=== PATIENT | female | born 1985 | race Caucasian/White ===

== ENCOUNTER → 2019-12-23 13:01 | Outpatient (BNVA) | payer OTHER, MEDICAID, SELFPAY | PROVIDERS: Family Provider Family Medicine; PCP Family Medicine; Visit Provider Nurse Practitioner Psychiatric/Mental Health | DX: F41.0 Panic disorder [episodic paroxysmal anxiety] (principal); F25.0 Schizoaffective disorder, bipolar type; F17.210 Nicotine dependence, cigarettes, uncomplicated; F43.12 Post-traumatic stress disorder, chronic | CPT/HCPCS: 99213 ==

== ENCOUNTER → 2020-03-16 08:00 | Outpatient (BNVA) | payer OTHER, MEDICAID, SELFPAY | PROVIDERS: Family Provider Family Medicine; PCP Family Medicine; Visit Provider Nurse Practitioner Psychiatric/Mental Health | DX: F41.0 Panic disorder [episodic paroxysmal anxiety] (principal); F25.0 Schizoaffective disorder, bipolar type; F17.210 Nicotine dependence, cigarettes, uncomplicated | CPT/HCPCS: 99213 ==

== ENCOUNTER → 2020-05-13 11:35 | Outpatient (BNVA) | payer OTHER, MEDICAID, SELFPAY | PROVIDERS: Family Provider Family Medicine; PCP Family Medicine; Visit Provider Nurse Practitioner Psychiatric/Mental Health | DX: F41.0 Panic disorder [episodic paroxysmal anxiety] (principal); F25.0 Schizoaffective disorder, bipolar type; F17.210 Nicotine dependence, cigarettes, uncomplicated | CPT/HCPCS: 99214 ==

== ENCOUNTER 2020-05-26 08:58 | Outpatient (CLI) | payer MEDICARE, MEDICAID, SELFPAY ==
--- NOTE | 2020-05-26 09:15 | MM_ITS ---
WS: [id number] BILATERAL DIGITAL SCREENING MAMMOGRAPHY WITH CAD CLINICAL INFORMATION: SCREENING HISTORY: Screening mammogram. No current complaints. COMPARISON: TECHNIQUE: Bilateral CC and MLO views. FINDINGS: The breasts are composed of heterogeneous fibroglandular density tissue, which can limit the detectio n of small underlying mass lesions. Stable intramammary lymph node left axillary tail. 6 mm asymmetry mid depth right breast along the posterior nipple line best seen on the MLO imaging. R ECOMMEND FURTHER EVALUATION WITH RIGHT DIAGNOSTIC MAMMOGRAPHY SPOT COMPRESSION VIEWS AND ULTRASOUND. Left breast is unremarkable and unchanged. MM/[id number] IMPRESSION: BI-RADS: 0-Incomplete: Need additional imaging evaluation FOLLOW UP: Need Additional Imaging
== END 2020-05-26 08:59 | disposition home or self-care (01) ==
LOC: RADSHAW 09:11
PROVIDERS: PCP Family Medicine; Visit Provider Family Medicine
DX: Z12.31 Encounter for screening mammogram for malignant neoplasm of breast (principal); N64.89 Other specified disorders of breast
CPT/HCPCS: 77067

== ENCOUNTER → 2020-06-17 08:18 | Outpatient (BNVA) | payer MEDICARE, MEDICAID, SELFPAY | PROVIDERS: PCP Family Medicine; Visit Provider Nurse Practitioner Psychiatric/Mental Health | DX: F41.0 Panic disorder [episodic paroxysmal anxiety] (principal); F25.0 Schizoaffective disorder, bipolar type; F17.210 Nicotine dependence, cigarettes, uncomplicated | CPT/HCPCS: 99214 ==

== ENCOUNTER → 2020-07-22 08:38 | Outpatient (BNVA) | payer MEDICARE, MEDICAID, SELFPAY | PROVIDERS: PCP Family Medicine; Visit Provider Nurse Practitioner Psychiatric/Mental Health | DX: F41.0 Panic disorder [episodic paroxysmal anxiety] (principal); F25.0 Schizoaffective disorder, bipolar type; F17.210 Nicotine dependence, cigarettes, uncomplicated | CPT/HCPCS: 99214 ==

== ENCOUNTER 2020-10-11 10:47 | Inpatient (IN) | payer MEDICARE, MEDICAID, SELFPAY ==
[2020-10-11 10:56] VITALS: BP 118/81; PULSE 93; RESP 18; TEMP 36.6; O2SAT 94; BMI 32.5
--- NOTE | 2020-10-11 11:29 | ED_ITS ---
HPI - Psych General: Chief Complaint: Psychiatric Symptoms Stated Complaint: psych eval/ 96 Time Seen by Provider: 10/11/20 11:18 Source: patient Mode of arrival: ambulatory Limitations: no limitations History of Present Illness: HPI Narrative: Patient is a 35-year-old female who presents to ED today at the request of her psychiatric provider at [facility] for complaints of worsening auditory hallucinations. They have tried treating patient with Seroquel without success. Patient tells me the auditory hallucinations have her very afraid as the voices are familiar voices of people she knows. The voices are not telling her to harm herself. She tells me she is not suicidal or homicidal. She is not experiencing visual hallucinations. She denies drug or alcohol use. MD complaint: other (auditory hallucinations ) Onset (ago): week(s) Duration: constant History of same: Yes Associated symptoms: Reports auditory hallucinations and depression; Deny visual hallucinations, homicidal ideation or suicidal ideation Review of Systems Const: Denies: fever(s) or chills Card: Denies: chest pain, palpitations, lightheadedness or syncope Resp: Denies: dyspnea GI: Denies: abdominal pain, nausea, vomiting or diarrhea Skin/Breast: Denies: rash Neuro: Denies: headache(s) Psych: Reports: anxiety, depression and auditory hallucinations; Denies: visual hallucinations, suicidal ideation or homicidal ideation FOR[facility] ED PFSH: Medical History Anxiety and depression HPV in female Insomnia Nicotine dependence, cigarettes, uncomplicated Panic disorder without agoraphobia Schizoaffective disorder, bipolar type Schizophrenia Tachycardia Family History Family/Other Cancer Diabetes Other Hypertension Denies family history of CAD (coronary artery disease) Clotting disorder Dementia Hyperlipidemia Psychiatric illness Chronic kidney disease (CKD) Suicide Anesthesia complication Bleeding disorder Family history of premature coronary artery disease Lung disease Stroke Social History Smoking and tobacco status: current every day smoker cigarettes Packs smoked per day: 1 Alcohol intake: never Physical Exam Const: COMMON NORMALS: no acute distress, patient oriented x3, alert and well nourished GENERAL APPEARANCE: cooperative and well kempt Resp: COMMON NORMALS: normal respiratory effort and clear to auscultation bilaterally AUSCULTATION: clear to auscultation bilaterally Cardio: COMMON NORMALS: regular rate and regular rhythm RATE: regular rate RHYTHM: regular rhythm Neuro: COMMON NORMALS: patient oriented x3 SENSORIUM/ORIENTATION: Yes alert Psych: COMMON NORMALS: mental status grossly normal, Normal thought process present, cooperative, activity/motor behavior normal, denies homicidal ideation and denies suicidal ideation APPEARANCE: Yes grossly normal and Yes well kempt ATTITUDE: Yes calm ACTIVITY/MOTOR BEHAVIOR: Yes appropriate eye contact and No psychomotor agitation SPEECH: Yes slow MOOD & AFFECT: Yes Flat affect present THOUGHT PROCESS: Normal thought process present THOUGHT CONTENT: Yes Normal thought content present ATTENTION/CONCENTRATION: Yes attention grossly intact and Yes concentration grossly intact MEMORY/COGNITION: Yes memory grossly intact and Yes cognition grossly intact INSIGHT: Good insight present (Psych) JUDGEMENT: Good judgement present (Psych) MDM - Psych Lab Data: Labs: Lab Results 10/11/20 10/11/20 10/11/20 Range/Units 12:00 12:00 12:00 WBC 11.2 H (4.0-10.0) 10^3/ uL RBC 3.92 L (4.1-5.3) 10^6/u L Hgb 13.1 (11.5-15.3) g/dL Hct 37.9 (37.0-47.0) % MCV 96.7 (81-99) fL MCH 33.4 (28.0-34.0) pg MCHC 34.6 (30.0-36.0) g/dL RDW 11.8 L (12.1-15.1) % Plt Count 290 (130-400) 10^3/c mm MPV 9.5 (7.4-10.4) fL Neut % (Auto) 67.4 % Lymph % (Auto) 24.0 % Sioux % (Auto) 6.3 % Eos % (Auto) 1.6 % Baso % (Auto) 0.4 % Neut # (Auto) 7.56 (1.8-7.7) 10^3/u L Lymph # (Auto) 2.7 (0.8-4.8) 10^3/u L Sioux # (Auto) 0.7 (0.2-0.9) 10^3/u L Eos # (Auto) 0.2 (0.0-0.8) 10^3/u L Baso # (Auto) 0.1 (0.0-0.1) 10^3/u L Nucleated RBC % (a uto) 0 % Nucleated RBCs # 0.0 /100WBC Sodium 132 L (136-145) mmol/L Potassium 3.9 (3.5-5.1) mmol/L Chloride 96 L (98-107) mmol/L Carbon Dioxide 25 (22-29) mmol/L Anion Gap 14.9 (5-19) BUN 4 L (6-20) mg/dL Creatinine 0.6 (0.5-0.9) mg/dL GFR Calculation 113.8 (90-130) mL/min Glucose 99 (65-115) mg/dL Calculated Osmolal ity 271 L (285-295) mOsm/k g Calcium 9.0 (8.5-10.5) mg/dL Total Bilirubin 0.2 (0.15-1.2) mg/dL AST 13 (0-32) U/L ALT 12 (0-33) U/L Alkaline Phosphata se 115 H (35-105) IU/L Total Protein 6.7 (6.6-8.7) g/dL Albumin 3.9 (3.5-5.2) g/dL Globulin 2.8 (1.3-4.6) g/dL HCG, Qual Negative (Negative) Salicylates < 0.3 L (3-10) mg/dL Urine Opiates Scre en (Negative) ng/mL Acetaminophen < 5.0 L (10-30) ug/mL Ur Barbiturates Sc reen (Negative) ng/mL Carbamazepine (4.0-12.0) ug/mL Ur Phencyclidine S crn (Negative) ng/mL Ur Amphetamines Sc reen (Negative) ng/mL U Benzodiazepines Scrn (Negative) ng/mL Urine Cocaine Scre en (Negative) ng/mL U Marijuana (THC) Screen (Negative) ng/mL Ethyl Alcohol < 10 (0-10) mg/dL 10/11/20 10/11/20 Range/Units 12:00 12:00 WBC (4.0-10.0) 10^3/ uL RBC (4.1-5.3) 10^6/u L Hgb (11.5-15.3) g/dL Hct (37.0-47.0) % MCV (81-99) fL MCH (28.0-34.0) pg MCHC (30.0-36.0) g/dL RDW (12.1-15.1) % Plt Count (130-400) 10^3/c mm MPV (7.4-10.4) fL Neut % (Auto) % Lymph % (Auto) % Sioux % (Auto) % Eos % (Auto) % Baso % (Auto) % Neut # (Auto) (1.8-7.7) 10^3/u L Lymph # (Auto) (0.8-4.8) 10^3/u L Sioux # (Auto) (0.2-0.9) 10^3/u L Eos # (Auto) (0.0-0.8) 10^3/u L Baso # (Auto) (0.0-0.1) 10^3/u L Nucleated RBC % (a uto) % Nucleated RBCs # /100WBC Sodium (136-145) mmol/L Potassium (3.5-5.1) mmol/L Chloride (98-107) mmol/L Carbon Dioxide (22-29) mmol/L Anion Gap (5-19) BUN (6-20) mg/dL Creatinine (0.5-0.9) mg/dL GFR Calculation (90-130) mL/min Glucose (65-115) mg/dL Calculated Osmolal ity (285-295) mOsm/k g Calcium (8.5-10.5) mg/dL Total Bilirubin (0.15-1.2) mg/dL AST (0-32) U/L ALT (0-33) U/L Alkaline Phosphata se (35-105) IU/L Total Protein (6.6-8.7) g/dL Albumin (3.5-5.2) g/dL Globulin (1.3-4.6) g/dL HCG, Qual (Negative) Salicylates (3-10) mg/dL Urine Opiates Scre en Negative (Negative) ng/mL Acetaminophen (10-30) ug/mL Ur Barbiturates Sc reen Negative (Negative) ng/mL Carbamazepine 9.1 (4.0-12.0) ug/mL Ur Phencyclidine S crn Negative (Negative) ng/mL Ur Amphetamines Sc reen Negative (Negative) ng/mL U Benzodiazepines Scrn Negative (Negative) ng/mL Urine Cocaine Scre en Negative (Negative) ng/mL U Marijuana (THC) Screen Negative (Negative) ng/mL Ethyl Alcohol (0-10) mg/dL Discharge Plan Discharge Patient Disposition: Admitted As Inpatient Clinical Impression: Auditory hallucinations Condition: Stable Coding Level of Care Code ED [employer] for Randi Fwd Exam Expanded Problem Focused
[2020-10-11 12:10] VITALS: BP 104/72; PULSE 81; RESP 16; O2SAT 96
[2020-10-11 12:18] LABS: Basophils # 0.1 10^3/uL (0.0-0.1); Basophils % 0.4 %; Eosinophils # 0.2 10^3/uL (0.0-0.8); Eosinophils % 1.6 %; Hematocrit 37.9 % (37.0-47.0); Hemoglobin 13.1 g/dL (11.5-15.3); Lymphocytes # 2.7 10^3/uL (0.8-4.8); Mean Corpuscular HGB Conc 34.6 g/dL (30.0-36.0); Mean Corpuscular Hemoglobin 33.4 pg (28.0-34.0); Mean Corpuscular Volume 96.7 fL (81-99); Mean Platelet Volume 9.5 fL (7.4-10.4); Monocytes # 0.7 10^3/uL (0.2-0.9); Monocytes % 6.3 %; Neutrophils # 7.56 10^3/uL (1.8-7.7); Neutrophils % 67.4 %; Nucleated Red Blood Cells % 0 %; Platelet Count 290 10^3/cmm (130-400); Red Blood Count 3.92 10^6/uL (4.1-5.3); Red Cell Distribution Width 11.8 % (12.1-15.1); White Blood Count 11.2 10^3/uL (4.0-10.0)
[2020-10-11 12:41] LABS: Amphetamines Screen Urine Negative (Negative); Barbiturates Screen Urine Negative (Negative); Benzodiazepines Screen Urine Negative (Negative); Cocaine Screen Urine Negative (Negative); Opiate Screen Urine Negative (Negative); PCP Screen Urine Negative (Negative); THC Screen Urine Negative (Negative)
[2020-10-11 12:51] LABS: Alanine Aminotransferase 12 U/L (0-33); Albumin Level 3.9 g/dL (3.5-5.2); Alkaline Phosphatase 115 IU/L (35-105); Anion Gap 14.9 (5-19); Aspartate Amino Transferase 13 U/L (0-32); Blood Urea Nitrogen 4 mg/dL (6-20); Carbon Dioxide 25 mmol/L (22-29); Chloride 96 mmol/L (98-107); Globulin 2.8 g/dL (1.3-4.6); Glomerular Filtration Rate 113.8 mL/min (90-130); Glucose 99 mg/dL (65-115); Osmolality Calculated 271 mOsm/kg (285-295); Potassium 3.9 mmol/L (3.5-5.1); Sodium 132 mmol/L (136-145); Total Bilirubin 0.2 mg/dL (0.15-1.2); Total Protein 6.7 g/dL (6.6-8.7)
[2020-10-11 12:52] LABS: HCG, Serum Qual Negative (Negative)
[2020-10-11 12:53] LABS: Acetaminophen < 5.0 ug/mL (10-30); Alcohol Level < 10 mg/dL (0-10); Salicylate < 0.3 mg/dL (3-10)
[2020-10-11 12:54] LABS: Carbamazepine Tegretol 9.1 ug/mL (4.0-12.0)
[2020-10-11 14:00] VITALS: BP 116/78; PULSE 87; RESP 16; TEMP 36.9; O2SAT 94
[2020-10-11] MEDS: carBAMazepine 200 mg Tablet 300 MG PO (17:59)
[2020-10-11] MEDS: quetiapine XR (24HR) 300 mg Tablet 600 MG PO (18:00)
[2020-10-11 19:32] VITALS: BP 109/76; PULSE 82; TEMP 36.7; O2SAT 96
[2020-10-11] MEDS: CLONazepam 1 mg Tablet PO (19:38)
[2020-10-11] MEDS: trazodone 50 mg Tablet PO (19:38)
[2020-10-11] MEDS: hyDROXYzine 25 mg Capsule 50 MG PO (19:38)
[2020-10-12] MEDS: duloxetine 30 mg Capsule PO (05:42)
[2020-10-12] MEDS: duloxetine 60 mg Capsule PO (05:42)
[2020-10-12 05:46] VITALS: BP 96/61; PULSE 69; RESP 18; TEMP 36.9; O2SAT 92
[2020-10-12] MEDS: bisacodyl 5 mg Tablet PO (08:32)
[2020-10-12] MEDS: CLONazepam 1 mg Tablet PO ×3 (08:32→21:19)
[2020-10-12] MEDS: carBAMazepine 200 mg Tablet 300 MG PO ×2 (08:32→18:08)
[2020-10-12] MEDS: multivitamin therapeutic Tablet 1 TAB PO (08:32)
[2020-10-12] MEDS: baclofen 10 mg Tablet PO (08:32)
[2020-10-12] MEDS: pantoprazole DR 40 mg Tablet PO (08:32)
[2020-10-12] MEDS: docusate sodium 100 mg Capsule PO (08:32)
--- NOTE | 2020-10-12 10:21 | P.HP_ITS ---
Providers/Chief Complaint Admitting Physician: Rojelio Copeland MD Primary Care Provider: Meseret Tejeda DO Chief Complaint: psych eval HPI NPU History of Present Illness Kathrin Patricio is a 35 year old female who presented to the emergency department with the following report: Chief Complaint: Psychiatric Symptoms Stated Complaint: psych eval/ 96 Time Seen by Provider: 10/11/20 11:18 Source: patient Mode of arrival: ambulatory Limitations: no limitations History of Present Illness: HPI Narrative: Patient is a 35-year-old female who presents to ED today at the request of her psychiatric provider at [facility] [place] for complaints of worsening auditory hallucinations. They have tried treating patient with Seroquel without success. Patient tells me the auditory hallucinations have her very afraid as the voices are familiar voices of people she knows. The voices are not telling her to harm herself. She tells me she is not suicidal or homicidal. She is not experiencing visual hallucinations. She denies drug or alcohol use. complaint: other (auditory hallucinations ) Onset (ago): week(s) Duration: constant History of same: Yes Associated symptoms: Reports auditory hallucinations and depression; Deny visual hallucinations, homicidal ideation or suicidal ideation. So she is admitted to the neuropsychiatric unit for definitive treatment of those issues. Kathrin presents today reporting that she is not sure exactly why they thought she needed to be here. But then in the conversation after multiple questions little frustration she revealed that she is having significant voices that she is hearing but the voices are real and that they knew she was coming up here and once he got here they got quiet to throw her off. We reviewed her me dication including Zyprexa, Clozaril, Seroquel, Abilify and others including Depakote and lithium and she was resistant to the thought that they were helpful. She reported that there've been a discussion about initiating Thorazine and Invega in injectable form and suggested that it's possible that the Invega did help and it may be she just needed a higher dose. We discussed the risks benefits and alternatives of initiating Invega and she understood and agreed receive as is documented in this note. We agreed that we would wait to get a response from her outpatient providers given her extensive medication history before embarking on this plan. She endorses that she had been admitted here multiple times the last time was in March 2019. Due to her challenges as a historian we reviewed that note and he agreed that it was an accurate historical data point and an excerpt is included below. Per her last [facility] inpatient eval: Date of Service: Apr 04, 2019 Chief Complaint: I just get harassed by these voices now. HPI: Ms. Patricio is a 34-year-old female with a history of schizoaffective disorder bipolar type who is known to our [facility] who came to [facility] ED with a complaint of worsening auditory hallucinations, delusions, and suicidal/homicidal ideation. The patient reports that recently one of the voices has been threatening her to be with him or he'll kill her. She reports that it is someone who is It's somebody that I'm planning to meet. He's semi-famous, but i don't wanna say his name. She reports that she is planning to contact him and put her or Facebook and should not have even told this provider because she fears I'll get in trouble. She is tearful throughout the interview and knows that she cannot have a marriage relationship or children with her chronic mental illness. She reports that she feels that she has to go off of her medications due to , her mental illness will only get worse. She reports that the voices are intermittent but seem to have been getting worse over the past several months. As result of this experience, the patient reports sometimes when I think of this man, I get so mad. I have thoughts of hurting my mother but not him. I've had thoughts of giving up on myself. Patient denies any plans to harm herself or her mother reports that her mother also has some sort of role in these hallucinations which are difficult to understand. Psychiatric review systems: The patient reports frequent depression, anxiety, and irritability due to these intrusive command/threatening auditory h allucinations. She denies any visual hallucinations. Does endorse paranoia that her life may be an danger and apparent erotomanic delusions that someone famous is in love with her. She reports that she has been sleeping and eating okay. She often feels fatigued or socially withdrawn due to these hallucinations. Past Medical History Past Medical History: PAST PSYCHIATRIC HISTORY: -Patient has had greater than 10 hospitalizations on the NPU for acute exacerbation of schizoaffective disorder and anxiety. Last admission in October 2018. Patient currently goes to [facility] [place] and sees Luisa VARGAS prescribes non-klonopin meds. Denies hx SA/ violence. -Previous medication trials include clonazepam, Invega, Abilify including long- acting injectable (reports feeling better since off the medication), Geodon, Celexa/Lexapro not helpful, Prozac increased head pressure. She has recently been taking Abilify 30 mg daily in addition to receiving the Abilify Maintena injection 400 mg monthly. Other past medications Seroquel XR 800 mg every 7 PM with Klonopin 0.5 mg 3 times a day when necessary. Patient reports Haldol was helpful and has had dose increased to 5 mg twice a day approximately one month ago with additional when necessary available. PAST FAMILY PSYCHIATRIC HISTORY: -reports extensive mood/ psychotic do SOCIAL HISTORY: -Currently lives at [facility], she does have family/mother in the area, Amilcar Calabrese is her guardian. on disability, unemployed. Denies alcohol/ illicit drugs. Tobacco- 1.5PPD. Denies legal problems. PAST MEDICAL HISTORY: -onychomycosis, Plantar fasciitis. Denies hx seizures/ surgeries. Meds NPU Home Medications Medication Instructions Recorded Confirmed Last Taken Type baclofen 10 mg tablet 10 mg PO TID PRN 11/12/19 10/11/20 Unknown History nigkyyp-mppxxwqno-hgps 1 tab PO DAILY 11/12/19 10/11/20 Unknown History diphenhydramine HCl 25 mg tablet 25 mg PO TID PRN 11/12/19 10/11/20 Unknown History hydrocortisone 1 % topical cream 1 applic TOPICAL TID PRN 11/12/19 10/11/20 Unknown History multivitamin with iron-mineral 1 tab PO DAILY 11/12/19 10/11/20 Unknown History norgestimate-ethinyl estradiol 1 tab PO DAILY 11/12/19 10/11/20 Unknown History 0.18 mg/0.215mg/0.25mg-35 mcg(28)tablet omeprazole 40 mg capsule,delayed 40 mg PO DAILY 11/12/19 10/11/20 Unknown History release tramadol 50 mg tablet 50 mg PO Q6H PRN 11/12/19 10/11/20 Unknown History carbamazepine 200 mg tablet 300 mg PO BID 30 Days #90 tab 06/17/20 10/11/20 Unknown Rx duloxetine 30 mg capsule,delayed 30 mg PO QAM #30 cap 06/17/20 10/11/20 Unknown Rx release duloxetine 60 mg capsule,delayed 60 mg PO QAM #30 cap 06/17/20 10/11/20 Unknown Rx release clonazepam 1 mg tablet 1 mg PO TID #90 tab 07/26/20 10/11/20 Unknown Rx haloperidol 10 mg tablet 10 mg PO BID PRN #60 tab 07/26/20 10/11/20 Unknown Rx quetiapine 300 mg tablet,extended 600 mg PO .7 pm #60 tab 10/06/20 10/11/20 Unknown Rx release 24 hr Colace 100 mg PO DAILY 10/11/20 10/11/20 Unknown History Miralax 1 packet PO DAILY 10/11/20 10/11/20 Unknown History Mazeppa 3 1,000 mg PO DAILY 10/11/20 10/11/20 Unknown History Tri-Linyah 1 tab PO DAILY 10/11/20 10/11/20 Unknown History Tylenol Extra Strength 1 - 2 tab PO Q4-5H PRN 10/11/20 10/11/20 Unknown History albuterol 2 puff INHALATION QID PRN 10/11/20 10/11/20 Unknown History benztropine [Cogentin] 1 mg PO BEDTIME 10/11/20 10/11/20 Unknown History folic acid 800 mg PO DAILY 10/11/20 10/11/20 Unknown History ibuprofen [Motrin] 200 mg PO Q6H PRN 10/11/20 10/11/20 Unknown History mag citrate-potassium citrate 1 % PO PER PKG DIR PRN 10/11/20 10/11/20 Unknown History pilocarpine HCl 5 mg PO TID 10/11/20 10/11/20 Unknown History senna 17 mg PO DAILY PRN 10/11/20 10/11/20 Unknown History Allergies Allergy/AdvReac Type Severity Reaction Status Date / Time Sulfa (Sulfonamide Allergy algy-rash Verified 10/11/20 10:59 Antibiotics) PFSH NPU PFSH: Medical History Anxiety and depression HPV in female Insomnia Nicotine dependence, cigarettes, uncomplicated Panic disorder without agoraphobia Schizoaffective disorder, bipolar type Schizophrenia Tachycardia Family History Family/Other Cancer Diabetes Other Hypertension Denies family history of CAD (coronary artery disease) Clotting disorder Dementia Hyperlipidemia Psychiatric illness Chronic kidney disease (CKD) Suicide Anesthesia complication Bleeding disorder Family history of premature coronary artery disease Lung disease Stroke Social History Smoking and tobacco status: current every day smoker cigarettes Packs smoked per day: 1 Alcohol intake: never Mental Status Exam MSE Comments: This is an obese white female with hospital scrubs on with appropriate grooming and eye contact. No abnormal movements except for mild psychomotor retardation. Cooperative with exam in mild distress. Speech was normal rate and volume. Mood described as don't know, affect slightly subdued. Thought process organized. Thought content: Patient denied suicidal or homicidal ideation, there were no delusions reported but paranoid ideation was present, she endorsed auditory hallucinations but believes him to be real and denies visual hallucinations. Attention and concentration appeared intact and memory somewhat reliable but none more formally tested. She is alert and oriented ?3. Insight and judgment are impaired. Vitals/I&O/Wt Last Vital Signs Temp 98.4 F 10/12/20 05:46 Pulse 69 10/12/20 05:46 Resp 18 10/12/20 05:46 BP 96/61 10/12/20 05:46 Pulse Ox 92 10/12/20 05:46 Weight last 48 hrs Weight 86.183 kg Data NPU : 10/11/20 12:00 10/11/20 12:00 A&P Assessment and plan (1) Auditory hallucinations: Status: Acute (2) Nicotine dependence, cigarettes, uncomplicated: Status: Chronic (3) Schizoaffective disorder, bipolar type: Status: Chronic (4) Panic disorder without agoraphobia: Status: Chronic (5) Onychomycosis: Status: Acute Additional A&P Information This is a 35-year-old white female with a long history of thought disorder and schizoaffective disorder who presents with breakthrough symptoms and an openness to adjusting medications. 1. Continue current medication. We will consider initiating Invega 6 mg by mouth every morning after discussing situation with outpatient providers. 2. Continue every 15 minute checks for safety. 3. Encourage individual, group and milieu therapy. Involuntary Hold Information 96 Hour Hold: 96 Hour Involuntary Admission: No Attestations NPU Medical Necessity Statement*: Inpatient hospitalization is medically necessary and the clinically appropriate intervention at this time. We will monitor medications and make changes as indicated. She will be in the hospital over two midnights. Likely length of stay 4-6 days. Coding Level of Care Code Acute Photo Lab Technician for Randi Fwd Diagnoses Auditory hallucinations R44.0 Nicotine dependence, cigarettes, uncomplicated F17.210 Schizoaffective disorder, bipolar type F25.0 Panic disorder without agoraphobia F41.0 Onychomycosis B35.1
[2020-10-12 14:00] VITALS: BP 113/75; PULSE 93; RESP 20; TEMP 36.6; O2SAT 94
[2020-10-12 17:17] VITALS: PULSE 95; RESP 15; O2SAT 97
[2020-10-12] MEDS: quetiapine XR (24HR) 300 mg Tablet 600 MG PO (18:08)
[2020-10-12] MEDS: hyDROXYzine 25 mg Capsule 50 MG PO (21:19)
[2020-10-12] MEDS: benztropine 1 mg Tablet PO (21:19)
[2020-10-12] MEDS: trazodone 50 mg Tablet PO (21:20)
[2020-10-12 22:00] VITALS: BP 119/79; PULSE 86; RESP 17; TEMP 36.8; O2SAT 94
[2020-10-13 06:00] VITALS: BP 101/67; PULSE 70; RESP 15; TEMP 36.7; O2SAT 95
[2020-10-13] MEDS: duloxetine 30 mg Capsule PO (06:35)
[2020-10-13] MEDS: duloxetine 60 mg Capsule PO (06:35)
[2020-10-13] MEDS: docusate sodium 100 mg Capsule PO (08:07)
[2020-10-13] MEDS: pantoprazole DR 40 mg Tablet PO (08:07)
[2020-10-13] MEDS: baclofen 10 mg Tablet PO (08:07)
[2020-10-13] MEDS: bisacodyl 5 mg Tablet PO (08:07)
[2020-10-13] MEDS: carBAMazepine 200 mg Tablet 300 MG PO ×2 (08:07→18:25)
[2020-10-13] MEDS: CLONazepam 1 mg Tablet PO ×3 (08:07→22:03)
[2020-10-13] MEDS: multivitamin therapeutic Tablet 1 TAB PO (08:08)
--- NOTE | 2020-10-13 10:06 | PC.RESP ---
Smoking Cessation information sent to patient.
--- NOTE | 2020-10-13 12:52 | PM.NPN ---
Subjective NPU Subjective: Interval history: Kathrin presents today reporting that things are going okay. We discussed our conversation with [facility] and the recommendation to initiate Invega followed by getting her on the Invega injection and she understood and agreed to proceed as is documented in this note. She reports that things are unchanged from yesterday. Endorsing some perceptual disturbances but reporting that she is optimistic and agreeable to making these medication changes. Mental Status Exam MSE Comments: This is an obese white female with hospital scrubs on with appropriate grooming and eye contact. No abnormal movements except for mild psychomotor retardation. Cooperative with exam in no acute distress. Speech was normal rate and volume. Mood described as okay, affect slightly subdued. Thought process organized. Thought content: Patient denied suicidal or homicidal ideation, there were no delusions reported but paranoid ideation was present, she endorsed auditory hallucinations but believes him to be real and denies visual hallucinations. Attention and concentration appeared intact and memory somewhat reliable but none more formally tested. She is alert and oriented ?3. Insight and judgment are impaired, but improving. Vitals/I&O/Wt Last Vital Signs Temp 98.0 F 10/13/20 06:00 Pulse 70 10/13/20 06:00 Resp 15 10/13/20 06:00 BP 101/67 10/13/20 06:00 Pulse Ox 95 10/13/20 06:00 Data NPU : 10/11/20 12:00 10/11/20 12:00 A&P Additional A&P Information (1) Auditory hallucinations: (2) Nicotine dependence, cigarettes, uncomplicated: (3) Schizoaffective disorder, bipolar type: (4) Panic disorder without agoraphobia: (5) Onychomycosis: Additional A&P Information This is a 35-year-old white female with a long history of thought disorder and schizoaffective disorder who presents with breakthrough symptoms and an openness to adjusting medications. 1. Continue current medication. Invega 6 mg p.o. every morning. We will look to start the injection on Sunday if she tolerates the oral dosing. 2. Continue every 15 minute checks for safety. 3. Encourage individual, group and milieu therapy. Involuntary Hold Information 96 Hour Hold: 96 Hour Involuntary Admission: No Attestations NPU Medical Necessity Statement*: Inpatient hospitalization is medically necessary and the clinically appropriate intervention at this time. We will monitor medications and make changes as indicated. Likely length of stay 3-5 days. Coding Level of Care Code Acute Regional Director Of Admissions for Randi Sethi
[2020-10-13] MEDS: paliperidone ER 6 mg Tablet PO (13:27)
[2020-10-13] MEDS: TRAMadol 50 mg Tablet PO (13:42)
[2020-10-13 13:59] VITALS: PULSE 89; RESP 16
[2020-10-13 14:00] VITALS: BP 105/76; PULSE 92; RESP 20; TEMP 36.6; O2SAT 96
[2020-10-13] MEDS: quetiapine XR (24HR) 300 mg Tablet PO (18:26)
[2020-10-13 20:10] VITALS: BP 124/85; PULSE 95; RESP 16; TEMP 36.3; O2SAT 93
[2020-10-13] MEDS: benztropine 1 mg Tablet PO (22:03)
[2020-10-13] MEDS: OLANZapine 5 mg ODT PO (22:03)
[2020-10-14 06:00] VITALS: BP 133/91; PULSE 82; RESP 18; TEMP 36.6; O2SAT 98
[2020-10-14] MEDS: duloxetine 60 mg Capsule PO (06:06)
[2020-10-14] MEDS: duloxetine 30 mg Capsule PO (06:06)
[2020-10-14] MEDS: TRAMadol 50 mg Tablet PO ×3 (06:37→21:25)
[2020-10-14] MEDS: carBAMazepine 200 mg Tablet 300 MG PO ×2 (08:37→16:52)
[2020-10-14] MEDS: baclofen 10 mg Tablet PO (08:37)
[2020-10-14] MEDS: bisacodyl 5 mg Tablet PO (08:37)
[2020-10-14] MEDS: paliperidone ER 6 mg Tablet PO (08:38)
[2020-10-14] MEDS: CLONazepam 1 mg Tablet PO ×3 (08:38→21:25)
[2020-10-14] MEDS: multivitamin therapeutic Tablet 1 TAB PO (08:39)
[2020-10-14] MEDS: pantoprazole DR 40 mg Tablet PO (08:39)
[2020-10-14] MEDS: docusate sodium 100 mg Capsule PO (08:39)
--- NOTE | 2020-10-14 12:42 | PC.NURSE ---
PRN Med - Patient requested pain med for leg pain. rates pain at an 8/10. Encouraged patient to ambulate or elevate for pain relief if pain continues. Patient voiced understanding and Tramadol given PO. MALIW, COMMUTATOR REPAIRER
[2020-10-14 14:00] VITALS: BP 106/74; PULSE 83; RESP 18; TEMP 36.8; O2SAT 97
--- NOTE | 2020-10-14 15:02 | PM.NPN ---
Subjective NPU Subjective: Interval history: Monitor presented today reporting that she is doing a little better today. She does report at this point that she feels she can go forward with the Invega today. Patient came in was not helpful but later said it cured her voices. Unfortunately the likely reality is that she is focused on discharge and would likely say what ever she thinks will accomplish that. We discussed the possibility of injection in the morning then begin discussing discharge planning. She reports she is eating okay and sleeping fine. Mental Status Exam MSE Comments: This is an obese white female with hospital scrubs on with appropriate grooming and eye contact. No abnormal movements. Cooperative with exam in no acute distress. Speech was normal rate and volume. Mood described as better, affect congruent. Thought process organized. Thought content: Patient denied suicidal or homicidal ideation, there were no delusions reported but paranoid ideation was present, she denied auditory hallucinations. Attention and concentration appeared intact and memory somewhat reliable but none more formally tested. She is alert and oriented ?3. Insight and judgment are impaired, but improving. Vitals/I&O/Wt Last Vital Signs Temp 98.2 F 10/14/20 14:00 Pulse 83 10/14/20 14:00 Resp 18 10/14/20 14:00 BP 106/74 10/14/20 14:00 Pulse Ox 97 10/14/20 14:00 Data NPU : 10/11/20 12:00 10/11/20 12:00 A&P Additional A&P Information (1) Auditory hallucinations: (2) Nicotine dependence, cigarettes, uncomplicated: (3) Schizoaffective disorder, bipolar type: (4) Panic disorder without agoraphobia: (5) Onychomycosis: Additional A&P Information This is a 35-year-old white female with a long history of thought disorder and schizoaffective disorder who presents with breakthrough symptoms and an openness to adjusting medications. 1. Continue current medication. We will look to start the injection on Sunday. 2. Continue every 15 minute checks for safety. 3. Encourage individual, group and milieu therapy. Involuntary Hold Information 96 Hour Hold: 96 Hour Involuntary Admission: No Attestations NPU Medical Necessity Statement*: Inpatient hospitalization is medically necessary and the clinically appropriate intervention at this time. We will monitor medications and make changes as indicated. Likely length of stay 2-4 days. Coding Level of Care Code Acute Rd Mechanical Engineer for Randi Sethi
[2020-10-14] MEDS: quetiapine XR (24HR) 300 mg Tablet PO (17:59)
[2020-10-14 19:31] VITALS: PULSE 77; RESP 17; O2SAT 98
[2020-10-14 20:01] VITALS: BP 111/79; PULSE 64; RESP 19; TEMP 36.6; O2SAT 96
[2020-10-14] MEDS: benztropine 1 mg Tablet PO (21:25)
[2020-10-15 06:00] VITALS: BP 115/78; PULSE 80; RESP 17; TEMP 36.9; O2SAT 92
[2020-10-15] MEDS: duloxetine 30 mg Capsule PO (06:26)
[2020-10-15] MEDS: duloxetine 60 mg Capsule PO (06:26)
[2020-10-15] MEDS: pantoprazole DR 40 mg Tablet PO (08:05)
[2020-10-15] MEDS: multivitamin therapeutic Tablet 1 TAB PO (08:05)
[2020-10-15] MEDS: carBAMazepine 200 mg Tablet 300 MG PO (08:05)
[2020-10-15] MEDS: bisacodyl 5 mg Tablet PO (08:05)
[2020-10-15] MEDS: CLONazepam 1 mg Tablet PO (08:07)
[2020-10-15] MEDS: docusate sodium 100 mg Capsule PO (08:07)
[2020-10-15] MEDS: paliperidone ER 6 mg Tablet PO (08:07)
[2020-10-15] MEDS: baclofen 10 mg Tablet PO (08:07)
[2020-10-15] MEDS: paliperidone palmitate 234 mg Syringe IM (09:03)
--- NOTE | 2020-10-15 09:06 | PC.NURSE ---
INVLATOYA SUSTENNA 234 MG GIVEN IM RIGHT DELTOID PER PHYSICIAN ORDER. PT EDUCATED ON MED GIVEN & VERBALIZED UNDERSTANDING. WILL CONT TO MONITOR INJECTION SITE FOR ANY REDNESS, SWELLING, OR IRRITATION. LOT [id number] EXP 01/2022
--- NOTE | 2020-10-15 13:22 | PC.SOCIAL ---
Important Medicare Message Reviewed Important Medicare Message with patient's guardian Amilcar Lizarraga. No questions at this time.
--- NOTE | 2020-10-15 14:49 | PM.NDC ---
Diagnoses at Discharge Discharge Diagnosis (1) Auditory hallucinations: Status: Acute (2) Nicotine dependence, cigarettes, uncomplicated: Status: Chronic (3) Schizoaffective disorder, bipolar type: Status: Chronic (4) Panic disorder without agoraphobia: Status: Chronic (5) Onychomycosis: Status: Acute Reason for Visit Reason for Visit: psych eval Brief History: History of Present Illness Kathrin Patricio is a 35 year old female who presented to the emergency department with the following report: Chief Complaint: Psychiatric Symptoms Stated Complaint: psych eval/ 96 Time Seen by Provider: 10/11/20 11:18 Source: patient Mode of arrival: ambulatory Limitations: no limitations History of Present Illness: HPI Narrative: Patient is a 35-year-old female who presents to ED today at the request of her psychiatric provider at [facility] for complaints of worsening auditory hallucinations. They have tried treating patient with Seroquel without success. Patient tells me the auditory hallucinations have her very afraid as the voices are familiar voices of people she knows. The voices are not telling her to harm herself. She tells me she is not suicidal or homicidal. She is not experiencing visual hallucinations. She denies drug or alcohol use. MD complaint: other (auditory hallucinations ) Onset (ago): week(s) Duration: constant History of same: Yes Associated symptoms: Reports auditory hallucinations and depression; Deny visual hallucinations, homicidal ideation or suicidal ideation. So she is admitted to the neuropsychiatric unit for definitive treatment of those issues. Kathrin presents today reporting that she is not sure exactly why they thought she needed to be here. But then in the conversation after multiple questions little frustration she revealed that she is having significant voices that she is hearing but the voices are real and that they knew she was coming up here and once he got here they got quiet to throw her off. We reviewed her medication including Zyprexa, Clozaril, Seroquel, Abilify and others including Depakote and lithium and she was resistant to the thought that they were helpful. She reported that there've been a discussion about initiating Thorazine and Invega in injectable form and suggested that it's possible that the Invega did help and it may be she just needed a higher dose. We discussed the risks benefits and alternatives of initiating Invega and she understood and agreed receive as is documented in this note. We agreed that we would wait to get a response from her outpatient providers given her extensive medication history before embarking on this plan. She endorses that she had been admitted here multiple times the last time was in March 2019. Due to her challenges as a historian we reviewed that note and he agreed that it was an accurate historical data point and an excerpt is included below. Per her last [facility] [place] eval: Date of Service: Apr 04, 2019 Chief Complaint: I just get harassed by these voices now. HPI: Ms. Patricio is a 34-year-old female with a history of schizoaffective disorder bipolar type who is known to our behavior health services who came to [facility] ED with a complaint of worsening auditory hallucinations, delusions, and suicidal/homicidal ideation. The patient reports that recently one of the voices has been threatening her to be with him or he'll kill her. She reports that it is someone who is It's somebody that I'm planning to meet. He's semi-famous, but i don't wanna say his name. She reports that she is planning to contact him and put her or Facebook and should not have even told this provider because she fears I'll get in trouble. She is tearful throughout the interview and knows that she cannot have a marriage relationship or children with her chronic mental illness. She reports that she feels that she has to go off of her medications due to , her mental illness will only get worse. She reports that the voices are intermittent but seem to have been getting worse over the past several months. As result of this experience, the patient reports sometimes when I think of this man, I get so mad. I have thoughts of hurting my mother but not him. I've had thoughts of giving up on myself. Patient denies any plans to harm herself or her mother reports that her mother also has some sort of role in these hallucinations which are difficult to understand. Psychiatric review systems: The patient reports frequent depression, anxiety, and irritability due to these intrusive command/threatening auditory hallucinations. She denies any visual hallucinations. Does endorse paranoia that her life may be an danger and apparent erotomanic delusions that someone famous is in love with her. She reports that she has been sleeping and eating okay. She often feels fatigued or socially withdrawn due to these hallucinations. Past Medical History Past Medical History: PAST PSYCHIATRIC HISTORY: -Patient has had greater than 10 hospitalizations on the NPU for acute exacerbation of schizoaffective disorder and anxiety. Last admission in October 2018. Patient currently goes to [facility] and sees Luisa VARGAS prescribes non-klonopin meds. Denies hx SA/ violence. -Previous medication trials include clonazepam, Invega, Abilify including long-acting injectable (reports feeling better since off the medication), Geodon, Celexa/Lexapro not helpful, Prozac increased head pressure. She has recently been taking Abilify 30 mg daily in addition to receiving the Abilify Maintena injection 400 mg monthly. Other past medications Seroquel XR 800 mg every 7 PM with Klonopin 0.5 mg 3 times a day when necessary. Patient reports Haldol was helpful and has had dose increased to 5 mg twice a day approximately one month ago with additional when necessary available. PAST FAMILY PSYCHIATRIC HISTORY: -reports extensive mood/ psychotic do SOCIAL HISTORY: -Currently lives at [facility], she does have family/mother in the area, Amilcar Calabrese is her guardian. on disability, unemployed. Denies alcohol/ illicit drugs. Tobacco- 1.5PPD. Denies legal problems. PAST MEDICAL HISTORY: -onychomycosis, Plantar fasciitis. Denies hx seizures/ surgeries. Hospital Course Hospital Course Kathrin presents to the emergency department at the behest of her outpatient team expressing significant concerns for psychosis and fear for suicidality. She was on a 96-hour hold and was admitted to the neuropsychiatric unit for definitive treatment of those issues. On the unit she very slowly acclimated to the individual, group and milieu therapy and was greatly impacted by her psychosis. She had been on multiple medications and was started on Invega and ultimately give any injection prior to Rx. She showed modest improvement and was able to contract for safety prior to discharge. She has significant outpatient support and she was connected with those resources at discharge. During the hospitalization, patient had routine laboratory studies which were within normal limits except for few outliers. Additionally there was a general medical evaluation which was also within normal limits and revealed no new acute processes. Discharge Summary: At the time of discharge, lethality was denied and psychosis was resolving. Mood and anxiety were well managed. Patient endorsed a plan to avoid all drugs of abuse and follow-up with the aftercare recommendations of the treatment team. Patient was evaluated and deemed to be absent credible lethality, and had achieved the maximum benefit from an inpatient hospitalization, so was discharged. Involuntary Hold Information 96 Hour Hold: 96 Hour Involuntary Admission: No Mental Status Exam MSE Comments: This is an obese white female with hospital scrubs on with appropriate grooming and eye contact. No abnormal movements. Cooperative with exam in no acute distress. Speech was normal rate and volume. Mood described as better, affect congruent. Thought process organized. Thought content: Patient denied suicidal or homicidal ideation, there were no delusions reported but paranoid ideation was present, she denied auditory hallucinations. Attention and concentration appeared intact and memory somewhat reliable but none more formally tested. She is alert and oriented ?3. Insight and judgment are impaired, but improving. Discharge Data Vitals: Last Vital Signs Temp 98.5 F 10/15/20 06:00 Pulse 80 10/15/20 06:00 Resp 17 10/15/20 06:00 BP 115/78 10/15/20 06:00 Pulse Ox 92 10/15/20 06:00 Discharge Plan Discharge Patient Disposition: Home Condition: Stable Prescriptions: New Invega Sustenna 156 mg/mL syringe 156 mg IM Q30D Qty: 1 RF: 1 quetiapine 300 mg Tablet Extended Release 24 Hr 300 mg PO 1900 30 Days Qty: 30 RF: 1 Terbinafine Hcl 250 mg PO DAILY 30 Days Qty: 30 RF: 1 Continued carbamazepine [Tegretol] 200 mg tablet 300 mg PO BID 30 Days Qty: 90 RF: 4 duloxetine [Cymbalta] 60 mg capsule,delayed release(DR/EC) 60 mg PO QAM Qty: 30 RF: 4 duloxetine [Cymbalta] 30 mg capsule,delayed release(DR/EC) 30 mg PO QAM Qty: 30 RF: 4 diphenhydramine HCl [Benadryl Allergy] 25 mg tablet 25 mg PO TID PRN (Reason: Allergy Symptoms) RF: 0 hydrocortisone [Cortisone (hydrocortisone)] 1 % cream 1 applic TOPICAL TID PRN (Reason: Itching) RF: 0 xkbafmm-otooxqbgp-xris 1 tab PO DAILY RF: 0 omeprazole 40 mg capsule,delayed release(DR/EC) 40 mg PO DAILY RF: 0 norgestimate-ethinyl estradiol [Tri-Linyah] 0.18/0.215/0.25 mg-35 mcg (28) tablet 1 tab PO DAILY RF: 0 baclofen 10 mg tablet 10 mg PO TID PRN (Reason: Muscle Spasm) RF: 0 tramadol 50 mg tablet 50 mg PO Q6H PRN (Reason: Pain) RF: 0 multivitamin with iron-mineral 1 tab PO DAILY RF: 0 clonazepam 1 mg tablet 1 mg PO TID Qty: 90 RF: 3 haloperidol 10 mg tablet 10 mg PO BID PRN (Reason: psychosis/agitation) Qty: 60 RF: 2 Egan 3 1,000 mg PO DAILY RF: 0 Colace 100 mg PO DAILY RF: 0 Tri-Linyah 1 tab PO DAILY RF: 0 Miralax 1 packet PO DAILY RF: 0 folic acid 800 mcg Tablet 800 mg PO DAILY RF: 0 benztropine 1 mg Tablet 1 mg PO BEDTIME RF: 0 pilocarpine HCl 5 mg PO TID RF: 0 Tylenol Extra Strength 1 - 2 tab PO Q4-5H PRN (Reason: Fever Or Pain) RF: 0 ibuprofen 100 mg Tablet 200 mg PO Q6H PRN (Reason: Fever Or Pain) RF: 0 senna 8.6 mg Capsule 17 mg PO DAILY PRN (Reason: Constipation) RF: 0 albuterol 2 puff inhalation QID PRN (Reason: Shortness Of Breath Or Wheezing) RF: 0 mag citrate-potassium citrate 1 % PO PER PKG DIR PRN (Reason: Constipation) RF: 0 Discontinued quetiapine [Seroquel XR] 300 mg tablet extended release 24 hr 600 mg PO .7 pm Qty: 60 RF: 1 No Action Invega Sustenna 156 mg/mL syringe 156 mg IM Q30D Qty: 1 RF: 0 Discharge Orders: Discharge Order (Routine); Ordered 10/15/20 Ordered By: Rojelio Copeland Referrals: [facility] [Outside] - 10/22/20 8:30 am (Appointment for booster Invega Sustenna injection (156mg) will need to be picked up at the pharmacy and brought to the appointment with you.) Shanell Hancock, PMHNP [Staff Physician] - 10/28/20 2:30 pm Meseret Tejeda, DO [Primary Care Provider] - Discharge Diet: Regular Discharge Activity: Resume usual activity Patient Instructions: Quetiapine (By mouth), Paliperidone (Injection) Discharge Attestations NPU Time Spent in Discharge Care*: less than 30 min Specific Discharge Activities: Specific discharge activities: educating patient, discussing with caseworker protective services/social workers/dc planners, documenting/other paperwork and evaluating patient/reviewing data Coding Level of Care Code Acute Cage Clerk for [facility] Fwd Diagnoses Auditory hallucinations R44.0 Nicotine dependence, cigarettes, uncomplicated F17.210 Schizoaffective disorder, bipolar type F25.0 Panic disorder without agoraphobia F41.0 Onychomycosis B35.1
[2020-10-15 14:57] VITALS: BP 115/78; PULSE 80; RESP 17; TEMP 36.9; O2SAT 92
== END 2020-10-15 16:22 | disposition home or self-care (01) | DRG 885 ==
LOC: ER 13:00 → NP 13:39
PROVIDERS: Admitting Provider Psychiatry & Neurology Psychiatry; Emergency Provider Physician Assistant; PCP Family Medicine; Visit Provider Psychiatry & Neurology Psychiatry
DX: F25.0 Schizoaffective disorder, bipolar type (principal); R45.851 Suicidal ideations; F41.8 Other specified anxiety disorders; G47.00 Insomnia, unspecified; F17.210 Nicotine dependence, cigarettes, uncomplicated; F41.0 Panic disorder [episodic paroxysmal anxiety]; B35.1 Tinea unguium
CPT/HCPCS: 12345; 80053; 80156; 80306; 80307; 84703; 85025; 96372; 99284

== ENCOUNTER → 2020-11-02 15:18 | Outpatient (BNVA) | payer MEDICARE, MEDICAID, SELFPAY | PROVIDERS: PCP Family Medicine; Visit Provider Nurse Practitioner Psychiatric/Mental Health | DX: F20.0 Paranoid schizophrenia (principal); F41.0 Panic disorder [episodic paroxysmal anxiety]; F17.210 Nicotine dependence, cigarettes, uncomplicated; F32.9 Major depressive disorder, single episode, unspecified | CPT/HCPCS: 99214 ==

== ENCOUNTER → 2020-11-12 07:27 | Outpatient (BNVA) | payer MEDICARE, MEDICAID, SELFPAY | PROVIDERS: PCP Family Medicine; Visit Provider Nurse Practitioner Psychiatric/Mental Health | DX: F20.0 Paranoid schizophrenia (principal); F41.0 Panic disorder [episodic paroxysmal anxiety]; F17.210 Nicotine dependence, cigarettes, uncomplicated | CPT/HCPCS: 99215 ==

== ENCOUNTER → 2020-11-30 07:21 | Outpatient (BNVA) | payer MEDICARE, MEDICAID, SELFPAY | PROVIDERS: PCP Family Medicine; Visit Provider Nurse Practitioner Psychiatric/Mental Health | DX: F20.0 Paranoid schizophrenia (principal); F41.0 Panic disorder [episodic paroxysmal anxiety]; F17.210 Nicotine dependence, cigarettes, uncomplicated | CPT/HCPCS: 99214 ==

== ENCOUNTER → 2020-12-14 07:22 | Outpatient (BNVA) | payer MEDICARE, MEDICAID, SELFPAY | PROVIDERS: PCP Family Medicine; Visit Provider Nurse Practitioner Psychiatric/Mental Health | DX: F20.0 Paranoid schizophrenia (principal); F41.0 Panic disorder [episodic paroxysmal anxiety]; F17.210 Nicotine dependence, cigarettes, uncomplicated | CPT/HCPCS: 99214 ==

== ENCOUNTER → 2020-12-22 13:10 | Outpatient (BNVA) | payer MEDICARE, MEDICAID, SELFPAY | PROVIDERS: PCP Family Medicine; Visit Provider Nurse Practitioner Psychiatric/Mental Health | DX: Z79.899 Other long term (current) drug therapy (principal) | CPT/HCPCS: 80053; 80061; 83036 ==

== ENCOUNTER 2021-05-24 13:12 | Inpatient (IN) | payer MEDICARE, MEDICAID, SELFPAY ==
[2021-05-24 13:30] VITALS: BP 105/70; PULSE 82; RESP 18; TEMP 36.3; O2SAT 95; BMI 30.2
--- NOTE | 2021-05-24 13:48 | W.ED.PSYCH ---
HPI - Psych General: Chief Complaint: Psychiatric Symptoms Stated Complaint: mhe Time Seen by Provider: 05/24/21 13:37 History of Present Illness: HPI Narrative: Ms Patricio is a 36-year-old lady with significant past medical history of paranoid schizophrenia who presents emergency department due to psychiatric concerns. History of present illness is somewhat limited given the patient's underlying psychiatric disorder. She endorses for some time now increased auditory hallucinations including command hallucination to harm herself. Specifically she is being told to stab herself in the chest with a knife. The patient offers poor insight into the degree of decompensation. Per chart review she was previously discharged on Depo Invega which she stopped taking an unclear time ago. The patient otherwise denies medical complaints. The exact course, intensity, provoking, exacerbating, or alleviating factors are unclear. Review of Systems Narrative: Psych: Auditory hallucinations, suicidal ideation, command hallucinations. Patient reports for sleep. Unable to obtain review of systems otherwise given tangential and disorganized mental state [facility] ED PFSH: Medical History (Updated 11/02/20 @ 15:47 by Shanell Hancock, [facility]) Anxiety and depression HPV in female Insomnia Nicotine dependence, cigarettes, uncomplicated Panic disorder without agoraphobia Paranoid schizophrenia Schizophrenia Tachycardia Family History Family/Other Cancer Diabetes Other Hypertension Denies family history of CAD (coronary artery disease) Clotting disorder Dementia Hyperlipidemia Psychiatric illness Chronic kidney disease (CKD) Suicide Anesthesia complication Bleeding disorder Family history of premature coronary artery disease Lung disease Stroke Social History Smoking and tobacco status: current every day smoker cigarettes Packs smoked per day: 1 Alcohol intake: never Physical Exam Narrative: EXAM NARRATIVE: GENERAL/CONSTITUTIONAL -mildly disheveled appearance. No acute distress. Eyes - PERRL, no conjunctival injection ENMT - Atraumatic external nose and ears. Moist mucous membranes NECK - supple. trachea midline CARDIOVASCULAR - regular rate and rhythm. RESPIRATORY -clear to auscultation bilaterally. No retractions or accessory muscle use. ABDOMEN/GI - Nontender/Nondistended. MSK - Extremities without obvious deformity or tenderness to palpation SKIN - Warm, Dry NEURO - alert and appropriately oriented. Moves all extremities equally. PSYCH -disorganized, tangential, occasionally pressured, rare instances of appearing to react to internal stimuli. Course ED course: - Patient was seen and evaluated by me at bedside - Patient placed on cardiac monitors, IV access obtained - Initial evaluation notable for as noted above, patient appears to be suffering from mental health problems - Labs notable for as noted - Based on patient history, evaluation, labs, and imaging as interpreted the most likely cause of the patient's condition is psychiatric in nature - The results of ED evaluation were discussed with the patient including plan for admission due to requirement for level of care not available if discharged to prevent significant worsening/deterioration. -Dr. Copeland with the psychiatry service was contacted and agreed to admit the patient. -Based on ED evaluation at this point there is no obvious condition that would preclude the patient from inpatient management of her psychiatric concerns. - Patient was admitted without further deterioration or significant events. Vital Signs: Vital signs: Vital Signs Temperature 97.9 F 05/25/21 20:17 Pulse Rate 58 L 05/25/21 20:17 Respiratory Rate 18 05/25/21 20:17 Blood Pressure 104/70 05/25/21 20:17 Pulse Oximetry 95 05/25/21 20:17 MDM - Psych Medical Records: Attestation: I reviewed the patient's medical records. Lab Data: Attestation: I reviewed the patient's lab results. Labs: Lab Results 05/24/21 05/24/21 05/24/21 Range/Units 13:44 13:44 13:44 WBC (4.0-10.0) 10^3/ uL RBC (4.1-5.3) 10^6/u L Hgb (11.5-15.3) g/dL Hct (37.0-47.0) % MCV (81-99) fl MCH (28.0-34.0) pg MCHC (30.0-36.0) g/dL RDW (12.1-15.1) % Plt Count (130-400) 10^3/c mm MPV (7.4-10.4) fL Neut % (Auto) % Lymph % (Auto) % Blackford % (Auto) % Eos % (Auto) % Baso % (Auto) % Neut # (Auto) (1.8-7.7) 10^3/u L Lymph # (Auto) (0.8-4.8) 10^3/u L Blackford # (Auto) (0.2-0.9) 10^3/u L Eos # (Auto) (0.0-0.8) 10^3/u L Baso # (Auto) (0.0-0.1) 10^3/u L Nucleated RBC % (a uto) % Nucleated RBCs # /100WBC Sodium (136-145) mmol/L Potassium (3.5-5.1) mmol/L Chloride (98-107) mmol/L Carbon Dioxide (22-29) mmol/L Anion Gap (5-19) BUN (6-20) mg/dL Creatinine (0.5-0.9) mg/dL GFR Calculation (90-130) mL/min Glucose (65-115) mg/dL Calculated Osmolal ity (285-295) mOsm/k g Calcium (8.5-10.5) mg/dL Total Bilirubin (0.15-1.2) mg/dL AST (0-32) U/L ALT (0-33) U/L Alkaline Phosphata se (35-105) IU/L Total Protein (6.6-8.7) g/dL Albumin (3.5-5.2) g/dL Globulin (1.3-4.6) g/dL HCG, Qual Negative (Negative) Urine Color Yellow (Yellow) Urine Appearance Clear (CLEAR) Urine pH 7 (5-7) Ur Specific Gravit y 1.005 (1.005-1.030) Urine Protein Neg (Negative) Urine Glucose (UA) Norm (Normal) Urine Ketones Negative (Negative) Urine Blood Neg (Negative) Urine Nitrate Negative (Negative) Urine Bilirubin Neg (Negative) Urine Urobilinogen Norm (Negative) mg/dL Ur Leukocyte She ase Negative (Negative) Salicylates (3-10) mg/dL Urine Opiates Scre en Positive H (Negative) ng/mL Acetaminophen (10-30) ug/mL Ur Barbiturates Sc reen Negative (Negative) ng/mL Ur Phencyclidine S crn Negative (Negative) ng/mL Ur Amphetamines Sc reen Negative (Negative) ng/mL U Benzodiazepines Scrn Positive H (Negative) ng/mL Urine Cocaine Scre en Negative (Negative) ng/mL U Marijuana (THC) Screen Negative (Negative) ng/mL SARS-CoV-2 Ag (Rap id) (Negative) 05/24/21 05/24/21 05/24/21 Range/Units 14:28 14:28 16:20 WBC 9.2 (4.0-10.0) 10^3/ uL RBC 3.92 L (4.1-5.3) 10^6/u L Hgb 13.1 (11.5-15.3) g/dL Hct 37.9 (37.0-47.0) % MCV 96.7 (81-99) fl MCH 33.4 (28.0-34.0) pg MCHC 34.6 (30.0-36.0) g/dL RDW 11.8 L (12.1-15.1) % Plt Count 277 (130-400) 10^3/c mm MPV 9.6 (7.4-10.4) fL Neut % (Auto) 59.9 % Lymph % (Auto) 30.3 % Blackford % (Auto) 6.8 % Eos % (Auto) 2.2 % Baso % (Auto) 0.6 % Neut # (Auto) 5.53 (1.8-7.7) 10^3/u L Lymph # (Auto) 2.8 (0.8-4.8) 10^3/u L Blackford # (Auto) 0.6 (0.2-0.9) 10^3/u L Eos # (Auto) 0.2 (0.0-0.8) 10^3/u L Baso # (Auto) 0.1 (0.0-0.1) 10^3/u L Nucleated RBC % (a uto) 0 % Nucleated RBCs # 0.0 /100WBC Sodium 136 (136-145) mmol/L Potassium 3.9 (3.5-5.1) mmol/L Chloride 101 (98-107) mmol/L Carbon Dioxide 23 (22-29) mmol/L Anion Gap 15.9 (5-19) BUN 5 L (6-20) mg/dL Creatinine 0.6 (0.5-0.9) mg/dL GFR Calculation 113.1 (90-130) mL/min Glucose 102 (65-115) mg/dL Calculated Osmolal ity 279 L (285-295) mOsm/k g Calcium 8.6 (8.5-10.5) mg/dL Total Bilirubin 0.2 (0.15-1.2) mg/dL AST 9 (0-32) U/L ALT 6 (0-33) U/L Alkaline Phosphata se 115 H (35-105) IU/L Total Protein 6.7 (6.6-8.7) g/dL Albumin 3.9 (3.5-5.2) g/dL Globulin 2.8 (1.3-4.6) g/dL HCG, Qual (Negative) Urine Color (Yellow) Urine Appearance (CLEAR) Urine pH (5-7) Ur Specific Gravit y (1.005-1.030) Urine Protein (Negative) Urine Glucose (UA) (Normal) Urine Ketones (Negative) Urine Blood (Negative) Urine Nitrate (Negative) Urine Bilirubin (Negative) Urine Urobilinogen (Negative) mg/dL Ur Leukocyte She ase (Negative) Salicylates < 0.3 L (3-10) mg/dL Urine Opiates Scre en (Negative) ng/mL Acetaminophen < 5.0 L (10-30) ug/mL Ur Barbiturates Sc reen (Negative) ng/mL Ur Phencyclidine S crn (Negative) ng/mL Ur Amphetamines Sc reen (Negative) ng/mL U Benzodiazepines Scrn (Negative) ng/mL Urine Cocaine Scre en (Negative) ng/mL U Marijuana (THC) Screen (Negative) ng/mL SARS-CoV-2 Ag (Rap id) Negative (Negative) Discharge Plan Discharge Admit Provider: Rojelio Copeland Condition: Stable Coding Level of Care Code ED Check Totaler for Randi Sethi
--- NOTE | 2021-05-24 14:00 | ECG_ITS ---
[facility] Test Date: 2021-05-24 Pat Name: Kathrin Patricio Department: Room: Gender: Female Supervisor Sandblaster: : 1985 Requested By: Ras Almanza Order Number: [id number] Sara MD: Brianna Sommers M.D. Measurements Intervals [place] Rate: 81 P: 15 AK: 125 QRS: 59 QRSD: 79 T: 44 QT: 359 QTc: 417 Interpretive Statements SINUS RHYTHM Compared to ECG 10/25/2018 13:02:37 T-wave abnormality no longer present Electronically Signed On 05-24-2021 16:10:03 CDT by Brianna Sommers M.D. [email or web address]
[2021-05-24 14:19] LABS: Add Urine Microscopic? NO; Charge for UA Resulting for Rev; HCG Qualitative Urine. Negative (Negative)
[2021-05-24 14:20] VITALS: BP 112/73; PULSE 78; O2SAT 96
[2021-05-24 14:35] VITALS: BP 112/73; PULSE 78; O2SAT 96
[2021-05-24 14:39] LABS: Bilirubin Urine Neg (Negative); Blood Urine Neg (Negative); Glucose Urine UA Norm (Normal); Ketones Urine Negative (Negative); Leukocyte Esterase Urine Negative (Negative); Nitrate Urine Negative (Negative); Protein Urine Neg (Negative); Specific Gravity, Urine 1.005 (1.005-1.030); Urine Appearance Clear (CLEAR); Urine Color Yellow (Yellow); Urobilinogen Urine Norm (Negative); pH Urine 7 (5-7)
--- NOTE | 2021-05-24 14:40 | PC.PHAR ---
PT IS FROM [facility] FROM [facility] STATES THE PT TOOK ALL AM MEDS
[2021-05-24 15:03] LABS: Alanine Aminotransferase 6 U/L (0-33); Albumin Level 3.9 g/dL (3.5-5.2); Alkaline Phosphatase 115 IU/L (35-105); Anion Gap 15.9 (5-19); Aspartate Amino Transferase 9 U/L (0-32); Basophils # 0.1 10^3/uL (0.0-0.1); Basophils % 0.6 %; Blood Urea Nitrogen 5 mg/dL (6-20); Calcium 8.6 mg/dL (8.5-10.5); Carbon Dioxide 23 mmol/L (22-29); Chloride 101 mmol/L (98-107); Eosinophils # 0.2 10^3/uL (0.0-0.8); Eosinophils % 2.2 %; Globulin 2.8 g/dL (1.3-4.6); Glomerular Filtration Rate 113.1 mL/min (90-130); Glucose 102 mg/dL (65-115); Hematocrit 37.9 % (37.0-47.0); Hemoglobin 13.1 g/dL (11.5-15.3); Lymphocytes # 2.8 10^3/uL (0.8-4.8); Lymphocytes % 30.3 %; Mean Corpuscular HGB Conc 34.6 g/dL (30.0-36.0); Mean Corpuscular Hemoglobin 33.4 pg (28.0-34.0); Mean Corpuscular Volume 96.7 fl (81-99); Mean Platelet Volume 9.6 fL (7.4-10.4); Monocytes # 0.6 10^3/uL (0.2-0.9); Monocytes % 6.8 %; Neutrophils # 5.53 10^3/uL (1.8-7.7); Neutrophils % 59.9 %; Nucleated Red Blood Cells % 0 %; Osmolality Calculated 279 mOsm/kg (285-295); Platelet Count 277 10^3/cmm (130-400); Potassium 3.9 mmol/L (3.5-5.1); Red Blood Count 3.92 10^6/uL (4.1-5.3); Red Cell Distribution Width 11.8 % (12.1-15.1); Sodium 136 mmol/L (136-145); Total Bilirubin 0.2 mg/dL (0.15-1.2); Total Protein 6.7 g/dL (6.6-8.7); White Blood Count 9.2 10^3/uL (4.0-10.0)
[2021-05-24 15:04] LABS: Acetaminophen < 5.0 ug/mL (10-30); Salicylate < 0.3 mg/dL (3-10)
[2021-05-24 16:28] VITALS: BP 120/86; PULSE 79; O2SAT 97
[2021-05-24 17:44] VITALS: BP 125/92; PULSE 78; RESP 16; TEMP 36.6; O2SAT 96
[2021-05-24 17:54] LABS: SARS Covid-2 Antigen Negative (Negative)
[2021-05-24 19:52] LABS: Amphetamines Screen Urine Negative (Negative); Barbiturates Screen Urine Negative (Negative); Cocaine Screen Urine Negative (Negative); PCP Screen Urine Negative (Negative); THC Screen Urine Negative (Negative)
[2021-05-24 19:53] LABS: Benzodiazepines Screen Urine Positive (Negative); Opiate Screen Urine Positive (Negative)
[2021-05-24 22:00] VITALS: BP 114/74; PULSE 73; RESP 16; TEMP 37; O2SAT 96
[2021-05-25 06:00] VITALS: BP 107/69; PULSE 68; RESP 18; TEMP 36.7; O2SAT 94
--- NOTE | 2021-05-25 10:00 | PM.NHP ---
Providers/Chief Complaint Admitting Physician: Rojelio Copeland MD Primary Care Provider: Meseret Tejeda DO Chief Complaint: mhe HPI NPU History of Present Illness Kathrin Patricio is a 36 year old female who presented to the emergency department with the following report: Chief Complaint: Psychiatric Symptoms Stated Complaint: mhe Time Seen by Provider: 05/24/21 13:37 History of Present Illness: HPI Narrative: Ms Patricio is a 36-year-old lady with significant past medical history of paranoid schizophrenia who presents emergency department due to psychiatric concerns. History of present illness is somewhat limited given the patient's underlying psychiatric disorder. She endorses for some time now increased auditory hallucinations including command hallucination to harm herself. Specifically she is being told to stab herself in the chest with a knife. The patient offers poor insight into the degree of decompensation. Per chart review she was previously discharged on Depo Invega which she stopped taking an unclear time ago. The patient otherwise denies medical complaints. The exact course, intensity, provoking, exacerbating, or alleviating factors are unclear.. She was admitted to the neuropsychiatric unit for definitive treatment of those issues. Kathrin presents today being fairly limited historian basely answering most questions without no. We discussed her arrangement at [facility]. She was fairly irritable and angry about questions about the medication reporting that she takes everything to give her. However there is some report from her guardian Amilcar Calabrees that the medication changes were driven by Kathrin and they have not been very effective as she presents today reporting that the voices return and they are driving me crazy. She was not happy with this television writer asking her questions saying that I to be talking to the place she lives and that she is stressed and tired. She later process television writer desperately noting that she is in withdrawal from her Ativan and she needs a dose soon so she does not go into withdrawal and seizures. As noted below this is very similar to her last hospitalization when she saw this television writer and was a poor historian and not engaging. Per her 10/12/2020 [facility] inpatient psychiatric evaluation: History of Present Illness Kathrin Patricio is a 35 year old female who presented to the emergency department with the following report: Chief Complaint: Psychiatric Symptoms Stated Complaint: psych eval/ 96 Time Seen by Provider: 01/04/21 11:18 Source: patient Mode of arrival: ambulatory Limitations: no limitations History of Present Illness: HPI Narrative: Patient is a 35-year-old female who presents to ED today at the request of her psychiatric provider at [facility] [place] for complaints of worsening auditory hallucinations. They have tried treating patient with Seroquel without success. Patient tells me the auditory hallucinations have her very afraid as the voices are familiar voices of people she knows. The voices are not telling her to harm herself. She tells me she is not suicidal or homicidal. She is not experiencing visual hallucinations. She denies drug or alcohol use. MD complaint: other (auditory hallucinations ) Onset (ago): week(s) Duration: constant History of same: Yes Associated symptoms: Reports auditory hallucinations and depression; Deny visual hallucinations, homicidal ideation or suicidal ideation. So she is admitted to the neuropsychiatric unit for definitive treatment of those issues. Kathrin presents today reporting that she is not sure exactly why they thought she needed to be here. But then in the conversation after multiple questions little frustration she revealed that she is having significant voices that she is hearing but the voices are real and that they knew she was coming up here and once he got here they got quiet to throw her off. We reviewed her medication including Zyprexa, Clozaril, Seroquel, Abilify and others including Depakote and lithium and she was resistant to the thought that they were helpful. She reported that there've been a discussion about initiating Thorazine and Invega in injectable form and suggested that it's possible that the Invega did help and it may be she just needed a higher dose. We discussed the risks benefits and alternatives of initiating Invega and she understood and agreed receive as is documented in this note. We agreed that we would wait to get a response from her outpatient providers given her extensive medication history before embarking on this plan. She endorses that she had been admitted here multiple times the last time was in March 2019. Due to her challenges as a historian we reviewed that note and he agreed that it was an accurate historical data point and an excerpt is included below. Per her last [facility] inpatient eval: Date of Service: Apr 04, 2019 Chief Complaint: I just get harassed by these voices now. HPI: Ms. Patricio is a 34-year-old female with a history of schizoaffective disorder bipolar type who is known to our behavior health services who came to [facility] ED with a complaint of worsening auditory hallucinations, delusions, and suicidal/homicidal ideation. The patient reports that recently one of the voices has been threatening her to be with him or he'll kill her. She reports that it is someone who is It's somebody that I'm planning to meet. He's semi-famous, but i don't wanna say his name. She reports that she is planning to contact him and put her or Facebook and should not have even told this provider because she fears I'll get in trouble. She is tearful throughout the interview and knows that she cannot have a marriage relationship or children with her chronic mental illness. She reports that she feels that she has to go off of her medications due to , her mental illness will only get worse. She reports that the voices are intermittent but seem to have been getting worse over the past several months. As result of this experience, the patient reports sometimes when I think of this man, I get so mad. I have thoughts of hurting my mother but not him. I've had thoughts of giving up on myself. Patient denies any plans to harm herself or her mother reports that her mother also has some sort of role in these hallucinations which are difficult to understand. Psychiatric review systems: The patient reports frequent depression, anxiety, and irritability due to these intrusive command/threatening auditory hallucinations. She denies any visual hallucinations. Does endorse paranoia that her life may be an danger and apparent erotomanic delusions that someone famous is in love with her. She reports that she has been sleeping and eating okay. She often feels fatigued or socially withdrawn due to these hallucinations. Past Medical History Past Medical History: PAST PSYCHIATRIC HISTORY: -Patient has had greater than 10 hospitalizations on the NPU for acute exacerbation of schizoaffective disorder and anxiety. Last admission in October 2018. Patient currently goes to [facility] [place] and sees Luisa VARGAS prescribes non-klonopin meds. Denies hx SA/ violence. -Previous medication trials include clonazepam, Invega, Abilify including long-acting injectable (reports feeling better since off the medication), Geodon, Celexa/Lexapro not helpful, Prozac increased head pressure. She has recently been taking Abilify 30 mg daily in addition to receiving the Abilify Maintena injection 400 mg monthly. Other past medications Seroquel XR 800 mg every 7 PM with Klonopin 0.5 mg 3 times a day when necessary. Patient reports Haldol was helpful and has had dose increased to 5 mg twice a day approximately one month ago with additional when necessary available. PAST FAMILY PSYCHIATRIC HISTORY: -reports extensive mood/ psychotic do SOCIAL HISTORY: -Currently lives at [facility], she does have family/mother in the area, Amilcar Calabrese is her guardian. on disability, unemployed. Denies alcohol/ illicit drugs. Tobacco- 1.5PPD. Denies legal problems. PAST MEDICAL HISTORY: -onychomycosis, Plantar fasciitis. Denies hx seizures/ surgeries. Meds NPU Home Medications Medication Instructions Recorded Confirmed Last Taken Type baclofen 10 mg tablet 10 mg PO TID PRN 11/12/19 05/24/21 05/24/21 02:20 History folic acid 800 mg PO DAILY@10/11/20 05/24/21 05/24/21 History senna 17.2 mg PO BEDTIME PRN 10/11/20 05/24/21 Unknown History Cooling Salvador Patch See Rx Instructions .ROUTE .COMPLEX 05/24/21 05/24/21 Unknown History Cymbalta 30 mg PO DAILY@05/24/21 05/24/21 05/24/21 History Cymbalta 60 mg PO DAILY@05/24/21 05/24/21 05/24/21 History Seroquel XR 300 mg PO DAILY@05/24/21 05/24/21 05/23/21 History Tegretol 300 mg PO BID@05/24/21 05/24/21 05/24/21 08:00 History acetaminophen [Tylenol Extra 500 - 1,000 mg PO Q4H PRN 05/24/21 05/24/21 Unknown History Strength] albuterol sulfate [ProAir HFA] 2 puff INHALATION Q6H PRN 05/24/21 05/24/21 Unknown History benztropine 1 mg PO DAILY@05/24/21 05/24/21 05/23/21 History biotin 500 mcg PO DAILY@05/24/21 05/24/21 05/24/21 History calcium carb-D3-mag ox-zinc ox 1 tab PO DAILY@05/24/21 05/24/21 Unknown History [Willie Mag Zinc Plus D3] docusate sodium [Colace] 100 mg PO DAILY@05/24/21 05/24/21 05/24/21 History fluoride (sodium) [Denta 5000 Plus] See Rx Instructions .ROUTE .COMPLEX 05/24/21 05/24/21 Unknown History ibuprofen 200 - 400 mg PO Q4H PRN 05/24/21 05/24/21 Unknown History lorazepam 1 mg PO TID PRN 05/24/21 05/24/21 05/24/21 12:09 History magnesium citrate See Rx Instructions .ROUTE .COMPLEX 05/24/21 05/24/21 Unknown History multivitamin 1 tab PO DAILY@05/24/21 05/24/21 05/24/21 History nicotine (polacrilex) See Rx Instructions .ROUTE .COMPLEX 05/24/21 05/24/21 Unknown History norgestimate-ethinyl estradiol 1 tab PO DAILY@05/24/21 05/24/21 05/24/21 History [Tri-Linyah] omega-3 fatty acids [[place] 3 Fish 1,000 mg PO DAILY@05/24/21 05/24/21 05/24/21 History Oil] pantoprazole [Protonix] 40 mg PO DAILY@05/24/21 05/24/21 05/24/21 History polyethylene glycol 3350 [Miralax] 17 g PO DAILY@05/24/21 05/24/21 05/24/21 History saliva stimulant comb. no.3 1 spray MUCOUS MEMBRANE PRN 05/24/21 05/24/21 Unknown History [Biotene Moisturizing Mouth] terbinafine HCl 250 mg PO DAILY@05/24/21 05/24/21 05/24/21 History Allergies Allergy/AdvReac Type Severity Reaction Status Date / Time codeine Allergy Unknown Verified 05/24/21 14:34 Sulfa (Sulfonamide Allergy algy-rash Verified 05/24/21 14:34 Antibiotics) PFSH NPU PFSH: Medical History (Updated 05/26/21 @ 07:57 by Rojelio Copeland MD) Anxiety and depression HPV in female Insomnia Nicotine dependence, cigarettes, uncomplicated Panic disorder without agoraphobia Paranoid schizophrenia Schizophrenia Tachycardia Family History Family/Other Cancer Diabetes Other Hypertension Denies family history of CAD (coronary artery disease) Clotting disorder Dementia Hyperlipidemia Psychiatric illness Chronic kidney disease (CKD) Suicide Anesthesia complication Bleeding disorder Family history of premature coronary artery disease Lung disease Stroke Social History Smoking and tobacco status: current every day smoker cigarettes Packs smoked per day: 1 Alcohol intake: never Mental Status Exam MSE Comments: This is an obese white male in hospital scrubs with limited grooming and eye contact. No abnormal movements except for psychomotor retardation. Mostly uncooperative with exam in mild distress. Speech was decreased rate and volume and limited. Mood described as stressed, affect congruent. Thought process linear. Thought content: Patient denied suicidal or homicidal ideation, there were no delusions reported or noted, she endorsed auditory hallucinations. Attention and concentration were impaired memory loss limited, but none were formally tested. She is limited x3. Insight and judgment are impaired and impulse control is impaired Vitals/I&O/Wt Last Vital Signs Temp 98.1 F 05/25/21 06:00 Pulse 68 05/25/21 06:00 Resp 18 05/25/21 06:00 BP 107/69 05/25/21 06:00 Pulse Ox 94 05/25/21 06:00 Weight last 48 hrs Weight 79.832 kg Data NPU : 05/24/21 14:28 05/24/21 14:28 A&P Assessment and plan (1) Auditory hallucinations: Status: Acute (2) Nicotine dependence, cigarettes, uncomplicated: Status: Chronic (3) Panic disorder without agoraphobia: Status: Chronic (4) Onychomycosis: Status: Acute (5) Schizoaffective disorder: Status: Acute Additional A&P Information This is a 35-year-old white female with a long history of thought disorder and schizoaffective disorder who presents with breakthrough symptoms, but somewhat resistant to medication changes especially long-acting injectable. 1. Continue current medication. We will work to explore whether a long-acting injectable can be reintroduced. 2. Continue every 15 minute checks for safety. 3. Encourage individual, group and milieu therapy. Involuntary Hold Information 96 Hour Hold: 96 Hour Involuntary Admission: No Attestations NPU Medical Necessity Statement*: Inpatient hospitalization is medically necessary and the clinically appropriate intervention at this time. We will monitor medications and make changes as indicated. Patient will be in the hospital for over two midnights. Likely length of stay 3 to 5 days. Coding Level of Care Code Acute Pricing Supervisor for g Fwd Diagnoses Auditory hallucinations R44.0 Nicotine dependence, cigarettes, uncomplicated F17.210 Panic disorder without agoraphobia F41.0 Onychomycosis B35.1 Schizoaffective disorder F25.9
--- NOTE | 2021-05-25 12:22 | NPU.GN ---
[facility] Group Topic: Self Medicating General Mood of Group: No/sleep
[2021-05-25 14:00] VITALS: RESP 18
[2021-05-25] MEDS: LORazepam 1 mg Tablet PO (14:31)
[2021-05-25] MEDS: nicotine 2 mg Gum BUCCAL (14:32)
[2021-05-25 20:17] VITALS: BP 104/70; PULSE 58; RESP 18; TEMP 36.6; O2SAT 95
[2021-05-25] MEDS: trazodone 50 mg Tablet PO (22:54)
[2021-05-26] MEDS: trazodone 50 mg Tablet PO (00:27)
[2021-05-26 06:00] VITALS: BP 107/77; PULSE 64; RESP 18; TEMP 36.8; O2SAT 97
[2021-05-26] MEDS: hyDROXYzine 25 mg Capsule 50 MG PO ×3 (06:07→18:38)
--- NOTE | 2021-05-26 06:07 | PC.NURSE ---
Anxiety/Visteril 50mg PO given at pt request
[2021-05-26] MEDS: OLANZapine 5 mg ODT PO (07:36)
[2021-05-26 14:00] VITALS: PULSE 114; RESP 20; TEMP 36.6; O2SAT 94
[2021-05-26] MEDS: haloperidol 5 mg Tablet PO (14:27)
--- NOTE | 2021-05-26 14:28 | PC.NURSE ---
Patient up at desk and reports AH and VH that are very vivid and real. patient visibly anxious. Refused zyprexa r/t it not working for her. Requesting Ativan. Patient offered haldol 5mg and accepts. Will continue to monitor.
--- NOTE | 2021-05-26 14:50 | PC.NURSE ---
PATIENT REFUSED BLOOD PRESSURE FOR THIS MOLD CARRIER. WILL CONTINUE TO MONITOR.
--- NOTE | 2021-05-26 17:04 | P.PN_ITS ---
Subjective NPU Subjective: Interval history: Patient presents today reporting being scared. She identified reading the Bible recently and feeling like voices were speaking to her from it. She endorsed lacking certainty of what was going on and still is denying Invega effectiveness. Though she did endorse being open to making changes to make the voices go away. We discussed her past regimen of medication is identified that she is likely been on all antipsychotics including Clozaril. Mental Status Exam MSE Comments: This is an obese white female in hospital scrubs with limited grooming and eye contact. No abnormal movements except for psychomotor retardation. Mostly uncooperative with exam in mild distress. Speech was decreased rate and volume and limited. Mood described as scared, affect congruent. Thought process linear. Thought content: Patient denied suicidal or homicidal ideation, there were no delusions reported or noted, she endorsed auditory hallucinations. Attention and concentration were impaired memory loss limited, but none were formally tested. She is limited x3. Insight and judgment are impaired and impulse control is impaired Vitals/I&O/Wt Last Vital Signs Temp 97.8 F 05/26/21 14:00 Pulse 114 H 05/26/21 14:00 Resp 20 H 05/26/21 14:00 BP 107/77 05/26/21 06:00 Pulse Ox 94 05/26/21 14:00 Data NPU : 05/24/21 14:28 05/24/21 14:28 A&P Additional A&P Information (1) Auditory hallucinations: (2) Nicotine dependence, cigarettes, uncomplicated: (3) Panic disorder without agoraphobia: (4) Onychomycosis: (5) Schizoaffective disorder: Additional A&P Information This is a 35-year-old white female with a long history of thought disorder and schizoaffective disorder who presents with breakthrough symptoms, but somewhat resistant to medication changes especially long-acting injectable. 1. Continue current medication. We will work to explore whether a long-acting injectable can be reintroduced. 2. Continue every 15 minute checks for safety. 3. Encourage individual, group and milieu therapy. 4. Cotacting outpatient provider for additional info. Involuntary Hold Information 96 Hour Hold: 96 Hour Involuntary Admission: No Attestations NPU Medical Necessity Statement*: Inpatient hospitalization is medically necessary and the clinically appropriate intervention at this time. We will monitor medications and make changes as indicated. Likely length of stay 3 to 5 days. Coding Level of Care Code Acute Radiology Interventional Physician for Randi Sethi
[2021-05-26] MEDS: quetiapine XR (24HR) 300 mg Tablet PO (19:00)
[2021-05-26 20:29] VITALS: BP 111/66; PULSE 82; RESP 18; TEMP 36.8; O2SAT 96
[2021-05-26] MEDS: benztropine 1 mg Tablet PO (21:30)
[2021-05-26] MEDS: LORazepam 1 mg Tablet PO (22:26)
[2021-05-27 06:00] VITALS: BP 102/66; PULSE 90; RESP 16; TEMP 36.6; O2SAT 97
[2021-05-27] MEDS: duloxetine 30 mg Capsule PO (09:58)
[2021-05-27] MEDS: pantoprazole DR 40 mg Tablet PO (09:58)
[2021-05-27] MEDS: carBAMazepine 200 mg Tablet PO ×2 (09:58→21:48)
[2021-05-27] MEDS: docusate sodium 100 mg Capsule PO (09:59)
[2021-05-27] MEDS: duloxetine 60 mg Capsule PO (09:59)
[2021-05-27] MEDS: LORazepam 1 mg Tablet PO ×2 (10:22→21:48)
[2021-05-27] MEDS: OLANZapine 5 mg ODT PO (11:18)
[2021-05-27 14:00] VITALS: BP 102/66; PULSE 90; RESP 16; TEMP 36.6; O2SAT 97
[2021-05-27] MEDS: ibuprofen 200 mg Tablet PO (14:40)
--- NOTE | 2021-05-27 16:04 | PC.RESP ---
SMOKING CESSATION INFORMATION SENT TO PATIENT.
--- NOTE | 2021-05-27 16:23 | PM.NPN ---
Subjective NPU Subjective: Interval history: Kathrin presents today continuing to report feeling out of sorts and stressed out. He did report resting better last night but reports still feeling tired today. She denies any problems or issues at [place]. She seemed a little less distressed today but continued to report just wanting to feel better. Mental Status Exam MSE Comments: This is an obese white male in hospital scrubs with limited grooming and eye contact. No abnormal movements except for psychomotor retardation. More cooperative with exam in mild distress. Speech was decreased rate and volume and limited. Mood described as tired, affect anxious. Thought process linear. Thought content: Patient denied suicidal or homicidal ideation, there were no delusions reported or noted, she endorsed auditory hallucinations. Attention and concentration were impaired memory loss limited, but none were formally tested. She is limited x3. Insight and judgment are impaired and impulse control is impaired Vitals/I&O/Wt Last Vital Signs Temp 97.9 F 05/27/21 14:00 Pulse 90 05/27/21 14:00 Resp 16 05/27/21 14:00 BP 102/66 05/27/21 14:00 Pulse Ox 97 05/27/21 14:00 Data NPU : 05/24/21 14:28 05/24/21 14:28 A&P Additional A&P Information (1) Auditory hallucinations: (2) Nicotine dependence, cigarettes, uncomplicated: (3) Panic disorder without agoraphobia: (4) Onychomycosis: (5) Schizoaffective disorder: Additional A&P Information This is a 35-year-old white female with a long history of thought disorder and schizoaffective disorder who presents with breakthrough symptoms, but somewhat resistant to medication changes especially long-acting injectable. 1. Continue current medication. We will work to explore whether a long-acting injectable can be reintroduced. 2. Continue every 15 minute checks for safety. 3. Encourage individual, group and milieu therapy. Involuntary Hold Information 96 Hour Hold: 96 Hour Involuntary Admission: No Attestations NPU Medical Necessity Statement*: Inpatient hospitalization is medically necessary and the clinically appropriate intervention at this time. We will monitor medications and make changes as indicated. Likely length of stay 3 to 5 days. Coding Level of Care Code Acute Journeyman Electrician for Randi Sethi
[2021-05-27] MEDS: nicotine 2 mg Gum BUCCAL (19:19)
[2021-05-27] MEDS: quetiapine XR (24HR) 300 mg Tablet PO (21:48)
[2021-05-27] MEDS: benztropine 1 mg Tablet PO (21:48)
[2021-05-27] MEDS: baclofen 10 mg Tablet 20 MG PO (21:48)
[2021-05-27] MEDS: hyDROXYzine 25 mg Capsule 50 MG PO (21:49)
[2021-05-27 21:55] VITALS: BP 103/65; PULSE 91; RESP 18; TEMP 36.7; O2SAT 97
[2021-05-28 06:00] VITALS: BP 123/78; PULSE 102; RESP 18; TEMP 36.3; O2SAT 96
[2021-05-28] MEDS: carBAMazepine 200 mg Tablet PO ×2 (10:11→21:13)
[2021-05-28] MEDS: docusate sodium 100 mg Capsule PO (10:11)
[2021-05-28] MEDS: pantoprazole DR 40 mg Tablet PO (10:12)
[2021-05-28] MEDS: duloxetine 60 mg Capsule PO (10:12)
[2021-05-28] MEDS: duloxetine 30 mg Capsule PO (10:12)
[2021-05-28] MEDS: LORazepam 1 mg Tablet PO ×2 (10:19→17:59)
[2021-05-28] MEDS: nicotine 2 mg Gum BUCCAL ×2 (12:55→18:01)
[2021-05-28 14:00] VITALS: BP 97/63; PULSE 102; RESP 20; TEMP 36.9; O2SAT 96
--- NOTE | 2021-05-28 18:15 | P.PN_ITS ---
Subjective NPU Subjective: Interval history: Kathrin continues to be somewhat ambivalent about the initiation of medication. She was able to agree to starting Invega in the oral form initially to see if there is an improvement and then basing us starting the injection on whether she notes improvement. We discussed the risk- benefit and alternatives of the change and that we had spoken to her guardian and she understood and agreed to proceed as as documented in this note. Mental Status Exam MSE Comments: This is an obese white female in hospital scrubs with limited grooming and eye contact. No abnormal movements except for psychomotor retardation. More cooperative with exam in mild distress. Speech was decreased rate and volume and limited. Mood described as confused, affect congruent. T hought process linear. Thought content: Patient denied suicidal or homicidal ideation, there were no delusions reported or noted, she endorsed auditory hallucinations. Attention and concentration were impaired memory loss limited, but none were formally tested. She is limited x3. Insight and judgment are impaired and impulse control is impaired Vitals/I&O/Wt Last Vital Signs Temp 98.5 F 05/28/21 14:00 Pulse 102 H 05/28/21 14:00 Resp 20 H 05/28/21 14:00 BP 97/63 05/28/21 14:00 Pulse Ox 96 05/28/21 14:00 Weight last 48 hrs Weight 79.832 kg Data NPU : 05/24/21 14:28 05/24/21 14:28 A&P Additional A&P Information (1) Auditory hallucinations: (2) Nicotine dependence, cigarettes, uncomplicated: (3) Panic disorder without agoraphobia: (4) Onychomycosis: (5) Schizoaffective disorder: Additional A&P Information This is a 35-year-old white female with a long history of thought disorder and schizoaffective disorder who presents with breakthrough symptoms, but somewhat resistant to medication changes especially long-acting injectable. 1. Continue current medication. She agreed to restart Invega 6 mg p.o. every morning in the morning and be open to possible injection if improvement occurs. 2. Continue every 15 minute checks for safety. 3. Encourage individual, group and milieu therapy. 4. Cotacting outpatient provider for additional info. Involuntary Hold Information 96 Hour Hold: 96 Hour Involuntary Admission: No Attestations NPU Medical Necessity Statement*: Inpatient hospitalization is medically necessary and the clinically appropriate intervention at this time. We will monitor medications and make changes as indicated. Likely length of stay 3 to 5 days. Coding Level of Care Code Acute Tobacco Sample Puller for Randi Sethi
[2021-05-28] MEDS: TRAMadol 50 mg Tablet 100 MG PO (19:16)
[2021-05-28] MEDS: baclofen 10 mg Tablet 20 MG PO (19:16)
[2021-05-28] MEDS: benztropine 1 mg Tablet PO (21:12)
[2021-05-28] MEDS: quetiapine XR (24HR) 300 mg Tablet PO (21:13)
[2021-05-28 22:00] VITALS: BP 118/80; PULSE 95; RESP 18; TEMP 36.6; O2SAT 97
[2021-05-28] MEDS: hyDROXYzine 25 mg Capsule 50 MG PO (23:44)
[2021-05-28] MEDS: trazodone 50 mg Tablet PO (23:44)
[2021-05-29 05:55] VITALS: BP 104/69; PULSE 93; RESP 17; TEMP 36.6; O2SAT 97
[2021-05-29] MEDS: TRAMadol 50 mg Tablet 100 MG PO ×3 (06:15→22:01)
[2021-05-29] MEDS: nicotine 2 mg Gum BUCCAL ×3 (06:44→15:50)
[2021-05-29] MEDS: carBAMazepine 200 mg Tablet PO ×2 (09:26→22:02)
[2021-05-29] MEDS: pantoprazole DR 40 mg Tablet PO (09:26)
[2021-05-29] MEDS: duloxetine 60 mg Capsule PO (09:26)
[2021-05-29] MEDS: docusate sodium 100 mg Capsule PO (09:26)
[2021-05-29] MEDS: duloxetine 30 mg Capsule PO (09:27)
[2021-05-29] MEDS: LORazepam 1 mg Tablet PO ×2 (09:43→22:00)
--- NOTE | 2021-05-29 09:43 | PC.NURSE ---
Addendum entered by Cassidy Perez RN 05/29/21 12:12: LATE ENTRY FOR 1030 PRN MED EFFECTIVE. PT WALKING IN HALLWAY, CALM, AND HAS NO FURTHER C/O ANXIETY AT THIS TIME. Original Note: PRN ATIVAN PRN ATIVAN 1 MG GIVEN PO FOR PT C/O ANXIETY. PT EDUCATED ON COPING SKILLS AT THIS TIME WELL. WILL CONTINUE TO MONITOR FOR MEDICATION EFFECTIVENESS.
--- NOTE | 2021-05-29 10:15 | PM.NPN ---
Subjective NPU Subjective: Interval history: Kathrin presents today reporting that she had the dose of Invega earlier and is been to soon to know if there is any changes or improvements. She tolerated very convoluted story about how she was feeling in her home. Reporting feeling things were turning and pulling from a somatic since and that started a theme throughout the day where she was pointing out different anomalies on her body and expressing concerns about them including a cyst remnant on the back of her neck that she inquired whether it needed to be drained again. Mental Status Exam MSE Comments: This is an obese white female in hospital scrubs with limited grooming and eye contact. No abnormal movements except for psychomotor retardation. More cooperative with exam in mild distress. Speech was decreased rate and volume and limited. Mood described as worried, affect congruent. Thought process linear. Thought content: Patient denied suicidal or homicidal ideation, there were no delusions reported that she was seeming quite somatically preoccupied raising concerns of whether she is having some somatic delusions causing her significant distress, she endorsed auditory hallucinations. Attention and concentration were impaired memory loss limited, but none were formally tested. She is limited x3. Insight and judgment are impaired and impulse control is impaired Vitals/I&O/Wt Last Vital Signs Temp 97.9 F 05/29/21 05:55 Pulse 93 05/29/21 05:55 Resp 17 05/29/21 05:55 BP 104/69 05/29/21 05:55 Pulse Ox 97 05/29/21 05:55 Weight last 48 hrs Weight 79.832 kg Data NPU : 05/24/21 14:28 05/24/21 14:28 A&P Additional A&P Information (1) Auditory hallucinations: (2) Nicotine dependence, cigarettes, uncomplicated: (3) Panic disorder without agoraphobia: (4) Onychomycosis: (5) Schizoaffective disorder: Additional A&P Information This is a 35-year-old white female with a long history of thought disorder and schizoaffective disorder who presents with breakthrough symptoms, but somewhat resistant to medication changes especially long-acting injectable. 1. Continue current medication. Initiated Invega 6 mg p.o. every morning this morning. 2. Continue every 15 minute checks for safety. 3. Encourage individual, group and milieu therapy. 4. Cotacting outpatient provider for additional info. Involuntary Hold Information 96 Hour Hold: 96 Hour Involuntary Admission: No Attestations NPU Medical Necessity Statement*: Inpatient hospitalization is medically necessary and the clinically appropriate intervention at this time. We will monitor medications and make changes as indicated. Likely length of stay 3 to 5 days. Coding Level of Care Code Acute Pilot Supervisor for Randi Sethi
[2021-05-29] MEDS: paliperidone ER 6 mg Tablet PO (10:36)
[2021-05-29] MEDS: blistex lip oint 7 gm Tube 1 APPLIC TOPICAL (12:02)
[2021-05-29 14:00] VITALS: BP 102/60; PULSE 97; RESP 18; TEMP 36.7; O2SAT 95
[2021-05-29] MEDS: baclofen 10 mg Tablet 20 MG PO ×2 (15:11→22:03)
--- NOTE | 2021-05-29 15:11 | PC.NURSE ---
Addendum entered by Cassidy Perez RN 05/29/21 17:02: LATE ENTRY FOR 1600 PRN MED EFFECTIVE. NO FURTHER C/O MUSCLE SPASMS VOICED BY PT AT THIS TIME. Original Note: PRN BACLOFEN PRN BACLOFEN 20 MG GIVEN PO PER PT C/O MUSCLE SPASMS. WILL CONTINUE TO MONITOR FOR MEDICATION EFFECTIVENESS.
[2021-05-29 21:03] VITALS: BP 114/72; PULSE 95; RESP 17; TEMP 36.5; O2SAT 95
[2021-05-29] MEDS: benztropine 1 mg Tablet PO (22:02)
[2021-05-29] MEDS: quetiapine XR (24HR) 300 mg Tablet PO (22:02)
[2021-05-29] MEDS: hyDROXYzine 25 mg Capsule 50 MG PO (22:03)
[2021-05-30 06:00] VITALS: BP 123/79; PULSE 83; RESP 14; TEMP 36.9; O2SAT 100
[2021-05-30] MEDS: duloxetine 30 mg Capsule PO (10:08)
[2021-05-30] MEDS: pantoprazole DR 40 mg Tablet PO (10:08)
[2021-05-30] MEDS: duloxetine 60 mg Capsule PO (10:08)
[2021-05-30] MEDS: docusate sodium 100 mg Capsule PO (10:09)
[2021-05-30] MEDS: paliperidone ER 6 mg Tablet PO (10:09)
[2021-05-30] MEDS: OLANZapine 5 mg ODT PO (10:12)
[2021-05-30] MEDS: carBAMazepine 200 mg Tablet PO ×2 (10:12→21:10)
--- NOTE | 2021-05-30 12:02 | P.PN_ITS ---
Subjective NPU Subjective: Interval history: Kathrin presents today continuing to be quite somatically preoccupied. She spoke this morning about a how when she got up she rubbed her eyes and felt like her eye moved out in some strange way. She reports however her thought process is improving and feels much more comfortable with the Invega. We discussed the likelihood that once we are certain about that that we would move to the injection again. Otherwise she denied any major issues. Mental Status Exam MSE Comments: This is an obese white female in hospital scrubs with limited grooming and eye contact. No abnormal movements except for psychomotor retardation. More cooperative with exam in no acute distress. Speech was decreased rate and volume and limited. Mood described as a little better, affect congruent. Thought process linear. Thought content: Patient denied suicidal or homicidal ideation, there were no delusions reported that she was seeming quite somatically preoccupied raising concerns of whether she is having some somatic delusions causing her significant distress, she endorsed auditory hallucinations. Attention and concentration were impaired memory loss limited, but none were formally tested. She is limited x3. Insight and judgment are limited and impulse control is impaired Vitals/I&O/Wt Last Vital Signs Temp 98.4 F 05/30/21 06:00 Pulse 83 05/30/21 06:00 Resp 14 05/30/21 06:00 BP 123/79 05/30/21 06:00 Pulse Ox 100 05/30/21 06:00 Weight last 48 hrs Weight 79.832 kg Data NPU : 05/24/21 14:28 05/24/21 14:28 A&P Additional A&P Information (1) Auditory hallucinations: (2) Nicotine dependence, cigarettes, uncomplicated: (3) Panic disorder without agoraphobia: (4) Onychomycosis: (5) Schizoaffective disorder: Additional A&P Information This is a 35-year-old white female with a long history of thought disorder and schizoaffective disorder who presents with breakthrough symptoms, but somewhat resistant to medication changes especially long-acting injectable. 1. Continue current medication. We will consider getting her back on the injection in the next day or so. 2. Continue every 15 minute checks for safety. 3. Encourage individual, group and milieu therapy. 4. Cotacting outpatient provider for additional info. Involuntary Hold Information 96 Hour Hold: 96 Hour Involuntary Admission: No Attestations NPU Medical Necessity Statement*: Inpatient hospitalization is medically necessary and the clinically appropriate intervention at this time. We will monitor medications and make changes as indicated. Likely length of stay 3 to 5 days. Coding Level of Care Code Acute Cafe Site Attendant for Randi Sethi
[2021-05-30 14:00] VITALS: BP 129/80; PULSE 82; RESP 17; TEMP 37.1; O2SAT 98
[2021-05-30] MEDS: acetaminophen 325 mg Tablet 650 MG PO (14:16)
[2021-05-30] MEDS: quetiapine XR (24HR) 300 mg Tablet PO (21:09)
[2021-05-30] MEDS: LORazepam 1 mg Tablet PO (21:09)
[2021-05-30] MEDS: benztropine 1 mg Tablet PO (21:09)
[2021-05-30] MEDS: hyDROXYzine 25 mg Capsule 50 MG PO (21:10)
--- NOTE | 2021-05-30 21:15 | PC.NURSE ---
Vistaril 50mg and [id number] PO given for anxiety,
[2021-05-30 22:00] VITALS: BP 93/54; PULSE 84; RESP 17; TEMP 37; O2SAT 97
--- NOTE | 2021-05-30 22:05 | PC.NURSE ---
Baclofin 20mg PO given for muscle spasms.
[2021-05-31] MEDS: trazodone 50 mg Tablet PO ×2 (00:42→22:03)
[2021-05-31] MEDS: TRAMadol 50 mg Tablet 100 MG PO ×2 (00:42→22:03)
--- NOTE | 2021-05-31 00:45 | PC.NURSE ---
Ultram 100mg given for pain. 50mg trazodone given for insomnia.
[2021-05-31 06:00] VITALS: BP 114/79; PULSE 73; RESP 14; TEMP 36.6; O2SAT 97
[2021-05-31] MEDS: docusate sodium 100 mg Capsule PO (08:17)
[2021-05-31] MEDS: paliperidone ER 6 mg Tablet PO (08:17)
[2021-05-31] MEDS: duloxetine 60 mg Capsule PO (08:17)
[2021-05-31] MEDS: pantoprazole DR 40 mg Tablet PO (08:17)
[2021-05-31] MEDS: duloxetine 30 mg Capsule PO (08:17)
[2021-05-31] MEDS: carBAMazepine 200 mg Tablet PO ×2 (08:19→22:00)
--- NOTE | 2021-05-31 12:27 | NPU.GN ---
[facility] Group Topic: Two True one False General Mood of Group: Patient did attend group, she was properly dressed, on time, and had good hygiene. In group we played a game called 2 true one false. Everyone had to come up with 2 true statements about their self and one false statement about their self, this was a way to get group members to openly talk about themselves. They are able to utilize positive self talk. The group interacted properly and openly. Kathrin interacted more today, had more to speak about, she was still a tad tearry but worked through it. We discussed the purpose of NPU, ways to openly speak with the physician and discussed the purpose of social work program coordinator and safe discharge.
[2021-05-31 14:00] VITALS: BP 108/78; PULSE 88; RESP 17; TEMP 36.7; O2SAT 97
--- NOTE | 2021-05-31 16:08 | PM.NPN ---
Subjective NPU Subjective: Interval history: Kathrin presents today reporting that she is open to taking the injection again. She reports that the Invega has helped and she is feeling better. She is now wanting to go home sooner rather than later because she is more or less reporting cabin fever. We agreed to work with the treatment team in the morning to identify if [facility] is ready to receive her back and consider discharge over the next 48 hours. Mental Status Exam MSE Comments: This is an obese white female in hospital scrubs with limited grooming and eye contact. No abnormal movements except for psychomotor retardation. More cooperative with exam in no acute distress. Speech was decreased rate and volume and limited. Mood described as feeling kind of trapped in the building, affect congruent. Thought process linear. Thought content: Patient denied suicidal or homicidal ideation, there were no delusions reported and she was seeming less somatically preoccupied only reporting muscle cramping from being stuck in the building causing her mild distress, she endorsed resolving auditory hallucinations. Attention and concentration were improving memory was more reliable, but none were formally tested. She is limited x3. Insight and judgment are limited and impulse control is limited Vitals/I&O/Wt Last Vital Signs Temp 98.3 F 05/31/21 21:36 Pulse 73 05/31/21 21:36 Resp 18 05/31/21 21:36 BP 98/69 05/31/21 21:36 Pulse Ox 99 05/31/21 21:36 Data NPU : 05/24/21 14:28 05/24/21 14:28 A&P Additional A&P Information (1) Auditory hallucinations: (2) Nicotine dependence, cigarettes, uncomplicated: (3) Panic disorder without agoraphobia: (4) Onychomycosis: (5) Schizoaffective disorder: Additional A&P Information This is a 35-year-old white female with a long history of thought disorder and schizoaffective disorder who presents with breakthrough symptoms, but somewhat resistant to medication changes especially long-acting injectable. 1. Continue current medication. She took the Invega Sustenna 230 mg IM injection to the deltoid 2. Continue every 15 minute checks for safety. 3. Encourage individual, group and milieu therapy. 4. Consider discharge in the next 48 hours. Involuntary Hold Information 96 Hour Hold: 96 Hour Involuntary Admission: No Attestations NPU Medical Necessity Statement*: Inpatient hospitalization is medically necessary and the clinically appropriate intervention at this time. We will monitor medications and make changes as indicated. Likely length of stay 1-3 days. Coding Level of Care Code Acute Administrative Job Titles for Randi Sethi
[2021-05-31] MEDS: paliperidone palmitate 234 mg Syringe IM (17:09)
[2021-05-31 21:36] VITALS: BP 98/69; PULSE 73; RESP 18; TEMP 36.8; O2SAT 99
[2021-05-31] MEDS: quetiapine XR (24HR) 300 mg Tablet PO (21:59)
[2021-05-31] MEDS: hyDROXYzine 25 mg Capsule 50 MG PO (21:59)
[2021-05-31] MEDS: baclofen 10 mg Tablet 20 MG PO (22:02)
[2021-05-31] MEDS: benztropine 1 mg Tablet PO (22:03)
[2021-06-01 06:00] VITALS: BP 105/70; PULSE 106; RESP 18; TEMP 37; O2SAT 91
[2021-06-01] MEDS: duloxetine 30 mg Capsule PO (09:40)
[2021-06-01] MEDS: paliperidone ER 6 mg Tablet PO (09:40)
[2021-06-01] MEDS: docusate sodium 100 mg Capsule PO (09:41)
[2021-06-01] MEDS: duloxetine 60 mg Capsule PO (09:41)
[2021-06-01] MEDS: carBAMazepine 200 mg Tablet PO (09:41)
[2021-06-01] MEDS: pantoprazole DR 40 mg Tablet PO (09:41)
--- NOTE | 2021-06-01 10:51 | PC.SOCIAL ---
IMM Update Updated patient about their medicare rights. Verbalized understanding. Gave pt a copy and placed initial, timed and date copy in chart.
[2021-06-01] MEDS: LORazepam 1 mg Tablet PO (10:58)
--- NOTE | 2021-06-01 11:00 | PC.NURSE ---
PRN MED PT GIVEN 1MG ATIVAN FOR STATED ANXIETY, O S/S OF ANXIETY, WILL CONTINUE TO MONITOR.
--- NOTE | 2021-06-01 12:55 | P.DS_ITS ---
Diagnoses at Discharge Discharge Diagnosis (1) Auditory hallucinations: Status: Resolved (2) Nicotine dependence, cigarettes, uncomplicated: Status: Chronic (3) Panic disorder without agoraphobia: Status: Chronic (4) Onychomycosis: Status: Acute (5) Schizoaffective disorder: Status: Acute Reason for Visit Reason for Visit: mhe Brief History: History of Present Illness Kathrin Patricio is a 36 year old female who presented to the emergency department with the following report: Chief Complaint: Psychiatric Symptoms Stated Complaint: mhe Time Seen by Provider: 05/24/21 13:37 History of Present Illness: HPI Narrative: Ms Patricio is a 36-year-old lady with significant past medical history of paranoid schizophrenia who presents emergency department due to psychiatric concerns. History of present illness is somewhat limited given the patient's underlying psychiatric disorder. She endorses for some time now increased auditory hallucinations including command hallucination to harm herself. Specifically she is being told to stab herself in the chest with a knife. The patient offers poor insight into the degree of decompensation. Per chart review she was previously discharged on Depo Invega which she stopped taking an unclear time ago. The patient otherwise denies medical complaints. The exact course, intensity, provoking, exacerbating, or alleviating factors are unclear.. She was admitted to the neuropsychiatric unit for definitive treatment of those issues. Kathrin presents today being fairly limited historian basely answering most questions without no. We discussed her arrangement at [facility]. She was fairly irritable and angry about questions about the medication reporting that she takes everything to give her. However there is some report from her guardian Amilcar Calabrese that the medication changes were driven by Kathrin and they have not been very effective as she presents today reporting that the voices return and they are driving me crazy. She was not happy with this financial underwriter asking her questions saying that I to be talking to the place she lives and that she is stressed and tired. She later process financial underwriter desperately noting that she is in withdrawal from her Ativan and she needs a dose soon so she does not go into withdrawal and seizures. As noted below this is very similar to her last hospitalization when she saw this financial underwriter and was a poor historian and not engaging. Per her 10/12/2020 [facility] inpatient psychiatric evaluation: History of Present Illness Kathrin Patricio is a 35 year old female who presented to the emergency department with the following report: Chief Complaint: Psychiatric Symptoms Stated Complaint: psych eval/ 96 Time Seen by Provider: 10/11/20 11:18 Source: patient Mode of arrival: ambulatory Limitations: no limitations History of Present Illness: HPI Narrative: Patient is a 35-year-old female who presents to ED today at the request of her psychiatric provider at [facility] for complaints of worsening auditory hallucinations. They have tried treating patient with Seroquel without success. Patient tells me the auditory hallucinations have her very afraid as the voices are familiar voices of people she knows. The voices are not telling her to harm herself. She tells me she is not suicidal or homicidal. She is not experiencing visual hallucinations. She denies drug or alcohol use. complaint: other (auditory hallucinations ) Onset (ago): week(s) Duration: constant History of same: Yes Associated symptoms: Reports auditory hallucinations and depression; Deny visual hallucinations, homicidal ideation or suicidal ideation. So she is admitted to the neuropsychiatric unit for definitive treatment of those issues. Kathrin presents today reporting that she is not sure exactly why they thought she needed to be here. But then in the conversation after multiple questions little frustration she revealed that she is having significant voices that she is hearing but the voices are real and that they knew she was coming up here and once he got here they got quiet to throw her off. We reviewed her medication including Zyprexa, Clozaril, Seroquel, Abilify and others including Depakote and lithium and she was resistant to the thought that they were helpful. She reported that there've been a discussion about initiating Thorazine and Invega in injectable form and suggested that it's possible that the Invega did help and it may be she just needed a higher dose. We discussed the risks benefits and alternatives of initiating Invega and she understood and agreed receive as is documented in this note. We agreed that we would wait to get a response from her outpatient providers given her extensive medication history before embarking on this plan. She endorses that she had been admitted here multiple times the last time was in March 2019. Due to her challenges as a historian we reviewed that note and he agreed that it was an accurate historical data point and an excerpt is included below. Per her last [facility] inpatient eval: Date of Service: Apr 04, 2019 Chief Complaint: I just get harassed by these voices now. HPI: Ms. Patricio is a 34-year-old female with a history of schizoaffective disorder bipolar type who is known to our behavior health services who came to [facility] ED with a complaint of worsening auditory hallucinations, delusions, and suicidal/homicidal ideation. The patient reports that recently one of the voices has been threatening her to be with him or he'll kill her. She reports that it is someone who is It's somebody that I'm planning to meet. He's semi-famous, but i don't wanna say his name. She reports that she is planning to contact him and put her or Facebook and should not have even told this provider because she fears I'll get in trouble. She is tearful throughout the interview and knows that she cannot have a marriage relationship or children with her chronic mental illness. She reports that she feels that she has to go off of her medications due to , her mental illness will only get worse. She reports that the voices are intermittent but seem to have been getting worse over the past several months. As result of this experience, the patient reports sometimes when I think of this man, I get so mad. I have thoughts of hurting my mother but not him. I've had thoughts of giving up on myself. Patient denies any plans to harm herself or her mother reports that her mother also has some sort of role in these hallucinations which are difficult to understand. Psychiatric review systems: The patient reports frequent depression, anxiety, and irritability due to these intrusive command/threatening auditory hallucinations. She denies any visual hallucinations. Does endorse paranoia that her life may be an danger and apparent erotomanic delusions that someone famous is in love with her. She reports that she has been sleeping and eating okay. She often feels fatigued or socially withdrawn due to these hallucinations. Past Medical History Past Medical History: PAST PSYCHIATRIC HISTORY: -Patient has had greater than 10 hospitalizations on the NPU for acute exacerbation of schizoaffective disorder and anxiety. Last admission in October 2018. Patient currently goes to [facility] and sees Luisa VARGAS prescribes non-klonopin meds. Denies hx SA/ violence. -Previous medication trials include clonazepam, Invega, Abilify including long- acting injectable (reports feeling better since off the medication), Geodon, Celexa/Lexapro not helpful, Prozac increased head pressure. She has recently been taking Abilify 30 mg daily in addition to receiving the Abilify Maintena injection 400 mg monthly. Other past medications Seroquel XR 800 mg every 7 PM with Klonopin 0.5 mg 3 times a day when necessary. Patient reports Haldol was helpful and has had dose increased to 5 mg twice a day approximately one month ago with additional when necessary available. PAST FAMILY PSYCHIATRIC HISTORY: -reports extensive mood/ psychotic do SOCIAL HISTORY: -Currently lives at [facility], she does have family/mother in the area, Amilcar Calabrese is her guardian. on disability, unemployed. Denies alcohol/ illicit drugs. Tobacco- 1.5PPD. Denies legal problems. PAST MEDICAL HISTORY: -onychomycosis, Plantar fasciitis. Denies hx seizures/ surgeries. Hospital Course Hospital Course She slowly acclimated into her milieu therapies provided. In first she was resistant to changes. We were able to identify that she had discontinued Invega which had been in the injection prior. She was finally agreeable to restarting the oral medication and once she saw that she actually was feeling better on the medication she was open to having the injection. She demonstrated significant improvement and was able to contract for safety prior to discharge. During the hospitalization, patient had routine laboratory studies which were within normal limits except for few outliers. Additionally there was a general medical evaluation which was also within normal limits and revealed no new acute processes. Discharge Summary: At the time of discharge, lethality was denied and psychosis was resolving. Mood and anxiety were well managed. Patient endorsed a plan to follow-up with the aftercare recommendations of the treatment team. Patient was evaluated and deemed to be absent credible lethality, and had achieved the maximum benefit from an inpatient hospitalization, so was discharged. Involuntary Hold Information 96 Hour Hold: 96 Hour Involuntary Admission: No Mental Status Exam MSE Comments: This is an obese white female in hospital scrubs with limited grooming and eye contact. No abnormal movements except for psychomotor retardation. More cooperative with exam in no acute distress. Speech was decreased rate and volume and limited. Mood described as better, affect congruent. Thought process linear. Thought content: Patient denied suicidal or homicidal ideation, there were no delusions reported and she was seeming less somatically preoccupied only reporting muscle cramping from being stuck in the building causing her mild distress, she endorsed resolving auditory hallucinations. Attention and concentration were improving memory was more reliable, but none were formally tested. She is limited x3. Insight and judgment are limited and impulse control is limited Discharge Data Vitals: Last Vital Signs Temp 98.6 F 06/01/21 06:00 Pulse 106 H 06/01/21 06:00 Resp 18 06/01/21 06:00 BP 105/70 06/01/21 06:00 Pulse Ox 91 06/01/21 06:00 Discharge Plan Discharge Patient Disposition: Home Condition: Stable Prescriptions: New trazodone 50 mg Tablet 50 mg PO BEDTIME PRN (Reason: Insomnia) 30 Days Qty: 30 RF: 1 Invega Sustenna 156 mg/mL syringe 156 mg IM Q30D 30 Days Qty: 1 RF: 2 Continued baclofen 10 mg tablet 20 mg PO TID PRN (Reason: Muscle Spasm) RF: 0 folic acid 800 mcg Tablet 800 mg PO DAILY@07 RF: 0 senna 8.6 mg Capsule 17.2 mg PO BEDTIME PRN (Reason: Constipation) RF: 0 multivitamin Tablet 1 tab PO DAILY@07 RF: 0 Tylenol Extra Strength 500 mg Tablet 500 - 1,000 mg PO Q4H PRN (Reason: Pain) RF: 0 terbinafine HCl 250 mg Tablet 250 mg PO DAILY@07 RF: 0 Protonix 40 mg Tablet,Delayed Release (Dr/Ec) 40 mg PO DAILY@08 RF: 0 ibuprofen 200 mg Tablet 200 - 400 mg PO Q4H PRN (Reason: Pain) RF: 0 Colace 100 mg Capsule 100 mg PO DAILY@07 RF: 0 magnesium citrate Solution See Rx Instructions .ROUTE .COMPLEX RF: 0 Tri-Linyah 0.18/0.215/0.25 mg-35 mcg (28) Tablet 1 tab PO DAILY@07 RF: 0 lorazepam 1 mg Tablet 1 mg PO TID PRN (Reason: Anxiety) RF: 0 Miralax 17 gram/dose Powder 17 g PO DAILY@07 RF: 0 ProAir HFA 90 mcg/actuation Hfa Aerosol Inhaler 2 puff INHALATION Q6H PRN (Reason: Shortness Of Breath) RF: 0 biotin 500 mcg Capsule 500 mcg PO DAILY@07 RF: 0 omega-3 fatty acids Capsule 1,000 mg PO DAILY@07 RF: 0 Biotene Moisturizing Mouth Timblin,Non-Aerosol 1 spray MUCOUS MEMBRANE PRN RF: 0 Willie Mag Zinc Plus D3 333 mg-133 unit -133 mg-5 mg Tablet 1 tab PO DAILY@07 RF: 0 Cooling Salvador Patch See Rx Instructions .ROUTE .COMPLEX RF: 0 nicotine (polacrilex) See Rx Instructions .ROUTE .COMPLEX RF: 0 carbamazepine [Tegretol] 200 mg tablet 200 mg PO BID RF: 0 benztropine 1 mg tablet 1 mg PO DAILY@19 RF: 0 Cymbalta 30 mg capsule,delayed release(DR/EC) 30 mg PO DAILY@07 RF: 0 Cymbalta 60 mg capsule,delayed release(DR/EC) 60 mg PO DAILY@07 RF: 0 Seroquel XR 300 mg tablet extended release 24 hr 300 mg PO DAILY@19 RF: 0 Denta 5000 Plus 1.1 % Cream See Rx Instructions .ROUTE .COMPLEX RF: 0 Ultram 50 mg Tablet 100 mg PO Q6H PRN (Reason: Moderate Pain (Scale Score 5-6)) RF: 0 Lactobacillus acidophilus 1 cap PO BID RF: 0 Discharge Orders: Discharge Order (Routine); Ordered 06/01/21 Ordered By: Rojelio Copeland Referrals: Meseret Tejeda DO [Primary Care Provider] - 06/02/21 1:00 pm (Follow up appointment with Dr. Tejeda on 06/02/21 @ 1:00pm. ) Discharge Diet: Regular Discharge Activity: Resume usual activity Patient Instructions: Opioid Safety Discharge Attestations NPU Time Spent in Discharge Care*: less than 30 min Specific Discharge Activities: Specific discharge activities: educating patient, discussing with welfare case worker/social workers/dc planners, documenting/other paperwork and evaluating patient/reviewing data Coding Level of Care Code Acute Chg FW DC note Diagnoses Auditory hallucinations R44.0 Nicotine dependence, cigarettes, uncomplicated F17.210 Panic disorder without agoraphobia F41.0 Onychomycosis B35.1 Schizoaffective disorder F25.9
[2021-06-01 13:28] VITALS: BP 105/70; PULSE 106; RESP 18; TEMP 37; O2SAT 91
== END 2021-06-01 14:03 | disposition home or self-care (01) | DRG 885 ==
LOC: ER 13:54 → NP 17:30
PROVIDERS: Admitting Provider Psychiatry & Neurology Psychiatry; Emergency Provider Emergency Medicine; PCP Family Medicine; Visit Provider Psychiatry & Neurology Psychiatry
DX: F25.9 Schizoaffective disorder, unspecified (principal); F32.9 Major depressive disorder, single episode, unspecified; F41.9 Anxiety disorder, unspecified; F40.01 Agoraphobia with panic disorder; G47.00 Insomnia, unspecified; F17.210 Nicotine dependence, cigarettes, uncomplicated
CPT/HCPCS: 80053; 80306; 80307; 81003; 81025; 85025; 87426; 93005; 96372; 99285

== ENCOUNTER 2021-11-26 08:08 | Emergency (ER) | payer OTHER, MEDICAID, SELFPAY ==
[2021-11-26 08:11] VITALS: BP 134/95; PULSE 74; RESP 16; TEMP 36.4; O2SAT 100; BMI 32.1
[2021-11-26 08:25] VITALS: BP 134/95; PULSE 79; RESP 16; O2SAT 98
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
[2021-11-26 09:05] LABS: Basophils % 0.5 %; Eosinophils # 0.1 10^3/uL (0.0-0.8); Eosinophils % 1.7 %; Hematocrit 38.2 % (37.0-47.0); Lymphocytes # 2.8 10^3/uL (0.8-4.8); Lymphocytes % 36.7 %; Mean Corpuscular Hemoglobin 33.2 pg (28.0-34.0); Mean Corpuscular Volume 97.7 fl (81-99); Mean Platelet Volume 9.1 fL (7.4-10.4); Monocytes # 0.5 10^3/uL (0.2-0.9); Neutrophils # 4.04 10^3/uL (1.8-7.7); Neutrophils % 53.8 %; Nucleated Red Blood Cells % 0 %; Platelet Count 298 10^3/cmm (130-400); Red Blood Count 3.91 10^6/uL (4.1-5.3); Red Cell Distribution Width 11.9 % (12.1-15.1); White Blood Count 7.5 10^3/uL (4.0-10.0)
[2021-11-26 09:10] LABS: Amphetamines Screen Urine Negative (Negative); Barbiturates Screen Urine Negative (Negative); Benzodiazepines Screen Urine Positive (Negative); Cocaine Screen Urine Negative (Negative); Opiate Screen Urine Negative (Negative); PCP Screen Urine Negative (Negative); THC Screen Urine Negative (Negative)
[2021-11-26 09:32] LABS: Alanine Aminotransferase 10 U/L (0-33); Albumin Level 4.3 g/dL (3.5-5.2); Alkaline Phosphatase 130 IU/L (35-105); Aspartate Amino Transferase 12 U/L (0-32); Blood Urea Nitrogen 3 mg/dL (6-20); Calcium 8.9 mg/dL (8.5-10.5); Carbon Dioxide 25 mmol/L (22-29); Chloride 89 mmol/L (98-107); Globulin 2.5 g/dL (1.3-4.6); Glomerular Filtration Rate 113.1 mL/min (90-130); Glucose 84 mg/dL (65-115); Osmolality Calculated 256 mOsm/kg (285-295); Sodium 125 mmol/L (136-145); Total Bilirubin 0.2 mg/dL (0.15-1.2); Total Protein 6.8 g/dL (6.6-8.7)
[2021-11-26 09:33] LABS: Acetaminophen < 5.0 ug/mL (10-30); Alcohol Level < 10 mg/dL (0-10); Salicylate < 0.3 mg/dL (3-10)
[2021-11-26] MEDS: sodium chloride 0.9% 1,000 ML 999 ML IV (10:45)
[2021-11-26 13:54] LABS: Anion Gap 14.1 (5-19); Blood Urea Nitrogen 3 mg/dL (6-20); Calcium 8.5 mg/dL (8.5-10.5); Carbon Dioxide 24 mmol/L (22-29); Chloride 96 mmol/L (98-107); Glomerular Filtration Rate 113.1 mL/min (90-130); Glucose 93 mg/dL (65-115); Osmolality Calculated 266 mOsm/kg (285-295); Potassium 4.1 mmol/L (3.5-5.1); Sodium 130 mmol/L (136-145)
== END 2021-11-26 14:27 | disposition home or self-care (01) ==
PROVIDERS: Emergency Provider Emergency Medicine; PCP Family Medicine
DX: E87.1 Hypo-osmolality and hyponatremia (principal); F20.0 Paranoid schizophrenia; F17.210 Nicotine dependence, cigarettes, uncomplicated
CPT/HCPCS: 80048; 80053; 80306; 80307; 85025; 96360; 99284; J7030

== ENCOUNTER 2021-12-24 16:32 | Emergency (ER) | payer OTHER, MEDICAID, SELFPAY ==
[2021-12-24 16:35] VITALS: BP 136/64; PULSE 79; RESP 16; TEMP 36.6; O2SAT 100; BMI 31.5
--- NOTE | 2021-12-24 16:56 | W.ED.GENADLT ---
HPI - General Adult General: Stated complaint: SOB Time Seen by Provider: 12/24/21 16:33 History of Present Illness: Patient comes in after having an episode of shortness of breath. States that she felt like she could not breathe and became a little anxious. States that the episode is gone and that she is asymptomatic at this time. Associated symptoms: Deny chest pain, dyspnea, headache(s), nausea, rash, palpitations or vomiting Review of Systems Const: Denies: fever(s) or body aches Eyes: Denies: change in vision or blurry vision ENMT: Denies: throat pain or odynophagia Card: Denies: chest pain or palpitations Resp: Denies: dyspnea or productive cough GI: Denies: abdominal pain, nausea or vomiting : Denies: flank pain or dysuria Musc: Denies: neck pain or back pain Skin/Breast: Denies: rash or pruritus Neuro: Denies: headache(s) or numbness in extremities Psych: Denies: anxiety or change in appetite Endo: Denies: polyuria or excessive sweating PFSH ED PFSH: Medical History Anxiety and depression HPV in female Insomnia Nicotine dependence, cigarettes, uncomplicated Panic disorder without agoraphobia Paranoid schizophrenia Schizophrenia Tachycardia Family History Family/Other Cancer Diabetes Other Hypertension Denies family history of CAD (coronary artery disease) Clotting disorder Dementia Hyperlipidemia Psychiatric illness Chronic kidney disease (CKD) Suicide Anesthesia complication Bleeding disorder Family history of premature coronary artery disease Lung disease Stroke Social History (Updated 12/22/21 @ 10:31 by Ras Genao LPN) Smoking and tobacco status: current every day smoker cigarettes Packs smoked per day: 1 Years cigarettes smoked: 19 Quit status (tobacco): has tried quititng Number of times tried to quit tobacco: 2 Second hand smoke exposure: Yes Alcohol intake: never Female Reproductive History: Date of last menstrual period: 10/19/21 Physical Exam Const: COMMON NORMALS: no acute distress, patient oriented x3, healthy appearing and alert HENMT: COMMON NORMALS: normocephalic and atraumatic HEAD & SCALP: normocephalic and atraumatic Eye: COMMON NORMALS: Equal, round and reactive pupils present and EOMs intact bilaterally PUPIL: Yes Equal, round and reactive pupils present Neck/C-Spine: COMMON NORMALS: full ROM and supple Resp: COMMON NORMALS: normal respiratory effort, No retractions and No use of accessory muscles Cardio: COMMON NORMALS: regular rate and regular rhythm RATE: regular rate RHYTHM: regular rhythm GI: COMMON NORMALS: Normal to inspection, nondistended, normoactive bowel sounds present, Soft to palpation and non-tender PALPATION: Yes Soft to palpation Back/Pelvis: COMMON NORMALS: thoracic and lumbar spine normal to inspection and no thoracic nor lumbar tenderness Extremity: COMMON NORMALS: normal to inspection and full ROM Neuro: COMMON NORMALS: patient oriented x3 SENSORIUM/ORIENTATION: Yes alert Psych: COMMON NORMALS: mental status grossly normal and cooperative Skin: COMMON NORMALS: no rashes or lesions noted and no wounds GENERAL SKIN EXAM: no rashes or lesions noted [facility] - General Adult Medical Decision Making Patient comes in after having an episode of shortness of breath. States that she felt like she could not breathe and became a little anxious. States that the episode is gone and that she is asymptomatic at this time. Physical exam is unremarkable. I talked her at length about symptoms that should prompt immediate return to the emergency department. Will discharge at this time. Discharge Plan Discharge Patient Disposition: Home Clinical Impression: Shortness of breath Condition: Stable Prescriptions: No Action docusate sodium [Colace] 100 mg capsule 100 mg PO BID PRN0RF haloperidol 5 mg tablet 5 mg PO TID Qty: 90 2RF duloxetine [Cymbalta] 60 mg capsule,delayed release(DR/EC) 60 mg PO DAILY@07 Qty: 30 2RF Rx Instructions: WITH 30MG TO =90MG duloxetine [Cymbalta] 30 mg capsule,delayed release(DR/EC) 30 mg PO DAILY@07 Qty: 30 2RF Rx Instructions: WITH 60MG TO =90MG trazodone 50 mg tablet 50 mg PO BEDTIME PRN (Reason: Insomnia) 30 Days Qty: 30 2RF carbamazepine [Tegretol] 200 mg tablet 300 mg PO BID Qty: 90 2RF benztropine 1 mg tablet 1 mg PO .PM 0RF quetiapine [Seroquel XR] 300 mg tablet extended release 24 hr 300 mg PO .HS 0RF Invega Sustenna 234 mg/1.5 mL syringe 234 mg IM Q30D Qty: 1.5 2RF lorazepam 1 mg tablet 1 mg PO BID PRN (Reason: Anxiety) Qty: 90 1RF baclofen 10 mg tablet 20 mg PO TID PRN (Reason: Muscle Spasm) 0RF clindamycin phosphate 1 % lotion 1 applic topical DAILY Qty: 60 6RF Rx Instructions: Apply thin film to affected area 1-2 times daily divalproex [Depakote] 500 mg tablet,delayed release (DR/EC) 500 mg PO .HS Qty: 30 2RF senna 8.6 mg Capsule 17.2 mg PO BEDTIME PRN (Reason: Constipation) 0RF multivitamin Tablet 1 tab PO DAILY@07 0RF Tylenol Extra Strength 500 mg Tablet 500 - 1,000 mg PO Q4H PRN (Reason: Pain) 0RF Protonix 40 mg Tablet,Delayed Release (Dr/Ec) 40 mg PO DAILY@08 0RF ibuprofen 200 mg Tablet 200 - 400 mg PO Q4H PRN (Reason: Pain) 0RF Rx Instructions: WITH FOOD OR SNACK Colace 100 mg Capsule 100 mg PO DAILY@07 0RF magnesium citrate Solution See Rx Instructions .ROUTE .COMPLEX 0RF Rx Instructions: ONE BOTTLE PO WEEKLY PRN CONSTIPATION Tri-Linyah 0.18/0.215/0.25 mg-35 mcg (28) Tablet 1 tab PO DAILY@07 0RF Miralax 17 gram/dose Powder 17 g PO DAILY@07 0RF ProAir HFA 90 mcg/actuation Hfa Aerosol Inhaler 2 puff INHALATION Q6H PRN (Reason: Shortness Of Breath) 0RF Biotene Moisturizing Mouth [place],Non-Aerosol 1 spray MUCOUS MEMBRANE PRN 0RF Cooling [place] Patch See Rx Instructions .ROUTE .COMPLEX 0RF Rx Instructions: PRN nicotine (polacrilex) See Rx Instructions .ROUTE .COMPLEX 0RF Rx Instructions: MAY KEEP AT BEDSIDE (MAR HAS CURRENTLY NOT USING) Denta 5000 Plus 1.1 % Cream See Rx Instructions .ROUTE .COMPLEX 0RF Rx Instructions: BRUSH TEETH TWICE A DAY (DO NOT EAT OR DRINK 30MINS AFTER USE) Lactobacillus acidophilus 1 cap PO BID 0RF tramadol [Ultram] 50 mg tablet 50 mg PO Q6H PRN (Reason: Moderate Pain (Scale Score 5-6)) 0RF Discharge Orders: Discharge ED (Routine); Ordered 12/24/21 Ordered By: Greg Mcdonald Referrals: Meseret Tejeda DO [Primary Care Provider] - Coding Level of Care Code ED [employer] Maker Hand for Chg Navdeep
== END 2021-12-24 17:05 | disposition home or self-care (01) ==
PROVIDERS: Emergency Provider Emergency Medicine; PCP Family Medicine
DX: R06.02 Shortness of breath (principal); F17.210 Nicotine dependence, cigarettes, uncomplicated
CPT/HCPCS: 99281

== ENCOUNTER 2021-12-29 | Outpatient (CLI) | payer OTHER, MEDICARE, MEDICAID, SELFPAY | END 2021-12-29 00:01 | disposition home or self-care (01) | LOC: RAD 05-09 12:06 | PROVIDERS: PCP Family Medicine; Visit Provider Specialist | DX: Z01.419 Encounter for gynecological examination (general) (routine) without abnormal findings (principal); Z11.3 Encounter for screening for infections with a predominantly sexual mode of transmission | CPT/HCPCS: 87491; 87591; 88175 ==

== ENCOUNTER 2022-05-23 12:02 | Emergency (ER) | payer MEDICARE, MEDICAID, SELFPAY ==
[2022-05-23 12:05] VITALS: BP 106/69; PULSE 78; RESP 16; TEMP 36.8; O2SAT 97; BMI 31.8
--- NOTE | 2022-05-23 12:20 | W.ED.PSYCHS ---
HPI - Psych General: Chief Complaint: Psychiatric Symptoms Stated Complaint: Psych eval Time Seen by Provider: 05/23/22 12:19 [facility] ED PFSH: Medical History Anxiety and depression HPV in female Insomnia Nicotine dependence, cigarettes, uncomplicated No pertinent past medical history neghx: htn, dm, thyroid, dvt/pe PCP: Dr. Meseret Tejeda Panic disorder without agoraphobia managed by Dr. Kee-- [facility] Paranoid schizophrenia managed by Dr. Kee -[facility] Tachycardia Surgical History History of foot operation 1993-- treatment of plantar wart Family History Family/Other Thyroid disease maternal Denies family history of Colon cancer Ovarian cancer Prostate cancer Diabetes Heart disease Hyperlipidemia Breast cancer Bleeding disorder Hypertension Uterine cancer Stroke Female Reproductive History: Date of last menstrual period: 09/07/21 Course Vital Signs: Vital signs: Vital Signs Temperature 98.2 F 05/23/22 12:05 Pulse Rate 78 05/23/22 12:05 Respiratory Rate 16 05/23/22 12:05 Blood Pressure 106/69 05/23/22 12:05 Pulse Oximetry 97 05/23/22 12:05 Discharge Plan Discharge Condition: Stable Prescriptions: No Action docusate sodium [Colace] 100 mg capsule 100 mg PO BID PRN baclofen 10 mg tablet 20 mg PO TID PRN (Reason: Muscle Spasm) clindamycin phosphate 1 % lotion 1 applic topical DAILY Qty: 60 6RF Rx Instructions: Apply thin film to affected area 1-2 times daily tea tree oil 100 % oil topical norethindrone (contraceptive) 0.35 mg tablet 0.35 mg PO DAILY Qty: 84 2RF multivitamin Tablet 1 tab PO QAM Digestive Advantage Prob Gummy 250 million cell tablet,chewable PO DAILY acetaminophen [Tylenol Extra Strength] 500 mg tablet 1,000 mg PO Q4H PRN (Reason: fever or pain) senna 8.6 mg capsule 17.2 mg PO .HS PRN (Reason: constipation) albuterol sulfate [ProAir HFA] 90 mcg/actuation HFA aerosol inhaler 2 puff inhalation Q6H PRN tramadol 50 mg tablet 100 mg PO Q6H PRN duloxetine 60 mg capsule,delayed release(DR/EC) 120 mg PO DAILY Qty: 60 2RF benztropine 1 mg tablet 1 mg PO BID Qty: 60 2RF carbamazepine [Tegretol] 200 mg tablet 300 mg PO BID Qty: 90 2RF hydroxyzine HCl 50 mg tablet 50 mg PO TID PRN (Reason: anxiety) Qty: 90 2RF lorazepam 1 mg tablet 1 mg PO BID PRN (Reason: Anxiety) Qty: 60 0RF Invega Sustenna 234 mg/1.5 mL syringe 234 mg IM Q30D Qty: 1.5 2RF quetiapine [Seroquel XR] 300 mg tablet extended release 24 hr 300 mg PO .HS Qty: 30 2RF trazodone 50 mg tablet 50 mg PO BEDTIME PRN (Reason: Insomnia) 30 Days Qty: 30 2RF haloperidol 5 mg tablet 5 mg PO TID Qty: 90 2RF Protonix 40 mg Tablet,Delayed Release (Dr/Ec) 40 mg PO DAILY@08 ibuprofen 200 mg Tablet 200 - 400 mg PO Q4H PRN (Reason: Pain) Rx Instructions: WITH FOOD OR SNACK magnesium citrate Solution See Rx Instructions .ROUTE .COMPLEX Rx Instructions: ONE BOTTLE PO WEEKLY PRN CONSTIPATION Miralax 17 gram/dose Powder 17 g PO DAILY@07 Referrals: Meseret Tejeda DO [Primary Care Provider] - Coding Level of Care Code ED Legal Recovery Specialist for Randi Sethi
--- NOTE | 2022-05-23 12:57 | ED.C_ITS ---
HPI - Psych General: Chief Complaint: Psychiatric Symptoms Stated Complaint: Psych eval Time Seen by Provider: 05/23/22 12:19 Source: patient Mode of arrival: ambulatory Limitations: no limitations History of Present Illness: Patient is a 37-year-old female here from her home of [facility] for complaints of depression and anxiety. Patient states she has these chronically and sees Dr. Kee at [facility] for treatment of these. Patient states her roommate at [facility] is her legal and they are not getting along. He states he has plans to move out patient states she would like a break and is requesting admission to [facility]. Patient is not suicidal or homicidal. She does report some auditory and visual hallucinations but states she has these chronically. Hallucinations are not mandating her to harm herself or others. She has no previous suicide attempt. She states she has an appointment with Dr. Bentley next week. complaint: feels depressed and other (anxiety) Onset (ago): day(s) Duration: constant History of same: Yes Context: significant life stressor Associated psychiatric symptoms: depression, auditory hallucinations and visual hallucinations Associated symptoms: Reports auditory hallucinations, visual hallucinations and depression; Deny homicidal ideation or suicidal ideation Treatments prior to arrival: none Review of Systems Const: Denies: fever(s) or chills Card: Denies: chest pain, palpitations, lightheadedness or syncope Resp: Denies: dyspnea GI: Denies: abdominal pain, nausea, vomiting or diarrhea Skin/Breast: Denies: rash Neuro: Denies: headache(s) Psych: Reports: anxiety, depression, visual hallucinations and auditory hallucinations; Denies: hopelessness, paranoia, suicidal ideation or homicidal ideation [facility] ED PFSH: Medical History Anxiety and depression HPV in female Insomnia Nicotine dependence, cigarettes, uncomplicated No pertinent past medical history neghx: htn, dm, thyroid, dvt/pe PCP: Dr. Meseret Tejeda Panic disorder without agoraphobia managed by Dr. Kee-- [facility] Paranoid schizophrenia managed by Dr. Kee -- [facility] Tachycardia Surgical History History of foot operation 1993-- treatment of plantar wart Family History Family/Other Thyroid disease maternal Denies family history of Colon cancer Ovarian cancer Prostate cancer Diabetes Heart disease Hyperlipidemia Breast cancer Bleeding disorder Hypertension Uterine cancer Stroke Female Reproductive History: Date of last menstrual period: 09/07/21 Physical Exam Const: COMMON NORMALS: no acute distress, patient oriented x3, no limitations, alert and well nourished GENERAL APPEARANCE: cooperative and well kempt Resp: COMMON NORMALS: normal respiratory effort and clear to auscultation bilaterally AUSCULTATION: clear to auscultation bilaterally Cardio: COMMON NORMALS: regular rate and regular rhythm RATE: regular rate RHYTHM: regular rhythm Neuro: [place] COMA SCALE: document GCS findings [place] coma scale eye opening: Spontaneous [place] coma scale verbal response: Orientated [place] coma scale motor response: Obey commands [place] coma scale total score: 15 COMMON NORMALS: patient oriented x3, moves all extremities, no focal motor deficits, no sensory deficits noted and gait normal SENSORIUM/ORIENTATION: Yes alert SPEECH: speech normal Psych: COMMON NORMALS: mental status grossly normal, Normal thought process present, cooperative, normal affect, speech normal and activity/motor behavior normal APPEARANCE: Yes grossly normal and Yes well kempt ATTITUDE: Yes calm ACTIVITY/MOTOR BEHAVIOR: Yes appropriate eye contact and No psychomotor agitation SPEECH: Yes normal speech MOOD & AFFECT: Yes Flat affect present THOUGHT PROCESS: Normal thought process present THOUGHT CONTENT: Yes Normal thought content present ATTENTION/CONCENTRATION: Yes attention grossly intact and Yes concentration grossly intact MEMORY/COGNITION: Yes memory grossly intact and Yes cognition grossly intact INSIGHT: Good insight present (Psych) JUDGEMENT: Good judgement present (Psych) Skin: COMMON NORMALS: no rashes or lesions noted GENERAL SKIN EXAM: no rashes or lesions noted Course Vital Signs: Vital signs: Vital Signs Temperature 98.2 F 05/23/22 12:05 Pulse Rate 78 05/23/22 12:05 Respiratory Rate 16 05/23/22 12:05 Blood Pressure 106/69 05/23/22 12:05 Pulse Oximetry 97 05/23/22 12:05 MDM - Psych Medical Decision Making Patient is not suicidal or homicidal. She has no previous suicide attempts. No known high risk behaviors. At this time I do not think patient is an eminent danger to herself or others at this time. She has an appointment with her psychiatrist next week for further evaluation. Strict return to ED precautions given which patient verbalizes understanding of and agrees to. Discharge Plan Discharge Patient Disposition: Home Clinical Impression: Chronic anxiety Depression Qualifiers: Depression Type: major depressive disorder Major depression recurrence: recurrent Active/Remission status: currently active Psychotic features: without psychotic features Condition: Stable Prescriptions: No Action docusate sodium [Colace] 100 mg capsule 100 mg PO BID PRN baclofen 10 mg tablet 20 mg PO TID PRN (Reason: Muscle Spasm) clindamycin phosphate 1 % lotion 1 applic topical DAILY Qty: 60 6RF Rx Instructions: Apply thin film to affected area 1-2 times daily tea tree oil 100 % oil topical norethindrone (contraceptive) 0.35 mg tablet 0.35 mg PO DAILY Qty: 84 2RF multivitamin Tablet 1 tab PO QAM Digestive Advantage Prob Gummy 250 million cell tablet,chewable PO DAILY acetaminophen [Tylenol Extra Strength] 500 mg tablet 1,000 mg PO Q4H PRN (Reason: fever or pain) senna 8.6 mg capsule 17.2 mg PO .HS PRN (Reason: constipation) albuterol sulfate [ProAir HFA] 90 mcg/actuation HFA aerosol inhaler 2 puff inhalation Q6H PRN tramadol 50 mg tablet 100 mg PO Q6H PRN duloxetine 60 mg capsule,delayed release(DR/EC) 120 mg PO DAILY Qty: 60 2RF benztropine 1 mg tablet 1 mg PO BID Qty: 60 2RF carbamazepine [Tegretol] 200 mg tablet 300 mg PO BID Qty: 90 2RF hydroxyzine HCl 50 mg tablet 50 mg PO TID PRN (Reason: anxiety) Qty: 90 2RF lorazepam 1 mg tablet 1 mg PO BID PRN (Reason: Anxiety) Qty: 60 0RF Invega Sustenna 234 mg/1.5 mL syringe 234 mg IM Q30D Qty: 1.5 2RF quetiapine [Seroquel XR] 300 mg tablet extended release 24 hr 300 mg PO .HS Qty: 30 2RF trazodone 50 mg tablet 50 mg PO BEDTIME PRN (Reason: Insomnia) 30 Days Qty: 30 2RF haloperidol 5 mg tablet 5 mg PO TID Qty: 90 2RF Protonix 40 mg Tablet,Delayed Release (Dr/Ec) 40 mg PO DAILY@08 ibuprofen 200 mg Tablet 200 - 400 mg PO Q4H PRN (Reason: Pain) Rx Instructions: WITH FOOD OR SNACK magnesium citrate Solution See Rx Instructions .ROUTE .COMPLEX Rx Instructions: ONE BOTTLE PO WEEKLY PRN CONSTIPATION Miralax 17 gram/dose Powder 17 g PO DAILY@07 Discharge Orders: Discharge ED (Routine); Ordered 05/23/22 Ordered By: Kathryn Bailey Referrals: Meseret Tejeda, [Primary Care Provider] - Activity Restrictions/Additional Instructions: As we discussed please follow up with Dr. Kee as scheduled. You need to return to the ED immediately for any thoughts of self harm or harming others. Coding Level of Care Code ED Piercer Operator for Randi Sethi
== END 2022-05-23 13:20 | disposition home or self-care (01) ==
PROVIDERS: Emergency Provider Physician Assistant; PCP Family Medicine
DX: F33.9 Major depressive disorder, recurrent, unspecified (principal)
CPT/HCPCS: 99282

== ENCOUNTER → 2022-08-09 10:24 | Outpatient (BNVA) | payer MEDICARE, MEDICAID, OTHER, SELFPAY | PROVIDERS: PCP Family Medicine; Visit Provider Nurse Practitioner Women's Health | DX: N91.2 Amenorrhea, unspecified (principal) | CPT/HCPCS: 84702 ==

== ENCOUNTER → 2022-12-27 16:00 | Outpatient (BNVA) | payer MEDICARE, MEDICAID, SELFPAY | PROVIDERS: PCP Family Medicine; Visit Provider Nurse Practitioner Women's Health | DX: Z11.3 Encounter for screening for infections with a predominantly sexual mode of transmission (principal); Z01.419 Encounter for gynecological examination (general) (routine) without abnormal findings; Z30.41 Encounter for surveillance of contraceptive pills | CPT/HCPCS: 86592; 86803; 87340; 87491; 87591; 87661; 87806 ==

== ENCOUNTER 2023-01-09 09:20 | Outpatient (CLI) | payer MEDICARE, MEDICAID, OTHER, SELFPAY ==
--- NOTE | 2023-01-09 09:32 | MM_ITS ---
WS: [id number] BILATERAL SCREENING DIGITAL TOMOSYNTHESIS MAMMOGRAM WITH CAD HISTORY: Z12.39 - Encounter for other screening for malignant neop... COMPARISON: 05/26/2020 and 06/06/2018 Bilateral CC and MLO views with tomosynthesis and synthetic mammography submitted. Computer aided det ection analyzed. Breast composition: There are scattered areas of fibroglandular density. No suspicious masses, microc alcifications or architectural distortion. Benign calcification central RIGHT breast. MM/[id number] IMPRESSION: BI-RADS: 2-Benign FOLLOW UP: 1 Year Follow-up
== END 2023-01-09 09:21 | disposition home or self-care (01) ==
LOC: RAD 09:24
PROVIDERS: PCP Family Medicine; Visit Provider Family Medicine
DX: Z12.31 Encounter for screening mammogram for malignant neoplasm of breast (principal)
CPT/HCPCS: 77063; 77067

== ENCOUNTER → 2023-01-23 14:00 | Outpatient (BNVA) | payer MEDICARE, MEDICAID, OTHER, SELFPAY | PROVIDERS: PCP Family Medicine; Visit Provider Nurse Practitioner Women's Health | DX: N90.89 Other specified noninflammatory disorders of vulva and perineum (principal); N89.8 Other specified noninflammatory disorders of vagina; B37.9 Candidiasis, unspecified; L02.32 Furuncle of buttock | CPT/HCPCS: 86695; 86696; 87255; 87529 ==

== ENCOUNTER 2023-02-17 19:21 | Inpatient (IN) | payer MEDICARE, MEDICAID, SELFPAY ==
[2023-02-17 19:49] VITALS: BP 129/86; PULSE 93; RESP 18; TEMP 37.1; O2SAT 96; BMI 31.8
[2023-02-17] MEDS: acetaminophen 500 mg Tablet 1000 MG PO (21:25)
--- NOTE | 2023-02-17 21:25 | W.ED.PSYCHS ---
HPI - Psych General: Chief Complaint: Psychiatric Symptoms Stated Complaint: confused, HI Time Seen by Provider: 02/17/23 19:50 Source: patient History of Present Illness: 37-year-old female with evidently long psychiatric history. She presents to the emergency room with bizarre statements. She states she does not feel like the medication she is getting at the facility, is the correct medication, as it looks different . She states that she feels like she is part of an experiment . She notes I did not consent to that . She feels like the people inside me are trying to tear me apart . She gets agitated due to this feeling. She denies recent illness. She complains of a headache. MD complaint: altered mental status and other Onset (ago): hour(s) Duration: constant and getting worse History of same: Yes Relieving factors: none Exacerbating factors: none Context: not taking psychiatric medications (Possibly) and other Associated psychiatric symptoms: auditory hallucinations, visual hallucinations and delusions Associated symptoms: Reports auditory hallucinations, visual hallucinations, delusions and depression Treatments prior to arrival: none Review of Systems Const: Denies: fever(s), chills or body aches Eyes: Denies: change in vision Card: Denies: chest pain or palpitations Resp: Denies: dyspnea, productive cough, non-productive cough or wheezing GI: Denies: abdominal pain, nausea, vomiting, diarrhea or hematochezia : Denies: difficulty voiding Skin/Breast: Denies: rash Neuro: Reports: headache(s); Denies: weakness in extremities, dizziness or confusion Psych: Reports: depression, visual hallucinations and auditory hallucinations [facility] ED PFSH: Medical History Anxiety and depression HPV in female Insomnia Nicotine dependence, cigarettes, uncomplicated No pertinent past medical history neghx: htn, dm, thyroid, dvt/pe PCP: Dr. Meseret Tejeda Panic disorder without agoraphobia managed by Dr. Kee-- [facility], [place] Paranoid schizophrenia managed by Dr. Kee -- [facility] [place] Tachycardia Surgical History History of foot operation 1993-- treatment of plantar wart Family History Family/Other Thyroid disease maternal Denies family history of Colon cancer Ovarian cancer Prostate cancer Diabetes Heart disease Hyperlipidemia Breast cancer Bleeding disorder Hypertension Uterine cancer Stroke Social History Substance/Drug Use: former Physical Exam Const: COMMON NORMALS: no acute distress GENERAL APPEARANCE: cooperative; not ill appearing and not frail appearing HENMT: COMMON NORMALS: normocephalic, atraumatic and Normal external nose present HEAD & SCALP: normocephalic and atraumatic FACE & SINUS: normal facial exam and face symmetric NOSE: Normal external nose present Eye: COMMON NORMALS: Equal, round and reactive pupils present and EOMs intact bilaterally PUPIL: Yes Equal, round and reactive pupils present Neck/C-Spine: GENERAL: Yes trachea midline Chest: CHEST: Yes Symmetrical chest wall rise Resp: COMMON NORMALS: normal respiratory effort, No retractions, No use of accessory muscles and clear to auscultation bilaterally AUSCULTATION: clear to auscultation bilaterally Cardio: COMMON NORMALS: regular rate and regular rhythm RATE: regular rate RHYTHM: regular rhythm GI: COMMON NORMALS: Normal to inspection, nondistended, normoactive bowel sounds present Extremity: COMMON NORMALS: no pedal edema Neuro: MAIA COMA SCALE: document GCS findings [place] coma scale eye opening: Spontaneous Maia coma scale verbal response: Orientated [place] coma scale motor response: Obey commands [place] coma scale total score: 15 SENSORY EXAM: Yes extremities (intact) Psych: COMMON NORMALS: speech normal SPEECH: Yes normal speech THOUGHT CONTENT: Yes delusions Skin: COMMON NORMALS: no rashes or lesions noted GENERAL SKIN EXAM: no rashes or lesions noted Course Vital Signs: Vital signs: Vital Signs Temperature 98.7 F 02/17/23 19:49 Pulse Rate 93 02/17/23 19:49 Respiratory Rate 18 02/17/23 19:49 Blood Pressure 129/86 02/17/23 19:49 Pulse Oximetry 96 02/17/23 19:49 Oxygen Delivery Me thod Room Air 02/17/23 19:49 MDM - Psych Medical Decision Making Medically the patient is stable. Have spoken with psychiatry. She is obviously acutely psychotic. She will require admission. Sodium is 128. She has had problems with hyponatremia before much more severe than that. CBC is normal. Lab work is otherwise not remarkable. Lab Data 02/17/23 21:14 02/17/23 21:14 Laboratory Results WBC 7.8 10^3/uL (4.0-10.0) 02/17/23 21:14 RBC 3.93 10^6/uL (4.1-5.3) L 02/17/23 21:14 Hgb 13.0 g/dL (11.5-15.3) 02/17/23 21:14 Hct 37.6 % (37.0-47.0) 02/17/23 21:14 MCV 95.7 fl (81-99) 02/17/23 21:14 MCH 33.1 pg (28.0-34.0) 02/17/23 21:14 MCHC 34.6 g/dL (30.0-36.0) 02/17/23 21:14 RDW 12.3 % (12.1-15.1) 02/17/23 21:14 Plt Count 314 10^3/cmm (130-400) 02/17/23 21:14 MPV 8.6 fL (7.4-10.4) 02/17/23 21:14 Neut % (Auto) 47.0 % 02/17/23 21:14 Lymph % (Auto) 42.9 % 02/17/23 21:14 [place] % (Auto) 7.4 % 02/17/23 21:14 Eos % (Auto) 1.9 % 02/17/23 21:14 Baso % (Auto) 0.4 % 02/17/23 21:14 Neut # (Auto) 3.67 10^3/uL (1.8-7.7) 02/17/23 21:14 Lymph # (Auto) 3.4 10^3/uL (0.8-4.8) 02/17/23 21:14 [place] # (Auto) 0.6 10^3/uL (0.2-0.9) 02/17/23 21:14 Eos # (Auto) 0.2 10^3/uL (0.0-0.8) 02/17/23 21:14 Baso # (Auto) 0.0 10^3/uL (0.0-0.1) 02/17/23 21:14 Nucleated RBC % (auto) 0 % 02/17/23 21:14 Nucleated RBCs # 0.0 /100WBC 02/17/23 21:14 Sodium 128 mmol/L (136-145) L 02/17/23 21:14 Potassium 4.1 mmol/L (3.5-5.1) 02/17/23 21:14 Chloride 94 mmol/L (98-107) L 02/17/23 21:14 Carbon Dioxide 22 mmol/L (22-29) 02/17/23 21:14 Anion Gap 16.1 (5-19) 02/17/23 21:14 BUN 4 mg/dL (6-20) L 02/17/23 21:14 Creatinine 0.5 mg/dL (0.5-0.9) 02/17/23 21:14 GFR Calculation 138.8 mL/min (90-130) H 02/17/23 21:14 Glucose 77 mg/dL (65-115) 02/17/23 21:14 Calculated Osmolality 262 mOsm/kg (285-295) L 02/17/23 21:14 Calcium 8.2 mg/dL (8.5-10.5) L 02/17/23 21:14 Total Bilirubin 0.2 mg/dL (0.15-1.2) 02/17/23 21:14 AST 14 U/L (0-32) 02/17/23 21:14 ALT 12 U/L (0-33) 02/17/23 21:14 Alkaline Phosphatase 128 U/L (35-105) H 02/17/23 21:14 Total Protein 6.4 g/dL (6.6-8.7) L 02/17/23 21:14 Albumin 3.9 g/dL (3.5-5.2) 02/17/23 21:14 Globulin 2.5 g/dL (1.3-4.6) 02/17/23 21:14 HCG, Qual Negative (Negative) 02/17/23 21:14 Urine Color Yellow (Yellow) 02/17/23 21:14 Urine Appearance Clear (CLEAR) 02/17/23 21:14 Urine pH 7 (5-7) 02/17/23 21:14 Ur Specific [place] 1.000 (1.005-1.030) L 02/17/23 21:14 Urine Protein Neg (Negative) 02/17/23 21:14 Urine Glucose (UA) Norm (Normal) 02/17/23 21:14 Urine Ketones Negative (Negative) 02/17/23 21:14 Urine Blood Neg (Negative) 02/17/23 21:14 Urine Nitrate Negative (Negative) 02/17/23 21:14 Urine Bilirubin Neg (Negative) 02/17/23 21:14 Urine Urobilinogen Norm mg/dL (Negative) 02/17/23 21:14 Ur Leukocyte Esterase Negative (Negative) 02/17/23 21:14 Salicylates < 0.3 mg/dL (3-10) L 02/17/23 21:14 Urine Opiates Screen Negative ng/mL (Negative) 02/17/23 21:14 Acetaminophen < 5.0 ug/mL (10-30) L 02/17/23 21:14 Ur Barbiturates Screen Negative ng/mL (Negative) 02/17/23 21:14 Ur Phencyclidine Scrn Negative ng/mL (Negative) 02/17/23 21:14 Ur Amphetamines Screen Negative ng/mL (Negative) 02/17/23 21:14 U Benzodiazepines Scrn Positive ng/mL (Negative) H 02/17/23 21:14 Urine Cocaine Screen Negative ng/mL (Negative) 02/17/23 21:14 U Marijuana (THC) Screen Negative ng/mL (Negative) 02/17/23 21:14 Ethyl Alcohol < 10 mg/dL (0-10) 02/17/23 21:14 Discharge Plan Discharge Patient Disposition: Admitted As Inpatient Clinical Impression: Acute psychosis Condition: Stable Coding Level of Care Code ED Multimedia Production Assistant for Randi Sethi
[2023-02-17 21:27] LABS: Basophils % 0.4 %; Eosinophils # 0.2 10^3/uL (0.0-0.8); Eosinophils % 1.9 %; Hematocrit 37.6 % (37.0-47.0); Lymphocytes # 3.4 10^3/uL (0.8-4.8); Lymphocytes % 42.9 %; Mean Corpuscular HGB Conc 34.6 g/dL (30.0-36.0); Mean Corpuscular Hemoglobin 33.1 pg (28.0-34.0); Mean Corpuscular Volume 95.7 fl (81-99); Mean Platelet Volume 8.6 fL (7.4-10.4); Monocytes # 0.6 10^3/uL (0.2-0.9); Monocytes % 7.4 %; Neutrophils # 3.67 10^3/uL (1.8-7.7); Nucleated Red Blood Cells % 0 %; Platelet Count 314 10^3/cmm (130-400); Red Blood Count 3.93 10^6/uL (4.1-5.3); Red Cell Distribution Width 12.3 % (12.1-15.1); White Blood Count 7.8 10^3/uL (4.0-10.0)
[2023-02-17 21:29] LABS: HCG Qualitative Urine. Negative (Negative)
[2023-02-17 21:45] LABS: Alanine Aminotransferase 12 U/L (0-33); Albumin Level 3.9 g/dL (3.5-5.2); Alkaline Phosphatase 128 U/L (35-105); Anion Gap 16.1 (5-19); Aspartate Amino Transferase 14 U/L (0-32); Blood Urea Nitrogen 4 mg/dL (6-20); Calcium 8.2 mg/dL (8.5-10.5); Carbon Dioxide 22 mmol/L (22-29); Chloride 94 mmol/L (98-107); Globulin 2.5 g/dL (1.3-4.6); Glomerular Filtration Rate 138.8 mL/min (90-130); Glucose 77 mg/dL (65-115); Osmolality Calculated 262 mOsm/kg (285-295); Potassium 4.1 mmol/L (3.5-5.1); Sodium 128 mmol/L (136-145); Total Bilirubin 0.2 mg/dL (0.15-1.2); Total Protein 6.4 g/dL (6.6-8.7)
[2023-02-17 21:46] LABS: Acetaminophen < 5.0 ug/mL (10-30); Alcohol Level < 10 mg/dL (0-10); Salicylate < 0.3 mg/dL (3-10)
[2023-02-17 22:01] LABS: Charge for UA Resulting for Rev
[2023-02-17 22:02] LABS: Bilirubin Urine Neg (Negative); Blood Urine Neg (Negative); Glucose Urine UA Norm (Normal); Ketones Urine Negative (Negative); Leukocyte Esterase Urine Negative (Negative); Nitrate Urine Negative (Negative); Protein Urine Neg (Negative); Urine Appearance Clear (CLEAR); Urine Color Yellow (Yellow); Urobilinogen Urine Norm (Negative); pH Urine 7 (5-7)
[2023-02-17 22:11] LABS: Amphetamines Screen Urine Negative (Negative); Barbiturates Screen Urine Negative (Negative); Benzodiazepines Screen Urine Positive (Negative); Cocaine Screen Urine Negative (Negative); Opiate Screen Urine Negative (Negative); PCP Screen Urine Negative (Negative); THC Screen Urine Negative (Negative)
[2023-02-17 23:07] VITALS: PULSE 68; RESP 14; O2SAT 98
[2023-02-17 23:37] VITALS: PULSE 66; RESP 14; O2SAT 98
[2023-02-18 00:08] VITALS: BP 105/68; PULSE 82; RESP 18; TEMP 36.5; O2SAT 98
[2023-02-18 00:15] VITALS: BP 105/68; PULSE 82; RESP 18; TEMP 36.5; O2SAT 98
[2023-02-18 06:00] VITALS: BP 117/86; PULSE 86; RESP 18; TEMP 36.6; O2SAT 93
[2023-02-18] MEDS: hyDROXYzine 25 mg Capsule 50 MG PO (10:32)
--- NOTE | 2023-02-18 10:34 | PC.NURSE ---
PRN VISTARIL 50 MG GIVEN PO PER PT C/O ANXIETY, TEARFUL, SAYING TO STAFF SHE DOESN'T KNOW WHAT IS MAKING HER NERVOUS BUT SHE IS JUST STRESSED OUT AND CONFUSED
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
[2023-02-18] MEDS: nicotine 2 mg Gum BUCCAL ×2 (10:47→16:31)
[2023-02-18 14:00] VITALS: BP 135/91; PULSE 84; RESP 16; TEMP 36.7; O2SAT 99
[2023-02-18] MEDS: haloperidol 5 mg Tablet PO (15:27)
--- NOTE | 2023-02-18 15:27 | PC.NURSE ---
PRN HALDOL 5 MG GIVEN PO PER PT C/O FURTHER ANXIETY, STATED PRN VISTARIL WAS INEFFECTIVE FROM BEFORE.
[2023-02-18] MEDS: LORazepam 0.5 mg Tablet PO (17:01)
--- NOTE | 2023-02-18 17:02 | PC.NURSE ---
PRN ATIVAN 0.5 MG GIVEN PO PER PT C/O STATED ANXIETY. FLAT AFFECT NOTED.
[2023-02-18 18:22] LABS: Anion Gap 14.5 (5-19); Blood Urea Nitrogen 4 mg/dL (6-20); Calcium 8.7 mg/dL (8.5-10.5); Carbon Dioxide 23 mmol/L (22-29); Chloride 101 mmol/L (98-107); Glomerular Filtration Rate 112.5 mL/min (90-130); Glucose 84 mg/dL (65-115); Osmolality Calculated 274 mOsm/kg (285-295); Potassium 4.5 mmol/L (3.5-5.1); Sodium 134 mmol/L (136-145)
[2023-02-18] MEDS: carBAMazepine 200 mg Tablet 300 MG PO (20:25)
[2023-02-18] MEDS: quetiapine XR (24HR) 300 mg Tablet PO (20:25)
[2023-02-18] MEDS: benztropine 1 mg Tablet PO (20:25)
[2023-02-18 20:38] VITALS: BP 107/74; PULSE 58; RESP 16; O2SAT 97
[2023-02-19 06:00] VITALS: RESP 16
[2023-02-19] MEDS: carBAMazepine 200 mg Tablet 300 MG PO ×2 (07:33→21:06)
[2023-02-19] MEDS: duloxetine 60 mg Capsule 120 MG PO (07:33)
[2023-02-19] MEDS: benztropine 1 mg Tablet PO ×2 (07:34→21:07)
[2023-02-19] MEDS: pantoprazole DR 40 mg Tablet PO (07:34)
[2023-02-19] MEDS: hyDROXYzine 25 mg Capsule 50 MG PO ×2 (07:34→14:49)
[2023-02-19] MEDS: acetaminophen 325 mg Tablet 650 MG PO ×2 (07:37→17:46)
--- NOTE | 2023-02-19 07:39 | PC.NURSE ---
pt request administration of medication to be given now instead of 0900 medication pass.
[2023-02-19] MEDS: nicotine 2 mg Gum BUCCAL ×2 (08:15→15:02)
[2023-02-19] MEDS: OLANZapine 5 mg ODT PO ×2 (08:15→17:46)
[2023-02-19] MEDS: LORazepam 0.5 mg Tablet PO (10:37)
[2023-02-19] MEDS: ibuprofen 600 mg Tablet PO (13:24)
[2023-02-19 14:00] VITALS: BP 113/78; PULSE 64; RESP 16; TEMP 36.9; O2SAT 94
--- NOTE | 2023-02-19 15:29 | P.NPUPN_ITS ---
Subjective NPU Subjective: 37-year-old white female with schizoaffective disorder depressed type with borderline personality traits. She had reported that she continued to have dissonance regarding her feelings towards her mother as she stated that she had Deanna for her but at times felt like she needed to kill her. The patient had reported having chronic struggles with her thoughts and stated that she continued to feel that others around her were somehow replacing her pills with no medicine at all. She had reported adequate sleep. She had reported that her voice is remained a distraction to her. Staff notes the patient had required some prompting to complete activities of daily living. She had reported that she continued to feel depressed and reported that she continued to have be focused on how people around her were placing her in a giant experiment. Mental Status Exam MSE Comments: Patient is disheveled and appeared her stated age. There was no clear evidence of any abnormal involuntary motor movements tics or tremors appreciated. Her gait appeared within normal limits. Her speech was normal in regards to volume and rate and rhythm. Her mood was described as depressed. Her affect was odd and subdued today. She minimized any thoughts of hurting herself but in endorsed homicidal ideation towards her mother.. She did at times appear to be responding to internal stimuli and reported auditory hallucinations that she reported for having a conversation in her head. There was continued evidence of paranoia and a complex and intricate delusional system involving the patient being part of grand experiment. Her insight is feeble. Her judgment is poor. Her impulse control appeared limited at this time. She was alert and oriented to person place time and situation. Her recent and remote memory appeared grossly intact. Vitals/I&O/Wt Last Vital Signs Temp 98.4 F 02/19/23 14:00 Pulse 64 02/19/23 14:00 Resp 16 02/19/23 14:00 BP 113/78 02/19/23 14:00 Pulse Ox 94 02/19/23 14:00 O2 Del Method Room Air 02/19/23 14:00 Weight last 48 hrs Weight 82.554 kg Weight 81.647 kg Data NPU 02/17/23 21:14 02/18/23 17:50 A&P Assessment and plan (1) Paranoid schizophrenia: (2) Borderline personality disorder: (3) Schizoaffective disorder, depressive type: Plan This 37-year-old white female with schizoaffective disorder and borderline personality traits admitted with increased volatility in her assisted living facility with worsening paranoia with a history of poor response in the past to antipsychotics despite compliance. She may require a change in medications and will require continued inpatient hospitalization. 1.? ? Engage? patient in individual ,milieu, and group therapy ?2. ? We will attempt to gather collateral information from previous providers ?3. ? TO-15 minute checks on the unit. 4. Decrease Seroquel XR to 150 mg at night with plan for discontinuation and begin Vraylar at 3 mg daily. Continue Invega intramuscular every 28 days. Continue Tegretol 300 mg twice a day. Involuntary Hold Information 96 Hour Hold: 96 Hour Involuntary Admission: No Attestations NPU Medical Necessity Statement*: Inpatient hospitalization is medically necessary and deemed to be the clinically appropriate intervention at this time. We will monitor and initiate medications while making changes as indicated. Her likely length of stay is 7 to 10 days. Coding Level of Care Code Acute Code for [facility] Diagnoses Paranoid schizophrenia F20.0 Borderline personality disorder F60.3 Schizoaffective disorder, depressive type F25.1
--- NOTE | 2023-02-19 15:42 | PC.NURSE ---
called to [facility] outpatient pharmacy 3mg vraylar qday for 5 days to be filled an sent to inpatient as non formulary medication administration per verbal order from Dr. Yonny Coleman.
[2023-02-19 20:12] VITALS: BP 130/87; PULSE 84; RESP 18; TEMP 36.6; O2SAT 95
[2023-02-19] MEDS: quetiapine XR (24HR) 300 mg Tablet PO (21:06)
[2023-02-20] MEDS: hyDROXYzine 25 mg Capsule 50 MG PO ×2 (01:11→10:58)
[2023-02-20] MEDS: nicotine 2 mg Gum BUCCAL ×2 (01:14→09:26)
[2023-02-20] MEDS: ibuprofen 600 mg Tablet PO ×3 (02:14→18:40)
[2023-02-20 06:00] VITALS: RESP 16
--- NOTE | 2023-02-20 06:26 | PC.NURSE ---
resp. pt sleeping
[2023-02-20] MEDS: duloxetine 60 mg Capsule 120 MG PO (09:25)
[2023-02-20] MEDS: pantoprazole DR 40 mg Tablet PO (09:26)
[2023-02-20] MEDS: carBAMazepine 200 mg Tablet 300 MG PO ×2 (09:26→20:34)
[2023-02-20] MEDS: benztropine 1 mg Tablet PO ×2 (09:33→20:34)
[2023-02-20 13:33] VITALS: BP 124/89; PULSE 85; RESP 16; TEMP 36.6; O2SAT 98
[2023-02-20] MEDS: acetaminophen 325 mg Tablet 650 MG PO ×2 (14:17→21:56)
[2023-02-20] MEDS: LORazepam 0.5 mg Tablet PO (14:18)
--- NOTE | 2023-02-20 15:55 | W.PM.NPUPNS ---
Subjective NPU Subjective: 37-year-old white female with schizoaffective disorder depressed type with borderline personality traits. The patient continued to report having thoughts of people somehow not giving her her medications as she continued to report that the pills that she were was consuming were largely empty or replaced by other medications. She had continued to appear suspicious on the unit. She had reported having problems with managing her anxiety and stated that the lorazepam that she took at night were was ineffective at managing her anxiety and helping her sleep. She had reported no side effects from her dose of Vraylar that was added to her Invega intramuscular. She reported no worsening of mood with the reduction in Seroquel to 150 mg last night. Patient had continued to report feelings as if she was in a giant experiment. She had reported having distrust of others and stated that others were frequently plotting against her. Staff notes the patient had attended groups but provided little input and reported the she had walked out of 1 of these meetings and groups today. Mental Status Exam MSE Comments: Patient is disheveled and appeared her stated age. There was no clear evidence of any abnormal involuntary motor movements tics or tremors appreciated. Her gait appeared within normal limits. Her speech was normal in regards to volume and rate and rhythm. Her mood was described as okay.. Her affect was very odd and peculiar. She denied any homicidal or suicidal thoughts today. She did at times appear to be responding to internal stimuli and continued to endorse a complex delusional system with significant ideas of reference. Her insight is poor. Her judgment is poor. Her impulse control appeared limited. Her attention span was variable as she was easily distracted. She was alert and oriented to person place and time at this time. Vitals/I&O/Wt Last Vital Signs Temp 97.9 F 02/20/23 13:33 Pulse 85 02/20/23 13:33 Resp 16 02/20/23 13:33 BP 124/89 02/20/23 13:33 Pulse Ox 98 02/20/23 13:33 O2 Del Method Room Air 02/20/23 13:33 Data NPU 02/17/23 21:14 02/18/23 17:50 A&P Assessment and plan (1) Paranoid schizophrenia: (2) Borderline personality disorder: (3) Schizoaffective disorder, depressive type: Plan This 37-year-old white female with schizoaffective disorder and borderline personality traits admitted with increased volatility in her assisted living facility with worsening paranoia with a history of poor response in the past to antipsychotics despite compliance. She may require a change in medications and will require continued inpatient hospitalization. 1.? ? Engage? patient in individual ,milieu, and group therapy ?2. ? We will attempt to gather collateral information from previous providers ?3. ? TO-15 minute checks on the unit. 4. Discontinue Seroquel XR continue Vraylar at 3 mg daily. Continue Invega intramuscular every 28 days. Continue Tegretol 300 mg twice a day. D/C routine lorazepam and add klonopin .25mg bid to target anxiety. Involuntary Hold Information 96 Hour Hold: 96 Hour Involuntary Admission: No Attestations NPU Medical Necessity Statement*: Inpatient hospitalization is medically necessary and deemed to be the clinically appropriate intervention at this time. We will monitor and initiate medications while making changes as indicated. Her likely length of stay is 5-7 days. Coding Level of Care Code Acute Code for [facility] Diagnoses Paranoid schizophrenia F20.0 Borderline personality disorder F60.3 Schizoaffective disorder, depressive type F25.1
[2023-02-20] MEDS: CLONazepam 0.5 mg Tablet 0.25 MG PO (20:34)
[2023-02-20] MEDS: trazodone 50 mg Tablet PO (21:51)
[2023-02-20 21:58] VITALS: BP 131/81; PULSE 94; RESP 16; TEMP 36.9; O2SAT 97
[2023-02-21] MEDS: trazodone 50 mg Tablet PO (01:02)
[2023-02-21] MEDS: ibuprofen 600 mg Tablet PO ×2 (02:01→16:31)
[2023-02-21 06:00] VITALS: BP 133/90; PULSE 75; RESP 16; TEMP 36.6; O2SAT 98
[2023-02-21] MEDS: benztropine 1 mg Tablet PO ×2 (08:25→20:25)
[2023-02-21] MEDS: pantoprazole DR 40 mg Tablet PO (08:25)
[2023-02-21] MEDS: duloxetine 60 mg Capsule 120 MG PO (08:25)
[2023-02-21] MEDS: CLONazepam 0.5 mg Tablet 0.25 MG PO ×2 (08:25→20:26)
[2023-02-21] MEDS: quetiapine XR (24HR) 50 mg Tablet 150 MG PO (08:26)
[2023-02-21] MEDS: carBAMazepine 200 mg Tablet 300 MG PO ×2 (08:26→20:27)
[2023-02-21] MEDS: OLANZapine 5 mg ODT PO (09:16)
[2023-02-21] MEDS: nicotine 2 mg Gum BUCCAL ×2 (09:42→16:31)
[2023-02-21] MEDS: acetaminophen 325 mg Tablet 650 MG PO ×2 (12:00→22:23)
[2023-02-21 14:00] VITALS: BP 127/86; PULSE 104; RESP 18; TEMP 36.5; O2SAT 98
--- NOTE | 2023-02-21 17:40 | P.NPUPN_ITS ---
Subjective NPU Subjective: 37-year-old white female with schizoaffective disorder depressed type with borderline personality traits. Patient continue to report hallucinations and stated that she continued to feel suspicious about what was being placed inside of her pills. She reports no side effects from her medication. She had reported having difficulties with falling asleep. She reported no suicidal thoughts. She had reported that she was still struggling with managing her thoughts and stated that her thoughts were constantly focused on the grand experiment that was being conducted on her life. Mental Status Exam MSE Comments: Patient is disheveled and appeared her stated age. There was no clear evidence of any abnormal involuntary motor movements tics or tremors appreciated. Her gait appeared within normal limits. Her speech was normal in regards to volume and rate and rhythm. Her mood was described as all right 8. Her affect was subdued. She denied any homicidal or suicidal thoughts today. She did at times appear to be responding to internal stimuli and continued to endorse a complex delusional system with significant ideas of reference. Her insight is poor. Her judgment is poor. Her impulse control appeared limited. Her attention span was variable as she was easily distracted. She was alert and oriented to person place and time at this time. Vitals/I&O/Wt Last Vital Signs Temp 97.7 F 02/21/23 14:00 Pulse 104 H 02/21/23 14:00 Resp 18 02/21/23 14:00 BP 127/86 02/21/23 14:00 Pulse Ox 98 02/21/23 14:00 O2 Del Method Room Air 02/21/23 06:00 Data NPU 02/17/23 21:14 02/18/23 17:50 A&P Assessment and plan (1) Paranoid schizophrenia: (2) Borderline personality disorder: (3) Schizoaffective disorder, depressive type: Plan This 37-year-old white female with schizoaffective disorder and borderline p ersonality traits admitted with increased volatility in her assisted living facility with worsening paranoia with a history of poor response in the past to antipsychotics despite compliance. She may require a change in medications and will require continued inpatient hospitalization. 1.? ? Engage? patient in individual ,milieu, and group therapy ?2. ? We will attempt to gather collateral information from previous providers ?3. ? TO-15 minute checks on the unit. 4. Continue Vraylar at 3 mg daily. Continue Invega 234mg intramuscular every 28 days. Continue Tegretol 300 mg twice a day. increase klonopin .25mg tid to target anxiety. Remeron 15mg at night to target insomnia. Involuntary Hold Information 96 Hour Hold: 96 Hour Involuntary Admission: No Attestations NPU Medical Necessity Statement*: Inpatient hospitalization is medically necessary and deemed to be the clinically appropriate intervention at this time. We will monitor and initiate medications while making changes as indicated. Her likely length of stay is 5-7 days. Coding Level of Care Code Acute Code for g Fwd Diagnoses Paranoid schizophrenia F20.0 Borderline personality disorder F60.3 Schizoaffective disorder, depressive type F25.1
[2023-02-21] MEDS: quetiapine XR (24HR) 50 mg Tablet PO (20:25)
[2023-02-21] MEDS: mirtazapine 15 mg Tablet PO (20:26)
[2023-02-21 22:00] VITALS: BP 131/84; PULSE 88; RESP 17; TEMP 36.6; O2SAT 95
[2023-02-22] MEDS: ibuprofen 600 mg Tablet PO ×2 (01:23→14:38)
[2023-02-22] MEDS: trazodone 50 mg Tablet PO (01:45)
[2023-02-22] MEDS: OLANZapine 5 mg ODT PO (04:32)
[2023-02-22] MEDS: nicotine 2 mg Gum BUCCAL ×3 (04:38→20:31)
[2023-02-22 05:56] VITALS: RESP 15
[2023-02-22] MEDS: carBAMazepine 200 mg Tablet 300 MG PO ×2 (08:02→20:27)
[2023-02-22] MEDS: pantoprazole DR 40 mg Tablet PO (08:03)
[2023-02-22] MEDS: duloxetine 60 mg Capsule 120 MG PO (08:03)
[2023-02-22] MEDS: CLONazepam 0.5 mg Tablet 0.25 MG PO ×3 (08:03→20:28)
[2023-02-22] MEDS: benztropine 1 mg Tablet PO ×2 (08:03→20:29)
[2023-02-22 14:00] VITALS: RESP 16
--- NOTE | 2023-02-22 15:36 | W.PM.NPUPNS ---
Mental Status Exam MSE Comments: This is an obese white female in hospital scrubs with appropriate grooming and limited eye contact. No abnormal movements except for mild psychomotor retardation. Cooperative with exam in mild distress. Speech was normal rate and volume. Mood described as okay, affect congruent but odd. Thought process linear at times but other times disorganized. Thought content: Patient denied suicidal or homicidal ideation, there were no delusions reported but some possible bizarre delusions noted, she endorsed auditory and visual hallucinations. Attention and concentration were intact and memory appeared somewhat reliable but none were formally tested. She is alert and oriented x3. Insight and judgment appear limited and impulse control appears limited. Vitals/I&O/Wt Last Vital Signs Temp 97.9 F 02/21/23 22:00 Pulse 88 02/21/23 22:00 Resp 15 02/22/23 05:56 BP 131/84 02/21/23 22:00 Pulse Ox 95 02/21/23 22:00 O2 Del Method Room Air 02/21/23 22:00 Data NPU 02/17/23 21:14 02/18/23 17:50 A&P Assessment and plan (1) Paranoid schizophrenia: (2) Borderline personality disorder: (3) Schizoaffective disorder, depressive type: Plan This 37-year-old white female with schizoaffective disorder and borderline personality traits admitted with increased volatility in her assisted living facility with worsening paranoia with a history of poor response in the past to antipsychotics despite compliance. She may require a change in medications and will require continued inpatient hospitalization. 1.? ?Engage? patient in individual ,milieu, and group therapy ?2. ? We will attempt to gather collateral information from previous providers ?3. ? TO-15 minute checks on the unit. 4. Continue Vraylar at 3 mg daily. Continue Invega 234mg intramuscular every 28 days. Continue Tegretol 300 mg twice a day. increase klonopin .25mg tid to target anxiety. Remeron 15mg at night to target insomnia. Involuntary Hold Information 96 Hour Hold: 96 Hour Involuntary Admission: No Attestations NPU Medical Necessity Statement*: Inpatient hospitalization is medically necessary and deemed to be the clinically appropriate intervention at this time. We will monitor and initiate medications while making changes as indicated. Her likely length of stay is 5-7 days. Coding Level of Care Code Acute Code for [facility] Diagnoses Paranoid schizophrenia F20.0 Borderline personality disorder F60.3 Schizoaffective disorder, depressive type F25.1
[2023-02-22] MEDS: acetaminophen 325 mg Tablet 650 MG PO ×2 (17:13→20:39)
[2023-02-22] MEDS: mirtazapine 15 mg Tablet PO (20:28)
[2023-02-22 22:00] VITALS: BP 132/82; PULSE 95; RESP 18; TEMP 37; O2SAT 100
[2023-02-23] MEDS: nicotine 2 mg Gum BUCCAL ×3 (01:48→23:45)
[2023-02-23] MEDS: trazodone 50 mg Tablet PO ×2 (02:10→23:46)
[2023-02-23] MEDS: acetaminophen 325 mg Tablet 650 MG PO ×2 (04:03→18:56)
[2023-02-23] MEDS: hyDROXYzine 25 mg Capsule 50 MG PO (04:18)
[2023-02-23 06:00] VITALS: RESP 16
[2023-02-23] MEDS: CLONazepam 0.5 mg Tablet 0.25 MG PO ×3 (08:48→20:12)
[2023-02-23] MEDS: carBAMazepine 200 mg Tablet 300 MG PO ×2 (08:48→20:12)
[2023-02-23] MEDS: pantoprazole DR 40 mg Tablet PO (08:49)
[2023-02-23] MEDS: duloxetine 60 mg Capsule 120 MG PO (08:49)
[2023-02-23] MEDS: benztropine 1 mg Tablet PO ×2 (08:49→20:12)
[2023-02-23 12:12] VITALS: BP 124/85; PULSE 89; RESP 17; TEMP 36.7; O2SAT 99
--- NOTE | 2023-02-23 14:13 | P.NPUPN_ITS ---
Subjective NPU Subjective: Patient presented today reporting that she thinks she is feeling a little better each day. She did clarify that she did not have Vraylar before she came to the hospital. She reports that it was something that was ordered in when she got here and she reports that she feels that has really made a difference. She reports that today is the first day she feels like she is not really having au ditory hallucinations and that she is having real thought clarity. We discussed working with the treatment team and her outpatient supports for discharge towards the beginning of the week. Mental Status Exam MSE Comments: This is an obese white female in hospital scrubs with appropriate grooming and l imited eye contact. No abnormal movements except for mild psychomotor retardation. Cooperative with exam in mild distress. Speech was normal rate and volume. Mood described as okay, affect congruent but odd. Thought process linear at times but other times disorganized. Thought content: Patient denied suicidal or homicidal ideation, there were no delusions reported but some possible bizarre delusions noted, she denied current auditory and visual hallucinations. Attention and concentration were intact and memory appeared somewhat reliable but none were formally tested. She is alert and oriented x3. Insight and judgment appear improving and impulse control appears limited, but improving. Vitals/I&O/Wt Last Vital Signs Temp 98.0 F 02/23/23 12:12 Pulse 89 02/23/23 12:12 Resp 17 02/23/23 12:12 BP 124/85 02/23/23 12:12 Pulse Ox 99 02/23/23 12:12 O2 Del Method Room Air 02/23/23 12:12 Data NPU 02/17/23 21:14 02/18/23 17:50 A&P Assessment and plan (1) Paranoid schizophrenia: (2) Borderline personality disorder: (3) Schizoaffective disorder, depressive type: Plan This 37-year-old white female with schizoaffective disorder and borderline personality traits admitted with increased volatility in her assisted living facility with worsening paranoia with a history of poor response in the past to antipsychotics despite compliance. She may require a change in medications and will require continued inpatient hospitalization. 1.? ?Engage? patient in individual ,milieu, and group therapy ?2. ? We will attempt to gather collateral information from previous providers ?3. ? TO-15 minute checks on the unit. 4. Continue Vraylar at 3 mg daily. Continue Invega 234mg intramuscular every 28 days. Continue Tegretol 300 mg twice a day. increase klonopin .25mg tid to target anxiety. Remeron 15mg at night to target insomnia. Involuntary Hold Information 96 Hour Hold: 96 Hour Involuntary Admission: No Attestations NPU Medical Necessity Statement*: Inpatient hospitalization is medically necessary and deemed to be the clinically appropriate intervention at this time. We will monitor and initiate medications while making changes as indicated. Her likely length of stay is 3-5 days. Coding Level of Care Code Acute Code for [facility] Diagnoses Paranoid schizophrenia F20.0 Borderline personality disorder F60.3 Schizoaffective disorder, depressive type F25.1
[2023-02-23] MEDS: mirtazapine 15 mg Tablet PO (20:12)
[2023-02-23 22:00] VITALS: BP 117/79; PULSE 109; RESP 16; TEMP 36.6; O2SAT 97
--- NOTE | 2023-02-23 23:46 | PC.NURSE ---
PRN Trazodone given for sleep per pt request.
[2023-02-24 06:00] VITALS: BP 120/86; PULSE 95; RESP 16; TEMP 36.4; O2SAT 99
--- NOTE | 2023-02-24 06:04 | PC.NURSE ---
resp. pt. sleeping
[2023-02-24] MEDS: benztropine 1 mg Tablet PO ×2 (08:49→21:34)
[2023-02-24] MEDS: nicotine 2 mg Gum BUCCAL (08:49)
[2023-02-24] MEDS: pantoprazole DR 40 mg Tablet PO (08:50)
[2023-02-24] MEDS: carBAMazepine 200 mg Tablet 300 MG PO ×2 (08:51→21:33)
[2023-02-24] MEDS: CLONazepam 0.5 mg Tablet 0.25 MG PO ×3 (08:51→21:33)
[2023-02-24] MEDS: duloxetine 60 mg Capsule 120 MG PO (08:52)
[2023-02-24] MEDS: fluconazole 100 mg Tablet 150 MG PO (09:34)
--- NOTE | 2023-02-24 09:46 | P.NPUPN_ITS ---
Subjective NPU Subjective: Patient presented today reporting that she is doing a little better. Her concerns about a yeast infection have been calmed by Diflucan. She reports that she is still doing okay with the medication and feeling less worried about being hyper or elevated by the Vraylar. Otherwise she reports that she feels like she is getting better each day. Mental Status Exam MSE Comments: This is an obese white female in hospital scrubs with appropriate grooming and limited eye contact. No abnormal movements except for mild psychomotor retardation. Cooperative with exam in mild distress. Speech was normal rate and volume. Mood described as okay, affect congruent but odd. Thought process linear at times but other times disorganized. Thought content: Patient denied suicidal or homicidal ideation, there were no delusions reported but some possible bizarre delusions noted, she denied current auditory and visual hallucinations. Attention and concentration were intact and memory appeared somewhat reliable but none were formally tested. She is alert and oriented x3. Insight and judgment appear improving and impulse control appears limited, but improving. Vitals/I&O/Wt Last Vital Signs Temp 97.6 F 02/24/23 06:00 Pulse 95 02/24/23 06:00 Resp 16 02/24/23 06:00 BP 120/86 02/24/23 06:00 Pulse Ox 99 02/24/23 06:00 O2 Del Method Room Air 02/23/23 22:00 Data NPU 02/17/23 21:14 02/18/23 17:50 A&P Assessment and plan (1) Paranoid schizophrenia: (2) Borderline personality disorder: (3) Schizoaffective disorder, depressive type: Plan This 37-year-old white female with schizoaffective disorder and borderline p ersonality traits admitted with increased volatility in her assisted living facility with worsening paranoia with a history of poor response in the past to antipsychotics despite compliance. She may require a change in medications and will require continued inpatient hospitalization. 1.? ?Engage? patient in individual ,milieu, and group therapy ?2. ? We will attempt to gather collateral information from previous providers ?3. ? TO-15 minute checks on the unit. 4. Continue Vraylar at 3 mg daily. Continue Invega 234mg intramuscular every 28 days. Continue Tegretol 300 mg twice a day. increase klonopin .25mg tid to target anxiety. Remeron 15mg at night to target insomnia. Diflucan started x1 for yeast infection. Involuntary Hold Information 96 Hour Hold: 96 Hour Involuntary Admission: No Attestations NPU 2 Medical Necessity Statement*: Inpatient hospitalization is medically necessary and deemed to be the clinically appropriate intervention at this time. We will monitor and initiate medications while making changes as indicated. Her likely length of stay is 3-5 days. Coding Level of Care Code Acute Code for [facility] Diagnoses Paranoid schizophrenia F20.0 Borderline personality disorder F60.3 Schizoaffective disorder, depressive type F25.1
[2023-02-24] MEDS: OLANZapine 5 mg ODT PO (11:04)
[2023-02-24 14:00] VITALS: BP 125/86; PULSE 109; RESP 18; TEMP 36.7; O2SAT 98
[2023-02-24 20:45] VITALS: BP 108/75; PULSE 108; RESP 16; TEMP 36.3; O2SAT 100
[2023-02-24] MEDS: mirtazapine 15 mg Tablet PO (21:33)
[2023-02-24] MEDS: trazodone 50 mg Tablet PO (21:33)
[2023-02-25] MEDS: acetaminophen 325 mg Tablet 650 MG PO (00:53)
[2023-02-25] MEDS: nicotine 2 mg Gum BUCCAL ×2 (00:56→09:36)
[2023-02-25 05:52] VITALS: BP 120/76; PULSE 103; RESP 16; TEMP 36.4; O2SAT 100
--- NOTE | 2023-02-25 07:53 | W.PM.NPUPNS ---
Subjective NPU Subjective: Patient presented today reporting that she is doing better. However the conversation surrounded likely delusional thinking. She talked about people at her residential facility not wanting her there and believes that she gets told they want her there directly but that as the director is followed by she got a phone call telling them how she does not want her there. She also talked about likely paranoid thoughts about her guardian that she seemed to be able to identify working accurate. She reported doing better from a standpoint of the yeast situation. Mental Status Exam MSE Comments: This is an obese white female in hospital scrubs with appropriate grooming and limited eye contact. No abnormal movements except for mild psychomotor retardation. Cooperative with exam in mild distress. Speech was normal rate and volume. Mood described as okay, affect congruent but odd. Thought process linear at times but other times disorganized. Thought content: Patient denied suicidal or homicidal ideation, there were no delusions reported but some possible bizarre delusions noted, she denied current auditory and visual hallucinations. Attention and concentration were intact and memory appeared somewhat reliable but none were formally tested. She is alert and oriented x3. Insight and judgment appear improving and impulse control appears limited, but improving. Vitals/I&O/Wt Last Vital Signs Temp 97.6 F 02/25/23 05:52 Pulse 103 H 02/25/23 05:52 Resp 16 02/25/23 05:52 BP 120/76 02/25/23 05:52 Pulse Ox 100 02/25/23 05:52 O2 Del Method Room Air 02/25/23 05:52 Weight last 48 hrs Weight 76.929 kg Data NPU 02/17/23 21:14 02/18/23 17:50 A&P Assessment and plan (1) Paranoid schizophrenia: (2) Borderline personality disorder: (3) Schizoaffective disorder, depressive type: Plan This 37-year-old white female with schizoaffective disorder and borderline personality traits admitted with increased volatility in her assisted living facility with worsening paranoia with a history of poor response in the past to antipsychotics despite compliance. She may require a change in medications and will require continued inpatient hospitalization. 1.? ?Engage? patient in individual ,milieu, and group therapy ?2. ? We will attempt to gather collateral information from previous providers ?3. ? TO-15 minute checks on the unit. 4. Continue Vraylar at 3 mg daily. Continue Invega 234mg intramuscular every 28 days. Continue Tegretol 300 mg twice a day. increase klonopin .25mg tid to target anxiety. Remeron 15mg at night to target insomnia. Diflucan started x1 for yeast infection. Involuntary Hold Information 96 Hour Hold: 96 Hour Involuntary Admission: No Attestations NPU Medical Necessity Statement*: Inpatient hospitalization is medically necessary and deemed to be the clinically appropriate intervention at this time. We will monitor and initiate medications while making changes as indicated. Her likely length of stay is 3-5 days. Coding Level of Care Code Acute Code for [facility] Diagnoses Paranoid schizophrenia F20.0 Borderline personality disorder F60.3 Schizoaffective disorder, depressive type F25.1
[2023-02-25] MEDS: benztropine 1 mg Tablet PO ×2 (09:30→20:56)
[2023-02-25] MEDS: carBAMazepine 200 mg Tablet 300 MG PO ×2 (09:32→20:59)
[2023-02-25] MEDS: duloxetine 60 mg Capsule 120 MG PO (09:33)
[2023-02-25] MEDS: pantoprazole DR 40 mg Tablet PO (09:34)
[2023-02-25] MEDS: CLONazepam 0.5 mg Tablet 0.25 MG PO ×3 (09:34→21:02)
[2023-02-25 14:00] VITALS: BP 131/87; PULSE 96; RESP 18; TEMP 36.7; O2SAT 100
[2023-02-25 20:38] VITALS: BP 110/75; PULSE 96; RESP 18; TEMP 36.3; O2SAT 96
[2023-02-25] MEDS: trazodone 50 mg Tablet PO ×2 (20:55→23:35)
[2023-02-25] MEDS: mirtazapine 15 mg Tablet PO (20:56)
[2023-02-26] MEDS: acetaminophen 325 mg Tablet 650 MG PO ×2 (01:41→15:08)
[2023-02-26 05:26] VITALS: BP 126/88; PULSE 98; RESP 19; TEMP 36.6; O2SAT 97
[2023-02-26 05:27] VITALS: BP 126/88; PULSE 98; RESP 20; TEMP 36.6; O2SAT 97
[2023-02-26] MEDS: carBAMazepine 200 mg Tablet 300 MG PO ×2 (08:05→20:02)
[2023-02-26] MEDS: duloxetine 60 mg Capsule 120 MG PO (08:05)
[2023-02-26] MEDS: pantoprazole DR 40 mg Tablet PO (08:05)
[2023-02-26] MEDS: benztropine 1 mg Tablet PO ×2 (08:05→20:02)
[2023-02-26] MEDS: CLONazepam 0.5 mg Tablet 0.25 MG PO ×3 (08:06→20:02)
[2023-02-26] MEDS: ibuprofen 600 mg Tablet PO (12:20)
[2023-02-26 13:53] VITALS: BP 113/76; PULSE 89; RESP 16; TEMP 36.7; O2SAT 98
--- NOTE | 2023-02-26 14:58 | W.PM.NPUPNS ---
Subjective NPU Subjective: Patient returns today reporting that maybe she should stop taking the Vraylar. We discussed the fact that we need to get the medication time but she continues to be paranoid and her concerns and disorganized in her oral delivery. She agreed at this point to continue taking it but is now wondering if her medications are effective. Mental Status Exam MSE Comments: This is an obese white female in hospital scrubs with appropriate grooming and limited eye contact. No abnormal movements except for mild psychomotor retardation. Cooperative with exam in mild distress. Speech was normal rate and volume. Mood described as I do not know, affect confused and odd. Thought process linear at times but other times disorganized. Thought content: Patient denied suicidal or homicidal ideation, there were no delusions reported but some possible bizarre delusions noted, she denied current auditory and visual hallucinations. Attention and concentration were intact and memory appeared somewhat reliable but none were formally tested. She is alert and oriented x3. Insight and judgment appear improving and impulse control appears limited. Vitals/I&O/Wt Last Vital Signs Temp 98.1 F 02/26/23 13:53 Pulse 89 02/26/23 13:53 Resp 16 02/26/23 13:53 BP 113/76 02/26/23 13:53 Pulse Ox 98 02/26/23 13:53 O2 Del Method Room Air 02/26/23 13:53 Weight last 48 hrs Weight 76.929 kg Data NPU 02/17/23 21:14 02/18/23 17:50 A&P Assessment and plan (1) Paranoid schizophrenia: (2) Borderline personality disorder: (3) Schizoaffective disorder, depressive type: Plan This 37-year-old white female with schizoaffective disorder and borderline personality traits admitted with increased volatility in her assisted living facility with worsening paranoia with a history of poor response in the past to antipsychotics despite compliance. She may require a change in medications and will require continued inpatient hospitalization. 1.? ?Engage? patient in individual ,milieu, and group therapy ?2. ? We will attempt to gather collateral information from previous providers ?3. ? TO-15 minute checks on the unit. 4. Continue Vraylar at 3 mg daily. Continue Invega 234mg intramuscular every 28 days. Continue Tegretol 300 mg twice a day. increase klonopin .25mg tid to target anxiety. Remeron 15mg at night to target insomnia. Diflucan started x1 for yeast infection. May explore whether giving her oral Invega would be better to augment her IM dose. Involuntary Hold Information 96 Hour Hold: 96 Hour Involuntary Admission: No Attestations NPU Medical Necessity Statement*: Inpatient hospitalization is medically necessary and deemed to be the clinically appropriate intervention at this time. We will monitor and initiate medications while making changes as indicated. Her likely length of stay is 5-7 days. Coding Level of Care Code Acute Code for [facility]wd Diagnoses Paranoid schizophrenia F20.0 Borderline personality disorder F60.3 Schizoaffective disorder, depressive type F25.1
[2023-02-26] MEDS: polyethylene glycol 3350 Pkt 17 gm PO (15:02)
[2023-02-26] MEDS: nicotine 2 mg Gum BUCCAL (18:43)
[2023-02-26] MEDS: trazodone 50 mg Tablet PO (20:02)
[2023-02-26] MEDS: mirtazapine 15 mg Tablet PO (20:02)
[2023-02-26 22:00] VITALS: BP 126/89; PULSE 91; RESP 16; TEMP 36.4; O2SAT 100
[2023-02-27] MEDS: ibuprofen 600 mg Tablet PO (04:32)
[2023-02-27 05:45] VITALS: BP 125/93; PULSE 84; RESP 16; TEMP 36.4; O2SAT 100
[2023-02-27] MEDS: polyethylene glycol 3350 Pkt 17 gm PO (08:12)
[2023-02-27] MEDS: CLONazepam 0.5 mg Tablet 0.25 MG PO ×3 (08:13→20:44)
[2023-02-27] MEDS: benztropine 1 mg Tablet PO ×2 (08:13→20:44)
[2023-02-27] MEDS: pantoprazole DR 40 mg Tablet PO (08:13)
[2023-02-27] MEDS: carBAMazepine 200 mg Tablet 300 MG PO ×2 (08:13→20:43)
[2023-02-27] MEDS: duloxetine 60 mg Capsule 120 MG PO (08:13)
--- NOTE | 2023-02-27 08:16 | PC.NURSE ---
shift assessment positive for Auditory hallucinations, patients states they aren't anything new
--- NOTE | 2023-02-27 08:53 | PC.NURSE ---
home med Vraylar not available, patient stated she didn't want to take it anyways, that it was making her feel worse
[2023-02-27] MEDS: nicotine 2 mg Gum BUCCAL (08:55)
[2023-02-27] MEDS: paliperidone ER 6 mg Tablet PO (11:21)
[2023-02-27 14:00] VITALS: BP 110/76; PULSE 87; RESP 17; TEMP 36.4; O2SAT 98
--- NOTE | 2023-02-27 17:26 | W.PM.NPUPNS ---
Subjective NPU Subjective: Patient presented today continuing to report a lack of desire to take the Vraylar anymore. She was agreeable to a trial of an additional dose of Invega oral but continued to seem quite ambivalent. She endorsed a desire to return to her residence. We discussed us working with Dr. Coleman and the treatment team to explore her level of improvement and what baseline looks like. And look at whether discharge soon would be most appropriate. Mental Status Exam MSE Comments: This is an obese white female in hospital scrubs with appropriate grooming and limited eye contact. No abnormal movements except for mild psychomotor retardation. Cooperative with exam in mild distress. Speech was normal rate and volume. Mood described as I am ready to go home, affect confused and odd. Thought process linear at times but other times disorganized. Thought content: Patient denied suicidal or homicidal ideation, there were no delusions reported but some possible bizarre delusions noted, she denied current auditory and visual hallucinations. Attention and concentration were intact and memory appeared somewhat reliable but none were formally tested. She is alert and oriented x3. Insight and judgment appear improving and impulse control appears limited. Vitals/I&O/Wt Last Vital Signs Temp 97.6 F 02/27/23 14:00 Pulse 87 02/27/23 14:00 Resp 17 02/27/23 14:00 BP 110/76 02/27/23 14:00 Pulse Ox 98 02/27/23 14:00 O2 Del Method Room Air 02/27/23 14:00 Data NPU 02/17/23 21:14 02/18/23 17:50 A&P Assessment and plan (1) Paranoid schizophrenia: (2) Borderline personality disorder: (3) Schizoaffective disorder, depressive type: Plan This 37-year-old white female with schizoaffective disorder and borderline personality traits admitted with increased volatility in her assisted living facility with worsening paranoia with a history of poor response in the past to antipsychotics despite compliance. She may require a change in medications and will require continued inpatient hospitalization. 1.? ?Engage? patient in individual ,milieu, and group therapy ?2. ? We will attempt to gather collateral information from previous providers ?3. ? TO-15 minute checks on the unit. 4. Continue Vraylar at 3 mg daily. Continue Invega 234mg intramuscular every 28 days. Continue Tegretol 300 mg twice a day. increase klonopin .25mg tid to target anxiety. Remeron 15mg at night to target insomnia. Diflucan started x1 for yeast infection. Discontinued Vraylar after 2 days of refusal and started Invega 6 mg every morning oral augmentation to IM injection. Involuntary Hold Information 96 Hour Hold: 96 Hour Involuntary Admission: No Attestations NPU Medical Necessity Statement*: Inpatient hospitalization is medically necessary and deemed to be the clinically appropriate intervention at this time. We will monitor and initiate medications while making changes as indicated. Her likely length of stay is 2-4 days. We will explore what baseline looks like and consider whether discharge in the next 48 hours is reasonable. Coding Level of Care Code Acute Code for [facility]wd Diagnoses Paranoid schizophrenia F20.0 Borderline personality disorder F60.3 Schizoaffective disorder, depressive type F25.1
[2023-02-27 19:57] VITALS: BP 121/85; PULSE 79; RESP 18; TEMP 36.4; O2SAT 99
[2023-02-27] MEDS: mirtazapine 15 mg Tablet PO (20:44)
[2023-02-28] MEDS: trazodone 50 mg Tablet PO (01:12)
[2023-02-28] MEDS: nicotine 2 mg Gum BUCCAL ×2 (01:26→13:41)
[2023-02-28 06:00] VITALS: BP 127/88; PULSE 90; RESP 16; TEMP 36.8; O2SAT 99
[2023-02-28] MEDS: carBAMazepine 200 mg Tablet 300 MG PO ×2 (08:32→20:37)
[2023-02-28] MEDS: duloxetine 60 mg Capsule 120 MG PO (08:33)
[2023-02-28] MEDS: haloperidol 5 mg Tablet PO ×2 (08:34→13:19)
[2023-02-28] MEDS: pantoprazole DR 40 mg Tablet PO (08:34)
[2023-02-28] MEDS: polyethylene glycol 3350 Pkt 17 gm PO (08:34)
[2023-02-28] MEDS: CLONazepam 0.5 mg Tablet 0.25 MG PO ×3 (08:34→20:36)
[2023-02-28] MEDS: benztropine 1 mg Tablet PO ×2 (08:34→20:37)
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
[2023-02-28] MEDS: paliperidone ER 3 mg Tablet PO (11:54)
--- NOTE | 2023-02-28 11:55 | PC.NURSE ---
NEW ORDERS RECEIVED FROM DR. SALAZAR TO START INVEGA 3 MG PO NOW AND DAILY. PLACED ORDERS PT TOOK WITHOUT ISSUES.
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
[2023-02-28 14:00] VITALS: BP 102/74; PULSE 88; RESP 17; TEMP 36.6; O2SAT 98
[2023-02-28] MEDS: ibuprofen 600 mg Tablet PO (14:04)
[2023-02-28] MEDS: OLANZapine 5 mg ODT PO (18:32)
--- NOTE | 2023-02-28 18:32 | PC.NURSE ---
PT CONTINUES TO STATE SHE IS HEARING VOICES. REQUEST HALDOL. PT INFORMED SHE HAS HAD 2 DOSES OF HALDOL ALREADY. OFFERED ZYDIS FOR THE VOICES AND ANXIETY. PT WAS GIVEN ZYDIS 5MG ORDERED.
[2023-02-28] MEDS: mirtazapine 15 mg Tablet PO (20:36)
[2023-02-28 21:06] VITALS: BP 110/76; PULSE 101; RESP 18; TEMP 36.9; O2SAT 97
[2023-03-01 06:00] VITALS: BP 126/84; PULSE 103; RESP 18; TEMP 36.7; O2SAT 99
[2023-03-01] MEDS: carBAMazepine 200 mg Tablet 300 MG PO ×2 (08:03→20:24)
[2023-03-01] MEDS: paliperidone ER 3 mg Tablet PO (08:04)
[2023-03-01] MEDS: duloxetine 60 mg Capsule 120 MG PO (08:04)
[2023-03-01] MEDS: CLONazepam 0.5 mg Tablet 0.25 MG PO ×3 (08:04→20:24)
[2023-03-01] MEDS: haloperidol 5 mg Tablet PO ×2 (08:05→18:26)
[2023-03-01] MEDS: pantoprazole DR 40 mg Tablet PO (08:05)
[2023-03-01] MEDS: benztropine 1 mg Tablet PO ×2 (08:05→20:23)
[2023-03-01] MEDS: polyethylene glycol 3350 Pkt 17 gm PO (08:07)
[2023-03-01] MEDS: ibuprofen 600 mg Tablet PO (12:17)
[2023-03-01 14:00] VITALS: BP 114/78; PULSE 106; RESP 20; TEMP 36.4; O2SAT 97
[2023-03-01] MEDS: docusate sodium 100 mg Capsule PO (17:19)
--- NOTE | 2023-03-01 17:20 | W.PM.NPUPNS ---
Subjective NPU Subjective: Patient presented today reporting that the change in medication seem to be helpful this morning. She reported never getting to a point where she was hearing voices or having a difficult time. She reported feeling fairly relaxed and less anxious. She denied having any dark thoughts or negative thoughts about what others might be thinking about her. Mental Status Exam MSE Comments: This is an obese white female in hospital scrubs with appropriate grooming and limited eye contact. No abnormal movements except for mild psychomotor retardation. Cooperative with exam in mild distress. Speech was normal rate and volume. Mood described as a little better today, affect less confused or odd. Thought process linear at times. Thought content: Patient denied suicidal or homicidal ideation, there were no delusions reported but some possible bizarre delusions noted, she denied current auditory and visual hallucinations. Attention and concentration were intact and memory appeared somewhat reliable but none were formally tested. She is alert and oriented x3. Insight and judgment appear improving and impulse control appears limited. Vitals/I&O/Wt Last Vital Signs Temp 97.6 F 03/01/23 20:25 Pulse 101 H 03/01/23 20:25 Resp 18 03/01/23 20:25 BP 116/84 03/01/23 20:25 Pulse Ox 97 03/01/23 20:25 O2 Del Method Room Air 03/01/23 20:25 Data NPU 02/17/23 21:14 02/18/23 17:50 A&P Assessment and plan (1) Paranoid schizophrenia: (2) Borderline personality disorder: (3) Schizoaffective disorder, depressive type: Plan This 37-year-old white female with schizoaffective disorder and borderline personality traits admitted with increased volatility in her assisted living facility with worsening paranoia with a history of poor response in the past to antipsychotics despite compliance. She may require a change in medications and will require continued inpatient hospitalization. 1.? ?Engage? patient in individual ,milieu, and group therapy ?2. ? We will attempt to gather collateral information from previous providers ?3. ? TO-15 minute checks on the unit. 4. Continue Vraylar at 3 mg daily. Continue Invega 234mg intramuscular every 28 days. Continue Tegretol 300 mg twice a day. increase klonopin .25mg tid to target anxiety. Remeron 15mg at night to target insomnia. Diflucan started x1 for yeast infection. Discontinued Vraylar after 2 days of refusal and started Invega 6 mg every morning oral augmentation to IM injection. Started Haldol 5 mg p.o. every morning standing dose and hold the Vraylar and decreased Invega augmentation to 3 mg p.o. every morning. Involuntary Hold Information 96 Hour Hold: 96 Hour Involuntary Admission: No Attestations NPU Medical Necessity Statement*: Inpatient hospitalization is medically necessary and deemed to be the clinically appropriate intervention at this time. We will monitor and initiate medications while making changes as indicated. Her likely length of stay is 3-5 days. Coding Level of Care Code Acute Code for [facility] Fwd Diagnoses Paranoid schizophrenia F20.0 Borderline personality disorder F60.3 Schizoaffective disorder, depressive type F25.1
--- NOTE | 2023-03-01 18:27 | PC.NURSE ---
Patient reporting auditory and visual hallucinations. Patient denies being told to harm self or others. Patient requesting medication. Administered 5mg haloperidol PO to patient. Will continue to monitor patient.
[2023-03-01] MEDS: nicotine 2 mg Gum BUCCAL ×2 (18:38→23:11)
[2023-03-01] MEDS: mirtazapine 15 mg Tablet PO (20:23)
[2023-03-01 20:25] VITALS: BP 116/84; PULSE 101; RESP 18; TEMP 36.4; O2SAT 97
[2023-03-01] MEDS: acetaminophen 325 mg Tablet 650 MG PO (20:27)
[2023-03-01] MEDS: trazodone 50 mg Tablet PO (23:15)
[2023-03-02 06:00] VITALS: BP 111/76; PULSE 104; RESP 17; O2SAT 100
[2023-03-02] MEDS: paliperidone ER 3 mg Tablet PO (08:36)
[2023-03-02] MEDS: carBAMazepine 200 mg Tablet 300 MG PO ×2 (08:37→21:23)
[2023-03-02] MEDS: benztropine 1 mg Tablet PO ×2 (08:38→21:24)
[2023-03-02] MEDS: duloxetine 60 mg Capsule 120 MG PO (08:38)
[2023-03-02] MEDS: pantoprazole DR 40 mg Tablet PO (08:38)
[2023-03-02] MEDS: docusate sodium 100 mg Capsule PO ×2 (08:39→18:20)
[2023-03-02] MEDS: polyethylene glycol 3350 Pkt 17 gm PO (08:39)
[2023-03-02] MEDS: haloperidol 5 mg Tablet PO ×2 (08:39→21:24)
[2023-03-02] MEDS: CLONazepam 0.5 mg Tablet 0.25 MG PO ×3 (08:39→21:24)
[2023-03-02] MEDS: hyDROXYzine 25 mg Capsule 50 MG PO (12:30)
--- NOTE | 2023-03-02 12:31 | PC.NURSE ---
Patient experiencing panic attack. Administered 50mg Hydroxyzine to patient and encouraged patient to return to room. Will continue to monitor.
--- NOTE | 2023-03-02 13:51 | P.NPUPN_ITS ---
Subjective NPU Subjective: Patient presented today reporting that she is tolerating the medication and denying any issues with the changes. She has become more focused on discharge. We discussed talking to her contact at her facility and them reporting that they always do fine with her. We discussed focusing on seeing how she manages over the weekend but identified that they report a fairly mercurial nature to her emotions and actions. Mental Status Exam MSE Comments: This is an obese white female in hospital scrubs with appropriate grooming and limited eye contact. No abnormal movements except for mild psychomotor retardation. Cooperative with exam in mild distress. Speech was normal rate and volume. Mood described as a little better today, affect less confused or odd. Thought process linear at times. Thought content: Patient denied suicidal or homicidal ideation, there were no delusions reported but some possible bizarre delusions noted, she denied current auditory and visual hallucinations. Attention and concentration were intact and memory appeared somewhat reliable but none were formally tested. She is alert and oriented x3. Insight and judgment appear improving and impulse control appears limited. Vitals/I&O/Wt Last Vital Signs Temp 97.6 F 03/01/23 20:25 Pulse 104 H 03/02/23 06:00 Resp 17 03/02/23 06:00 BP 111/76 03/02/23 06:00 Pulse Ox 100 03/02/23 06:00 O2 Del Method Room Air 03/02/23 06:00 Data NPU 02/17/23 21:14 02/18/23 17:50 A&P Assessment and plan (1) Paranoid schizophrenia: (2) Borderline personality disorder: (3) Schizoaffective disorder, depressive type: Plan This 37-year-old white female with schizoaffective disorder and borderline personality traits admitted with increased volatility in her assisted living facility with worsening paranoia with a history of poor response in the past to antipsychotics despite compliance. She may require a change in medications and will require continued inpatient hospitalization. 1.? ?Engage? patient in individual ,milieu, and group therapy ?2. ? We will attempt to gather collateral information from previous providers ?3. ? TO-15 minute checks on the unit. 4. Continue Vraylar at 3 mg daily. Continue Invega 234mg intramuscular every 28 days. Continue Tegretol 300 mg twice a day. increase klonopin .25mg tid to target anxiety. Remeron 15mg at night to target insomnia. Diflucan started x1 for yeast infection. Discontinued Vraylar after 2 days of refusal and started Invega 6 mg every morning oral augmentation to IM injection. Started Haldol 5 mg p.o. every morning standing dose and hold the Vraylar and decreased Invega augmentation to 3 mg p.o. every morning. Involuntary Hold Information 96 Hour Hold: 96 Hour Involuntary Admission: No Attestations NPU Medical Necessity Statement*: Inpatient hospitalization is medically necessary and deemed to be the clinically appropriate intervention at this time. We will monitor and initiate medications while making changes as indicated. Her likely length of stay is 3-5 days. Coding Level of Care Code Acute Code for [facility] Fwd Diagnoses Paranoid schizophrenia F20.0 Borderline personality disorder F60.3 Schizoaffective disorder, depressive type F25.1
[2023-03-02 14:00] VITALS: BP 101/61; PULSE 75; RESP 16; TEMP 36.8; O2SAT 95
[2023-03-02] MEDS: acetaminophen 325 mg Tablet 650 MG PO (14:59)
[2023-03-02] MEDS: OLANZapine 5 mg ODT PO (16:08)
--- NOTE | 2023-03-02 16:09 | PC.NURSE ---
Patient experiencing anxiety, chest palpitations, etc. Administered 5m Zyprexa to patient. Will continue to monitor
[2023-03-02] MEDS: mirtazapine 15 mg Tablet PO (21:24)
[2023-03-02 22:00] VITALS: BP 117/80; PULSE 71; RESP 18; TEMP 36.6; O2SAT 96
[2023-03-03] MEDS: OLANZapine 5 mg ODT PO (02:48)
[2023-03-03 06:00] VITALS: BP 135/77; PULSE 106; RESP 18; TEMP 37; O2SAT 99
[2023-03-03] MEDS: duloxetine 60 mg Capsule 120 MG PO (08:30)
[2023-03-03] MEDS: docusate sodium 100 mg Capsule PO ×2 (08:30→18:41)
[2023-03-03] MEDS: haloperidol 5 mg Tablet PO (08:30)
[2023-03-03] MEDS: carBAMazepine 200 mg Tablet 300 MG PO ×2 (08:31→21:28)
[2023-03-03] MEDS: pantoprazole DR 40 mg Tablet PO (08:31)
[2023-03-03] MEDS: paliperidone ER 3 mg Tablet PO (08:31)
[2023-03-03] MEDS: CLONazepam 0.5 mg Tablet 0.25 MG PO ×3 (08:31→21:28)
[2023-03-03] MEDS: polyethylene glycol 3350 Pkt 17 gm PO (08:31)
[2023-03-03] MEDS: benztropine 1 mg Tablet PO ×2 (08:31→21:28)
--- NOTE | 2023-03-03 08:48 | W.PM.NPUPNS ---
Subjective NPU Subjective: Patient presented today reporting that she is doing better with the standing medication the morning. She denies any side effects and reports that it is better overall. We discussed monitoring over this weekend and looking at the possibility of returning to her facility Sunday or Sunday depending on the facility over the holiday weekend. Mental Status Exam MSE Comments: This is an obese white female in hospital scrubs with appropriate grooming and limited eye contact. No abnormal movements except for mild psychomotor retardation. Cooperative with exam in mild distress. Speech was normal rate and volume. Mood described as a little better today, affect less confused or odd. Thought process linear at times. Thought content: Patient denied suicidal or homicidal ideation, there were no delusions reported but some possible bizarre delusions noted, she denied current auditory and visual hallucinations. Attention and concentration were intact and memory appeared somewhat reliable but none were formally tested. She is alert and oriented x3. Insight and judgment appear improving and impulse control appears limited. Vitals/I&O/Wt Last Vital Signs Temp 98.6 F 03/03/23 06:00 Pulse 106 H 03/03/23 06:00 Resp 18 03/03/23 06:00 BP 135/77 03/03/23 06:00 Pulse Ox 99 03/03/23 06:00 O2 Del Method Room Air 03/03/23 06:00 Data NPU 02/17/23 21:14 02/18/23 17:50 A&P Assessment and plan (1) Paranoid schizophrenia: (2) Borderline personality disorder: (3) Schizoaffective disorder, depressive type: Plan This 37-year-old white female with schizoaffective disorder and borderline personality traits admitted with increased volatility in her assisted living facility with worsening paranoia with a history of poor response in the past to antipsychotics despite compliance. She may require a change in medications and will require continued inpatient hospitalization. 1.? ?Engage? patient in individual ,milieu, and group therapy ?2. ? We will attempt to gather collateral information from previous providers ?3. ? TO-15 minute checks on the unit. 4. Continue Vraylar at 3 mg daily. Continue Invega 234mg intramuscular every 28 days. Continue Tegretol 300 mg twice a day. increase klonopin .25mg tid to target anxiety. Remeron 15mg at night to target insomnia. Diflucan started x1 for yeast infection. Discontinued Vraylar after 2 days of refusal and started Invega 6 mg every morning oral augmentation to IM injection. Started Haldol 5 mg p.o. every morning standing dose and hold the Vraylar and decreased Invega augmentation to 3 mg p.o. every morning. Involuntary Hold Information 96 Hour Hold: 96 Hour Involuntary Admission: No Attestations NPU Medical Necessity Statement*: Inpatient hospitalization is medically necessary and deemed to be the clinically appropriate intervention at this time. We will monitor and initiate medications while making changes as indicated. Her likely length of stay is 2-3 days. Coding Level of Care Code Acute Code for [facility] Fwd Diagnoses Paranoid schizophrenia F20.0 Borderline personality disorder F60.3 Schizoaffective disorder, depressive type F25.1
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
[2023-03-03] MEDS: ibuprofen 600 mg Tablet PO (11:24)
[2023-03-03 14:00] VITALS: BP 122/84; PULSE 94; RESP 20; TEMP 36.3; O2SAT 100
[2023-03-03] MEDS: lactulose oral liq 20 gm/30 mL UDC 10 GM PO (21:27)
[2023-03-03] MEDS: mirtazapine 15 mg Tablet PO (21:28)
[2023-03-03] MEDS: trazodone 50 mg Tablet PO (21:29)
[2023-03-03] MEDS: acetaminophen 325 mg Tablet 650 MG PO (21:55)
[2023-03-03 21:59] VITALS: BP 119/81; PULSE 96; RESP 17; TEMP 36.5; O2SAT 100
[2023-03-04 05:55] VITALS: RESP 14
--- NOTE | 2023-03-04 07:47 | P.NPUPN_ITS ---
Subjective NPU Subjective: Patient presented today reporting that she is slowly stabilized. She reported that she is having less negative thoughts about what people at her facility might be thinking. She denied any psychotic symptoms. We discussed that the social work team will return tomorrow and we will have him talk to her facility about ability to receive her. We discussed likely discharge in the next 48 hour s. Mental Status Exam MSE Comments: This is an obese white female in hospital scrubs with appropriate grooming and limited eye contact. No abnormal movements except for mild psychomotor retardation. Cooperative with exam in mild distress. Speech was normal rate and volume. Mood described as a little better today, affect less confused or odd. Thought process linear at times. Thought content: Patient denied suicidal or homicidal ideation, there were no delusions reported but some possible bizar re delusions noted, she denied current auditory and visual hallucinations. Attention and concentration were intact and memory appeared somewhat reliable but none were formally tested. She is alert and oriented x3. Insight and judgment appear improving and impulse control appears limited. Vitals/I&O/Wt Last Vital Signs Temp 97.7 F 03/03/23 21:59 Pulse 96 03/03/23 21:59 Resp 14 03/04/23 05:55 BP 119/81 03/03/23 21:59 Pulse Ox 100 03/03/23 21:59 O2 Del Method Room Air 03/03/23 21:59 Data NPU 02/17/23 21:14 02/18/23 17:50 A&P Assessment and plan (1) Paranoid schizophrenia: (2) Borderline personality disorder: (3) Schizoaffective disorder, depressive type: Plan This 37-year-old white female with schizoaffective disorder and borderline personality traits admitted with increased volatility in her assisted living facility with worsening paranoia with a history of poor response in the past to antipsychotics despite compliance. She may require a change in medications and will require continued inpatient hospitalization. 1.? ?Engage? patient in individual ,milieu, and group therapy ?2. ? We will attempt to gather collateral information from previous providers ?3. ? TO-15 minute checks on the unit. 4. Continue Vraylar at 3 mg daily. Continue Invega 234mg intramuscular e very 28 days. Continue Tegretol 300 mg twice a day. increase klonopin .25mg tid to target anxiety. Remeron 15mg at night to target insomnia. Diflucan started x1 for yeast infection. Discontinued Vraylar after 2 days of refusal and started Invega 6 mg every morning oral augmentation to IM injection. Started Haldol 5 mg p.o. every morning standing dose and hold the Vraylar and decreased Invega augmentation to 3 mg p.o. every morning. Involuntary Hold Information 96 Hour Hold: 96 Hour Involuntary Admission: No Attestations NPU Medical Necessity Statement*: Inpatient hospitalization is medically necessary and deemed to be the clinically appropriate intervention at this time. We will monitor and initiate medications while making changes as indicated. Her likely length of stay is 1-2 days. Coding Level of Care Code Acute Code for [facility] Fwd Diagnoses Paranoid schizophrenia F20.0 Borderline personality disorder F60.3 Schizoaffective disorder, depressive type F25.1
[2023-03-04] MEDS: CLONazepam 0.5 mg Tablet 0.25 MG PO ×3 (08:06→21:18)
[2023-03-04] MEDS: benztropine 1 mg Tablet PO ×2 (08:07→23:31)
[2023-03-04] MEDS: carBAMazepine 200 mg Tablet 300 MG PO ×2 (08:07→23:31)
[2023-03-04] MEDS: paliperidone ER 3 mg Tablet PO (08:07)
[2023-03-04] MEDS: duloxetine 60 mg Capsule 120 MG PO (08:07)
[2023-03-04] MEDS: pantoprazole DR 40 mg Tablet PO (08:07)
[2023-03-04] MEDS: docusate sodium 100 mg Capsule PO ×2 (08:07→17:54)
[2023-03-04] MEDS: haloperidol 5 mg Tablet PO ×2 (08:08→13:40)
[2023-03-04] MEDS: polyethylene glycol 3350 Pkt 17 gm PO (08:08)
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
[2023-03-04] MEDS: nicotine 2 mg Gum BUCCAL ×3 (12:04→21:19)
--- NOTE | 2023-03-04 13:41 | PC.NURSE ---
Administered Haldol PO 5mg to patient. Patient stated that she felt like she was tripping .
[2023-03-04 14:00] VITALS: BP 128/85; PULSE 95; RESP 16; TEMP 36.8; O2SAT 100
[2023-03-04] MEDS: ibuprofen 600 mg Tablet PO (18:45)
[2023-03-04 20:15] VITALS: BP 114/81; PULSE 79; RESP 16; TEMP 36.6; O2SAT 100
[2023-03-04] MEDS: trazodone 50 mg Tablet PO (21:18)
[2023-03-04] MEDS: hyDROXYzine 25 mg Capsule 50 MG PO (21:18)
[2023-03-04] MEDS: mirtazapine 15 mg Tablet PO (21:18)
[2023-03-05] MEDS: polyethylene glycol 3350 Pkt 17 gm PO (08:49)
[2023-03-05] MEDS: duloxetine 60 mg Capsule 120 MG PO (08:51)
[2023-03-05] MEDS: docusate sodium 100 mg Capsule PO ×2 (08:51→21:20)
[2023-03-05] MEDS: benztropine 1 mg Tablet PO ×2 (08:51→21:20)
[2023-03-05] MEDS: paliperidone ER 3 mg Tablet PO (08:51)
[2023-03-05] MEDS: haloperidol 5 mg Tablet PO (08:52)
[2023-03-05] MEDS: CLONazepam 0.5 mg Tablet 0.25 MG PO ×2 (08:52→14:09)
[2023-03-05] MEDS: pantoprazole DR 40 mg Tablet PO (08:52)
[2023-03-05] MEDS: carBAMazepine 200 mg Tablet 300 MG PO ×2 (08:52→21:20)
[2023-03-05] MEDS: nicotine 2 mg Gum BUCCAL ×2 (10:41→18:53)
[2023-03-05] MEDS: OLANZapine 5 mg ODT PO (13:06)
[2023-03-05 13:59] VITALS: BP 108/75; PULSE 75; RESP 18; TEMP 36.6; O2SAT 96
--- NOTE | 2023-03-05 14:16 | W.PM.NPUPNS ---
Subjective NPU Subjective: Patient presents today reporting that she is feeling better. She denies any side effects of medications and denied any psychotic symptoms. We discussed the fact that her facility could not receive her today but we would plan for discharge in the morning. She is comfortable with that. She reports he is sleeping better and eating fine which is supported by staff reporting. Mental Status Exam MSE Comments: This is an obese white female in hospital scrubs with appropriate grooming and limited eye contact. No abnormal movements except for mild psychomotor retardation. Cooperative with exam in mild distress. Speech was normal rate and volume. Mood described as a little better today, affect less confused or odd. Thought process linear at times. Thought content: Patient denied suicidal or homicidal ideation, there were no delusions reported but some possible bizarre delusions noted, she denied current auditory and visual hallucinations. Attention and concentration were intact and memory appeared somewhat reliable but none were formally tested. She is alert and oriented x3. Insight and judgment appear improving and impulse control appears limited. Vitals/I&O/Wt Last Vital Signs Temp 97.8 F 03/05/23 13:59 Pulse 75 03/05/23 13:59 Resp 18 03/05/23 13:59 BP 108/75 03/05/23 13:59 Pulse Ox 96 03/05/23 13:59 O2 Del Method Room Air 03/03/23 21:59 Data NPU 02/17/23 21:14 02/18/23 17:50 A&P Assessment and plan (1) Paranoid schizophrenia: (2) Borderline personality disorder: (3) Schizoaffective disorder, depressive type: Plan This 37-year-old white female with schizoaffective disorder and borderline personality traits admitted with increased volatility in her assisted living facility with worsening paranoia with a history of poor response in the past to antipsychotics despite compliance. She may require a change in medications and will require continued inpatient hospitalization. 1.? ?Engage? patient in individual ,milieu, and group therapy ?2. ? We will attempt to gather collateral information from previous providers ?3. ? TO-15 minute checks on the unit. 4. Continue Vraylar at 3 mg daily. Continue Invega 234mg intramuscular every 28 days. Continue Tegretol 300 mg twice a day. increase klonopin .25mg tid to target anxiety. Remeron 15mg at night to target insomnia. Diflucan started x1 for yeast infection. Discontinued Vraylar after 2 days of refusal and started Invega 6 mg every morning oral augmentation to IM injection. Started Haldol 5 mg p.o. every morning standing dose and hold the Vraylar and decreased Invega augmentation to 3 mg p.o. every morning. Involuntary Hold Information 96 Hour Hold: 96 Hour Involuntary Admission: No Attestations NPU Medical Necessity Statement*: Inpatient hospitalization is medically necessary and deemed to be the clinically appropriate intervention at this time. We will monitor and initiate medications while making changes as indicated. Coding Level of Care Code Acute Code for [facility] Fwd Diagnoses Paranoid schizophrenia F20.0 Borderline personality disorder F60.3 Schizoaffective disorder, depressive type F25.1
[2023-03-05 20:43] VITALS: BP 108/73; PULSE 78; RESP 16; TEMP 36.6; O2SAT 97
[2023-03-05] MEDS: mirtazapine 15 mg Tablet PO (21:20)
[2023-03-05] MEDS: trazodone 50 mg Tablet PO (23:17)
[2023-03-06 06:00] VITALS: BP 125/88; PULSE 76; RESP 18; TEMP 36.7; O2SAT 100
[2023-03-06] MEDS: nicotine 2 mg Gum BUCCAL (06:23)
[2023-03-06] MEDS: carBAMazepine 200 mg Tablet 300 MG PO (09:03)
[2023-03-06] MEDS: benztropine 1 mg Tablet PO (09:03)
[2023-03-06] MEDS: duloxetine 60 mg Capsule 120 MG PO (09:05)
[2023-03-06] MEDS: haloperidol 5 mg Tablet PO (09:05)
[2023-03-06] MEDS: docusate sodium 100 mg Capsule PO (09:05)
[2023-03-06] MEDS: paliperidone ER 3 mg Tablet PO (09:05)
[2023-03-06] MEDS: pantoprazole DR 40 mg Tablet PO (09:05)
--- NOTE | 2023-03-06 10:31 | DCPLANNER ---
IMM was printed and explained and give to [facility] staff and copy put in file.
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
[2023-03-06 10:57] VITALS: BP 125/88; PULSE 76; RESP 18; TEMP 36.7; O2SAT 100
== END 2023-03-06 12:46 | disposition home or self-care (01) | DRG 885 ==
LOC: ER 22:15 → NP 23:36
PROVIDERS: Admitting Provider Psychiatry & Neurology Psychiatry; Emergency Provider Emergency Medicine; PCP Family Medicine; Visit Provider Psychiatry & Neurology Psychiatry
DX: F20.0 Paranoid schizophrenia (principal); F41.0 Panic disorder [episodic paroxysmal anxiety]; G47.00 Insomnia, unspecified; F60.3 Borderline personality disorder; Z87.891 Personal history of nicotine dependence; Z81.8 Family history of other mental and behavioral disorders; B37.9 Candidiasis, unspecified
CPT/HCPCS: 36415; 80048; 80053; 80306; 80307; 81003; 81025; 85025; 97150; 97165; 99238; 99285

== ENCOUNTER 2023-08-20 00:55 | Emergency (ER) | payer MEDICARE, MEDICAID, SELFPAY ==
[2023-08-20 00:57] VITALS: BP 129/98; PULSE 79; RESP 16; TEMP 36.7; O2SAT 93; BMI 29.2
--- NOTE | 2023-08-20 01:21 | ECG_ITS ---
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 Measurements Intervals [place] Rate: 77 P: 54 NH: 154 QRS: 57 QRSD: 85 T: 61 QT: 352 QTc: 400 Interpretive Statements SINUS RHYTHM POSSIBLE LEFT ATRIAL ENLARGEMENT [-0.1mV P-WAVE IN V1/V2] LOW QRS VOLTAGE IN PRECORDIAL LEADS [QRS DEFLECTION < 1.0 mV IN CHEST LEADS] POSSIBLE ANTERIOR MYOCARDIAL INFARCTION , OF INDETERMINATE AGE [30 ms Q WAVE IN V3/V4, OR R < 0.2 mV IN V4] Compared to ECG 05/24/2021 14:18:43 Low QRS voltage now present Myocardial infarct finding now present Electronically Signed On 08-20-2023 8:09:10 TAKER AWAY by Brianna Sommers M.D. [id number]
[2023-08-20 01:37] LABS: Basophils # 0.1 10^3/uL (0.0-0.1); Basophils % 0.6 %; Eosinophils # 0.2 10^3/uL (0.0-0.8); Eosinophils % 2.1 %; Hematocrit 35.8 % (36-47); Lymphocytes # 3.3 10^3/uL (0.8-4.8); Lymphocytes % 42.9 %; Mean Corpuscular HGB Conc 35.8 g/dL (30-55); Mean Corpuscular Hemoglobin 33.5 pg (27-33); Mean Corpuscular Volume 93.7 fl (85-98); Mean Platelet Volume 8.4 fL (7.4-10.4); Monocytes # 0.5 10^3/uL (0.2-0.9); Monocytes % 6.7 %; Neutrophils # 3.66 10^3/uL (1.8-7.7); Neutrophils % 47.3 %; Nucleated Red Blood Cells % 0 %; Platelet Count 306 10^3/cmm (157-399); Red Blood Count 3.82 10^6/uL (3.85-5.65); Red Cell Distribution Width 11.9 % (12.1-15.1); White Blood Count 7.74 10^3/uL (3.29-11.43)
[2023-08-20 01:46] LABS: SARS Covid-2 Antigen negative (Negative)
[2023-08-20 02:09] LABS: Acetaminophen < 5.0 ug/mL (10-30); Alanine Aminotransferase 13 U/L (0-33); Alcohol Level < 10 mg/dL (0-10); Alkaline Phosphatase 110 U/L (35-105); Anion Gap 14.2 (5-19); Aspartate Amino Transferase 14 U/L (0-32); Blood Urea Nitrogen 4 mg/dL (6-20); Calcium 8.7 mg/dL (8.5-10.5); Carbon Dioxide 24 mmol/L (22-29); Chloride 91 mmol/L (98-107); Creatinine Clr Calc Pharmacy 127.7709; Globulin 2.4 g/dL (1.3-4.6); Glomerular Filtration Rate 111.9 mL/min (90-130); Glucose 85 mg/dL (65-115); Osmolality Calculated 256 mOsm/kg (285-295); Potassium 4.2 mmol/L (3.5-5.1); Salicylate < 0.3 mg/dL (3-10); Sodium 125 mmol/L (136-145); Thyroid Stimulating Hormone 1.68 uIU/mL (0.27-4.20); Total Bilirubin 0.2 mg/dL (0.15-1.2); Total Protein 6.4 g/dL (6.6-8.7)
--- NOTE | 2023-08-20 02:22 | ED.C_ITS ---
HPI - Psych General: Chief Complaint: Psychiatric Symptoms Stated Complaint: MHE Time Seen by Provider: 08/20/23 01:02 History of Present Illness: 38-year-old female with a history of schizoaffective disorder. She is on multiple antipsychotics. She presents with increasing psychosis symptoms. She states that someone is trying to pull my mind out of my eye . She has had the symptoms before requiring psychiatric stabilization. She believes she has been taking her medications faithfully and properly. No recent illnesses. No fever, cough, shortness of breath, vomiting or significant diarrhea. Review of Systems Const: Denies: fever(s), chills or body aches Eyes: Denies: change in vision Card: Denies: chest pain or palpitations Resp: Denies: dyspnea, productive cough, non-productive cough or wheezing GI: Denies: abdominal pain, nausea, vomiting, diarrhea or hematochezia : Denies: difficulty voiding Skin/Breast: Denies: rash Neuro: Denies: headache(s), weakness in extremities, dizziness or confusion PFSH ED PFSH: Medical History Anxiety and depression HPV in female Insomnia Nicotine dependence, cigarettes, uncomplicated No pertinent past medical history neghx: htn, dm, thyroid, dvt/pe PCP: Dr. Meseret Tejeda Panic disorder without agoraphobia managed by Dr. Kee-- [facility] Paranoid schizophrenia managed by Dr. Kee -- [facility] Psychiatric care Schizoaffective disorder, depressive type Tachycardia Surgical History History of foot operation 1993-- treatment of plantar wart Family History Family/Other Thyroid disease maternal Denies family history of Colon cancer Ovarian cancer Prostate cancer Diabetes Heart disease Hyperlipidemia Breast cancer Bleeding disorder Hypertension Uterine cancer Stroke Social History Substance/Drug Use: former Physical Exam Const: COMMON NORMALS: no acute distress GENERAL APPEARANCE: cooperative; not ill appearing and not frail appearing HENMT: COMMON NORMALS: normocephalic, atraumatic and Normal external nose present HEAD & SCALP: normocephalic and atraumatic FACE & SINUS: normal facial exam and face symmetric NOSE: Normal external nose present Eye: COMMON NORMALS: Equal, round and reactive pupils present and EOMs intact bilaterally PUPIL: Yes Equal, round and reactive pupils present Neck/C-Spine: GENERAL: Yes trachea midline Chest: CHEST: Yes Symmetrical chest wall rise Resp: COMMON NORMALS: normal respiratory effort, No retractions, No use of accessory muscles and clear to auscultation bilaterally AUSCULTATION: clear to auscultation bilaterally Cardio: COMMON NORMALS: regular rate and regular rhythm RATE: regular rate RHYTHM: regular rhythm GI: COMMON NORMALS: Normal to inspection, nondistended, normoactive bowel sounds present Extremity: COMMON NORMALS: no pedal edema Neuro: MAIA COMA SCALE: document GCS findings Maia coma scale eye opening: Spontaneous Maia coma scale verbal response: Orientated [place] coma scale motor response: Obey commands Maia coma scale total score: 15 SENSORY EXAM: Yes extremities (intact) Psych: COMMON NORMALS: speech normal SPEECH: Yes normal speech Skin: COMMON NORMALS: no rashes or lesions noted GENERAL SKIN EXAM: no rashes or lesions noted Course Vital Signs: Vital signs: Vital Signs Temperature 98.0 F 08/20/23 00:57 Pulse Rate 79 08/20/23 00:57 Respiratory Rate 16 08/20/23 00:57 Blood Pressure 129/98 08/20/23 00:57 Pulse Oximetry 93 08/20/23 00:57 Oxygen Delivery Me thod Room Air 08/20/23 00:57 MDM - Psych Medical Decision Making Laboratory exhibits mild hyponatremia, which is a chronic problem for her. CBC is normal. BMP is otherwise normal. Urine drug screen is negative. Alcohol is negative. COVID test negative. Urinalysis is normal. This patient requests admission for psychiatric stabilization. We do not have beds available at our facility. We will attempt to find her a bed elsewhere. If there are no beds available elsewhere, perhaps we will have discharges later today. Medically, she is stable. Lab Data 08/20/23 01:30 08/20/23 01:30 Laboratory Results WBC 7.74 10^3/uL (3.29-11.43) 08/20/23 01:30 RBC 3.82 10^6/uL (3.85-5.65) L 08/20/23 01:30 Hgb 12.80 g/dL (11.27-16.99) 08/20/23 01:30 Hct 35.8 % (36-47) L 08/20/23 01:30 MCV 93.7 fl (85-98) 08/20/23 01:30 MCH 33.5 pg (27-33) H 08/20/23 01:30 MCHC 35.8 g/dL (30-55) 08/20/23 01:30 RDW 11.9 % (12.1-15.1) L 08/20/23 01:30 Plt Count 306 10^3/cmm (157-399) 08/20/23 01:30 MPV 8.4 fL (7.4-10.4) 08/20/23 01:30 Neut % (Auto) 47.3 % 08/20/23 01:30 Lymph % (Auto) 42.9 % 08/20/23 01:30 [place] % (Auto) 6.7 % 08/20/23 01:30 Eos % (Auto) 2.1 % 08/20/23 01:30 Baso % (Auto) 0.6 % 08/20/23 01:30 Neut # (Auto) 3.66 10^3/uL (1.8-7.7) 08/20/23 01:30 Lymph # (Auto) 3.3 10^3/uL (0.8-4.8) 08/20/23 01:30 [place] # (Auto) 0.5 10^3/uL (0.2-0.9) 08/20/23 01:30 Eos # (Auto) 0.2 10^3/uL (0.0-0.8) 08/20/23 01:30 Baso # (Auto) 0.1 10^3/uL (0.0-0.1) 08/20/23 01:30 Nucleated RBC % (auto) 0 % 08/20/23 01:30 Nucleated RBCs # 0.0 /100WBC 08/20/23 01:30 Sodium 125 mmol/L (136-145) L 08/20/23 01:30 Potassium 4.2 mmol/L (3.5-5.1) 08/20/23 01:30 Chloride 91 mmol/L (98-107) L 08/20/23 01:30 Carbon Dioxide 24 mmol/L (22-29) 08/20/23 01:30 Anion Gap 14.2 (5-19) 08/20/23 01:30 BUN 4 mg/dL (6-20) L 08/20/23 01:30 Creatinine 0.6 mg/dL (0.5-0.9) 08/20/23 01:30 GFR Calculation 111.9 mL/min (90-130) 08/20/23 01:30 Glucose 85 mg/dL (65-115) 08/20/23 01:30 Calculated Osmolality 256 mOsm/kg (285-295) L 08/20/23 01:30 Calcium 8.7 mg/dL (8.5-10.5) 08/20/23 01:30 Total Bilirubin 0.2 mg/dL (0.15-1.2) 08/20/23 01:30 AST 14 U/L (0-32) 08/20/23 01:30 ALT 13 U/L (0-33) 08/20/23 01:30 Alkaline Phosphatase 110 U/L (35-105) H 08/20/23 01:30 Total Protein 6.4 g/dL (6.6-8.7) L 08/20/23 01:30 Albumin 4.0 g/dL (3.5-5.2) 08/20/23 01:30 Globulin 2.4 g/dL (1.3-4.6) 08/20/23 01:30 TSH 1.68 uIU/mL (0.27-4.20) 08/20/23 01:30 HCG, Qual Negative (Negative) 08/20/23 03:04 Urine Color Light yellow (Yellow) 08/20/23 03:04 Urine Appearance Hazy (CLEAR) A 08/20/23 03:04 Urine pH 8 (5-7) H 08/20/23 03:04 Ur Specific [place] 1.010 (1.005-1.030) 08/20/23 03:04 Urine Protein Neg (Negative) 08/20/23 03:04 Urine Glucose (UA) Norm (Normal) 08/20/23 03:04 Urine Ketones Negative (Negative) 08/20/23 03:04 Urine Blood Neg (Negative) 08/20/23 03:04 Urine Nitrate Negative (Negative) 08/20/23 03:04 Urine Bilirubin Neg (Negative) 08/20/23 03:04 Prot Sulfosalicylic Acd Negative (Negative) 08/20/23 03:04 Urine Urobilinogen Neg mg/dL (Negative) 08/20/23 03:04 Ur Leukocyte Esterase Negative (Negative) 08/20/23 03:04 Urine RBC 0-4 /hpf (0-2) H 08/20/23 03:04 Urine WBC 5-10 /hpf (0-5) H 08/20/23 03:04 Ur Squamous Epith Cells 10-15 /hpf (0-5) H 08/20/23 03:04 Amorphous Sediment 1+ /hpf 08/20/23 03:04 Urine Bacteria 2+ /hpf (NONE) H 08/20/23 03:04 Urine Mucus 1+ /hpf 08/20/23 03:04 Salicylates < 0.3 mg/dL (3-10) L 08/20/23 01:30 Urine Opiates Screen Negative ng/mL (Negative) 08/20/23 03:04 Acetaminophen < 5.0 ug/mL (10-30) L 08/20/23 01:30 Ur Barbiturates Screen Negative ng/mL (Negative) 08/20/23 03:04 Ur Phencyclidine Scrn Negative ng/mL (Negative) 08/20/23 03:04 Ur Amphetamines Screen Negative ng/mL (Negative) 08/20/23 03:04 U Benzodiazepines Scrn Negative ng/mL (Negative) 08/20/23 03:04 Urine Cocaine Screen Negative ng/mL (Negative) 08/20/23 03:04 U Marijuana (THC) Screen Negative ng/mL (Negative) 08/20/23 03:04 Ethyl Alcohol < 10 mg/dL (0-10) 08/20/23 01:30 SARS-CoV-2 Ag (Rapid) negative (Negative) 08/20/23 01:19 XR interpretation done by ED provider, pending radiology final review Discharge Plan Discharge Patient Disposition: Xfer Psychiatric Hosp Clinical Impression: Acute psychosis Condition: Stable Referrals: Meseret Tejeda DO [Primary Care Provider] - Coding Level of Care Code ED Cutch Cleaner for Randi Sethi
[2023-08-20 03:10] LABS: HCG Qualitative Urine. Negative (Negative)
[2023-08-20 03:23] LABS: Amphetamines Screen Urine Negative (Negative); Barbiturates Screen Urine Negative (Negative); Benzodiazepines Screen Urine Negative (Negative); Cocaine Screen Urine Negative (Negative); Opiate Screen Urine Negative (Negative); PCP Screen Urine Negative (Negative); THC Screen Urine Negative (Negative)
[2023-08-20 03:26] LABS: Add Urine Culture? No; Add Urine Microscopic? YES; Amorphous Sediment Urine 1+ /hpf; Bacteria Urine 2+ /hpf; Bilirubin Urine Neg (Negative); Blood Urine Neg (Negative); Glucose Urine UA Norm (Normal); Ketones Urine Negative (Negative); Leukocyte Esterase Urine Negative (Negative); Mucus Urine 1+ /hpf; Nitrate Urine Negative (Negative); Protein Urine Neg (Negative); RBC Urine 0-4 /hpf (0-2); Sulfosalicylic Acid Urine Negative (Negative); Urine Appearance Hazy (CLEAR); Urine Color Light yellow (Yellow); Urobilinogen Urine Neg (Negative); pH Urine 8 (5-7)
--- NOTE | 2023-08-20 06:03 | PC.NURSE ---
Spoke with patient's guardian , Amilcar Calabrese, He has given permission to transfer patient to [facility] for psychological evaluation
[2023-08-20 07:54] VITALS: BP 107/65; PULSE 64; O2SAT 96
--- NOTE | 2023-08-20 08:13 | PC.PHAR ---
PT IS FROM [facility] [phone]. NURSE STATES SHE LAST TOOK REGULAR MEDS YESTERDAY AND NO PRN MEDS WERE GIVEN.
== END 2023-08-20 09:10 ==
PROVIDERS: Emergency Provider Emergency Medicine; PCP Family Medicine
DX: F23 Brief psychotic disorder (principal); Z11.52 Encounter for screening for COVID-19; Z87.891 Personal history of nicotine dependence
CPT/HCPCS: 36415; 80053; 80306; 80307; 81001; 81025; 84443; 85025; 87426; 93005; 99284

== ENCOUNTER → 2023-12-27 14:34 | Outpatient (BNVA) | payer MEDICARE, SELFPAY | PROVIDERS: PCP Family Medicine; Visit Provider Nurse Practitioner Family | DX: L57.8 Other skin changes due to chronic exposure to nonionizing radiation (principal); L82.1 Other seborrheic keratosis; D22.39 Melanocytic nevi of other parts of face; L81.4 Other melanin hyperpigmentation; Z71.89 Other specified counseling | CPT/HCPCS: 99203 ==

== ENCOUNTER 2024-01-27 05:49 | Observation (INO) | payer MEDICARE, MEDICAID, SELFPAY ==
[2024-01-27] VITALS (23 sets, daily range): BP systolic 117–146; BP diastolic 70–94; PULSE 73–99; RESP 16–31; TEMP 36.4; O2SAT 94–97; BMI 28.3
--- NOTE | 2024-01-27 05:58 | ECG_ITS ---
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 Measurements Intervals [place] Rate: 72 P: 61 LA: 155 QRS: 64 QRSD: 79 T: 65 QT: 353 QTc: 388 Interpretive Statements SINUS RHYTHM POSSIBLE LEFT ATRIAL ENLARGEMENT [-0.1mV P-WAVE IN V1/V2] Compared to ECG 08/20/2023 01:21:20 Myocardial infarct finding no longer present Electronically Signed On 01-27-2024 8:19:33 CDT by Teddy Daly M.D. [id number]
--- NOTE | 2024-01-27 06:04 | ECG_ITS ---
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 Measurements Intervals [place] Rate: 73 P: 55 [place]: 152 QRS: 55 QRSD: 77 T: 45 QT: 372 QTc: 411 Interpretive Statements SINUS RHYTHM POSSIBLE LEFT ATRIAL ENLARGEMENT [-0.1mV P-WAVE IN V1/V2] Compared to ECG 01/27/2024 09:43:02 No significant changes Electronically Signed On 01-28-2024 14:59:09 CDT by Teddy Daly M.D. [id number]
--- NOTE | 2024-01-27 06:04 | ED_ITS ---
HPI - Chest Pain 2 General: Chief Complaint: Chest Pain Stated Complaint: cp Time Seen by Provider: 01/27/24 05:54 Source: patient Mode of arrival: ambulatory History of Present Illness: 30-year-old female presents emergency ro om complaining of chest pain. She has a psychiatric history she states she is having hallucinations with regular reaching to her back into her chest and squeezing her heart. She has had hallucinations for some time she recently had a new blood pressure medicine started otherwise no other changes in her medications she states she did not run out or change any other medications or doses. Does not notice anything that exacerbates or relieves her chest discomfort other than the hallucinations were not reported. Awake it where she is not having any symptoms right now no associated shortness of breath or diaphoresis. MD complaint: chest pain Timing of current episode: episodic Onset: during rest Associated symptoms: Deny abdominal pain, diaphoresis, dyspnea, fever(s), leg edema, nausea, palpitations, sense of impending doom, syncope or vomiting Treatment prior to arrival: none Review of Systems 2 Const: Denies: fever(s), chills or diaphoresis Card: Reports: chest pain; Denies: palpitations or syncope Resp: Denies: dyspnea GI: Denies: abdominal pain, nausea or vomiting : Denies: dysuria, urinary frequency or urinary urgency Musc: Denies: neck pain or back pain Skin/Breast: Denies: rash Psych: Reports: auditory hallucinations and tactile hallucinations PFSH ED 2 PFSH: Medical History Psychiatric care Schizoaffective disorder, depressive type No pertinent past medical history neghx: htn, dm, thyroid, dvt/pe PCP: Dr. Meseret Tejeda Paranoid schizophrenia managed by Dr. Kee -- [facility] Nicotine dependence, cigarettes, uncomplicated Panic disorder without agoraphobia managed by Dr. Kee-- [facility] HPV in female Insomnia Tachycardia Anxiety and depression Surgical History History of foot operation 1993-- treatment of plantar wart Family History Family/Other Thyroid disease maternal Denies family history of Colon cancer Ovarian cancer Prostate cancer Diabetes Heart disease Hyperlipidemia Breast cancer Bleeding disorder Hypertension Uterine cancer Stroke Physical Exam 2 Const: COMMON NORMALS: no acute distress GENERAL APPEARANCE: cooperative and comfortable ORIENTATION/CONSCIOUSNESS: Yes awake, Yes oriented to person, Yes oriented to place and Yes oriented to time HENMT: COMMON NORMALS: normocephalic, atraumatic and hearing grossly normal bilaterally HEAD & SCALP: normocephalic and atraumatic Resp: COMMON NORMALS: normal respiratory effort, No retractions, No use of accessory muscles and clear to auscultation bilaterally AUSCULTATION: clear to auscultation bilaterally Cardio: COMMON NORMALS: regular rate, regular rhythm and No murmurs present (Cardio) RATE: regular rate RHYTHM: regular rhythm GI: COMMON NORMALS: Soft to palpation and No hepatosplenomegaly present A USCULTATION: Yes normoactive bowel sounds PALPATION: Yes Soft to palpation, No Tenderness to palpation present (GI), No Guarding due to palpation present (GI) and Yes No hepatosplenomegaly present Extremity: COMMON NORMALS: normal to inspection, capillary refill normal, no clubbing, cyanosis or edema, no calf tenderness and no pedal edema Neuro: SENSORIUM/ORIENTATION: Yes oriented to person, Yes oriented to place and Yes oriented to time Skin: COMMON NORMALS: no rashes or lesions noted GENERAL SKIN EXAM: no rashes or lesions noted Course 2 Vital Signs: Vital signs: Vital Signs Temperature 97.6 F 01/27/24 05:52 Pulse Rate 74 01/27/24 06:03 Respiratory Rate 18 01/27/24 06:03 Blood Pressure 131/89 01/27/24 06:03 Pulse Oximetry 94 01/27/24 06:03 Oxygen Delivery Me thod Room Air 01/27/24 06:03 MDM - Chest Pain Medical Decision Making Psychosis which seems to be escalating. She states she chronically has hallucinations she has not changed any of her medications. Additionally she is significantly hyponatremic which will require correction. I suspect it is secondary to some of her psychiatric medications possibly Invega or one of her other antipsychotics. Will admit to the hospitalist ICU with a hyponatremia and consultation to psychiatry for her worsening hallucinations. I discussed both with Dr. Valencia and with Dr. Copeland they are agreeable. Orders written. Medical Records I reviewed the patient's medical records. Lab Data I reviewed the patient's lab results. 01/27/24 05:57 01/27/24 05:57 Radiology Impressions Chest X-Ray 01/27/24 06:04 IMPRESSION: No acute intrathoracic findings. Laboratory Results WBC 9.08 10^3/uL (3.29-11.43) 01/27/24 05:57 RBC 3.94 10^6/uL (3.85-5.65) 01/27/24 05:57 Hgb 13.20 g/dL (11.27-16.99) 01/27/24 05:57 Hct 36.7 % (36-47) 01/27/24 05:57 MCV 93.1 fl (85-98) 01/27/24 05:57 MCH 33.5 pg (27-33) H 01/27/24 05:57 MCHC 36.0 g/dL (30-55) 01/27/24 05:57 RDW 12.1 % (12.1-15.1) 01/27/24 05:57 Plt Count 374 10^3/cmm (157-399) 01/27/24 05:57 MPV 8.4 fL (7.4-10.4) 01/27/24 05:57 Neut % (Auto) 68.3 % 01/27/24 05:57 Lymph % (Auto) 22.1 % 01/27/24 05:57 Gates % (Auto) 6.8 % 01/27/24 05:57 Eos % (Auto) 1.9 % 01/27/24 05:57 Baso % (Auto) 0.3 % 01/27/24 05:57 Neut # (Auto) 6.20 10^3/uL (1.8-7.7) 01/27/24 05:57 Lymph # (Auto) 2.0 10^3/uL (0.8-4.8) 01/27/24 05:57 Gates # (Auto) 0.6 10^3/uL (0.2-0.9) 01/27/24 05:57 Eos # (Auto) 0.2 10^3/uL (0.0-0.8) 01/27/24 05:57 Baso # (Auto) 0.0 10^3/uL (0.0-0.1) 01/27/24 05:57 Nucleated RBC % (auto) 0 % 01/27/24 05:57 Nucleated RBCs # 0.0 /100WBC 01/27/24 05:57 D-Dimer 0.28 ug/mLFEU (0-0.59) 01/27/24 05:57 Sodium 119 mmol/L (136-145) L* 01/27/24 05:57 Potassium 4.2 mmol/L (3.5-5.1) 01/27/24 05:57 Chloride 86 mmol/L (98-107) L 01/27/24 05:57 Carbon Dioxide 24 mmol/L (22-29) 01/27/24 05:57 Anion Gap 13.2 (5-19) 01/27/24 05:57 BUN 2 mg/dL (6-20) L 01/27/24 05:57 Creatinine 0.5 mg/dL (0.5-0.9) 01/27/24 05:57 GFR Calculation 138.1 mL/min (90-130) H 01/27/24 05:57 Glucose 92 mg/dL (65-115) 01/27/24 05:57 Calculated Osmolality 244 mOsm/kg (285-295) L 01/27/24 05:57 Calcium 8.8 mg/dL (8.5-10.5) 01/27/24 05:57 Total Bilirubin 0.2 mg/dL (0.15-1.2) 01/27/24 05:57 AST 15 U/L (0-32) 01/27/24 05:57 ALT 12 U/L (0-33) 01/27/24 05:57 Alkaline Phosphatase 157 U/L (35-105) H 01/27/24 05:57 Troponin T Baseline < 6 ng/L (0-10) 01/27/24 05:57 Total Protein 6.7 g/dL (6.6-8.7) 01/27/24 05:57 Albumin 4.2 g/dL (3.5-5.2) 01/27/24 05:57 Globulin 2.5 g/dL (1.3-4.6) 01/27/24 05:57 Salicylates < 0.3 mg/dL (3-10) L 01/27/24 05:57 Acetaminophen 8.4 ug/mL (10-30) L 01/27/24 05:57 Ethyl Alcohol < 10 mg/dL (0-10) 01/27/24 05:57 All radiology interpretation(s) finalized by discharge Discharge Plan Discharge Patient Disposition: Admitted As Inpatient Clinical Impression: Hyponatremia, Acute psychosis, Atypical chest pain Condition: Stable Prescriptions: No Action multivitamin Tablet 1 tab PO QAM acetaminophen [Tylenol Extra Strength] 500 mg tablet 1,000 mg PO Q4H PRN (Reason: fever or pain) tramadol 50 mg tablet 100 mg PO BID PRN (Reason: Pain) baclofen 20 mg tablet 20 mg PO TID PRN (Reason: Pain) fluoride (sodium) [SF 5000 Plus] 1.1 % cream 1 applic dental DAILY tea tree oil 100 % oil 1 ea topical DAILY PRN (Reason: unknown) Digestive Advantag Kid Pro-Pre 400 million cell tablet,chewable 1 cell PO BID trazodone 50 mg tablet 50 mg PO BEDTIME diclofenac sodium 75 mg tablet,delayed release (DR/EC) 75 mg PO BID Cough Drops 2.7 mg lozenge 5.4 mg mucous membrane Q4H PRN benztropine 1 mg tablet 1 mg PO BID Qty: 60 4RF carbamazepine [Tegretol] 200 mg tablet 300 mg PO BID Qty: 90 4RF duloxetine 60 mg capsule,delayed release(DR/EC) 120 mg PO DAILY Qty: 60 4RF haloperidol 5 mg tablet 5 mg PO DAILY 30 Days Qty: 30 4RF hydroxyzine HCl 50 mg tablet 50 mg PO TID PRN (Reason: anxiety) Qty: 90 4RF mirtazapine 15 mg tablet 15 mg PO BEDTIME 30 Days Qty: 30 4RF paliperidone 6 mg tablet extended release 24hr 6 mg PO QAM Qty: 30 4RF Invega Sustenna 234 mg/1.5 mL syringe 234 mg IM Q30D Qty: 1.5 4RF Rx Instructions: Patient to receive the 156 mg injection 10/19/23 and receive the first 234 mg approx. 11/16/23 norethindrone (contraceptive) 0.35 mg tablet See Rx Instructions .ROUTE .COMPLEX Qty: 84 0RF Dose Instruction: TAKE ONE TABLET BY MOUTH EVERY DAY Rx Instructions: TAKE ONE TABLET BY MOUTH EVERY DAY risperidone 2 mg tablet 2 mg PO BID Qty: 60 2RF ibuprofen 200 mg Tablet 200 - 400 mg PO Q4H PRN (Reason: Pain) Rx Instructions: WITH FOOD OR SNACK polyethylene glycol 3350 [Miralax] 17 gram/dose Powder 17 g PO DAILY@07 pantoprazole [Protonix] 40 mg Tablet,Delayed Release (Dr/Ec) 40 mg PO DAILY 30 Days Qty: 30 1RF Referrals: Meseret Tejeda DO [Primary Care Provider] - Patient Instructions: Opioid Safety, Pain Management Coding Level of Care Code ED Station Inspector for Randi Sethi
--- NOTE | 2024-01-27 06:04 | XRR_ITS ---
PROCEDURE INFORMATION: Exam: XR Chest Exam date and time: 01/27/2024 6:15 AM Age: 38 years old Clinical indication: Chest pressure; Patient HX: C/O chest pain TECHNIQUE: Imaging protocol: Radiologic exam of the chest. Views: 1 view. COMPARISON: CR XR chest 1V [id number] 10/25/2018 12:47 PM FINDINGS: Lungs: No consolidation. Pleural spaces: No sizable pleural effusion or pneumothorax. Heart/Mediastinum: No cardiomegaly. Bones/joints: Unremarkable. XR/XR chest 1V portable [id number] IMPRESSION: No acute intrathoracic findings.
[2024-01-27 06:15] LABS: Basophils % 0.3 %; Eosinophils # 0.2 10^3/uL (0.0-0.8); Eosinophils % 1.9 %; Hematocrit 36.7 % (36-47); Lymphocytes % 22.1 %; Mean Corpuscular Hemoglobin 33.5 pg (27-33); Mean Corpuscular Volume 93.1 fl (85-98); Mean Platelet Volume 8.4 fL (7.4-10.4); Monocytes # 0.6 10^3/uL (0.2-0.9); Monocytes % 6.8 %; Neutrophils % 68.3 %; Nucleated Red Blood Cells % 0 %; Platelet Count 374 10^3/cmm (157-399); Red Blood Count 3.94 10^6/uL (3.85-5.65); Red Cell Distribution Width 12.1 % (12.1-15.1); White Blood Count 9.08 10^3/uL (3.29-11.43)
[2024-01-27 06:23] LABS: D Dimer 0.28 ug/mLFEU (0-0.59)
[2024-01-27 06:30] LABS: Alanine Aminotransferase 12 U/L (0-33); Albumin Level 4.2 g/dL (3.5-5.2); Alkaline Phosphatase 157 U/L (35-105); Anion Gap 13.2 (5-19); Aspartate Amino Transferase 15 U/L (0-32); Blood Urea Nitrogen 2 mg/dL (6-20); Calcium 8.8 mg/dL (8.5-10.5); Carbon Dioxide 24 mmol/L (22-29); Chloride 86 mmol/L (98-107); Creatinine Clr Calc Pharmacy 151.1403; Globulin 2.5 g/dL (1.3-4.6); Glomerular Filtration Rate 138.1 mL/min (90-130); Glucose 92 mg/dL (65-115); Osmolality Calculated 244 mOsm/kg (285-295); Potassium 4.2 mmol/L (3.5-5.1); Total Bilirubin 0.2 mg/dL (0.15-1.2); Total Protein 6.7 g/dL (6.6-8.7)
[2024-01-27 06:31] LABS: Troponin(5th) Baseline < 6 ng/L (0-10)
[2024-01-27 06:41] LABS: Acetaminophen 8.4 ug/mL (10-30)
[2024-01-27 06:43] LABS: Alcohol Level < 10 mg/dL (0-10); Salicylate < 0.3 mg/dL (3-10); Sodium 119 mmol/L (136-145)
[2024-01-27] MEDS: sodium chloride 0.9% 1,000 ML 999 ML IV (07:22)
[2024-01-27 07:26] LABS: Carbamazepine Tegretol 8.8 ug/mL (4.0-12.0)
--- NOTE | 2024-01-27 07:41 | XRR_ITS ---
PROCEDURE INFORMATION: Exam: XR Cervical Spine Exam date and time: 01/27/2024 7:44 AM Age: 38 years old Clinical indication: Neck pain; Patient HX: Neck hurting x1 month, patient states neck feels out of align TECHNIQUE: Imaging protocol: Radiologic exam of the cervical spine. Views: 2 or 3 views. COMPARISON: CR (CHEST, ) 01/27/2024 6:15 AM FINDINGS: Bones/joints: The atlantoaxial interval and craniocervical junction are unremarkable. There is straightening of the normal cervical lordosis which may relate to patient positioning or muscle spasm. Grade 1 retrolisthesis of C5. Mild degenerative disc disease at C5-C6. No acute fracture is identified. Soft tissues: No prevertebral soft tissue swelling is seen. XR/XR cervical spine 3V* [id number] IMPRESSION: 1. No acute fracture is identified. 2. There is straightening of the normal cervical lordosis which may relate to patient positioning or muscle spasm. Grade 1 retrolisthesis of C5. 3. Mild degenerative disc disease at C5-C6.
[2024-01-27 08:00] LABS: Amphetamines Screen Urine Negative (Negative); Barbiturates Screen Urine Negative (Negative); Benzodiazepines Screen Urine Negative (Negative); Cocaine Screen Urine Negative (Negative); Opiate Screen Urine Negative (Negative); PCP Screen Urine Negative (Negative); THC Screen Urine Negative (Negative)
--- NOTE | 2024-01-27 08:04 | ECG_ITS ---
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 Measurements Intervals [place] Rate: 68 P: 67 [place]: 146 QRS: 73 QRSD: 83 T: 65 QT: 388 QTc: 415 Interpretive Statements SINUS RHYTHM Compared to ECG 01/27/2024 05:58:09 No significant changes Electronically Signed On 01-28-2024 15:05:22 CDT by Teddy Daly M.D. [id number]
[2024-01-27 08:06] LABS: Troponin 5 2HR Delta 0.00001 ABS# (0-10)
[2024-01-27 08:20] LABS: HCG Qualitative Urine. Negative (Negative)
[2024-01-27 08:31] LABS: Potassium, Radom Urine 11 mmol/L
[2024-01-27 08:37] LABS: Procalcitonin 0.02 ng/mL (0-0.5)
[2024-01-27 08:44] LABS: Add Urine Microscopic? NO; Charge for UA Resulting for Rev
[2024-01-27 08:48] LABS: Bilirubin Urine Neg (Negative); Blood Urine Neg (Negative); Glucose Urine UA Norm (Normal); Ketones Urine Negative (Negative); Leukocyte Esterase Urine Negative (Negative); Nitrate Urine Negative (Negative); Protein Urine Neg (Negative); Sulfosalicylic Acid Urine Negative (Negative); Urine Appearance Clear (CLEAR); Urine Color Yellow (Yellow); Urine Random Chloride 14 mmol/L; Urine Random Sodium 15 mmol/L; Urobilinogen Urine Norm (Negative); pH Urine 8 (5-7)
[2024-01-27 09:01] LABS: Thyroid Stimulating Hormone 1.57 uIU/mL (0.27-4.20)
[2024-01-27] MEDS: benztropine 1 mg Tablet PO ×2 (09:29→17:25)
[2024-01-27] MEDS: duloxetine 60 mg Capsule 120 MG PO (09:30)
[2024-01-27] MEDS: risperiDONE 1 mg Tablet 2 MG PO (09:30)
[2024-01-27] MEDS: carBAMazepine 200 mg Tablet 300 MG PO ×2 (09:31→17:25)
[2024-01-27] MEDS: pantoprazole 40 mg SDV IVP (09:32)
[2024-01-27] MEDS: enoxaparin 40 mg/0.4 mL Syringe SUBCUT (09:32)
[2024-01-27] MEDS: sodium chloride 0.9% 1,000 ML 100 ML IV (09:35)
--- OUTSIDE RECORDS SUMMARY | 2024-01-27 10:16 | XMS_ITS | Continuity of Care Document ---
Author Name Unknown Organization [facility] Address [id number] [address] Phone Care Team Providers Care Car Repairer Pullman Name Role Phone Momo Darby DDS Unavailable Unavailable Allergies, Adverse Reactions, Alerts Substance Reaction Status Criticality No Known allergies Procedures Procedure Date Resin-Based Composite ??? One Surface, P osterior Resin-Based Composite ??? One Surface, P osterior Resin-Based Composite ??? One Surface, P osterior Resin-Based Composite ??? One Surface, P osterior Resin-Based Composite ??? One Surface, P osterior Resin-Based Composite ??? One Surface, P osterior Resin-Based Composite ??? One Surface, P osterior Resin-Based Composite ??? One Surface, P osterior EDR Approval Note EDR Approval Note Prophylaxis ??? Adult EDR Approval Note Resin-Based Composite ??? Three Surfaces , Posterior EDR Approval Note Bitewings ??? Four Films Panoramic Film Intraoral ??? Periapical First Film Intraoral ??? Periapical Each Additional Film Intraoral ??? Periapical Each Additional Film Intraoral ??? Periapical Each Additional Film Comprehensive Oral Evaluation ??? New Or Established EDR Approval Note Advance Directives Directive Yes / No Effective Date File Name No Information Encounters Encounter Description Practice Location Reason(s) For Visit Diagnoses Date Provider Providers Copied on Encounter [facility], [id number], [id number], [place] tel:[phone] [facility] Encounter for dental exam and cleaning w/o abnormal findings Wilner Barr. [address] [place], [address], [place]. tel:[phone] Referring Provider: Momo Darby, [address] [place], [address]. tel:[phone] [facility], [id number], [id number], [place] tel:[phone] [facility] Encounter for dental exam and cleaning w/o abnormal findings Wilner Barr. [address] [place], [address], [place]. tel:[phone] Referring Provider: Momo Darby, [address] [place], [address]. tel:[phone] [facility], [id number], [id number], [place] tel:[phone] [facility] Encounter for dental exam and cleaning w/o abnormal findings Wilner Barr. [address] [place], [address], [place]. tel:[phone] Referring Provider: Momo Darby, [address] [place], [address]. tel:[phone] [facility], [id number], [id number], [place] tel:[phone] [facility] Encounter for dental exam and cleaning w/o abnormal findings Wilner Barr. [address] [place], [address], [place]. tel:[phone] Referring Provider: Momo Darby, [place], [address]. tel:[phone] Family History Family Member Type Diagnosis Age At Onset No Information Payers Payer name Insurance type Covered libertarian ID Authoriza tion(s) No Information Social History Type Description Quantity [...]
--- OUTSIDE RECORDS SUMMARY | 2024-01-27 10:42 | XMS_ITS | Continuity of Care Document ---
Author Name Unknown Organization [facility] Address [id number] [address] Phone Care Team Providers Care Lining Stitcher Name Role Phone Momo Darby DDS Unavailable [...] Diagnoses Date Provider Providers Copied on Encounter [facility], [id number], [id number], [place] tel:[phone] [facility] Encounter for dental exam and cleaning w/o abnormal findings Wilner Barr. [address] [place], [address], [place]. tel:[phone] Referring Provider: Momo Darby, [address] [place], [address]. tel:[phone] [facility], [id number], [id number], [place] tel:[phone] [facility] Encounter for dental exam and cleaning w/o abnormal findings Wilner Barr. [address] [place], [address], [place]. tel:[phone] Referring Provider: Momo Darby, [address] [place], [address]. tel:[phone] [facility], [id number], [id number], [place] tel:[phone] [facility] Encounter for dental exam and cleaning w/o abnormal findings Wilner Barr. [address] [place], [address], [place]. tel:[phone] Referring Provider: Momo Darby, [address] [place], [address]. tel:[phone] [facility], [id number], [id number], [place] tel:[phone] [facility] Encounter for dental exam and cleaning w/o abnormal findings Wilner Barr. [address] [place], [address], [place]. tel:[phone] Referring Provider: Momo Darby, [address] [place], [address]. tel:[phone] Family History Family Member Type Diagnosis Age At Onset No Information Payers Payer name Insurance type Covered democrat ID Authoriza tion(s) No Information Social History [...]
[2024-01-27 12:28] LABS: Troponin 5 6HR Delta 0.00001 ng/L (0-12)
[2024-01-27 12:31] LABS: Blood Urea Nitrogen 2 mg/dL (6-20); Calcium 8.5 mg/dL (8.5-10.5); Carbon Dioxide 23 mmol/L (22-29); Chloride 96 mmol/L (98-107); Creatinine Clr Calc Pharmacy 151.1403; Glomerular Filtration Rate 138.1 mL/min (90-130); Glucose 136 mg/dL (65-115); Osmolality Calculated 262 mOsm/kg (285-295); Sodium 127 mmol/L (136-145)
--- NOTE | 2024-01-27 13:14 | P.HP_ITS ---
Providers/Chief Complaint 2 Admitting Physician: Luis Angel Valencia MD Primary Care Provider: Meseret Tejeda DO Chief Complaint: cp History of Present Illness Kathrin Patricio is a 38 year old female who lives in a long-term with past medical history of paranoid schizophrenia, borderline personality disorder presented to the ER today because of chest pain. As per the patient she feels somebody is squeezing her heart from back and making her uncomfortable. She denies any nausea vomiting, headache, dizziness, diarrhea, changes in her appetite. Patient denies any changes in her medications recently. In the ER she was found to have a sodium level of 119 so hospital service was consulted. Review of Systems 2 General: Reports: 10 or more systems reviewed and unremarkable except in HPI and below Const: Denies: fever(s), chills, body aches, change in appetite, change in weight, malaise, night sweats, diaphoresis, change in sleep pattern, daytime sleepiness or snoring Eyes: Denies: change in vision, blurry vision, photophobia, eye discomfort or eye discharge ENMT: Denies: throat pain, enlarged tonsils, hoarseness, mouth pain, oral sores, dry mouth, tinnitus, nasal congestion or post nasal drip Card: Denies: chest pain, palpitations, irregular heart rhythm, edema, swelling of feet/ankles, lightheadedness, syncope, pre-syncope, dyspnea on exertion, orthopnea, leg pain with exertion or acrocyanosis Resp: Denies: dyspnea, productive cough, non-productive cough, wheezing, stridor, pain on inspiration, change in phlegm color, hemoptysis or chest congestion GI: Denies: abdominal pain, nausea, vomiting, hematemesis, coffee ground emesis, dysphagia, heartburn, diarrhea, constipation, bloating, GI cramping, change in bowel habits, pain on defecation, hematochezia or melena : Denies: flank pain, dysuria, urinary frequency, urinary urgency, urinary hesitancy, nocturia or hematuria Musc: Denies: neck pain, back pain, extremity pain, joint pain, joint swelling, joint redness, joint stiffness or limited range of motion Neuro: Denies: headache(s), numbness in extremities, weakness in extremities, sensory changes, lack of coordination, difficulty walking, frequent falls, dizziness, vertigo, confusion, Slurred speech present, difficulty communicating thoughts or seizure-like activity Psych: Denies: anxiety, depression, mood swings, panic attacks, hopelessness or irritability Endo: Denies: polyuria, polydipsia, tired all the time, cold intolerance, excessive sweating, flushing or heat intolerance Nixon/Lymph: Denies: easy bruising or easy bleeding All/Imm: Denies: tongue swelling, facial swelling or acute wheezing Medications/Allergies Home Medications Medication Instructions Recorded Confirmed Last Taken Type ibuprofen 200 mg tablet 200 - 400 mg PO Q4H PRN Pain 05/24/21 01/27/24 Unknown History polyethylene glycol 3350 17 17 g PO DAILY@07 05/24/21 01/27/24 01/26/24 History gram/dose oral powder (Miralax) acetaminophen 500 mg tablet 1,000 mg PO Q4H PRN fever or pain 04/24/22 01/27/24 Unknown History (Tylenol Extra Strength) multivitamin 1 tab PO QAM 04/24/22 01/27/24 01/26/24 History tramadol 50 mg tablet 100 mg PO BID PRN Pain 07/24/22 01/27/24 Unknown History pantoprazole 40 mg tablet,delayed 40 mg PO DAILY 30 days #30 tabs 03/06/23 01/27/24 01/26/24 Rx release (Protonix) Bacillus coagulans 400 million 1 cell PO BID 05/22/23 01/27/24 01/26/24 History cell chewable tablet (Digestive Advantage Kid Probiotic-Prebio) baclofen 20 mg tablet 20 mg PO TID PRN Pain 05/22/23 01/27/24 08/19/23 History tea tree oil 100 % topical 1 ea topical DAILY PRN unknown 05/22/23 01/27/24 Unknown History benztropine 1 mg tablet 1 mg PO BID #60 tabs 11/21/23 01/27/24 01/26/24 Rx carbamazepine 200 mg tablet 300 mg (1.5 x 200 mg) PO BID #90 11/21/23 01/27/24 01/26/24 Rx (Tegretol) tabs duloxetine 60 mg capsule,delayed 120 mg (2 x 60 mg) PO DAILY #60 11/21/23 01/27/24 01/26/24 Rx release caps haloperidol 5 mg tablet 5 mg PO DAILY 30 days #30 tabs 11/21/23 01/27/24 01/26/24 Rx hydroxyzine HCl 50 mg tablet 50 mg PO TID PRN anxiety #90 tabs 11/21/23 01/27/24 Unknown Rx paliperidone 6 mg tablet,extended 6 mg PO QAM #30 tabs 11/21/23 01/27/24 01/26/24 Rx release 24 hr paliperidone palmitate 234 mg/1.5 234 mg (1.5 mL) IM Q30D #1.5 mL 11/21/23 01/27/24 Unknown Rx mL intramuscular syringe (Invega Sustenna) risperidone 2 mg tablet 2 mg PO BID #60 tabs 12/28/23 01/27/24 01/26/24 Rx diclofenac sodium 75 mg 75 mg PO BID 01/23/24 01/27/24 01/26/24 History tablet,delayed release menthol 2.7 mg lozenges (Cough 5.4 mg mucous membrane Q4H PRN 01/23/24 01/27/24 Unknown History Drops) Cough trazodone 50 mg tablet 50 mg PO BEDTIME Sleep 01/23/24 01/27/24 01/26/24 History mirtazapine 7.5 mg tablet 7.5 mg PO BEDTIME 01/27/24 01/27/24 01/26/24 History norethindrone (contraceptive) 0.35 0.35 mg PO DAILY 01/27/24 01/27/24 01/26/24 History mg tablet Allergies Allergy/AdvReac Type Severity Reaction Status Date / Time codeine Allergy Unknown Verified 01/27/24 06:02 Sulfa (Sulfonamide Allergy algy-rash Verified 01/27/24 06:02 Antibiotics) PFSH Acute 2 PFSH: Medical History Psychiatric care Schizoaffective disorder, depressive type No pertinent past medical history neghx: htn, dm, thyroid, dvt/pe PCP: Dr. Meseret Tejeda Paranoid schizophrenia managed by Dr. Kee -- [facility] Nicotine dependence, cigarettes, uncomplicated Panic disorder without agoraphobia managed by Dr. Kee-- [facility] HPV in female Insomnia Tachycardia Anxiety and depression Surgical History History of foot operation 1993-- treatment of plantar wart Family History Family/Other Thyroid disease maternal Denies family history of Colon cancer Ovarian cancer Prostate cancer Diabetes Heart disease Hyperlipidemia Breast cancer Bleeding disorder Hypertension Uterine cancer Stroke Vitals/I&O/Wt Last Vital Signs Temp 97.6 F 01/27/24 05:52 Pulse 81 01/27/24 09:00 Resp 20 H 01/27/24 09:00 BP 140/85 01/27/24 09:00 Pulse Ox 97 01/27/24 09:00 O2 Del Method Room Air 01/27/24 11:00 01/26/24 01/27/24 01/27/24 22:59 06:59 14:59 Intake Total 1000 / 1000 Output Total 1800 / 1800 Balance -800 / -800 Weight last 48 hrs Weight 74.843 kg Weight 74.843 kg Weight 74.843 kg Physical Exam 2 Narrative: General: No acute distress, AO x3 HEENT: PERRLA, pupils bilaterally equal and reactive Chest: Normal vesicular breath sounds, no added sounds, equal good air entry bilaterally CVS: S1-S2 regular, no murmurs, no tachycardia, no gallops, no rubs Abdomen: Soft, nontender, no organomegaly, bowel sounds present Neuro: No focal deficits, no facial deformity, AO x3, power 5/5 in all limbs Urinary Catheter Management: Pham: Cath Placed During This Visit: yes Urinary Catheter Date of Insertion: 01/27/24 Urinary Catheter Time of Insertion: 09:21 Data 01/27/24 05:57 01/27/24 11:51 A&P Assessment and plan (1) Hyponatremia: Baseline sodium level between 1 25-1 32. Currently 119. Patient denies any symptoms of acute hyponatremia. Most likely in setting of Invega which she gets as an outpatient. Hold off on medication. Continue all other antipsychotics. Check urine lites, urine osmole lites. Start on normal saline at 100 cc/h. Repeat BMP at 12 PM. After that check BMP every 4 hours. Depending on the sodium level will plan for salt tablets versus fluid restriction. Target improvement in sodium level up to 127 in next 24 hours. If sodium level remains stable can be transition over to Neuropsych Unit if agreeable with psych team. (2) Atypical chest pain: Atypical in nature. Cycle troponins. EKG stable. Check A1c, lipid panel. (3) Panic disorder without agoraphobia: Continue other antipsychotics except Invega. Psychiatric team has been consulted. Plan Admit to ICU for close sodium checks. Regular diet Protonix for PUD prophylaxis Lovenox for DVT prophylaxis Attestations 2 Medical Necessity Statement*: Admit for more than 2 midnights for management of acute on chronic hyponatremia, psychosis Diagnoses Hyponatremia E87.1 Atypical chest pain R07.89 Panic disorder without agoraphobia F41.0
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
[2024-01-27] MEDS: risperiDONE 2 mg Tablet PO (17:25)
[2024-01-27 17:28] LABS: Anion Gap 13.5 (5-19); Blood Urea Nitrogen 4 mg/dL (6-20); Calcium 8.7 mg/dL (8.5-10.5); Carbon Dioxide 22 mmol/L (22-29); Chloride 101 mmol/L (98-107); Creatinine Clr Calc Pharmacy 125.9502; Glomerular Filtration Rate 111.9 mL/min (90-130); Glucose 112 mg/dL (65-115); Osmolality Calculated 272 mOsm/kg (285-295); Potassium 4.5 mmol/L (3.5-5.1); Sodium 132 mmol/L (136-145)
--- NOTE | 2024-01-27 17:49 | P.DS_ITS ---
Discharge Providers Date of Admission: 01/27/24 09:00 Date of Discharge: January 27, 2024 Attending Provider at Admission: Luis Angel Valencia MD Attending Provider at Discharge: Luis Angel Valencia MD Consults: Psychiatric: Dr. Copeland Primary Care Provider: Meseret Tejeda DO Diagnoses at Discharge Discharge Diagnosis (1) Paranoid schizophrenia: Status: Chronic Permanent problem details: managed by Dr. Kee [facility] (2) Borderline personality disorder: Status: Acute (3) Schizoaffective disorder, depressive type: Status: Inactive (4) Panic disorder without agoraphobia: Status: Chronic [facility]ermanent problem details[facility] ([facility]) Hyponatremia: Status: Acute (6) Atypical chest pain: Status: Acute Reason for Visit Reason for Visit: cp Hospital Course Hospital Course Kathrin Patricio is a 38 year old female who lives in a nursing home with past medical history of paranoid schizophrenia, borderline personality disorder presented to the ER today because of chest pain. As per the patient she feels somebody is squeezing her heart from back and making her uncomfortable. She denies any nausea vomiting, headache, dizziness, diarrhea, changes in her appetite. Patient denies any changes in her medications recently. In the ER she was found to have a sodium level of 119 so hospital service was consulted. She was admitted to ICU for management of acute on chronic hyponatremia. Her hyponatremia was consistent with either secondary to antipsychotic medication Invega or from poor oral intake. Her urine lites were consistent with low sodium hence she was started on fluid after which her sodium steadily improved to 132. For atypical chest pain troponins were checked which were negative and flat. EKGs were normal. Patient was seen by psychiatry during hospitalization who cleared her for discharge on her current medication without changes. And her sodium level remained stable she has been discharged back to nursing home in stable condition with advised to continue daily regular diet and recheck sodium level in 1 week. She is advised to maintain oral hydration with 1.5 to 2 L of fluid daily. Physical Exam Narrative: General: No acute distress, AO x3 HEENT: PERRLA, pupils bilaterally equal and reactive Chest: Normal vesicular breath sounds, no added sounds, equal good air entry bilaterally CVS: S1-S2 regular, no murmurs, no tachycardia, no gallops, no rubs Abdomen: Soft, nontender, no organomegaly, bowel sounds present Neuro: No focal deficits, no facial deformity, AO x3, power 5/5 in all limbs Urinary Catheter Management: Pham: Cath Placed During This Visit: yes Urinary Catheter Date of Insertion: 01/27/24 Urinary Catheter Time of Insertion: 09:21 Discharge Data Studies Completed and Pending Completed Studies During Hospitalization Category Date Time Status XR cervical spine 3V* [id number] Routine Exams 01/27/24 07:41 Completed XR chest 1V portable [id number] Stat Exams 01/27/24 06:04 Completed Pending at discharge Category Date Time Status BMP [Basic Metabolic Panel] Q6H Lab 01/27/24 21:59 Ordered BMP [Basic Metabolic Panel] Q6H Lab 01/28/24 03:59 Ordered BMP [Basic Metabolic Panel] Q6H Lab 01/28/24 09:59 Ordered Complete Blood Count w/Auto AM LABS Lab 01/28/24 04:00 Ordered Comprehensive Metabolic Panel AM LABS Lab 01/28/24 04:00 Ordered Hemoglobin A1C AM LABS Lab 01/28/24 04:00 Ordered Lipid Panel AM LABS Lab 01/28/24 04:00 Ordered Magnesium AM LABS Lab 01/28/24 04:00 Ordered Osmolality Urine Stat Lab 01/27/24 07:16 Received Phosphorus AM LABS Lab 01/28/24 04:00 Ordered Radiology Impressions Chest X-Ray 01/27/24 06:04 IMPRESSION: No acute intrathoracic findings. Cervical Spine X-Ray 01/27/24 07:41 IMPRESSION: 1. No acute fracture is identified. 2. There is straightening of the normal cervical lordosis which may relate to patient positioning or muscle spasm. Grade 1 retrolisthesis of C5. 3. Mild degenerative disc disease at C5-C6. Laboratory Results WBC 9.08 10^3/uL (3.29-11.43) 01/27/24 05:57 RBC 3.94 10^6/uL (3.85-5.65) 01/27/24 05:57 Hgb 13.20 g/dL (11.27-16.99) 01/27/24 05:57 Hct 36.7 % (36-47) 01/27/24 05:57 MCV 93.1 fl (85-98) 01/27/24 05:57 MCH 33.5 pg (27-33) H 01/27/24 05:57 MCHC 36.0 g/dL (30-55) 01/27/24 05:57 RDW 12.1 % (12.1-15.1) 01/27/24 05:57 Plt Count 374 10^3/cmm (157-399) 01/27/24 05:57 MPV 8.4 fL (7.4-10.4) 01/27/24 05:57 Neut % (Auto) 68.3 % 01/27/24 05:57 Lymph % (Auto) 22.1 % 01/27/24 05:57 [place] % (Auto) 6.8 % 01/27/24 05:57 Eos % (Auto) 1.9 % 01/27/24 05:57 Baso % (Auto) 0.3 % 01/27/24 05:57 Neut # (Auto) 6.20 10^3/uL (1.8-7.7) 01/27/24 05:57 Lymph # (Auto) 2.0 10^3/uL (0.8-4.8) 01/27/24 05:57 [place] # (Auto) 0.6 10^3/uL (0.2-0.9) 01/27/24 05:57 Eos # (Auto) 0.2 10^3/uL (0.0-0.8) 01/27/24 05:57 Baso # (Auto) 0.0 10^3/uL (0.0-0.1) 01/27/24 05:57 Nucleated RBC % (auto) 0 % 01/27/24 05:57 Nucleated RBCs # 0.0 /100WBC 01/27/24 05:57 D-Dimer 0.28 ug/mLFEU (0-0.59) 01/27/24 05:57 Sodium 132 mmol/L (136-145) L 01/27/24 16:49 Potassium 4.5 mmol/L (3.5-5.1) 01/27/24 16:49 Chloride 101 mmol/L (98-107) 01/27/24 16:49 Carbon Dioxide 22 mmol/L (22-29) 01/27/24 16:49 Anion Gap 13.5 (5-19) 01/27/24 16:49 BUN 4 mg/dL (6-20) L 01/27/24 16:49 Creatinine 0.6 mg/dL (0.5-0.9) 01/27/24 16:49 GFR Calculation 111.9 mL/min (90-130) 01/27/24 16:49 Glucose 112 mg/dL (65-115) 01/27/24 16:49 Calculated Osmolality 272 mOsm/kg (285-295) L 01/27/24 16:49 Calcium 8.7 mg/dL (8.5-10.5) 01/27/24 16:49 Total Bilirubin 0.2 mg/dL (0.15-1.2) 01/27/24 05:57 AST 15 U/L (0-32) 01/27/24 05:57 ALT 12 U/L (0-33) 01/27/24 05:57 Alkaline Phosphatase 157 U/L (35-105) H 01/27/24 05:57 Troponin T Baseline < 6 ng/L (0-10) 01/27/24 05:57 Troponin T 120 Minute 6.00 ng/L (0-10) 01/27/24 07:42 Delta Troponin T 0.03804 ABS# (0-10) 01/27/24 07:42 Troponin T Hi Sens 6Hr 6.00 ng/L (0-10) 01/27/24 11:51 Troponin T Hi Sens 6Hr Delta 0.21328 ng/L (0-12) 01/27/24 11:51 Total Protein 6.7 g/dL (6.6-8.7) 01/27/24 05:57 Albumin 4.2 g/dL (3.5-5.2) 01/27/24 05:57 Globulin 2.5 g/dL (1.3-4.6) 01/27/24 05:57 Procalcitonin 0.02 ng/mL (0-0.5) 01/27/24 06:12 TSH 1.57 uIU/mL (0.27-4.20) 01/27/24 06:12 HCG, Qual Negative (Negative) 01/27/24 07:16 Urine Color Yellow (Yellow) 01/27/24 07:16 Urine Appearance Clear (CLEAR) 01/27/24 07:16 Urine pH 8 (5-7) H 01/27/24 07:16 Ur Specific [place] 1.010 (1.005-1.030) 01/27/24 07:16 Urine Protein Neg (Negative) 01/27/24 07:16 Urine Glucose (UA) Norm (Normal) 01/27/24 07:16 Urine Ketones Negative (Negative) 01/27/24 07:16 Urine Blood Neg (Negative) 01/27/24 07:16 Urine Nitrate Negative (Negative) 01/27/24 07:16 Urine Bilirubin Neg (Negative) 01/27/24 07:16 Prot Sulfosalicylic Acd Negative (Negative) 01/27/24 07:16 Urine Urobilinogen Norm mg/dL (Negative) 01/27/24 07:16 Ur Leukocyte Esterase Negative (Negative) 01/27/24 07:16 Ur Random Sodium 15 mmol/L 01/27/24 07:16 Ur Random Potassium 11 mmol/L 01/27/24 07:16 Ur Random Chloride 14 mmol/L 01/27/24 07:16 Salicylates < 0.3 mg/dL (3-10) L 01/27/24 05:57 Urine Opiates Screen Negative ng/mL (Negative) 01/27/24 07:16 Acetaminophen 8.4 ug/mL (10-30) L 01/27/24 05:57 Ur Barbiturates Screen Negative ng/mL (Negative) 01/27/24 07:16 Carbamazepine 8.8 ug/mL (4.0-12.0) 01/27/24 06:25 Ur Phencyclidine Scrn Negative ng/mL (Negative) 01/27/24 07:16 Ur Amphetamines Screen Negative ng/mL (Negative) 01/27/24 07:16 U Benzodiazepines Scrn Negative ng/mL (Negative) 01/27/24 07:16 Urine Cocaine Screen Negative ng/mL (Negative) 01/27/24 07:16 U Marijuana (THC) Screen Negative ng/mL (Negative) 01/27/24 07:16 Ethyl Alcohol < 10 mg/dL (0-10) 01/27/24 05:57 Vitals Last Vital Signs Temp 97.6 F 01/27/24 05:52 Pulse 84 01/27/24 16:30 Resp 21 H 01/27/24 16:30 BP 133/90 01/27/24 16:30 Pulse Ox 97 01/27/24 12:15 O2 Del Method Room Air 01/27/24 11:00 Discharge Plan Discharge Patient Disposition: Home Condition: Stable Prescriptions: Continued multivitamin Tablet 1 tab PO QAM acetaminophen [Tylenol Extra Strength] 500 mg tablet 1,000 mg PO Q4H PRN (Reason: fever or pain) tramadol 50 mg tablet 100 mg PO BID PRN (Reason: Pain) baclofen 20 mg tablet 20 mg PO TID PRN (Reason: Pain) tea tree oil 100 % oil 1 ea topical DAILY PRN (Reason: unknown) Digestive Advantag Kid Pro-Pre 400 million cell tablet,chewable 1 cell PO BID trazodone 50 mg tablet 50 mg PO BEDTIME diclofenac sodium 75 mg tablet,delayed release (DR/EC) 75 mg PO BID Cough Drops 2.7 mg lozenge 5.4 mg mucous membrane Q4H PRN (Reason: Cough) benztropine 1 mg tablet 1 mg PO BID Qty: 60 4RF carbamazepine [Tegretol] 200 mg tablet 300 mg PO BID Qty: 90 4RF duloxetine 60 mg capsule,delayed release(DR/EC) 120 mg PO DAILY Qty: 60 4RF haloperidol 5 mg tablet 5 mg PO DAILY 30 Days Qty: 30 4RF hydroxyzine HCl 50 mg tablet 50 mg PO TID PRN (Reason: anxiety) Qty: 90 4RF paliperidone 6 mg tablet extended release 24hr 6 mg PO QAM Qty: 30 4RF Invega Sustenna 234 mg/1.5 mL syringe 234 mg IM Q30D Qty: 1.5 4RF risperidone 2 mg tablet 2 mg PO BID Qty: 60 2RF ibuprofen 200 mg Tablet 200 - 400 mg PO Q4H PRN (Reason: Pain) Rx Instructions: WITH FOOD OR SNACK polyethylene glycol 3350 [Miralax] 17 gram/dose Powder 17 g PO DAILY@07 pantoprazole [Protonix] 40 mg Tablet,Delayed Release (Dr/Ec) 40 mg PO DAILY 30 Days Qty: 30 1RF mirtazapine 7.5 mg tablet 7.5 mg PO BEDTIME norethindrone (contraceptive) 0.35 mg tablet 0.35 mg PO DAILY Discharge Orders: Discharge Order (Routine); Ordered 01/27/24 Ordered By: Luis Angel Valencia Referrals: Meseret Tejeda DO [Primary Care Provider] - 7-10 days Discharge Diet: Regular Discharge Activity: Resume usual activity and Increase activity as tolerated Patient Instructions: Hyponatremia (DC), Opioid Safety, Pain Management Activity Restrictions/Additional Instructions: Decrease oral fuild intake to around 1.5-2 L Recheck sodium level in 7 days Discharge Attestations Time Spent in Discharge Care*: greater than 30 min Specific Discharge Activities: educating patient, discussing with pcp/other providers, discussing with case fitter/social workers/dc planners, documenting/other paperwork and evaluating patient/reviewing data Status at Discharge: Cognitive status at discharge: mildly impaired cognition , Behavioral status at discharge: cooperative , Functional status at discharge: independent ambulation , Overall status at discharge: patient is back to baseline Quality Metrics Clinical Quality Measures [ No reported AMI, CVA or VTE this stay] Coding Level of Care Code 72466 Total time (in minutes) for Discharge: 60 Diagnoses Paranoid schizophrenia F20.0 Borderline personality disorder F60.3 Schizoaffective disorder, depressive type F25.1 Panic disorder without agoraphobia F41.0 Hyponatremia E87.1 Atypical chest pain R07.89
[2024-01-29 16:05] LABS: Osmolality Urine 83 mOsm/kg (50-1200)
== END 2024-01-27 18:52 | disposition home or self-care (01) ==
LOC: ER 07:13 → ER IP 07:41 → ICU 17:49
PROVIDERS: Admitting Provider Student in an Organized Health Care Education/Training Program; Emergency Provider Family Medicine; PCP Family Medicine; Visit Provider Student in an Organized Health Care Education/Training Program
DX: R07.89 Other chest pain (principal); F20.0 Paranoid schizophrenia; F60.3 Borderline personality disorder; F25.1 Schizoaffective disorder, depressive type; F41.0 Panic disorder [episodic paroxysmal anxiety]; E87.1 Hypo-osmolality and hyponatremia; R44.3 Hallucinations, unspecified
CPT/HCPCS: 36415; 51702; 71045; 72040; 80048; 80053; 80156; 80306; 80307; 81003; 81025; 82436; 83935; 84133; 84145; 84300; 84443; 84484; 85025; 85378; 93005; 94664; 96372; 99285; C9113; G0378; J1650; J7030

== ENCOUNTER 2024-03-21 14:42 | Outpatient (CLI) | payer MEDICARE, MEDICAID, SELFPAY ==
--- NOTE | 2024-03-21 15:00 | MM_ITS ---
WS: [id number] BILATERAL 3D TOMOSYNTHESIS DIGITAL SCREENING MAMMOGRAPHY WITH CAD CLINICAL INFORMATION: Z12.39 - Encounter for other screening for malignant neop... HISTORY: Screening mammogram. No current complaints. COMPARISON: 2022 TECHNIQUE: Bilateral CC and MLO views. FINDINGS: The breasts are composed of heterogeneous fibroglandular density tissue, which can limit the detectio n of small underlying mass lesions. No suspicious mass, asymmetry, calcifications, or architectural d istortion. No evidence of malignancy. Incidental dystrophic and lucent centered calcifications. MM/[place] [id number] IMPRESSION: BI-RADS: 2-Benign FOLLOW UP: 1 Year Follow-up Recommend return to annual screening mammography.
== END 2024-03-21 14:43 | disposition home or self-care (01) ==
PROVIDERS: PCP Family Medicine; Visit Provider Nurse Practitioner Women's Health
DX: Z12.31 Encounter for screening mammogram for malignant neoplasm of breast (principal); R92.323 Mammographic fibroglandular density, bilateral breasts; R92.333 Mammographic heterogeneous density, bilateral breasts; R92.1 Mammographic calcification found on diagnostic imaging of breast
CPT/HCPCS: 77063; 77067

== ENCOUNTER 2024-08-15 11:54 | Outpatient (CLI) | payer MEDICARE, MEDICAID, SELFPAY ==
--- NOTE | 2024-08-15 11:59 | XR_ITS ---
WS: [id number] XR cervical spine 3V* [id number] REASON FOR EXAM: CHRONIC NECK PAIN FINDINGS: Moderate straightening of the normal lordosis of the cervical spine. Mild levoscoliosis. No vertebral body abnormality. Normal odontoid. Mild narrowing of the disc space C5-C6 with minimal anterior and uncinate osteophytosis. No significant listhesis. Normal facet joint alignment. There is a fusion between the posterior eleme nts of C2 and C3. XR/XR cervical spine 3V* [id number] IMPRESSION: Mild degenerative disc changes at C5-C6 as above. 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 Cervical spine appears unchanged compared to 01/27/2024.
--- NOTE | 2024-08-15 11:59 | XR_ITS ---
WS: [id number] XR thoracic spine 2V [id number] REASON FOR EXAM: CHRONIC MIDLINE THORACIC BACK PAIN FINDINGS: Mild scoliosis mild levoscoliosis of the lower thoracic spine. Mild kyphosis. No thoracic vertebral body abnormality. Intervertebral disc spaces are intact and well preserved. XR/XR thoracic spine 2V [id number] IMPRESSION: Mild kyphoscoliosis as above.
== END 2024-08-15 11:55 | disposition home or self-care (01) ==
LOC: RAD 11:56
PROVIDERS: PCP Family Medicine; Visit Provider Family Medicine
DX: Q76.49 Other congenital malformations of spine, not associated with scoliosis (principal); M25.78 Osteophyte, vertebrae
CPT/HCPCS: 72040; 72070

== ENCOUNTER 2024-08-19 10:30 | Outpatient (CLI) | payer MEDICARE, MEDICAID, SELFPAY ==
[2024-08-19 10:54] LABS: Bilirubin Urine Negative (Negative); Blood Urine Negative (Negative); Glucose Urine UA Negative (Normal); Ketones Urine Negative (Negative); Leukocyte Esterase Urine Trace (Negative); Nitrate Urine Negative (Negative); Protein Urine Negative (Negative); Specific Gravity, Urine 1.003 (1.005-1.030); Urine Appearance Clear (CLEAR); Urine Color Yellow (Yellow); Urobilinogen Urine 0.2 mg/dL (Negative); pH Urine 7.5 (5-7)
[2024-08-19 10:56] LABS: Add Urine Microscopic? YES; Bacteria Urine 2+ /hpf; Hyaline Casts Urine 1.21 /lpf; RBC Urine 0-2 /hpf (0-2)
== END 2024-08-19 10:31 | disposition home or self-care (01) ==
LOC: LAB 10:31
PROVIDERS: PCP Family Medicine; Visit Provider Family Medicine
DX: N39.41 Urge incontinence (principal)
CPT/HCPCS: 81001; 87086

== ENCOUNTER 2024-08-20 18:56 | Emergency (ER) | payer MEDICARE, MEDICAID, SELFPAY ==
--- NOTE | 2024-08-20 18:57 | XRR_ITS ---
PROCEDURE INFORMATION: Exam: XR Chest Exam date and time: 08/20/2024 7:28 PM Age: 39 years old Clinical indication: Pain; Chest pressure; Additional info: Cp TECHNIQUE: Imaging protocol: Radiologic exam of the chest. Views: 1 view. COMPARISON: CR (CHEST, ) 01/27/2024 6:15 AM FINDINGS: Lungs: Unremarkable. No consolidation. Pleural spaces: Unremarkable. No pleural effusion. No pneumothorax. Heart/Mediastinum: Unremarkable. No cardiomegaly. Bones/joints: Unremarkable. XR/XR chest 1V portable [id number] IMPRESSION: No acute findings.
--- NOTE | 2024-08-20 18:57 | ECG_ITS ---
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 Measurements Intervals [place] Rate: 109 P: 56 AK: 138 QRS: 43 QRSD: 76 T: 57 QT: 327 QTc: 441 Interpretive Statements SINUS TACHYCARDIA POSSIBLE LEFT ATRIAL ENLARGEMENT [-0.1mV P-WAVE IN V1/V2] ABNORMAL RHYTHM ECG Compared to ECG 01/27/2024 11:14:29 Sinus rhythm no longer present Electronically Signed On 08-21-2024 21:20:42 PAPER COATER by Peng Hemphill M.D. [email or web address]
[2024-08-20 19:07] VITALS: BP 155/58; PULSE 102; RESP 18; TEMP 36.6; O2SAT 95; BMI 29.2
[2024-08-20 19:31] LABS: Basophils % 0.4 %; Eosinophils # 0.1 10^3/uL (0.0-0.8); Eosinophils % 1.9 %; Hematocrit 37.1 % (36-47); Lymphocytes # 2.5 10^3/uL (0.8-4.8); Lymphocytes % 35.7 %; Mean Corpuscular HGB Conc 35.8 g/dL (30-55); Mean Corpuscular Hemoglobin 33.6 pg (27-33); Mean Corpuscular Volume 93.7 fl (85-98); Mean Platelet Volume 8.1 fL (7.4-10.4); Monocytes # 0.4 10^3/uL (0.2-0.9); Monocytes % 6.2 %; Neutrophils # 3.86 10^3/uL (1.8-7.7); Neutrophils % 55.5 %; Nucleated Red Blood Cells % 0 %; Platelet Count 354 10^3/cmm (157-399); Red Blood Count 3.96 10^6/uL (3.85-5.65); Red Cell Distribution Width 11.9 % (12.1-15.1); White Blood Count 6.95 10^3/uL (3.29-11.43)
[2024-08-20 19:41] LABS: HCG, Serum Qual Negative (Negative)
[2024-08-20 19:47] LABS: Alanine Aminotransferase 14 U/L (0-33); Alkaline Phosphatase 153 U/L (35-105); Anion Gap 13.8 (5-19); Aspartate Amino Transferase 16 U/L (0-32); Blood Urea Nitrogen 4 mg/dL (6-20); Calcium 7.9 mg/dL (8.5-10.5); Carbon Dioxide 25 mmol/L (22-29); Chloride 94 mmol/L (98-107); Creatinine Clr Calc Pharmacy 126.5183; Globulin 2.2 g/dL (1.3-4.6); Glomerular Filtration Rate 111.3 mL/min (90-130); Glucose 126 mg/dL (65-115); Lipase 35 U/L (13-60); Osmolality Calculated 266 mOsm/kg (285-295); Potassium 3.8 mmol/L (3.5-5.1); Sodium 129 mmol/L (136-145); Total Bilirubin 0.2 mg/dL (0.15-1.2); Total Protein 6.2 g/dL (6.6-8.7)
[2024-08-20 19:48] LABS: Troponin(5th) Baseline < 6 ng/L (0-10)
[2024-08-20 20:00] VITALS: BP 93/65; PULSE 102; O2SAT 94
--- NOTE | 2024-08-20 20:02 | ED_ITS ---
HPI - Chest Pain 2 General: Chief Complaint: Chest Pain Stated Complaint: chest pain Time Seen by Provider: 08/20/24 19:28 Source: patient Mode of arrival: ambulatory Limitations: no limitations History of Present Illness: Patient is a 39-year-old female present to the emergency department complaining of chest pain for the past few days. She has had this chest pain before, it is substernal with no radiation. At time of exam she is noted to have a significant hacking cough, states that she is a smoker and thinks that this is what this is from. She does state that her chest pain seems to be worse in the morning, has been intermittent since onset. No pertinent cardiac history, does state that she has a history of asthma and uses albuterol. States that the albuterol has helped somewhat with her chest pain and coughing, but not as much as it has in the past. Denying any fever, production with her cough, wheezing, or other symptoms at this time. MD complaint: chest pain Pertinent past history: asthma Onset (ago): day(s) Timing of current episode: episodic Prior episodes: Yes Onset: awoke with symptoms Pain location: substernal Pain radiation: none Severity: moderate Associated symptoms: Deny abdominal pain, dyspnea, fever(s), nausea, palpitations or vomiting Related Data Home Medications Medication Instructions Recorded Confirmed ibuprofen 200 mg tablet 200 - 400 mg PO Q4H PRN Pain 05/24/21 06/18/24 polyethylene glycol 3350 17 17 g PO DAILY@07 05/24/21 06/18/24 gram/dose oral powder (Miralax) acetaminophen 500 mg tablet 1,000 mg PO Q4H PRN fever or pain 04/24/22 06/18/24 (Tylenol Extra Strength) multivitamin 1 tab PO QAM 04/24/22 06/18/24 tramadol 50 mg tablet 100 mg PO BID PRN Pain 07/24/22 06/18/24 Bacillus coagulans 400 million 1 cell PO BID 05/22/23 06/18/24 cell chewable tablet (Digestive Advantage Kid Probiotic-Prebio) baclofen 20 mg tablet 20 mg PO TID PRN Pain 05/22/23 06/18/24 tea tree oil 100 % topical 1 ea topical DAILY PRN unknown 05/22/23 06/18/24 diclofenac sodium 75 mg 75 mg PO BID 01/23/24 06/18/24 tablet,delayed release menthol 2.7 mg lozenges (Cough 5.4 mg mucous membrane Q4H PRN 01/23/24 06/18/24 Drops) Cough Previous Rx's Medication Instructions Recorded pantoprazole 40 mg tablet,delayed 40 mg PO DAILY 30 days #30 tabs 03/06/23 release (Protonix) benztropine 1 mg tablet 1 mg PO BID #60 tabs 02/27/24 carbamazepine 200 mg tablet 300 mg (1.5 x 200 mg) PO BID #90 02/27/24 (Tegretol) tabs duloxetine 60 mg capsule,delayed 120 mg (2 x 60 mg) PO DAILY #60 02/27/24 release caps hydroxyzine HCl 50 mg tablet 50 mg PO TID PRN anxiety #90 tabs 02/27/24 mirtazapine 7.5 mg tablet 7.5 mg PO BEDTIME #30 tabs 02/27/24 paliperidone 6 mg tablet,extended 6 mg PO QAM #30 tabs 02/27/24 release 24 hr paliperidone palmitate 234 mg/1.5 234 mg (1.5 mL) IM Q30D #1.5 mL 02/27/24 mL intramuscular syringe (Invega Sustenna) risperidone 2 mg tablet 2 mg PO BID #60 tabs 02/27/24 norethindrone (contraceptive) 0.35 See Rx Instructions .Route 03/06/24 mg tablet .COMPLEX #84 tabs trazodone 50 mg tablet 50 mg PO BEDTIME Sleep #30 tabs 03/25/24 fluconazole 150 mg tablet 150 mg PO ONCE #2 tabs 04/22/24 haloperidol 5 mg tablet 5 mg PO BID 30 days #60 tabs 05/23/24 azithromycin 500 mg tablet 500 mg PO DAILY 5 days #5 tabs 08/20/24 prednisone 20 mg tablet 60 mg (3 x 20 mg) PO ONCE 5 days 08/20/24 #15 tabs Allergies Allergy/AdvReac Type Severity Reaction Status Date / Time codeine Allergy Unknown Verified 06/18/24 15:00 Sulfa (Sulfonamide Allergy algy-rash Verified 06/18/24 15:00 Antibiotics) Review of Systems 2 General: Reports: 10 or more systems reviewed and unremarkable except in HPI and below Const: Denies: fever(s), chills or fatigue Eyes: Denies: change in vision ENMT: Denies: throat pain, ear or mastoid pain or nasal discharge Card: Reports: chest pain; Denies: palpitations, swelling of feet/ankles or lightheadedness Resp: Reports: non-productive cough; Denies: dyspnea or wheezing GI: Denies: abdominal pain, nausea, vomiting, diarrhea or constipation : Denies: flank pain, difficulty voiding, dysuria or urinary frequency Musc: Denies: neck pain, back pain or joint pain Skin/Breast: Denies: rash Neuro: Denies: headache(s), numbness in extremities or weakness in extremities PFSH ED 2 PFSH: Medical History Psychiatric care Schizoaffective disorder, depressive type No pertinent past medical history neghx: htn, dm, thyroid, dvt/pe PCP: Dr. Meseret Tejeda Paranoid schizophrenia managed by Dr. Kee -- [facility] Nicotine dependence, cigarettes, uncomplicated Panic disorder without agoraphobia managed by Dr. Kee-- [facility] HPV in female Insomnia Tachycardia Anxiety and depression Surgical History History of foot operation 1993-- treatment of plantar wart Family History Family/Other Thyroid disease maternal Denies family history of Colon cancer Ovarian cancer Prostate cancer Diabetes Heart disease Hyperlipidemia Breast cancer Bleeding disorder Hypertension Uterine cancer Stroke Physical Exam 2 Const: COMMON NORMALS: no acute distress and no limitations GENERAL APPEARANCE: cooperative, comfortable and well developed O RIENTATION/CONSCIOUSNESS: Yes awake HENMT: COMMON NORMALS: normocephalic, atraumatic and hearing grossly normal bilaterally HEAD & SCALP: normocephalic and atraumatic Eye: COMMON NORMALS: Equal, round and reactive pupils present, EOMs intact bilaterally and conjunctivae normal CONJUNCTIVA: Yes conjunctivae normal P UPIL: Yes Equal, round and reactive pupils present Neck/C-Spine: COMMON NORMALS: full ROM, supple and no JVD Resp: COMMON NORMALS: normal respiratory effort, No retractions and No use of accessory muscles EFFORT & INSPECTION: Yes Actively coughing non-productive, dry and hacking AUSCULTATION: wheezes expiratory wheezes and throughout Cardio: COMMON NORMALS: no JVD, regular rate, regular rhythm, No clicks present (Cardio), No murmurs present (Cardio) and No rub (Cardio) RATE: r egular rate RHYTHM: regular rhythm GI: COMMON NORMALS: Normal to inspection, nondistended, normoactive bowel sounds present, Soft to palpation and non-tender AUSCULTATION: Yes normoactive bowel sounds PALPATION: Yes Soft to palpation RECTAL EXAM: d eferred Extremity: COMMON NORMALS: normal to inspection, full ROM and capillary refill normal Psych: COMMON NORMALS: mental status grossly normal and Normal thought process present THOUGHT PROCESS: Normal thought process present Skin: COMMON NORMALS: no rashes or lesions noted GENERAL SKIN EXAM: no rashes or lesions noted Course 2 Vital Signs: Vital signs: Vital Signs Temperature 97.9 F 08/20/24 19:07 Pulse Rate 95 08/20/24 20:12 Respiratory Rate 18 08/20/24 20:12 Blood Pressure 155/58 08/20/24 19:07 Pulse Oximetry 96 08/20/24 20:12 Oxygen Delivery Me thod Room Air 08/20/24 20:12 MDM - Chest Pain Medical Decision Making Patient presented with chest pain over the past couple days, intermittent, she has had this before. History of asthma, at time of examination she was noted to have a hacking nonproductive cough, does note smoking 2 packs of cigarettes a day. Her troponin was negative, EKG normal, chest x-ray nondiagnostic, and rest of her lab work normal. Was given a breathing treatment, notes an improvement in her chest pain as well as her overall cough and breathing upon recheck. Encouraged her to follow-up with primary care for further outpatient workup including further outpatient cardiac workup. Also encouraged her to stop smoking, all of the questions and concerns addressed at this time. We will try to treat with azithromycin for an atypical infection as well as steroid therapy Lab Data 08/20/24 19:20 08/20/24 19:20 Radiology Impressions Chest X-Ray 08/20/24 18:57 IMPRESSION: No acute findings. Laboratory Results WBC 6.95 10^3/uL (3.29-11.43) 08/20/24 19:20 RBC 3.96 10^6/uL (3.85-5.65) 08/20/24 19:20 Hgb 13.30 g/dL (11.27-16.99) 08/20/24 19:20 Hct 37.1 % (36-47) 08/20/24 19:20 MCV 93.7 fl (85-98) 08/20/24 19:20 MCH 33.6 pg (27-33) H 08/20/24 19:20 MCHC 35.8 g/dL (30-55) 08/20/24 19:20 RDW 11.9 % (12.1-15.1) L 08/20/24 19:20 Plt Count 354 10^3/cmm (157-399) 08/20/24 19:20 MPV 8.1 fL (7.4-10.4) 08/20/24 19:20 Neut % (Auto) 55.5 % 08/20/24 19:20 Lymph % (Auto) 35.7 % 08/20/24 19:20 [facility] % (Auto) 6.2 % 08/20/24 19:20 Eos % (Auto) 1.9 % 08/20/24 19:20 Baso % (Auto) 0.4 % 08/20/24 19:20 Neut # (Auto) 3.86 10^3/uL (1.8-7.7) 08/20/24 19:20 Lymph # (Auto) 2.5 10^3/uL (0.8-4.8) 08/20/24 19:20 [facility] [place] [facility] # (Auto) 0.4 10^3/uL (0.2-0.9) 08/20/24 19:20 Eos # (Auto) 0.1 10^3/uL (0.0-0.8) 08/20/24 19:20 Baso # (Auto) 0.0 10^3/uL (0.0-0.1) 08/20/24 19:20 Nucleated RBC % (auto) 0 % 08/20/24 19:20 Nucleated RBCs # 0.0 /100WBC 08/20/24 19:20 Sodium 129 mmol/L (136-145) L 08/20/24 19:20 Potassium 3.8 mmol/L (3.5-5.1) 08/20/24 19:20 Chloride 94 mmol/L (98-107) L 08/20/24 19:20 Carbon Dioxide 25 mmol/L (22-29) 08/20/24 19:20 Anion Gap 13.8 (5-19) 08/20/24 19:20 BUN 4 mg/dL (6-20) L 08/20/24 19:20 Creatinine 0.6 mg/dL (0.5-0.9) 08/20/24 19:20 GFR Calculation 111.3 mL/min (90-130) 08/20/24 19:20 Glucose 126 mg/dL (65-115) H 08/20/24 19:20 Calculated Osmolality 266 mOsm/kg (285-295) L 08/20/24 19:20 Calcium 7.9 mg/dL (8.5-10.5) L 08/20/24 19:20 Total Bilirubin 0.2 mg/dL (0.15-1.2) 08/20/24 19:20 AST 16 U/L (0-32) 08/20/24 19:20 ALT 14 U/L (0-33) 08/20/24 19:20 Alkaline Phosphatase 153 U/L (35-105) H 08/20/24 19:20 Troponin T Baseline < 6 ng/L (0-10) 08/20/24 19:20 Total Protein 6.2 g/dL (6.6-8.7) L 08/20/24 19:20 Albumin 4.0 g/dL (3.5-5.2) 08/20/24 19:20 Globulin 2.2 g/dL (1.3-4.6) 08/20/24 19:20 Lipase 35 U/L (13-60) 08/20/24 19:20 HCG, Qual Negative (Negative) 08/20/24 19:00 All radiology interpretation(s) finalized by discharge Discharge Plan Discharge Patient Disposition: Home Clinical Impression: Bronchitis Condition: Stable Prescriptions: New prednisone 20 mg tablet 60 mg PO ONCE 5 Days Qty: 15 0RF azithromycin 500 mg tablet 500 mg PO DAILY 5 Days Qty: 5 0RF No Action norethindrone (contraceptive) 0.35 mg tablet See Rx Instructions .ROUTE .COMPLEX Qty: 84 3RF Dose Instruction: TAKE ONE TABLET BY MOUTH EVERY DAY FOR CONTROL Rx Instructions: TAKE ONE TABLET BY MOUTH EVERY DAY FOR CONTROL multivitamin Tablet 1 tab PO QAM acetaminophen [Tylenol Extra Strength] 500 mg tablet 1,000 mg PO Q4H PRN (Reason: fever or pain) tramadol 50 mg tablet 100 mg PO BID PRN (Reason: Pain) baclofen 20 mg tablet 20 mg PO TID PRN (Reason: Pain) tea tree oil 100 % oil 1 ea topical DAILY PRN (Reason: unknown) Digestive Advantag Kid Pro-Pre 400 million cell tablet,chewable 1 cell PO BID benztropine 1 mg tablet 1 mg PO BID Qty: 60 11RF carbamazepine [Tegretol] 200 mg tablet 300 mg PO BID Qty: 90 11RF duloxetine 60 mg capsule,delayed release(DR/EC) 120 mg PO DAILY Qty: 60 11RF hydroxyzine HCl 50 mg tablet 50 mg PO TID PRN (Reason: anxiety) Qty: 90 11RF paliperidone 6 mg tablet extended release 24hr 6 mg PO QAM Qty: 30 11RF Invega Sustenna 234 mg/1.5 mL syringe 234 mg IM Q30D Qty: 1.5 11RF risperidone 2 mg tablet 2 mg PO BID Qty: 60 11RF mirtazapine 7.5 mg tablet 7.5 mg PO BEDTIME Qty: 30 11RF diclofenac sodium 75 mg tablet,delayed release (DR/EC) 75 mg PO BID Cough Drops 2.7 mg lozenge 5.4 mg mucous membrane Q4H PRN (Reason: Cough) trazodone 50 mg tablet 50 mg PO BEDTIME Qty: 30 11RF fluconazole 150 mg tablet 150 mg PO ONCE Qty: 2 0RF Rx Instructions: take one today and repeat in 5 days if needed haloperidol 5 mg tablet 5 mg PO BID 30 Days Qty: 60 11RF ibuprofen 200 mg Tablet 200 - 400 mg PO Q4H PRN (Reason: Pain) Rx Instructions: WITH FOOD OR SNACK polyethylene glycol 3350 [Miralax] 17 gram/dose Powder 17 g PO DAILY@07 pantoprazole [Protonix] 40 mg Tablet,Delayed Release (Dr/Ec) 40 mg PO DAILY 30 Days Qty: 30 1RF Discharge Orders: Discharge ED (Routine); Ordered 08/20/24 Ordered By: Boni Box Referrals: Meseret Tejeda DO [Primary Care Provider] - Activity Restrictions/Additional Instructions: Take medications as prescribed. Continue using albuterol inhaler at home. Return with any new or worsening, and follow-up with your primary care provider for further outpatient workup. Coding Level of Care Code ED Building Maintenance Supervisor for Randi Sethi
[2024-08-20 20:12] VITALS: PULSE 95; RESP 18; O2SAT 96
[2024-08-20] MEDS: ipratropium-albuterol 3 mL Neb INHALATION (20:12)
[2024-08-20 21:03] VITALS: BP 111/65; PULSE 102; O2SAT 94
== END 2024-08-20 20:40 | disposition home or self-care (01) ==
PROVIDERS: Emergency Medicine; Emergency Provider Physician Assistant; PCP Family Medicine
DX: J40 Bronchitis, not specified as acute or chronic (principal); F17.210 Nicotine dependence, cigarettes, uncomplicated
CPT/HCPCS: 71045; 80053; 83690; 84484; 84703; 85025; 93005; 94640; 99285

== ENCOUNTER 2024-09-05 22:50 | Emergency (ER) | payer MEDICARE, MEDICAID, SELFPAY ==
[2024-09-05 23:17] VITALS: BP 130/78; PULSE 85; RESP 14; TEMP 36.6; O2SAT 97
--- NOTE | 2024-09-05 23:36 | ED_ITS ---
HPI - Headache General: Chief Complaint: Headache Stated Complaint: Neck\Head Arm\Shoulder Rt Side Time Seen by Provider: 09/05/24 23:03 History of Present Illness: 39-year-old female with multiple complai nts including headache, right shoulder pain, right hip pain. She states that she has this pain daily. She has had the pain for a couple of years. She states now her pain is gone currently. It seemed to improve when she got in the van on the way here. She also reports cough and congestion with sore throat the past few days. She denies fever. She does have a history of wheezing, and uses albuterol in the morning usually. Related Data Home Medications Medication Instructions Recorded Confirmed ibuprofen 200 mg tablet 200 - 400 mg PO Q4H PRN Pain 05/24/21 06/18/24 polyethylene glycol 3350 17 17 g PO DAILY@07 05/24/21 06/18/24 gram/dose oral powder (Miralax) acetaminophen 500 mg tablet 1,000 mg PO Q4H PRN fever or pain 04/24/22 06/18/24 (Tylenol Extra Strength) multivitamin 1 tab PO QAM 04/24/22 06/18/24 tramadol 50 mg tablet 100 mg PO BID PRN Pain 07/24/22 06/18/24 Bacillus coagulans 400 million 1 cell PO BID 05/22/23 06/18/24 cell chewable tablet (Digestive Advantage Kid Probiotic-Prebio) baclofen 20 mg tablet 20 mg PO TID PRN Pain 05/22/23 06/18/24 tea tree oil 100 % topical 1 ea topical DAILY PRN unknown 05/22/23 06/18/24 diclofenac sodium 75 mg 75 mg PO BID 01/23/24 06/18/24 tablet,delayed release menthol 2.7 mg lozenges (Cough 5.4 mg mucous membrane Q4H PRN 01/23/24 06/18/24 Drops) Cough Previous Rx's Medication Instructions Recorded pantoprazole 40 mg tablet,delayed 40 mg PO DAILY 30 days #30 tabs 03/06/23 release (Protonix) benztropine 1 mg tablet 1 mg PO BID #60 tabs 02/27/24 carbamazepine 200 mg tablet 300 mg (1.5 x 200 mg) PO BID #90 02/27/24 (Tegretol) tabs duloxetine 60 mg capsule,delayed 120 mg (2 x 60 mg) PO DAILY #60 02/27/24 release caps hydroxyzine HCl 50 mg tablet 50 mg PO TID PRN anxiety #90 tabs 02/27/24 mirtazapine 7.5 mg tablet 7.5 mg PO BEDTIME #30 tabs 02/27/24 paliperidone 6 mg tablet,extended 6 mg PO QAM #30 tabs 02/27/24 release 24 hr paliperidone palmitate 234 mg/1.5 234 mg (1.5 mL) IM Q30D #1.5 mL 02/27/24 mL intramuscular syringe (Invega Sustenna) risperidone 2 mg tablet 2 mg PO BID #60 tabs 02/27/24 norethindrone (contraceptive) 0.35 See Rx Instructions .Route 03/06/24 mg tablet .COMPLEX #84 tabs trazodone 50 mg tablet 50 mg PO BEDTIME Sleep #30 tabs 03/25/24 fluconazole 150 mg tablet 150 mg PO ONCE #2 tabs 04/22/24 haloperidol 5 mg tablet 5 mg PO BID 30 days #60 tabs 05/23/24 Allergies Allergy/AdvReac Type Severity Reaction Status Date / Time codeine Allergy Unknown Verified 09/05/24 23:21 Sulfa (Sulfonamide Allergy algy-rash Verified 09/05/24 23:21 Antibiotics) PFSH ED PFSH: Medical History Psychiatric care Schizoaffective disorder, depressive type No pertinent past medical history neghx: htn, dm, thyroid, dvt/pe PCP: Dr. Meseret Tejeda Paranoid schizophrenia managed by Dr. Kee -- [facility] Nicotine dependence, cigarettes, uncomplicated Panic disorder without agoraphobia managed by Dr. Kee-- [facility] HPV in female Insomnia Tachycardia Anxiety and depression Surgical History History of foot operation 1993-- treatment of plantar wart Family History Family/Other Thyroid disease maternal Denies family history of Colon cancer Ovarian cancer Prostate cancer Diabetes Heart disease Hyperlipidemia Breast cancer Bleeding disorder Hypertension Uterine cancer Stroke Physical Exam Const: COMMON NORMALS: no acute distress GENERAL APPEARANCE: cooperative; not ill appearing and not frail appearing HENMT: COMMON NORMALS: normocephalic, atraumatic and Normal external nose present HEAD & SCALP: normocephalic and atraumatic FACE & SINUS: normal facial exam and face symmetric NOSE: Normal external nose present Eye: COMMON NORMALS: Equal, round and reactive pupils present and EOMs intact bilaterally PUPIL: Yes Equal, round and reactive pupils present Neck/C-Spine: GENERAL: Yes trachea midline Chest: CHEST: Yes Symmetrical chest wall rise Resp: COMMON NORMALS: normal respiratory effort, No retractions and No use of accessory muscles AUSCULTATION: wheezes Cardio: COMMON NORMALS: regular rate and regular rhythm RATE: regular rate RHYTHM: regular rhythm GI: COMMON NORMALS: Normal to inspection, nondistended, normoactive bowel sounds present Extremity: COMMON NORMALS: no pedal edema Neuro: MAIA COMA SCALE: document GCS findings Maia coma scale eye opening: Spontaneous [place] coma scale verbal response: Orientated Maia coma scale motor response: Obey commands Maia coma scale total score: 15 SENSORY EXAM: Yes extremities (intact) Psych: COMMON NORMALS: speech normal SPEECH: Yes normal speech Skin: COMMON NORMALS: no rashes or lesions noted GENERAL SKIN EXAM: no rashes or lesions noted Course Vital Signs: Vital signs: Vital Signs Temperature 97.8 F 09/05/24 23:17 Pulse Rate 85 09/05/24 23:17 Respiratory Rate 14 09/05/24 23:17 Blood Pressure 130/78 09/05/24 23:17 Pulse Oximetry 97 09/06/24 01:03 MDM - Headache Medical Decision Making Respiratory swabs are negative. Patient is in no pain currently. Unclear as to what made her present tonight as opposed to other times. She does have a his tory of paranoid schizophrenia, which may be contributory. She will follow-up with her PCP. Lab Data Laboratory Results Coronavirus (PCR) Negative (Negative) 09/05/24 23:51 Influenza A (PCR) Negative (Negative) 09/05/24 23:51 Influenza Type B (PCR) Negative (Negative) 09/05/24 23:51 RSV (PCR) Negative (Negative) 09/05/24 23:51 No radiology studies performed this visit Discharge Plan Discharge Patient Disposition: Home Clinical Impression: Headache Condition: Stable Prescriptions: No Action norethindrone (contraceptive) 0.35 mg tablet See Rx Instructions .ROUTE .COMPLEX Qty: 84 3RF Dose Instruction: TAKE ONE TABLET BY MOUTH EVERY DAY FOR CONTROL Rx Instructions: TAKE ONE TABLET BY MOUTH EVERY DAY FOR CONTROL multivitamin Tablet 1 tab PO QAM acetaminophen [Tylenol Extra Strength] 500 mg tablet 1,000 mg PO Q4H PRN (Reason: fever or pain) tramadol 50 mg tablet 100 mg PO BID PRN (Reason: Pain) baclofen 20 mg tablet 20 mg PO TID PRN (Reason: Pain) tea tree oil 100 % oil 1 ea topical DAILY PRN (Reason: unknown) Digestive Advantag Kid Pro-Pre 400 million cell tablet,chewable 1 cell PO BID benztropine 1 mg tablet 1 mg PO BID Qty: 60 11RF carbamazepine [Tegretol] 200 mg tablet 300 mg PO BID Qty: 90 11RF duloxetine 60 mg capsule,delayed release(DR/EC) 120 mg PO DAILY Qty: 60 11RF hydroxyzine HCl 50 mg tablet 50 mg PO TID PRN (Reason: anxiety) Qty: 90 11RF paliperidone 6 mg tablet extended release 24hr 6 mg PO QAM Qty: 30 11RF Invega Sustenna 234 mg/1.5 mL syringe 234 mg IM Q30D Qty: 1.5 11RF risperidone 2 mg tablet 2 mg PO BID Qty: 60 11RF mirtazapine 7.5 mg tablet 7.5 mg PO BEDTIME Qty: 30 11RF diclofenac sodium 75 mg tablet,delayed release (DR/EC) 75 mg PO BID Cough Drops 2.7 mg lozenge 5.4 mg mucous membrane Q4H PRN (Reason: Cough) trazodone 50 mg tablet 50 mg PO BEDTIME Qty: 30 11RF fluconazole 150 mg tablet 150 mg PO ONCE Qty: 2 0RF Rx Instructions: take one today and repeat in 5 days if needed haloperidol 5 mg tablet 5 mg PO BID 30 Days Qty: 60 11RF ibuprofen 200 mg Tablet 200 - 400 mg PO Q4H PRN (Reason: Pain) Rx Instructions: WITH FOOD OR SNACK polyethylene glycol 3350 [Miralax] 17 gram/dose Powder 17 g PO DAILY@07 pantoprazole [Protonix] 40 mg Tablet,Delayed Release (Dr/Ec) 40 mg PO DAILY 30 Days Qty: 30 1RF Discharge Orders: Discharge ED (Routine); Ordered 09/06/24 Ordered By: Irwin Bassett Referrals: Meseret Tejeda DO [Primary Care Provider] - 1-3 days Patient Instructions: Wheezing (ED), Neck Pain (ED), Opioid Safety, Pain Management Activity Restrictions/Additional Instructions: Return for fever greater than 100 ?F, worsening cough or shortness of breath, other concerning symptoms. See your doctor next week. Physical therapy may improve more chronic pain symptoms. Coding Level of Care Code ED Ruby Software Developer for Randi Sethi
[2024-09-05] MEDS: dexamethasone 4 mg Tablet 10 MG PO (23:47)
[2024-09-06 00:40] LABS: Covid PCR NEGATIVE (Negative); Influenza A NEGATIVE (Negative); Influenza B NEGATIVE (Negative); Respiratory Syncytial Virus Ce NEGATIVE (Negative)
[2024-09-06 01:03] VITALS: O2SAT 97
== END 2024-09-06 01:04 | disposition home or self-care (01) ==
PROVIDERS: Emergency Provider Emergency Medicine; PCP Family Medicine
DX: R51.9 Headache, unspecified (principal); Z11.52 Encounter for screening for COVID-19
CPT/HCPCS: 0241U; 99283; J8540

== ENCOUNTER → 2024-09-18 13:23 | Outpatient (BNVA) | payer MEDICARE, SELFPAY | PROVIDERS: PCP Family Medicine; Visit Provider Orthopaedic Surgery | DX: M54.2 Cervicalgia (principal) | CPT/HCPCS: 72050; 99204 ==

== ENCOUNTER 2024-09-25 09:26 | Outpatient (CLI) | payer MEDICARE, MEDICAID, SELFPAY ==
--- NOTE | 2024-09-25 09:30 | MR_ITS ---
WS: [id number] MRI CERVICAL SPINE NONCONTRAST HISTORY: neck pain COMPARISON: None available. Technique: Multiplanar, multisequence noncontrast imaging of the cervical spine. Normal cervical alignment with no compression fracture or significant disc space narrowing. Signal within the cervical cord is normal. Visualized posterior fossa is unremarkable. Craniocervical junction, C1 and C2 relationship, odontoid process and soft tissues are normal. C2-C3: Normal. C3-C4: Mild disc bulging. Mild osteophytic ridging. No stenosis. C4-C5: Mild osteophytic ridging. Slightly greater osteophyte encroachment into the RIGHT foramen. Min imal RIGHT foraminal stenosis. C5-C6: Diffuse annular disc bulging with osteophytic ridging. Mild RIGHT foraminal stenosis. C6-C7: Normal. C7-T1: Normal. Paraspinal soft tissue are normal. MR/MR cervical spin wo con* [id number] IMPRESSION: 1. Mild RIGHT foraminal stenosis at C4-5 and C5-6 due to osteophytic ridging. 2. No high-grade central or foraminal stenosis.
== END 2024-09-25 09:27 | disposition home or self-care (01) ==
LOC: RAD 09:27
PROVIDERS: PCP Family Medicine; Visit Provider Orthopaedic Surgery
DX: M25.78 Osteophyte, vertebrae (principal); M54.2 Cervicalgia
CPT/HCPCS: 72141

== ENCOUNTER 2024-10-30 14:43 | Emergency (ER) | payer MEDICARE, MEDICAID, SELFPAY ==
[2024-10-30 14:49] VITALS: BP 124/84; PULSE 95; RESP 14; TEMP 36.7; O2SAT 95; BMI 29.2
[2024-10-30 15:25] LABS: Bacteria Urine None Seen /hpf; Hyaline Casts Urine 0-4 /lpf; RBC Urine 0-2 /hpf (0-2); Squamous Epithelial Cell Urine 0-5 /hpf (0-5); WBC Urine 0-5 /hpf (0-5)
[2024-10-30 15:34] LABS: Basophils # 0.1 10^3/uL (0.0-0.1); Basophils % 0.6 %; Eosinophils # 0.1 10^3/uL (0.0-0.8); Eosinophils % 1.5 %; Hematocrit 38.3 % (36-47); Lymphocytes # 2.5 10^3/uL (0.8-4.8); Lymphocytes % 27.1 %; Mean Corpuscular HGB Conc 34.5 g/dL (30-55); Mean Corpuscular Hemoglobin 33.3 pg (27-33); Mean Corpuscular Volume 96.7 fl (85-98); Mean Platelet Volume 8.1 fL (7.4-10.4); Monocytes # 0.6 10^3/uL (0.2-0.9); Monocytes % 6.4 %; Neutrophils # 5.93 10^3/uL (1.8-7.7); Neutrophils % 64.1 %; Nucleated Red Blood Cells % 0 %; Platelet Count 324 10^3/cmm (157-399); Red Blood Count 3.96 10^6/uL (3.85-5.65); Red Cell Distribution Width 11.9 % (12.1-15.1); White Blood Count 9.26 10^3/uL (3.29-11.43)
[2024-10-30 15:42] LABS: Add Urine Microscopic? YES; Bilirubin Urine Negative (Negative); Blood Urine Negative (Negative); Glucose Urine UA Negative (Normal); Ketones Urine Negative (Negative); Leukocyte Esterase Urine Negative (Negative); Nitrate Urine Negative (Negative); Protein Urine Negative (Negative); Specific Gravity, Urine 1.005 (1.005-1.030); Urine Appearance Clear (CLEAR); Urine Color Yellow (Yellow); Urobilinogen Urine 0.2 mg/dL (Negative); pH Urine 7.5 (5-7)
[2024-10-30 15:54] LABS: HCG Quantitative < 1.00 mIU/mL
[2024-10-30 16:05] LABS: Alanine Aminotransferase 15 U/L (0-33); Albumin Level 4.2 g/dL (3.5-5.2); Alkaline Phosphatase 157 U/L (35-105); Anion Gap 17.4 (5-19); Aspartate Amino Transferase 15 U/L (0-32); Blood Urea Nitrogen 6 mg/dL (6-20); Calcium 8.6 mg/dL (8.5-10.5); Carbon Dioxide 22 mmol/L (22-29); Chloride 92 mmol/L (98-107); Creatinine Clr Calc Pharmacy 108.4442; Globulin 2.6 g/dL (1.3-4.6); Glomerular Filtration Rate 93.2 mL/min (90-130); Glucose 95 mg/dL (65-115); Lipase 31 U/L (13-60); Osmolality Calculated 261 mOsm/kg (285-295); Potassium 4.4 mmol/L (3.5-5.1); Sodium 127 mmol/L (136-145); Total Bilirubin 0.2 mg/dL (0.15-1.2); Total Protein 6.8 g/dL (6.6-8.7)
--- NOTE | 2024-10-30 16:20 | ED_ITS ---
HPI - Abdominal Pain 2 General: Chief Complaint: Abdominal Pain Stated Complaint: unsure lots of pressure Time Seen by Provider: 10/30/24 16:16 History of Present Illness: 39-year-old female presents with pain in her bilateral hips and felt like she had some pressure in her lower abdomen yesterday. Patient has chronic hip pain but reports that this was different she is not have any pain at this time. She was concerned that she might be . Patient reports that she is on control pill and has not had a menstrual cycle in a couple years. Associated Symptoms: Reports GI cramping (Lower abdomen); Denies chills, diarrhea, dysuria, fever(s), nausea and vomiting Related Data Home Medications Medication Instructions Recorded Confirmed ibuprofen 200 mg tablet 200 - 400 mg PO Q4H PRN Pain 05/24/21 10/28/24 polyethylene glycol 3350 17 17 g PO DAILY@07 05/24/21 10/28/24 gram/dose oral powder (Miralax) acetaminophen 500 mg tablet 1,000 mg PO Q4H PRN fever or pain 04/24/22 10/28/24 (Tylenol Extra Strength) multivitamin 1 tab PO QAM 04/24/22 10/28/24 tramadol 50 mg tablet 100 mg PO BID PRN Pain 07/24/22 10/28/24 Bacillus coagulans 400 million 1 cell PO BID 05/22/23 10/28/24 cell chewable tablet (Digestive Advantage Kid Probiotic-Prebio) baclofen 20 mg tablet 20 mg PO TID PRN Pain 05/22/23 10/28/24 tea tree oil 100 % topical 1 ea topical DAILY PRN unknown 05/22/23 10/28/24 diclofenac sodium 75 mg 75 mg PO BID 01/23/24 10/28/24 tablet,delayed release menthol 2.7 mg lozenges (Cough 5.4 mg mucous membrane Q4H PRN 01/23/24 10/28/24 Drops) Cough Previous Rx's Medication Instructions Recorded pantoprazole 40 mg tablet,delayed 40 mg PO DAILY 30 days #30 tabs 03/06/23 release (Protonix) benztropine 1 mg tablet 1 mg PO BID #60 tabs 02/27/24 carbamazepine 200 mg tablet 300 mg (1.5 x 200 mg) PO BID #90 02/27/24 (Tegretol) tabs duloxetine 60 mg capsule,delayed 120 mg (2 x 60 mg) PO DAILY #60 02/27/24 release caps hydroxyzine HCl 50 mg tablet 50 mg PO TID PRN anxiety #90 tabs 02/27/24 mirtazapine 7.5 mg tablet 7.5 mg PO BEDTIME #30 tabs 02/27/24 paliperidone 6 mg tablet,extended 6 mg PO QAM #30 tabs 02/27/24 release 24 hr paliperidone palmitate 234 mg/1.5 234 mg (1.5 mL) IM Q30D #1.5 mL 02/27/24 mL intramuscular syringe (Invega Sustenna) risperidone 2 mg tablet 2 mg PO BID #60 tabs 02/27/24 norethindrone (contraceptive) 0.35 See Rx Instructions .Route 03/06/24 mg tablet .COMPLEX #84 tabs trazodone 50 mg tablet 50 mg PO BEDTIME Sleep #30 tabs 03/25/24 haloperidol 10 mg tablet 10 mg PO BID #60 tabs 09/10/24 fluconazole 150 mg tablet 150 mg PO ONCE #2 tabs 10/17/24 Allergies Allergy/AdvReac Type Severity Reaction Status Date / Time codeine Allergy Unknown Verified 10/30/24 14:56 Sulfa (Sulfonamide Allergy algy-rash Verified 10/30/24 14:56 Antibiotics) Review of Systems 2 Const: Denies: fever(s) or chills Resp: Denies: dyspnea or productive cough GI: Reports: GI cramping (Lower abdomen); Denies: nausea, vomiting or diarrhea : Denies: flank pain, difficulty voiding or dysuria Musc: Reports: other (Please see HPI) Skin/Breast: Denies: rash Neuro: Denies: headache(s) PFSH ED 2 PFSH: Medical History Psychiatric care Schizoaffective disorder, depressive type No pertinent past medical history neghx: htn, dm, thyroid, dvt/pe PCP: Dr. Meseret Tejeda Paranoid schizophrenia managed by Dr. Kee -- [facility] Nicotine dependence, cigarettes, uncomplicated Panic disorder without agoraphobia managed by Dr. Kee-- [facility] HPV in female Insomnia Tachycardia Anxiety and depression Surgical History History of foot operation 1993-- treatment of plantar wart Family History Family/Other Thyroid disease maternal Denies family history of Colon cancer Ovarian cancer Prostate cancer Diabetes Heart disease Hyperlipidemia Breast cancer Bleeding disorder Hypertension Uterine cancer Stroke Social History Smoking and tobacco/nicotine status: current every day tobacco/nicotine user cigarettes Packs smoked per day: 1 Years cigarettes smoked: 20 Physical Exam 2 Const: COMMON NORMALS: no acute distress, patient oriented x3 and no limitations Resp: COMMON NORMALS: normal respiratory effort, No retractions and No use of accessory muscles Cardio: COMMON NORMALS: regular rate and regular rhythm RATE: regular rate RHYTHM: regular rhythm GI: COMMON NORMALS: Soft to palpation and non-tender PALPATION: Yes Soft to palpation Extremity: COMMON NORMALS: full ROM and capillary refill normal Neuro: COMMON NORMALS: patient oriented x3, moves all extremities and no focal motor deficits Psych: COMMON NORMALS: mental status grossly normal, Normal thought process present and cooperative THOUGHT PROCESS: Normal thought process present Course 2 Vital Signs: Vital signs: Vital Signs Temperature 98.0 F 10/30/24 14:49 Pulse Rate 94 10/30/24 16:37 Respiratory Rate 14 10/30/24 14:49 Blood Pressure 131/86 10/30/24 16:37 Pulse Oximetry 96 10/30/24 16:37 MDM - Abdominal Pain Medical Decision Making Patient's diagnostic studies were ordered reviewed and show mild hyponatremia but normal BUN and creatinine.. Patient is not as she is concerned with. Patient is got a benign physical exam. She reports that she will follow- up with her primary care provider for further evaluation. She is stable and discharged home Lab Data 10/30/24 15:24 10/30/24 15:24 Labs/Radiology: Laboratory Results WBC 9.26 10^3/uL (3.29-11.43) 10/30/24 15:24 RBC 3.96 10^6/uL (3.85-5.65) 10/30/24 15:24 Hgb 13.20 g/dL (11.27-16.99) 10/30/24 15:24 Hct 38.3 % (36-47) 10/30/24 15:24 MCV 96.7 fl (85-98) 10/30/24 15:24 MCH 33.3 pg (27-33) H 10/30/24 15:24 MCHC 34.5 g/dL (30-55) 10/30/24 15:24 RDW 11.9 % (12.1-15.1) L 10/30/24 15:24 Plt Count 324 10^3/cmm (157-399) 10/30/24 15:24 MPV 8.1 fL (7.4-10.4) 10/30/24 15:24 Neut % (Auto) 64.1 % 10/30/24 15:24 Lymph % (Auto) 27.1 % 10/30/24 15:24 [place] % (Auto) 6.4 % 10/30/24 15:24 Eos % (Auto) 1.5 % 10/30/24 15:24 Baso % (Auto) 0.6 % 10/30/24 15:24 Neut # (Auto) 5.93 10^3/uL (1.8-7.7) 10/30/24 15:24 Lymph # (Auto) 2.5 10^3/uL (0.8-4.8) 10/30/24 15:24 [place] # (Auto) 0.6 10^3/uL (0.2-0.9) 10/30/24 15:24 Eos # (Auto) 0.1 10^3/uL (0.0-0.8) 10/30/24 15:24 Baso # (Auto) 0.1 10^3/uL (0.0-0.1) 10/30/24 15:24 Nucleated RBC % (auto) 0 % 10/30/24 15:24 Nucleated RBCs # 0.0 /100WBC 10/30/24 15:24 Sodium 127 mmol/L (136-145) L 10/30/24 15:24 Potassium 4.4 mmol/L (3.5-5.1) 10/30/24 15:24 Chloride 92 mmol/L (98-107) L 10/30/24 15:24 Carbon Dioxide 22 mmol/L (22-29) 10/30/24 15:24 Anion Gap 17.4 (5-19) 10/30/24 15:24 BUN 6 mg/dL (6-20) 10/30/24 15:24 Creatinine 0.7 mg/dL (0.5-0.9) 10/30/24 15:24 GFR Calculation 93.2 mL/min (90-130) 10/30/24 15:24 Glucose 95 mg/dL (65-115) 10/30/24 15:24 Calculated Osmolality 261 mOsm/kg (285-295) L 10/30/24 15:24 Calcium 8.6 mg/dL (8.5-10.5) 10/30/24 15:24 Total Bilirubin 0.2 mg/dL (0.15-1.2) 10/30/24 15:24 AST 15 U/L (0-32) 10/30/24 15:24 ALT 15 U/L (0-33) 10/30/24 15:24 Alkaline Phosphatase 157 U/L (35-105) H 10/30/24 15:24 Total Protein 6.8 g/dL (6.6-8.7) 10/30/24 15:24 Albumin 4.2 g/dL (3.5-5.2) 10/30/24 15:24 Globulin 2.6 g/dL (1.3-4.6) 10/30/24 15:24 Lipase 31 U/L (13-60) 10/30/24 15:24 Ser , Semi-Qnt < 1.00 mIU/mL 10/30/24 15:24 Urine Color Yellow (Yellow) 10/30/24 15:07 Urine Appearance Clear (CLEAR) 10/30/24 15:07 Urine pH 7.5 (5-7) 10/30/24 15:07 Ur Specific [place] 1.005 (1.005-1.030) 10/30/24 15:07 Urine Protein Negative (Negative) 10/30/24 15:07 Urine Glucose (UA) Negative (Normal) 10/30/24 15:07 Urine Ketones Negative (Negative) 10/30/24 15:07 Urine Blood Negative (Negative) 10/30/24 15:07 Urine Nitrate Negative (Negative) 10/30/24 15:07 Urine Bilirubin Negative (Negative) 10/30/24 15:07 Urine Urobilinogen 0.2 mg/dL (Negative) 10/30/24 15:07 Ur Leukocyte Esterase Negative (Negative) 10/30/24 15:07 Urine RBC 0-2 /hpf (0-2) 10/30/24 15:07 Urine WBC 0-5 /hpf (0-5) 10/30/24 15:07 Ur Squamous Epith Cells 0-5 /hpf (0-5) 10/30/24 15:07 Amorphous Sediment Not Reportable 10/30/24 15:07 Urine Bacteria None seen /hpf (NONE) 10/30/24 15:07 Hyaline Casts 0-4 /lpf H 10/30/24 15:07 All radiology interpretation(s) finalized by discharge Discharge Plan Discharge Patient Disposition: Home Clinical Impression: Hyponatremia, Chronic hip pain, bilateral, Abdominal pressure Condition: Stable Prescriptions: No Action norethindrone (contraceptive) 0.35 mg tablet See Rx Instructions .ROUTE .COMPLEX Qty: 84 3RF Dose Instruction: TAKE ONE TABLET BY MOUTH EVERY DAY FOR CONTROL Rx Instructions: TAKE ONE TABLET BY MOUTH EVERY DAY FOR CONTROL haloperidol 10 mg tablet 10 mg PO BID Qty: 60 11RF multivitamin Tablet 1 tab PO QAM acetaminophen [Tylenol Extra Strength] 500 mg tablet 1,000 mg PO Q4H PRN (Reason: fever or pain) tramadol 50 mg tablet 100 mg PO BID PRN (Reason: Pain) baclofen 20 mg tablet 20 mg PO TID PRN (Reason: Pain) tea tree oil 100 % oil 1 ea topical DAILY PRN (Reason: unknown) Digestive Advantag Kid Pro-Pre 400 million cell tablet,chewable 1 cell PO BID benztropine 1 mg tablet 1 mg PO BID Qty: 60 11RF carbamazepine [Tegretol] 200 mg tablet 300 mg PO BID Qty: 90 11RF duloxetine 60 mg capsule,delayed release(DR/EC) 120 mg PO DAILY Qty: 60 11RF hydroxyzine HCl 50 mg tablet 50 mg PO TID PRN (Reason: anxiety) Qty: 90 11RF paliperidone 6 mg tablet extended release 24hr 6 mg PO QAM Qty: 30 11RF Invega Sustenna 234 mg/1.5 mL syringe 234 mg IM Q30D Qty: 1.5 11RF risperidone 2 mg tablet 2 mg PO BID Qty: 60 11RF mirtazapine 7.5 mg tablet 7.5 mg PO BEDTIME Qty: 30 11RF diclofenac sodium 75 mg tablet,delayed release (DR/EC) 75 mg PO BID Cough Drops 2.7 mg lozenge 5.4 mg mucous membrane Q4H PRN (Reason: Cough) trazodone 50 mg tablet 50 mg PO BEDTIME Qty: 30 11RF fluconazole 150 mg tablet 150 mg PO ONCE Qty: 2 0RF Rx Instructions: take one today and repeat in 5 days if needed ibuprofen 200 mg Tablet 200 - 400 mg PO Q4H PRN (Reason: Pain) Rx Instructions: WITH FOOD OR SNACK polyethylene glycol 3350 [Miralax] 17 gram/dose Powder 17 g PO DAILY@07 pantoprazole [Protonix] 40 mg Tablet,Delayed Release (Dr/Ec) 40 mg PO DAILY 30 Days Qty: 30 1RF Discharge Orders: Discharge ED (Routine); Ordered 10/30/24 Ordered By: Brandyn Johnson Referrals: Meseret Tejeda DO [Primary Care Provider] - Discharge Diet: Usual diet Discharge Activity: Resume usual activity Patient Instructions: Hyponatremia (ED), Opioid Safety, Pain Management Activity Restrictions/Additional Instructions: Please follow-up with your primary care provider for further evaluation of your chronic pain in your hips. May also follow-up and have your sodium rechecked is just a little bit low but not concerning at this time. Be sure you are drinking plenty of fluids. Coding Level of Care Code ED Policy Service Coordinator for Randi Sethi
[2024-10-30 16:37] VITALS: BP 131/86; PULSE 94; O2SAT 96
== END 2024-10-30 16:38 | disposition home or self-care (01) ==
PROVIDERS: Emergency Medicine; Emergency Provider Student in an Organized Health Care Education/Training Program; PCP Family Medicine
DX: E87.1 Hypo-osmolality and hyponatremia (principal); R10.9 Unspecified abdominal pain; M25.552 Pain in left hip; M25.551 Pain in right hip; F17.210 Nicotine dependence, cigarettes, uncomplicated
CPT/HCPCS: 36415; 80053; 81001; 83690; 84702; 85025; 99283

== ENCOUNTER 2024-12-10 20:36 | Emergency (ER) | payer MEDICARE, MEDICAID, SELFPAY ==
[2024-12-10 20:37] VITALS: BP 122/85; PULSE 78; RESP 18; TEMP 36.4; O2SAT 98; BMI 28.5
[2024-12-10 21:02] LABS: Add Urine Microscopic? NO
--- NOTE | 2024-12-10 21:02 | W.ED.PSYCHS ---
HPI - Psych General: Chief Complaint: Psychiatric Symptoms Stated Complaint: wants med change Time Seen by Provider: 12/10/24 20:39 History of Present Illness: Patient presents to the ER from [facility] with complaints of just not feeling good all over. Patient says she wakes up in the morning feeling bad and just never changes throughout the day. Patient think she needs her medicine adjusted because she is having anxiety and panic attacks. Patient is also saying that she is hearing voices and seeing people that are not really there. Patient denies any suicidal or homicidal ideation. Related Data Home Medications ?Medication ?Instructions ?Recorded ?Confirmed ibuprofen 200 mg tablet 200 - 400 mg PO Q4H PRN Pain 05/24/21 10/28/24 polyethylene glycol 3350 17 17 g PO DAILY@07 05/24/21 10/28/24 gram/dose oral powder (Miralax) acetaminophen 500 mg tablet 1,000 mg PO Q4H PRN fever or pain 04/24/22 10/28/24 (Tylenol Extra Strength) multivitamin 1 tab PO QAM 04/24/22 10/28/24 tramadol 50 mg tablet 100 mg PO BID PRN Pain 07/24/22 10/28/24 Bacillus coagulans 400 million 1 cell PO BID 05/22/23 10/28/24 cell chewable tablet (Digestive Advantage Kid Probiotic-Prebio) baclofen 20 mg tablet 20 mg PO TID PRN Pain 05/22/23 10/28/24 tea tree oil 100 % topical 1 ea topical DAILY PRN unknown 05/22/23 10/28/24 diclofenac sodium 75 mg 75 mg PO BID 01/23/24 10/28/24 tablet,delayed release menthol 2.7 mg lozenges (Cough 5.4 mg mucous membrane Q4H PRN 01/23/24 10/28/24 Drops) Cough Previous Rx's ?Medication ?Instructions ?Recorded pantoprazole 40 mg tablet,delayed 40 mg PO DAILY 30 days #30 tabs 03/06/23 release (Protonix) benztropine 1 mg tablet 1 mg PO BID #60 tabs 02/27/24 carbamazepine 200 mg tablet 300 mg (1.5 x 200 mg) PO BID #90 02/27/24 (Tegretol) tabs duloxetine 60 mg capsule,delayed 120 mg (2 x 60 mg) PO DAILY #60 02/27/24 release caps hydroxyzine HCl 50 mg tablet 50 mg PO TID PRN anxiety #90 tabs 02/27/24 mirtazapine 7.5 mg tablet 7.5 mg PO BEDTIME #30 tabs 02/27/24 paliperidone 6 mg tablet,extended 6 mg PO QAM #30 tabs 02/27/24 release 24 hr paliperidone palmitate 234 mg/1.5 234 mg (1.5 mL) IM Q30D #1.5 mL 02/27/24 mL intramuscular syringe (Invega Sustenna) risperidone 2 mg tablet 2 mg PO BID #60 tabs 02/27/24 norethindrone (contraceptive) 0.35 See Rx Instructions .Route 03/06/24 mg tablet .COMPLEX #84 tabs trazodone 50 mg tablet 50 mg PO BEDTIME Sleep #30 tabs 03/25/24 haloperidol 10 mg tablet 10 mg PO BID #60 tabs 09/10/24 fluconazole 150 mg tablet 150 mg PO ONCE #2 tabs 10/17/24 Allergies Allergy/AdvReac Type Severity Reaction Status Date / Time codeine Allergy Unknown Verified 10/30/24 14:56 Sulfa (Sulfonamide Allergy algy-rash Verified 10/30/24 14:56 Antibiotics) Review of Systems General: Reports: 10 or more systems reviewed and unremarkable except in HPI and below PFS ED PFSH: Medical History Psychiatric care Schizoaffective disorder, depressive type No pertinent past medical history neghx: htn, dm, thyroid, dvt/pe PCP: Dr. Meseret Tejeda Paranoid schizophrenia managed by Dr. Kee -- [facility] Nicotine dependence, cigarettes, uncomplicated Panic disorder without agoraphobia managed by Dr. Kee-- [facility] HPV in female Insomnia Tachycardia Anxiety and depression Surgical History History of foot operation 1993-- treatment of plantar wart Family History Family/Other Thyroid disease maternal Denies family history of Colon cancer Ovarian cancer Prostate cancer Diabetes Heart disease Hyperlipidemia Breast cancer Bleeding disorder Hypertension Uterine cancer Stroke Social History Smoking and tobacco/nicotine status: current every day tobacco/nicotine user cigarettes Packs smoked per day: 1 Years cigarettes smoked: 20 Physical Exam Const: COMMON NORMALS: no acute distress, average body habitus, patient oriented x3, no limitations, healthy appearing, alert and well nourished HENMT: COMMON NORMALS: normocephalic, atraumatic, hearing grossly normal bilaterally, external ears normal, Normal external nose present, moist oral mucous membranes and oropharynx normal HEAD & SCALP: normocephalic and atraumatic NOSE: Normal external nose present EXTERNAL EAR: Yes external ears normal Neck/C-Spine: COMMON NORMALS: no JVD Chest: COMMONS NORMALS: normal inspection of the chest and normal palpation of entire chest wall Resp: COMMON NORMALS: normal respiratory effort, No retractions, No use of accessory muscles and clear to auscultation bilaterally AUSCULTATION: clear to auscultation bilaterally Cardio: COMMON NORMALS: no JVD, regular rate, regular rhythm, S1 normal heart sound present, S2 normal heart sound present, No gallops present (Cardio), No clicks present (Cardio), No murmurs present (Cardio) and No rub (Cardio) RATE: regular rate RHYTHM: regular rhythm HEART SOUNDS: S1 normal heart sound present and S2 normal heart sound present GI: COMMON NORMALS: Normal to inspection, nondistended, normoactive bowel sounds present, Soft to palpation, non-tender, No hepatosplenomegaly present and no masses PALPATION: Yes Soft to palpation and Yes No hepatosplenomegaly present Neuro: COMMON NORMALS: patient oriented x3 SENSORIUM/ORIENTATION: Yes alert Course Vital Signs: Vital signs: Vital Signs Temperature 97.6 F 12/10/24 20:37 Pulse Rate 78 12/10/24 20:37 Respiratory Rate 18 12/10/24 20:37 Blood Pressure 122/85 12/10/24 20:37 Pulse Oximetry 98 12/10/24 20:37 Oxygen Delivery Me thod Room Air 12/10/24 20:37 MDM - Psych Medical Decision Making Lab work was reviewed, sodium 126, patient is chronically hyponatremic, other lab work unremarkable, patient was given 1 mg Ativan for her anxiety. Patient denies any suicidal homicidal ideation we will refer the patient back to her PCP/psychiatrist for chronic medication changes. Medical Records I reviewed the patient's medical records. Lab Data I reviewed the patient's lab results. 12/10/24 21:30 12/10/24 21:30 Laboratory Results WBC 7.65 10^3/uL (3.29-11.43) 12/10/24 21: RBC 3.95 10^6/uL (3.85-5.65) 12/10/24 21: Hgb 13.30 g/dL (11.27-16.99) 12/10/24: Hct 37.7 % (36-47) 12/10/24 21: MCV 95.4 fl (85-98) 12/10/24 21: MCH 33.7 pg (27-33) H 12/10/24: MCHC 35.3 g/dL (30-55) 12/10/24: RDW 11.9 % (12.1-15.1) L 12/10/24: Plt Count 290 10^3/cmm (157-399) 12/10/24: MPV 8.2 fL (7.4-10.4) 12/10/24: Neut % (Auto) 48.6 % 12/10/24 21: Lymph % (Auto) 40.9 % 12/10/24: [place] % (Auto) 8.1 % 12/10/24: Eos % (Auto) 1.4 % 12/10/24: Baso % (Auto) 0.7 % 12/10/24: Neut # (Auto) 3.72 10^3/uL (1.8-7.7) 12/10/24: Lymph # (Auto) 3.1 10^3/uL (0.8-4.8) 12/10/24: [place] # (Auto) 0.6 10^3/uL (0.2-0.9) 12/10/24: Eos # (Auto) 0.1 10^3/uL (0.0-0.8) 12/10/24 21: Baso # (Auto) 0.1 10^3/uL (0.0-0.1) 12/10/24: Nucleated RBC % (auto) 0 % 12/10/24: Nucleated RBCs # 0.0 /100WBC 12/10/24 21: Sodium 126 mmol/L (136-145) L 12/10/24 21: Potassium 4.4 mmol/L (3.5-5.1) 12/10/24 21: Chloride 92 mmol/L (98-107) L 12/10/24 21: Carbon Dioxide 21 mmol/L (22-29) L 12/10/24: Anion Gap 17.4 (5-19) 12/10/24: BUN 5 mg/dL (6-20) L 12/10/24: Creatinine 0.7 mg/dL (0.5-0.9) 12/10/24: GFR Calculation 93.2 mL/min (90-130) 12/10/24: Glucose 88 mg/dL (65-115) 12/10/24: Calculated Osmolality 259 mOsm/kg (285-295) L 12/10/24: Calcium 9.1 mg/dL (8.5-10.5) 12/10/24: Magnesium 1.8 mg/dL (1.7-2.3) 12/10/24: Total Bilirubin 0.2 mg/dL (0.15-1.2) 12/10/24: AST 14 U/L (0-32) 12/10/24: ALT 15 U/L (0-33) 12/10/24: Alkaline Phosphatase 150 U/L (35-105) H 12/10/24: Total Protein 6.8 g/dL (6.6-8.7) 12/10/24: Albumin 4.1 g/dL (3.5-5.2) 12/10/24: Globulin 2.7 g/dL (1.3-4.6) 12/10/24: HCG, Qual Negative (Negative) 12/10/24 20: Urine Color Yellow (Yellow) 12/10/24 20:46 Urine Appearance Clear (CLEAR) 12/10/24 20: Urine pH 7.5 (5-7) 12/10/24 20: Ur Specific [place] 1.005 (1.005-1.030) 12/10/24 20:46 Urine Protein Negative (Negative) 12/10/24 20:46 Urine Glucose (UA) Negative (Normal) 12/10/24 20:46 Urine Ketones Negative (Negative) 12/10/24 20:46 Urine Blood Negative (Negative) 12/10/24 20:46 Urine Nitrate Negative (Negative) 12/10/24 20:46 Urine Bilirubin Negative (Negative) 12/10/24 20:46 Urine Urobilinogen 0.2 mg/dL (Negative) 12/10/24 20:46 Ur Leukocyte Esterase Negative (Negative) 12/10/24 20:46 Amorphous Sediment Not Reportable 12/10/24 20:46 Salicylates 1.2 mg/dL (3-10) L 12/10/24 21:30 Urine Opiates Screen Negative ng/mL (Negative) 12/10/24 20:46 Acetaminophen < 5.0 ug/mL (10-30) L 12/10/24 21:30 Ur Barbiturates Screen Negative ng/mL (Negative) 12/10/24 20:46 Ur Phencyclidine Scrn Negative ng/mL (Negative) 12/10/24 20:46 Ur Amphetamines Screen Negative ng/mL (Negative) 12/10/24 20:46 U Benzodiazepines Scrn Negative ng/mL (Negative) 12/10/24 20:46 Urine Cocaine Screen Negative ng/mL (Negative) 12/10/24 20:46 U Marijuana (THC) Screen Negative ng/mL (Negative) 12/10/24 20:46 All radiology interpretation(s) finalized by discharge Discharge Plan Discharge Patient Disposition: Home Clinical Impression: Acute anxiety, Paranoid schizophrenia Condition: Stable Prescriptions: No Action norethindrone (contraceptive) 0.35 mg tablet See Rx Instructions .ROUTE .COMPLEX Qty: 84 3RF Dose Instruction: TAKE ONE TABLET BY MOUTH EVERY DAY FOR CONTROL Rx Instructions: TAKE ONE TABLET BY MOUTH EVERY DAY FOR CONTROL haloperidol 10 mg tablet 10 mg PO BID Qty: 60 11RF multivitamin Tablet 1 tab PO QAM acetaminophen [Tylenol Extra Strength] 500 mg tablet 1,000 mg PO Q4H PRN (Reason: fever or pain) tramadol 50 mg tablet 100 mg PO BID PRN (Reason: Pain) baclofen 20 mg tablet 20 mg PO TID PRN (Reason: Pain) tea tree oil 100 % oil 1 ea topical DAILY PRN (Reason: unknown) Digestive Advantag Kid Pro-Pre 400 million cell tablet,chewable 1 cell PO BID benztropine 1 mg tablet 1 mg PO BID Qty: 60 11RF carbamazepine [Tegretol] 200 mg tablet 300 mg PO BID Qty: 90 11RF duloxetine 60 mg capsule,delayed release(DR/EC) 120 mg PO DAILY Qty: 60 11RF hydroxyzine HCl 50 mg tablet 50 mg PO TID PRN (Reason: anxiety) Qty: 90 11RF paliperidone 6 mg tablet extended release 24hr 6 mg PO QAM Qty: 30 11RF Invega Sustenna 234 mg/1.5 mL syringe 234 mg IM Q30D Qty: 1.5 11RF risperidone 2 mg tablet 2 mg PO BID Qty: 60 11RF mirtazapine 7.5 mg tablet 7.5 mg PO BEDTIME Qty: 30 11RF diclofenac sodium 75 mg tablet,delayed release (DR/EC) 75 mg PO BID Cough Drops 2.7 mg lozenge 5.4 mg mucous membrane Q4H PRN (Reason: Cough) trazodone 50 mg tablet 50 mg PO BEDTIME Qty: 30 11RF fluconazole 150 mg tablet 150 mg PO ONCE Qty: 2 0RF Rx Instructions: take one today and repeat in 5 days if needed ibuprofen 200 mg Tablet 200 - 400 mg PO Q4H PRN (Reason: Pain) Rx Instructions: WITH FOOD OR SNACK polyethylene glycol 3350 [Miralax] 17 gram/dose Powder 17 g PO DAILY@07 pantoprazole [Protonix] 40 mg Tablet,Delayed Release (Dr/Ec) 40 mg PO DAILY 30 Days Qty: 30 1RF Discharge Orders: Discharge ED (Routine); Ordered 12/10/24 Ordered By: Alireza Mendenhall Referrals: Meseret Tejeda DO [Primary Care Provider] - 1 week Patient Instructions: Anxiety (ED), Schizophrenia Activity Restrictions/Additional Instructions: Your evaluation in the ER by physical exam and blood draw showed your lab work was unremarkable and unchanged from your chronic normal conditions. You are given 1 mg Ativan to help with your acute anxiety. You will be referred back to your psychiatrist and family practice physician for possible changes of your chronic medications. Thank you for choosing [facility] for your healthcare needs today. Please realize that you were seen in the emergency department and that we are providing you with an emergency medical screening exam and this may not be a complete and all exclusive of all testing and/or medical workup we may need to determine your element or severity of your illness. It is very important that you follow-up as instructed with your primary care provider or specialist for the additional evaluation and to discuss your medical treatment plan. You may return to the emergency department should you have concerns or if your condition changes or worsens in any way. Print Language: Serbian Coding Level of Care Code ED Highway Inspector for Randi Sethi
[2024-12-10 21:04] LABS: Bilirubin Urine Negative (Negative); Blood Urine Negative (Negative); Glucose Urine UA Negative (Normal); Ketones Urine Negative (Negative); Leukocyte Esterase Urine Negative (Negative); Nitrate Urine Negative (Negative); Protein Urine Negative (Negative); Specific Gravity, Urine 1.005 (1.005-1.030); Urine Appearance Clear (CLEAR); Urine Color Yellow (Yellow); Urobilinogen Urine 0.2 mg/dL (Negative); pH Urine 7.5 (5-7)
[2024-12-10 21:07] LABS: HCG Qualitative Urine. Negative (Negative)
[2024-12-10] MEDS: LORazepam 1 mg Tablet PO (21:09)
[2024-12-10 21:13] LABS: Amphetamines Screen Urine Negative (Negative); Barbiturates Screen Urine Negative (Negative); Benzodiazepines Screen Urine Negative (Negative); Cocaine Screen Urine Negative (Negative); Opiate Screen Urine Negative (Negative); PCP Screen Urine Negative (Negative); THC Screen Urine Negative (Negative)
[2024-12-10 21:16] LABS: Charge for UA Resulting for Rev
[2024-12-10 21:36] LABS: Basophils # 0.1 10^3/uL (0.0-0.1); Basophils % 0.7 %; Eosinophils # 0.1 10^3/uL (0.0-0.8); Eosinophils % 1.4 %; Hematocrit 37.7 % (36-47); Lymphocytes # 3.1 10^3/uL (0.8-4.8); Lymphocytes % 40.9 %; Mean Corpuscular HGB Conc 35.3 g/dL (30-55); Mean Corpuscular Hemoglobin 33.7 pg (27-33); Mean Corpuscular Volume 95.4 fl (85-98); Mean Platelet Volume 8.2 fL (7.4-10.4); Monocytes # 0.6 10^3/uL (0.2-0.9); Monocytes % 8.1 %; Neutrophils # 3.72 10^3/uL (1.8-7.7); Neutrophils % 48.6 %; Nucleated Red Blood Cells % 0 %; Platelet Count 290 10^3/cmm (157-399); Red Blood Count 3.95 10^6/uL (3.85-5.65); Red Cell Distribution Width 11.9 % (12.1-15.1); White Blood Count 7.65 10^3/uL (3.29-11.43)
[2024-12-10 22:01] LABS: Alanine Aminotransferase 15 U/L (0-33); Albumin Level 4.1 g/dL (3.5-5.2); Alkaline Phosphatase 150 U/L (35-105); Anion Gap 17.4 (5-19); Aspartate Amino Transferase 14 U/L (0-32); Blood Urea Nitrogen 5 mg/dL (6-20); Calcium 9.1 mg/dL (8.5-10.5); Carbon Dioxide 21 mmol/L (22-29); Chloride 92 mmol/L (98-107); Creatinine Clr Calc Pharmacy 107.2076; Globulin 2.7 g/dL (1.3-4.6); Glomerular Filtration Rate 93.2 mL/min (90-130); Glucose 88 mg/dL (65-115); Magnesium 1.8 mg/dL (1.7-2.3); Osmolality Calculated 259 mOsm/kg (285-295); Potassium 4.4 mmol/L (3.5-5.1); Salicylate 1.2 mg/dL (3-10); Sodium 126 mmol/L (136-145); Total Bilirubin 0.2 mg/dL (0.15-1.2); Total Protein 6.8 g/dL (6.6-8.7)
[2024-12-10 22:02] LABS: Acetaminophen < 5.0 ug/mL (10-30)
[2024-12-11 00:24] VITALS: BP 112/74; PULSE 64; O2SAT 97
== END 2024-12-11 00:25 | disposition home or self-care (01) ==
PROVIDERS: Emergency Provider Emergency Medicine; PCP Family Medicine
DX: F41.8 Other specified anxiety disorders (principal); F20.0 Paranoid schizophrenia; F17.210 Nicotine dependence, cigarettes, uncomplicated
CPT/HCPCS: 36415; 80053; 80306; 80307; 81003; 81025; 83735; 85025; 99283

== ENCOUNTER 2025-01-03 05:45 | Emergency (ER) | payer MEDICARE, MEDICAID, SELFPAY ==
[2025-01-03 05:49] VITALS: BP 111/75; PULSE 82; RESP 18; TEMP 36.6; O2SAT 98; BMI 24.0
--- NOTE | 2025-01-03 05:54 | W.ED.CHESTPA ---
HPI - Chest Pain General: Chief Complaint: Chest Pain Stated Complaint: CHEST PAIN Time Seen by Provider: 01/03/25 05:54 History of Present Illness: 39-year-old female with a history of schizoaffective disorder and anxiety who presents emergency room by ambulance from [facility] with complaints of chest pain. She says this been going on for a long time. Comes and goes. No lower extremity swelling. No shortness of breath. No abdominal pain. No nausea or vomiting. She says that had been getting a little worse lately. She says she woke up this morning and was fine and then it started. Currently chest pain-free. Related Data Home Medications ?Medication ?Instructions ?Recorded ?Confirmed ibuprofen 200 mg tablet 200 - 400 mg PO Q4H PRN Pain 05/24/21 10/28/24 polyethylene glycol 3350 17 17 g PO DAILY@07 05/24/21 10/28/24 gram/dose oral powder (Miralax) acetaminophen 500 mg tablet 1,000 mg PO Q4H PRN fever or pain 04/24/22 10/28/24 (Tylenol Extra Strength) multivitamin 1 tab PO QAM 04/24/22 10/28/24 tramadol 50 mg tablet 100 mg PO BID PRN Pain 07/24/22 10/28/24 Bacillus coagulans 400 million 1 cell PO BID 05/22/23 10/28/24 cell chewable tablet (Digestive Advantage Kid Probiotic-Prebio) baclofen 20 mg tablet 20 mg PO TID PRN Pain 05/22/23 10/28/24 tea tree oil 100 % topical 1 ea topical DAILY PRN unknown 05/22/23 10/28/24 diclofenac sodium 75 mg 75 mg PO BID 01/23/24 10/28/24 tablet,delayed release menthol 2.7 mg lozenges (Cough 5.4 mg mucous membrane Q4H PRN 01/23/24 10/28/24 Drops) Cough Previous Rx's ?Medication ?Instructions ?Recorded pantoprazole 40 mg tablet,delayed 40 mg PO DAILY 30 days #30 tabs 03/06/23 release (Protonix) benztropine 1 mg tablet 1 mg PO BID #60 tabs 02/27/24 carbamazepine 200 mg tablet 300 mg (1.5 x 200 mg) PO BID #90 02/27/24 (Tegretol) tabs duloxetine 60 mg capsule,delayed 120 mg (2 x 60 mg) PO DAILY #60 02/27/24 release caps hydroxyzine HCl 50 mg tablet 50 mg PO TID PRN anxiety #90 tabs 02/27/24 mirtazapine 7.5 mg tablet 7.5 mg PO BEDTIME #30 tabs 02/27/24 paliperidone 6 mg tablet,extended 6 mg PO QAM #30 tabs 02/27/24 release 24 hr paliperidone palmitate 234 mg/1.5 234 mg (1.5 mL) IM Q30D #1.5 mL 02/27/24 mL intramuscular syringe (Invega Sustenna) risperidone 2 mg tablet 2 mg PO BID #60 tabs 02/27/24 norethindrone (contraceptive) 0.35 See Rx Instructions .Route 03/06/24 mg tablet .COMPLEX #84 tabs trazodone 50 mg tablet 50 mg PO BEDTIME Sleep #30 tabs 03/25/24 haloperidol 10 mg tablet 10 mg PO BID #60 tabs 09/10/24 fluconazole 150 mg tablet 150 mg PO ONCE #2 tabs 10/17/24 Allergies Allergy/AdvReac Type Severity Reaction Status Date / Time codeine Allergy Unknown Verified 10/30/24 14:56 Sulfa (Sulfonamide Allergy algy-rash Verified 10/30/24 14:56 Antibiotics) Review of Systems Narrative: Constitutional symptoms: Negative except as documented in HPI. Skin symptoms: Negative except as documented in HPI. Eye symptoms: Negative except as documented in HPI. ENMT symptoms: Negative except as documented in HPI. Respiratory symptoms: Negative except as documented in HPI. Cardiovascular symptoms: Negative except as documented in HPI. Gastrointestinal symptoms: Negative except as documented in HPI. Genitourinary symptoms: Negative except as documented in HPI. Musculoskeletal symptoms: Negative except as documented in HPI. Neurologic symptoms: Negative except as documented in HPI. Psychiatric symptoms: Negative except as documented in HPI. Endocrine symptoms: Negative except as documented in HPI. PFSH ED PFSH: Medical History Psychiatric care Schizoaffective disorder, depressive type No pertinent past medical history neghx: htn, dm, thyroid, dvt/pe PCP: Dr. Meseret Tejeda Paranoid schizophrenia managed by Dr. Kee -- [facility], [place] Nicotine dependence, cigarettes, uncomplicated Panic disorder without agoraphobia managed by Dr. Kee-- [facility], [place] HPV in female Insomnia Tachycardia Anxiety and depression Surgical History History of foot operation 1993-- treatment of plantar wart Family History Family/Other Thyroid disease maternal Denies family history of Colon cancer Ovarian cancer Prostate cancer Diabetes Heart disease Hyperlipidemia Breast cancer Bleeding disorder Hypertension Uterine cancer Stroke Social History Smoking and tobacco/nicotine status: current every day tobacco/nicotine user cigarettes Packs smoked per day: 1 Years cigarettes smoked: 20 Physical Exam Narrative: EXAM NARRATIVE: General: Alert, no acute distress. Skin: Warm, dry. Head: Normocephalic, atraumatic. Neck: Supple, trachea midline. Eye: Extraocular movements are intact. Ears, nose, mouth and throat: mucosa moist. Cardiovascular: Regular, Normal peripheral perfusion. Respiratory: Lungs are clear to auscultation, respirations are non-labored, breath sounds are equal, Symmetrical chest wall expansion. Gastrointestinal: Soft, Nontender, Non distended Musculoskeletal: Normal ROM, no deformity. Neurological: Alert and oriented, No focal neurological deficit observed. Psychiatric: Cooperative, appropriate mood & affect. Course Vital Signs: Vital signs: Vital Signs Temperature 98 F 01/03/25 05:49 Pulse Rate 85 01/03/25 06:45 Respiratory Rate 18 01/03/25 06:45 Blood Pressure 131/84 01/03/25 06:45 Pulse Oximetry 93 01/03/25 06:45 MDM - Chest Pain Medical Decision Making Differential diagnosis for patient with chest pain includes but is not limited to and based on the above HPI, review of systems and physical exam: Pneumonia. unstable angina. angina. Acute coronary syndrome / SC. Pulmonary embolism. Costochondritis / musculoskeletal. Pleurisy. Pericarditis. Esophageal spasm. Pancreatis. Cholecystitis. Orders placed to evaluate differential diagnosis based on the above differential, HPI and physical exam EKG: Time 5:49 AM. Rate 77. Normal sinus rhythm, No ST-T changes, no ectopy, normal KS & QRS intervals, This was reviewed and interpreted by myself the ER physician at 5:55 AM. Chest x-ray: No acute process. No infiltrate. No pneumothorax. Films were interpreted by myself the emergency room provider and pending final radiology review. Lab Review: Laboratory results were reviewed and interpreted by myself the emergency room physician. Lab work is unremarkable. Patient has chronic low sodium likely related to her psychiatric medications. Troponin is negative. Lipase is negative. I reviewed the patient's medical record. Reexamination: Patient remained stable. No increased work of breathing. No altered mental status. No focal motor deficits. Assessment and plan: Noncardiac chest pain - Discharged home - Discussed plan with patient. Answered any questions. - Evaluation and treatment of this problem were appropriate in the emergency setting. Lab Data 01/03/25 05:52 01/03/25 05:52 Laboratory Results WBC 12.87 10^3/uL (3.29-11.43) H 01/03/25 05:52 RBC 3.86 10^6/uL (3.85-5.65) 01/03/25 05:52 Hgb 12.90 g/dL (11.27-16.99) 01/03/25 05:52 Hct 36.2 % (36-47) 01/03/25 05:52 MCV 93.8 fl (85-98) 01/03/25 05:52 MCH 33.4 pg (27-33) H 01/03/25 05:52 MCHC 35.6 g/dL (30-55) 01/03/25 05:52 RDW 12.0 % (12.1-15.1) L 01/03/25 05:52 Plt Count 322 10^3/cmm (157-399) 01/03/25 05:52 MPV 8.6 fL (7.4-10.4) 01/03/25 05:52 Neut % (Auto) 78.2 % 01/03/25 05:52 Lymph % (Auto) 15.4 % 01/03/25 05:52 [place] % (Auto) 5.0 % 01/03/25 05:52 Eos % (Auto) 0.8 % 01/03/25 05:52 Baso % (Auto) 0.3 % 01/03/25 05:52 Neut # (Auto) 10.07 10^3/uL (1.8-7.7) H 01/03/25 05:52 Lymph # (Auto) 2.0 10^3/uL (0.8-4.8) 01/03/25 05:52 [place] # (Auto) 0.6 10^3/uL (0.2-0.9) 01/03/25 05:52 Eos # (Auto) 0.1 10^3/uL (0.0-0.8) 01/03/25 05:52 Baso # (Auto) 0.0 10^3/uL (0.0-0.1) 01/03/25 05:52 Nucleated RBC % (auto) 0 % 01/03/25 05:52 Nucleated RBCs # 0.0 /100WBC 01/03/25 05:52 Sodium 126 mmol/L (136-145) L 01/03/25 05:52 Potassium 4.8 mmol/L (3.5-5.1) 01/03/25 05:52 Chloride 91 mmol/L (98-107) L 01/03/25 05:52 Carbon Dioxide 21 mmol/L (22-29) L 01/03/25 05:52 Anion Gap 18.8 (5-19) 01/03/25 05:52 BUN 4 mg/dL (6-20) L 01/03/25 05:52 Creatinine 0.6 mg/dL (0.5-0.9) 01/03/25 05:52 GFR Calculation 111.3 mL/min (90-130) 01/03/25 05:52 Glucose 91 mg/dL (65-115) 01/03/25 05:52 Calculated Osmolality 258 mOsm/kg (285-295) L 01/03/25 05:52 Calcium 9.0 mg/dL (8.5-10.5) 01/03/25 05:52 Total Bilirubin 0.3 mg/dL (0.15-1.2) 01/03/25 05:52 AST 16 U/L (0-32) 01/03/25 05:52 ALT 13 U/L (0-33) 01/03/25 05:52 Alkaline Phosphatase 167 U/L (35-105) H 01/03/25 05:52 Troponin T Baseline < 6 ng/L (0-10) 01/03/25 05:52 Total Protein 6.7 g/dL (6.6-8.7) 01/03/25 05:52 Albumin 4.4 g/dL (3.5-5.2) 01/03/25 05:52 Globulin 2.3 g/dL (1.3-4.6) 01/03/25 05:52 Lipase 20 U/L (13-60) 01/03/25 05:52 XR interpretation done by ED provider, pending radiology final review Discharge Plan Discharge Patient Disposition: Home Clinical Impression: Non-cardiac chest pain Condition: Stable Prescriptions: No Action norethindrone (contraceptive) 0.35 mg tablet See Rx Instructions .ROUTE .COMPLEX Qty: 84 3RF Dose Instruction: TAKE ONE TABLET BY MOUTH EVERY DAY FOR CONTROL Rx Instructions: TAKE ONE TABLET BY MOUTH EVERY DAY FOR CONTROL haloperidol 10 mg tablet 10 mg PO BID Qty: 60 11RF multivitamin Tablet 1 tab PO QAM acetaminophen [Tylenol Extra Strength] 500 mg tablet 1,000 mg PO Q4H PRN (Reason: fever or pain) tramadol 50 mg tablet 100 mg PO BID PRN (Reason: Pain) baclofen 20 mg tablet 20 mg PO TID PRN (Reason: Pain) tea tree oil 100 % oil 1 ea topical DAILY PRN (Reason: unknown) Digestive Advantag Kid Pro-Pre 400 million cell tablet,chewable 1 cell PO BID benztropine 1 mg tablet 1 mg PO BID Qty: 60 11RF carbamazepine [Tegretol] 200 mg tablet 300 mg PO BID Qty: 90 11RF duloxetine 60 mg capsule,delayed release(DR/EC) 120 mg PO DAILY Qty: 60 11RF hydroxyzine HCl 50 mg tablet 50 mg PO TID PRN (Reason: anxiety) Qty: 90 11RF paliperidone 6 mg tablet extended release 24hr 6 mg PO QAM Qty: 30 11RF Invega Sustenna 234 mg/1.5 mL syringe 234 mg IM Q30D Qty: 1.5 11RF risperidone 2 mg tablet 2 mg PO BID Qty: 60 11RF mirtazapine 7.5 mg tablet 7.5 mg PO BEDTIME Qty: 30 11RF diclofenac sodium 75 mg tablet,delayed release (DR/EC) 75 mg PO BID Cough Drops 2.7 mg lozenge 5.4 mg mucous membrane Q4H PRN (Reason: Cough) trazodone 50 mg tablet 50 mg PO BEDTIME Qty: 30 11RF fluconazole 150 mg tablet 150 mg PO ONCE Qty: 2 0RF Rx Instructions: take one today and repeat in 5 days if needed ibuprofen 200 mg Tablet 200 - 400 mg PO Q4H PRN (Reason: Pain) Rx Instructions: WITH FOOD OR SNACK polyethylene glycol 3350 [Miralax] 17 gram/dose Powder 17 g PO DAILY@07 pantoprazole [Protonix] 40 mg Tablet,Delayed Release (Dr/Ec) 40 mg PO DAILY 30 Days Qty: 30 1RF Discharge Orders: Discharge ED (Routine); Ordered 01/03/25 Ordered By: Marlene Abraham Referrals: Meseret Tejeda DO [Primary Care Provider] - Discharge Diet: Usual diet Discharge Activity: Increase activity as tolerated Patient Instructions: Noncardiac Chest Pain (ED), Opioid Safety, Pain Management Activity Restrictions/Additional Instructions: Thank you for choosing [facility] for your healthcare needs today. Please realize this is an emergency room and that we are providing you with a medical screening exam and this may not be complete and all inclusive of all the testing and or work up that you may need to determine your ailment or severity of your illness. You have been screened and evaluated and felt safe for discharge. Health conditions do change or evolve sometimes and as such it is important that you follow up with your Primary Doctor to be re checked, 3-5 days is a general good time frame for follow up. 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
--- NOTE | 2025-01-03 05:55 | ECG_ITS ---
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
--- NOTE | 2025-01-03 05:58 | XRR_ITS ---
PROCEDURE INFORMATION: Exam: XR Chest Exam date and time: 01/03/2025 6:01 AM Age: 39 years old Clinical indication: Pain; Angina pectoris; Additional info: Chest pain TECHNIQUE: Imaging protocol: Radiologic exam of the chest. Views: 1 view. COMPARISON: CR XR chest 1V portable [id number] 08/20/2024 7:28 PM FINDINGS: Lungs: Unremarkable. No consolidation. Pleural spaces: Unremarkable. No pleural effusion. No pneumothorax. Heart/Mediastinum: Unremarkable. No cardiomegaly. Bones/joints: Unremarkable. XR/XR chest 1V portable [id number] IMPRESSION: No acute findings.
[2025-01-03 06:02] LABS: Basophils % 0.3 %; Eosinophils # 0.1 10^3/uL (0.0-0.8); Eosinophils % 0.8 %; Hematocrit 36.2 % (36-47); Lymphocytes % 15.4 %; Mean Corpuscular HGB Conc 35.6 g/dL (30-55); Mean Corpuscular Hemoglobin 33.4 pg (27-33); Mean Corpuscular Volume 93.8 fl (85-98); Mean Platelet Volume 8.6 fL (7.4-10.4); Monocytes # 0.6 10^3/uL (0.2-0.9); Neutrophils # 10.07 10^3/uL (1.8-7.7); Neutrophils % 78.2 %; Nucleated Red Blood Cells % 0 %; Platelet Count 322 10^3/cmm (157-399); Red Blood Count 3.86 10^6/uL (3.85-5.65); White Blood Count 12.87 10^3/uL (3.29-11.43)
[2025-01-03 06:21] LABS: Troponin(5th) Baseline < 6 ng/L (0-10)
[2025-01-03 06:22] LABS: Alanine Aminotransferase 13 U/L (0-33); Albumin Level 4.4 g/dL (3.5-5.2); Alkaline Phosphatase 167 U/L (35-105); Anion Gap 18.8 (5-19); Aspartate Amino Transferase 16 U/L (0-32); Blood Urea Nitrogen 4 mg/dL (6-20); Carbon Dioxide 21 mmol/L (22-29); Chloride 91 mmol/L (98-107); Globulin 2.3 g/dL (1.3-4.6); Glomerular Filtration Rate 111.3 mL/min (90-130); Glucose 91 mg/dL (65-115); Lipase 20 U/L (13-60); Osmolality Calculated 258 mOsm/kg (285-295); Potassium 4.8 mmol/L (3.5-5.1); Sodium 126 mmol/L (136-145); Total Bilirubin 0.3 mg/dL (0.15-1.2); Total Protein 6.7 g/dL (6.6-8.7)
[2025-01-03 06:45] VITALS: BP 131/84; PULSE 85; RESP 18; O2SAT 93
[2025-01-03 07:17] VITALS: BP 131/84; PULSE 82; O2SAT 95
== END 2025-01-03 07:18 | disposition home or self-care (01) ==
PROVIDERS: Emergency Provider Emergency Medicine; PCP Family Medicine
DX: R07.89 Other chest pain (principal); F17.210 Nicotine dependence, cigarettes, uncomplicated
CPT/HCPCS: 71045; 80053; 83690; 84484; 85025; 93005; 99285

== ENCOUNTER 2025-03-30 14:01 | Outpatient (CLI) | payer OTHER, MEDICAID, SELFPAY ==
--- NOTE | 2025-03-30 14:05 | MM_ITS ---
WS: [id number] BILATERAL 3D TOMOSYNTHESIS DIGITAL SCREENING MAMMOGRAPHY WITH CAD CLINICAL INFORMATION: SCREENING HISTORY: Screening mammogram. No current complaints. COMPARISON: 2023 TECHNIQUE: Bilateral CC and MLO views. FINDINGS: The breasts are composed of heterogeneous fibroglandular density tissue, which can limit the detection of small underlying mass lesions. Lucent centered calcification RIGHT breast. Nodularity subareolar LEFT breast. Recommend LEFT breast diagnostic mammography and ultrasound. MM/MM scr tomosynthesis [id number] IMPRESSION: DENSITY: The breasts are heterogeneously dense, which may obscure small masses. BI-RADS: 0 - Incomplete: Need additional imaging evaluation FOLLOW UP: Need Additional Imaging
== END 2025-03-30 14:02 | disposition home or self-care (01) ==
LOC: RAD 14:02
PROVIDERS: PCP Family Medicine; Visit Provider Family Medicine
DX: Z12.31 Encounter for screening mammogram for malignant neoplasm of breast (principal); R92.333 Mammographic heterogeneous density, bilateral breasts; N63.42 Unspecified lump in left breast, subareolar
CPT/HCPCS: 77063; 77067

== ENCOUNTER 2025-05-07 10:58 | Outpatient (CLI) | payer OTHER, MEDICAID, SELFPAY ==
--- NOTE | 2025-05-07 11:05 | MM_ITS ---
WS: [id number] LEFT 3D TOMOSYNTHESIS DIGITAL MAMMOGRAPHY WITH CAD CLINICAL INFORMATION: ABNORMAL L BREAST MAMMO HISTORY: Additional views COMPARISON: 03/30/2025 TECHNIQUE: 3 views of the left breast were obtained. FINDINGS: Scattered fibroglandular densities of the left breast. Previously described nodularity subareolar LEFT breast compresses out on the spot compression views. No other suspicious abnormalities. Recommend return to annual screening mammography. MM/MM diag LT tomosynthesis [id number] IMPRESSION: DENSITY: There are scattered areas of fibroglandular density. BI-RADS: 2 - Benign. FOLLOW UP: 1 Year Follow-up Recommend return to annual screening mammography.
== END 2025-05-07 10:59 | disposition home or self-care (01) ==
LOC: RAD 10:59
PROVIDERS: PCP Family Medicine; Visit Provider Family Medicine
DX: R92.8 Other abnormal and inconclusive findings on diagnostic imaging of breast (principal); R92.323 Mammographic fibroglandular density, bilateral breasts
CPT/HCPCS: 77061; G0279

== ENCOUNTER 2025-05-08 11:57 | Emergency (ER) | payer OTHER, MEDICAID, SELFPAY ==
--- OUTSIDE RECORDS SUMMARY | 2018-08-06 05:00 | XMS_ITS | Continuity of Care Document ---
Author Organization [facility] Address [address] [id number] [address] Phone Care Team Providers Care Gluing Machine Adjuster Name Role Phone Momo Darby DDS Unavailable Unavailable Allergies, Adverse Reactions, Alerts Substance Reaction Status Criticality No Known allergies Procedures Procedure Date Resin-Based Composite One Surface, Posterior Resin-Based Composite One Surface, Posterior Resin-Based Composite One Surface, Posterior Resin-Based Composite One Surface, Posterior Resin-Based Composite One Surface, Posterior Resin-Based Composite One Surface, Posterior Resin-Based Composite One Surface, Posterior Resin-Based Composite One Surface, Posterior EDR Approval Note EDR Approval Note Prophylaxis Adult EDR Approval Note Resin-Based Composite Three Surfaces, Posterior EDR Approval Note Bitewings Four Films Panoramic Film Intraoral Periapical First Film Intraoral Periapical Each Additional Film Intraoral Periapical Each Additional Film Intraoral Periapical Each Additional Film Comprehensive Oral Evaluatio n New Or Established EDR Approval Note Advance Directives Directive Yes / No Effective Date File Name No Information Encounters Encounter Description Practice Location Reason(s) For Visit Diagnoses Date Provider Providers Copied on Encounter [facility], [id number] [place], [place], [id number], [place] tel:[phone] [facility] Encounter for dental exam and cleaning w/o abnormal findings Wilner Barr. [address] [place], [address], [place]. tel:[phone] Referring Provider: Momo Darby, [address] [place], [address]. tel:[phone] [facility], [id number], [id number], [place] tel:[phone] [facility] Encounter for dental exam and cleaning w/o abnormal findings Wilner Barr. [address] [place], [address], [place]. tel:[phone] Referring Provider: oMmo Darby, [address] [place], [address]. tel:[phone] [facility], [id number], [id number], [place] tel:[phone] [facility] Encounter for dental exam and cleaning w/o abnormal findings Wilner Barr. [address] [place], [address], [place]. tel:[phone] Referring Provider: Momo Darby, [address] [place], [address]. tel:[phone] [facility], [id number], [id number], [place] tel:[phone] [facility] Encounter for dental exam and cleaning w/o abnormal findings Wilner Barr. [address] [place], [address], [place]. tel:[phone] Referring Provider: Momo Darby, [address] [place], [address]. tel:[phone] Family History Family Member Type Diagnosis Age At Onset No Information Payers Payer name Insurance type Covered constitution party ID Authoriza titracy(s) No Information Social History Type Description Quantity Date Captured Comments Alcohol Use Details Unknown Caffeine Use Details Unknown Tobacco Use Status No Information Smoking Status No Information Sex Female Chief Complaint And Reason For Visit No Information Reason For Referral Reason For Referral No Information History Of Present Illness Encounter Date Complaint History Of Prese nt Illness No Information Functional Status Date Functional Assessmen t No Information Instructions Date Instruction Additional Infor mation No Information Assessments Type Assessment Date No Information Patient Care Teams Name Effective Dates (start - stop) Status Members No Information
[2025-05-08 12:02] VITALS: BP 116/77; PULSE 88; RESP 16; TEMP 36.7; O2SAT 94; BMI 29.3
--- OUTSIDE RECORDS SUMMARY | 2025-05-08 12:05 | XMS_ITS | Clinical Summary ---
Author Organization [facility] Address [address] [place] [address] Care Team Providers Care Site Administrator Name Role Phone Ileana, Meseret Reuben CHAVARRIA Primary Care Provider Allergies Active Allergy Reactions Criticality Noted Date Comments Zackary Jimenez (See Comments) 07/31/2019 She felt jittery and side effects Sulfamethoxazole-Trim ethoprim Anaphylaxis High 06/07/2015 Medications pantoprazole (PROTONIX) 20 mg Tablet, Delayed Release (E.C.) Take 20 mg by mouth daily. Active traZODone (DESYREL) 100 mg tablet Take 100 mg by mouth nightly as needed for Insomnia. Active carBAMazepine (TEGretol) 200 mg tablet Take 200 mg by mouth 2 times daily. Active haloperidol (HALDOL) 5 mg tablet Take 7.5 mg by mouth every 6 hours . Active Calcium-Magnesium -Zinc Tablet Take by mouth. Ac tive omega-3 fatty acids-fish oil 300-1,000 mg Capsule Take by mouth daily. Active benztropine (COGENTIN) 1 mg tabletIndications :Paranoid schizophrenia (CMS/HCC) Take 1 mg by mouth 2 times daily. Active magnesium citrate solutionIndicatio ns:Irritable bowel syndrome with constipation Take 296 mL by mouth one time only. Active polyethylene glycol 3350 (MIRALAX) 17 gram/dose PowderIndications :Irritable bowel syndrome with constipation Take 1 SCOOP (17 Grams) by mouth daily. Dissolve in 8 ounces of fluid and drink entire liquid 527 Gram 9 Active senna (EX-LAX) 15 mg TabletIndications :Irritable bowel syndrome with constipation Take 2 Tablets (30 mg) by mouth daily at bedtime. 60 Tablet 6 9 Active albuterol HFA 90 mcg inhalerIndication s:Mild intermittent asthma without complication Take 2 Puffs by inhalation every 6 hours as needed for Shortness of Breath or Wheezing. 8.5 Gram 9 Active Ciclopirox (PENLAC) 8 % Solution Apply to affected area daily. 6.6 mL 3 9 Active DULoxetine (CYMBALTA) 60 mg Capsule, Delayed Release(E.C.)Apryl cations:Moderate episode of recurrent major depressive disorder (CMS/HCC) Take 1 Capsule (60 mg) by mouth daily. Take with 60mg plus 30mg together 90 Capsule 4 9 Active DULoxetine (CYMBALTA) 30 mg Capsule, Delayed Release(E.C.)Apryl cations:Moderate episode of recurrent major depressive disorder (CMS/HCC) Take 1 Capsule (30 mg) by mouth daily. Take with 60mg plus 30mg together 90 Capsule 4 9 Active haloperidoL (HALDOL) 10 mg tabletIndications :Paranoid schizophrenia (CMS/HCC) 0 Active multivitamin (DAILY-ONEL) tablet Take 1 Tablet by mouth daily. Active folic acid (FOLVITE) 0.8 mg Tablet Take 800 mcg by mouth daily. Active norgestimate-ethi nyl estradioL 0.25 mg-35 mcg tablet Take 1 Tablet by mouth daily. 28 Tablet 12 0 Active varenicline (Chantix) 1 mg Tablet Take 1 Tablet (1 mg) by mouth 2 times daily. 60 Tablet 3 0 Active pilocarpine (SALAGEN) 5 mg Tablet Take 5 mg by mouth Continuous as needed. 0 Active QUEtiapine (SEROquel XR) 300 mg Extended Release 24 hour tablet Take 300 mg by mouth daily. 0 Active traMADoL (ULTRAM) 50 mg tabletIndications :Fibromyalgia TAKE TWO TABLETS BY MOUTH EVERY 6 HOURS NEEDED FOR PAIN 60 Tablet 2 1 Active terbinafine HCL (LamISIL) 250 mg tablet TAKE ONE TABLET BY MOUTH EVERY DAY 30 Tablet 1 1 Active lactobacillus acidophilus (Acidophilus) Tablet, Chewable Take 1 Tablet by mouth 2 times daily. 60 Tablet 6 1 Active LORazepam (ATIVAN) 1 mg tabletIndications :Generalized anxiety disorder Take 1 Tablet (1 mg) by mouth 2 times daily as needed for Anxiety. 60 Tablet 2 1 Active baclofen (LIORESAL) 20 mg tabletIndications :Muscle spasm,Chronic neck pain Take 1 Tablet (20 mg) by mouth 3 times daily as needed for Pain. 90 Tablet 6 1 Active Active Problems Problem Noted Date Diagnosed Date Mixed hyperlipidemia 07/23/2018 Gastroesophageal reflux disease without esophagi tis 08/01/2017 Generalized anxiety disorder 08/01/2017 Cigarette dependence 06/24/2015 Paranoid schizophrenia 09/01/2013 Resolved Problems Problem Noted Date Diagnosed Date Resolved Date Fibromyalgia 06/26/2015 05/23/2017 Immunizations Immunization Administration Dates Next Due INFLUENZA VACCINE QUADRIVALENT 6 MOS UP IM 07/31 Family History Medical History Relation Name Comments Heart Disease Father Healthy Mother Breast Cancer Neg Hx Relation Name Status Comments Father Mother Social History Tobacco Use Types Packs/Day Years Used Date Smoking Tobacco: Some Days Cigarettes 1 10 Smokeless Tobacco: Never Tobacco Cessation:Ready to Q uit: No Alcohol Use Standard Drinks/Week Comments Yes 6.7 (1 standard drink = 0.6 oz p ure alcohol) occasional Comments No Sex and Gender Information Value Date Recorded Sex Assigned at Not on file Legal Sex Female 2:58 PM CDT Gender Identity Not on file Sexual Orientation Not on file Occupation Industry Job Start Date Job End Date Not on file Not on file Not on file Not on file Last Filed Vital Signs Vital Sign Reading Time Taken Comments Blood Pressure 120/70 02/17/2021 10:49 AM CDT Pulse 96 02/17/2021 10:49 AM CDT Temperature 36.9 C (98.4 F) 02/17/2021 10:49 AM CDT Respiratory Rate 18 02/17/2021 10:49 AM CDT Oxygen Saturation 96% 02/17/2021 10:49 AM CDT Inhaled Oxygen Concentration - - Weight 84.8 kg (187 lb) 02/17/2021 10:49 AM CDT Height 162.6 cm (5' 4 ) 02/17/2021 10:49 AM CDT Body Mass Index 32.1 02/17/2021 10:49 AM CDT Plan of Treatment Health Maintenance Due Date Last Done Comments HPV VACCINES (1 - 3-dose series) 2000 DTAP/TDAP/TD VACCINES (1 - Tdap) 2004 HEPATITIS B VACCINES (1 of 3 - 19+ 3-dose series) 2004 PAP SMEAR 06/30/2022 06/30/2019 Pre-Diabetes and Diabetes Screening 12/23/2023 12/22/2020, 05/23/2019, 04/22/2019, Additional history exists CERVICAL CANCER SCREENING 06/30/2024 HPV/Cotest (21-29) 06/30/2024 06/30/2019 HPV/Cotest (30-65) 06/30/2024 06/30/2019 Medicare Ad[place]age ([place]) Preventative Visit/Annual Wellness Visit 10/08/2024 02/17/2021, 06/30/2019 INFLUENZA VACCINE (#1) 2025 07/31/2019 BREAST CANCER SCREENING 03/30/2026 03/30/20 25, 07/01/2020, 05/26/2020, Additional history exists Procedures Procedure Name Priority Date/Time Associated Diagnosis Comments HEMOGLOBIN A1C Routine 12/22/2020 MAMMO DIAG UNI RIGHT 3D KIRSTY W OR WO CAD Routine 07/01/2020 2:49 PM CDT Breasts asymmetrical CERV/VAG CYTO SCREEN PAP RLFX HPV Routine 06/30/2019 4:39 PM CDT Well woman exam with routine gynecological exam from Last 3 Months or Most Recently Relevant to Health Maintenance Results * HEMOGLOBIN A1C (12/22/2020) ABSTRACTED HGB A1C 4.6 EXTERNAL LAB HEMOGLOBIN A1C EXTERNAL LAB HEMOGLOBIN A1C EXTERNAL LAB GLUCOSE, MEAN BLOOD EXTERNAL LAB Blood 12/22/2020 us Abstract Spg Provider CHEMISTRY ORDERABLES Final Result EXTERNAL LAB * (ABNORMAL) MAMMO DIAG UNI RIGHT 3D KIRSTY W OR WO CAD (07/01/2020 2:49 PM CDT) Anatomical Region Laterality Modality Breast Right Mammography 07/01/2020 2:49 PM CDT Impressions 07/01/2020 4:48 PM CDT : Right breast asymmetry vaguely persists but is without suspicious mass or sonographic correlate. This likely represents a patch of dense fibroglandular tissue. Recommend right breast mammogram in six months to ensure stability. BI-RADS: 3 Recommendation: Short interval follow-up, six months Recommendation Laterality: Right [id number] Narrative 07/01/2020 4:48 PM CDT EXAM: MAMMO DIAG UNI RIGHT 3D KIRSTY W OR WO CAD, MAMMO BREAST US RIGHT LTD, 07/01/2020 2:49 PM CLINICAL INDICATIONS: Call back from screening at outside institution for right breast asymmetry COMPARISON: Outside studies dated 05/26/2020, 06/06/2018 TECHNIQUE: 3-D lateral, MLO and CC digital tomosynthesis images of the right breast were acquired. Synthesized 2-D images (C-view) were generated. This digital mammogram was also analyzed by the Computer Aided Detection System (CAD). Spot compression 3-D MLO view was also obtained. FINDINGS: There are scattered areas of fibroglandular density. The asymmetry within the posterior nipple line to slightly superior aspect of the right breast at mid depth vaguely persists, though may represent fibroglandular tissue. On the 3-D images, this is projecting within the lateral aspect of the right breast, however, there is no definite correlate on the CC view. Further evaluation with ultrasound to follow. TECHNIQUE: Multiple real-time cordero-scale images of the right breast in the 9-11 o'clock axis are performed. Color Doppler was used to assess vascular flow. FINDINGS: There is no mass lesion, architectural distortion or abnormal vascularity seen. Meseret Tejeda DO MAMMO ORDERABLES Final Resu lt * CERV/VAG CYTO SCREEN PAP RLFX HPV (06/30/2019 4:39 PM CDT) CLINICAL INFORMATION Oral contraceptives Routine exam Other high risk factor, specify 07/06/2019 1:06 PM CDT [facility] LAST MENSTRUAL PERIOD [id number]/06/2019 1:06 PM CDT [facility] PREV PAP: INFORMATION NOT PROVIDED 07/06/2019 1:06 PM CDT [facility] PREV BX: INFORMATION NOT PROVIDED 07/06/2019 1:06 PM CDT [facility] SOURCE Endocervix 07/06/2019 1:06 PM CDT [facility] ADEQUACY: SEE COMMENT 07/06/2019 1:06 PM CDT [facility] Comment: Satisfactory for evaluation. Endocervical/transformation zone component present. PAP INTERP Negative for intraepithelial lesion or malignancy. 07/06/2019 1:06 PM CDT [facility] COMMENT This Pap test has been evaluated with computer assisted technology. 07/06/2019 1:06 PM CDT [facility] DENTAL AMALGAM PROCESSOR: SEE COMMENT 2018 1:06 PM CDT [facility] Comment: ABC, CT(ASCP) CT screening location: [place] [address] Administration CAROLYNN Figueroa REVIEW DENTAL AMALGAM PROCESSOR: SEE COMMENT 07/06/2019 1:06 PM CDT [facility] Comment: MMW, CT(ASCP) CT screening location: [place] [address] Administration CAROLYNN Figueroa146 EXPLANATORY NOTE SEE COMMENT 019 1:06 PM CDT [facility] Comment: EXPLANATORY NOTE: The Pap is a screening test for cervical cancer. It is not a diagnostic test and is subject to false negative and false positive results. It is most reliable when a satisfactory sample, regularly obtained, is submitted with relevant clinical findings and history, and when the Pap result is evaluated along with historic and current clinical information. Genital SWAB OF ENDOCERVIX / Unknown Collection / Unknown 06/30/2019 4:39 PM CDT 07/01/2019 10:30 AM CDT Narrative [facility] - 07/06/2019 1:06 PM CDT Performing Organization Information: Site ID: [facility] Name: [facility] Address: [facility] Administration [place]NN [place] [address] Director: Silvia Stewart Pari Salazar SUPERVISOR PIG MACHINE PATHOLOGY/CYTOLOGY ORDERABLES Final Result [facility] [phone] from Last 3 Months or Most Recently Relevant to Health Maintenance Insurance [place] Member Subscriber Plan / Payer (Ef fective 2012-Present) Name:Kathrin Patricio R Relation to Subscriber:Self Name:Kathrin Patricio Payer ID:[id number] Group ID:Not on file Type:Medicaid Address: [address] DUAL COMPLETE [facility] PPO D-SNP PUBLIC WAGON DRILL OPERATOR FLAVIA BOSWELL C/O [address] DUAL COMPLETE [facility] PPO D-SNP MEDICAID [place] Care Teams Site Administrator Relationship Specialty Start Date End Date Meseret Tejeda DO [address] [place] [address] PCP - General Family Practice 09/01/13
--- OUTSIDE RECORDS SUMMARY | 2025-05-08 12:05 | XMS_ITS | Encounter Summary ---
Author Organization [facility] Address [address] [place] [address] Care Team Providers Care Edge Bander Operator Name Role Phone Meseret Tejeda DO Primary Care Provider Encounter Details Date Type Department Care Team (Late Contact Info) Description 05/07/[address] 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 [address] [place] [address] documented as of this encounter Procedures Procedure Name Priority Date/Time Associated Diagnosis Comments MAMMO DIAGNOSTIC UNI LEFT W OR WO CAD Routine 05/07/2025 Abnormal mammogram of left breast documented in this encounter Results * MAMMO DIAGNOSTIC UNI LEFT W OR WO CAD (05/07/2025) Anatomical Region Laterality Modality Breast Left Mammography us Meseret Tejeda DO MAMMO ORDERABLES Final Resu lt documented in this encounter Visit Diagnoses Diagnosis Abnormal mammogram of left breast documented in this encounter Additional Health Concerns Assessment Noted Time PHQ-9 Depression Total Score: 6 12/26/19 25 10:20 AM CDT documented as of this encounter Care Teams Edge Bander Operator Relationship Specialty Start Date End Date Meseret Tejeda DO [address] [place] [address] PCP - General Family Practice 09/01/13 documented as of this encounter
--- OUTSIDE RECORDS SUMMARY | 2025-05-08 12:05 | XMS_ITS | Encounter Summary ---
Author Organization [facility] Address [address] [place] [address] Care Team Providers Care Tank Wagon Driver Name Role Phone Meseret Tejeda DO Primary Care Provider [phone] Encounter Details Date Type Department Care Team (Latest Contact Info) Description 06/16/2020 Ancillary Orders [facility] [address] [facility] [address] [place] [address] Meseret Tejeda DO [address] [place] [address] Breasts asymmetrical Social History Tobacco Use Types Packs/Day Years Used Date Smoking Tobacco: Some Days Cigarettes 1 10 Smokeless Tobacco: Never Alcohol Use Standard Drinks/Week Comments Yes 6.7 [...] file Not on file Not on file COVID-19 Exposure Response Date Recorded In the last month, have you been in contact with someone who was confirmed or suspected to have Coronavirus / COVID-19? No / Unsure 05/21/2020 1:02 PM CDT documented as of this encounter Plan of Treatment Not on file documented as of this encounter Results * MAMMO PRIOR STUDY (05/26/2020 1:35 PM CDT) Narrative 06/16/2020 1:32 PM CDT This exam was auto finalized to allow images to be scanned to PACS. us Meseret Tejeda DO DIAGNOSTIC IMAGING ORDERABL ES Final Result * MAMMO PRIOR STUDY (06/06/2018 1:35 PM CDT) Narrative 06/16/2020 1:33 PM CDT This exam was auto finalized to allow images to be scanned to PACS. us Meseret Tejeda DO DIAGNOSTIC IMAGING ORDERABL ES Final Result documented in this encounter Visit Diagnoses Diagnosis Breasts asymmetrical Other specified disorders of breast Breasts asymmetrical Other specified disorders of breast Breasts asymmetrical Other specified disorders of breast documented in this encounter Care Teams Tank Wagon Driver Relationship Specialty Start Date End Date Meseret Tejeda DO [address] [place] [address] PCP - General Family Practice 09/01/13 documented as of this encounter
--- OUTSIDE RECORDS SUMMARY | 2025-05-08 12:05 | XMS_ITS | Clinical Summary ---
Author Organization [facility] Address [address] [place] [address] Care Team Providers Care Cutter Down Name Role Phone Meseret Tejeda Primary Care Provider Allergies Active Allergy Reactions Criticality Noted Date Comments Codeine Other (See Comments) Medium 09/20/2023 Medication did not work well for the patient Zackary Barbara (See Comments) 07/31/2019 She felt jittery and side effects Sulfamethoxazole-Trim ethoprim Anaphylaxis High 06/07/2015 Medications benztropine (COGENTIN) 1 mg tabletIndication s:Paranoid schizophrenia (CMS/HCC) Take 1 Tablet (1 mg) by mouth daily. 90 Tablet 4 021 Active carBAMazepine (TEGretol) 200 mg tablet Take 1.5 Tablets (300 mg) by mouth 2 times daily. 90 Tablet 6 021 Active Tea Tree Oil 100 % Oil Apply to affected area daily. Active hydrOXYzine HCL (ATARAX) 50 mg tablet Take 1 Tablet (50 mg) by mouth 3 times daily as needed for Anxiety. 90 Tablet 4 022 Active norethindrone (contraceptive) 0.35 mg tablet Take 0.35 mg by mouth daily. Active traZODone (DESYREL) 50 mg tablet Take 1 Tablet (50 mg) by mouth daily at bedtime. 90 Tablet 4 022 Active DULoxetine (CYMBALTA) 60 mg Capsule, Delayed Release(E.C.) Take 2 Capsules (120 mg) by mouth daily. 180 Capsule 4 10/05/2 022 Active MULTIVITAMIN ORAL Take by mouth. Activ e haloperidoL (HALDOL) 5 mg tablet TAKE ONE TABLET BY MOUTH EVERY DAY 90 Tablet 1 023 Active risperiDONE (RisperDAL) 2 mg tablet Take 2 mg by mouth 2 times daily. Active acetaminophen (Tylenol Extra Strength) 500 mg tablet Take 500 mg by mouth every 4 hours as needed. Active Invega Sustenna 234 mg/1.5 mL Syringe Inject 234 mg by intramuscular injection every 30 days. 024 Active paliperidone (INVEGA) 6 mg Extended Release 24 hour tablet Take 6 mg by mouth daily. 024 Active mirtazapine (REMERON) 7.5 mg tablet Take 1 Tablet (7.5 mg) by mouth daily at bedtime. 90 Tablet 1 024 Active dextromethorphan -guaiFENesin 60-1,200 mg Tablet Sustained Release 12HR Take 1 Tablet by mouth every 12 hours as needed for Other (See Comment) (cough or congestion). 60 Tablet 1 024 Active calcium as carbonate (Tums) 750 mg (300 mg elemental) Tablet, Chewable Take 2.5 Tablets (750 mg) by mouth 3 times daily as needed for Dyspepsia or Indigestion. 90 Tablet 1 024 Active docusate sodium (COLACE) 100 mg capsule TAKE ONE CAPSULE BY MOUTH TWICE DAILY FOR CONSTIPATION 180 Capsule 4 024 Active baclofen (LIORESAL) 20 mg tabletIndication s:Other muscle spasm,Cervicalgi a TAKE ONE TABLET BY MOUTH THREE TIMES DAILY (EVERY 8 HOURS) NEEDED FOR MUSCLE SPASMS 90 Tablet 1 024 Active bismuth subsalicylate (Pepto-BismoL) 262 mg/15 mL suspension Take 30 mL by mouth every 6 hours as needed for Indigestion. 300 mL 1 024 Active pantoprazole (PROTONIX) 40 mg Tablet, Delayed Release (E.C.) TAKE ONE TABLET BY MOUTH EVERY DAY 30 MINUTES BEFORE BREAKFAST FOR GERD 90 Tablet 3 025 Active diclofenac sodium (VOLTAREN) 75 mg Tablet, Delayed Release (E.C.)Indication s:Chronic bilateral low back pain with bilateral sciatica TAKE ONE TABLET BY MOUTH TWICE DAILY 60 Tablet 6 025 Active polyethylene glycol 3350 (MIRALAX) 17 gram/dose Powder dissolve ONE SCOOPFUL (17 grams) in EIGHT ounces of fluid and drink entire liquid EVERY DAY FOR CONSTIPATION 510 Gram 5 025 Active traMADol (ULTRAM) 50 mg tabletIndication s:Cervicalgia take two tablets by MOUTH twice daily NEEDED FOR pain 120 Tablet 1 025 Active albuterol sulfate HFA 90 mcg/actuation aerosol inhaler USE TWO INHALATIONS EVERY 6 HOURS NEEDED FOR SHORTNESS OF BREATH OR wheezing 8.5 Gram 6 025 Active lactobacillus acidophilus (Acidophilus) Tablet, Chewable CHEW ONE TABLET BY MOUTH TWICE DAILY 180 Tablet 3 025 Active albuterol sulfate HFA 90 mcg/actuation aerosol inhaler Take 2 Puffs by inhalation every 6 hours as needed for Shortness of Breath. 8.5 Gram 6 024 2024 Discontinued lactobacillus acidophilus (Acidophilus) Tablet, Chewable CHEW ONE TABLET BY MOUTH TWICE DAILY 90 Tablet 3 025 2024 Discontinued Active Problems Problem Noted Date Diagnosed Date Mixed hyperlipidemia 07/23/2018 Gastroesophageal reflux disease without esophagi tis 08/01/2017 Generalized anxiety disorder 08/01/2017 Cigarette dependence 06/24/2015 Paranoid schizophrenia 09/01/2013 Resolved Problems Problem Noted Date Diagnosed Date Resolved Date Fibromyalgia 06/26/2015 05/23/2017 Encounters Date Type Department Care Team Description 05/07/2025 Orders Only [facility] [address] [place] [id number] Meseret Tejeda, DO Abnormal mammogram of left breast 04/30/2025 Refill [facility] [address] [facility] [place] [phone] Meseret Tejeda, DO Cervicalgia 04/27/2025 Refill [facility] [address] [facility] [place] [phone] Meseret Tejeda, DO 04/22/2025 External Device Data STL ABSTRACTION Provider, Abstract 04/21/2025 External Device Data STL ABSTRACTION Provider, Abstract 04/16/2025 Refill [facility] [address] [place] [address] Meseret Tejeda, 03/31/2025 Results Follow-Up [facility] [address] [place] [address] Meseret Tejeda, MAMMO SCREEN BILAT W OR WO CAD 03/31/2025 Orders Only [facility] [address] [place] [address] Meseret Tejeda, Abnormal mammogram of left breast (Primary Dx) 03/31/2025 Orders Only [facility] Information [facility] [place] [address] [place] [address] Meseret Tejeda, 03/24/2025 External Device Data STL ABSTRACTION Provider, Abstract 03/18/2025 [facility] [address] [place] [address] Meseret Tejeda, DO Cervicalgia 03/11/2025 [facility] [address] [place] [address] Meseret Tejeda, 03/10/2025 External Device Data STL ABSTRACTION Provider, Abstract 03/10/2025 External Device Data STL ABSTRACTION Provider, Abstract 03/10/2025 External Device Data STL ABSTRACTION Provider, Abstract 03/03/2025 External Device Data STL ABSTRACTION Provider, Abstract 02/25/2025 External Device Data STL ABSTRACTION Provider, Abstract 02/24/2025 External Device Data STL ABSTRACTION Provider, Abstract 02/11/2025 [facility] [address] [place] [address] Meseret Tejeda, DO Cervicalgia from Last 3 Months Immunizations Immunization Administration Dates Next Due INFLUENZA VACCINE QUADRIVALENT 6 MOS UP IM 07/23,07/31/2019 INFLUENZA VACCINE QUADRIVALENT 6 MOS UP PF IM Family History Medical History Relation Name Comments Heart Disease Father Healthy Mother Breast Cancer Neg Hx Relation Name Status Comments Father Mother Social History Tobacco Use Types Packs/Day Years Used Date Smoking Tobacco: Every Day Cigarettes Passive Smoke Exposure: Current Smokeless Tobacco: Never Tobacco Cessation:Ready to Q uit: No; Counseling Given: Yes Alcohol Use Standard Drinks/Week Comments Not Currently 6.7 (1 standard drink = 0.6 oz p ure alcohol) Comments No Sex and Gender Information Value Date Recorded Sex Assigned at Not on file 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 Gender Identity Not on file Sexual Orientation Not on file Last Filed Vital Signs Vital Sign Reading Time Taken Comments Blood Pressure 126/82 12/25/2024 10:15 AM CDT Pulse 93 12/25/2024 10:15 AM CDT Temperature 37 C (98.6 F) 12/25/2024 10:15 AM CDT Respiratory Rate 18 03/27/2024 1:18 PM CDT Oxygen Saturation 95% 12/25/2024 10:15 AM CDT Inhaled Oxygen Concentration - - Weight 76.3 kg (168 lb 2 oz) 12/25/2024 10:15 AM CDT Height 160 cm (5' 3 ) 12/25/2024 10:[address] ated Body Mass Index 29.78 12/25/2024 10:15 AM CDT Plan of Treatment Upcoming Encounters Date Type Department Care Team (Late st Contact Info) Description 06/29/2025 9:00 AM CDT Office Visit [facility] [place] [address] [place] [address] [facility] [address] [place] [address] Health Maintenance Due Date Last Done Comments DTAP/TDAP/TD VACCINES (6 - Tdap) 1996 03/15/1990, 05/21/1987, 1985, Additional history exists HPV VACCINES (1 - 3-dose series) 2000 HEPATITIS B VACCINES (1 of 3 - 19+ 3-dose series) 2004 PAP SMEAR 06/30/2022 06/30/2019, 06/30/2019 CERVICAL CANCER SCREENING 06/30/2024 HPV/Cotest (21-29) 06/30/2024 06/30/2019 HPV/Cotest (30-65) 06/30/2024 06/30/2019 [place] Preventative Visit/Annual Wellness Visit 10/08/2024 08/06/2024, 09/20/2023, 11/29/2021, Additional history exists Pre-Diabetes and Diabetes Screening 04/21/2025 04/21/2022, 12/22/2020, 05/23/2019, Additional history exists INFLUENZA VACCINE (#1) 2025 , 08/02/2023, 07/23/2023, Additional history exists BREAST CANCER SCREENING 05/07/2026 05/07/20 25, 03/30/2025, 07/01/2020, Additional history exists COVID-19 Vaccine Completed 07/25/2024, 03/2023, 03/24/2022, Additional history exists Procedures Procedure Name Priority Date/Time Associated Diagnosis Comments MAMMO DIAGNOSTIC UNI LEFT W OR WO CAD Routine 05/07/2025 Abnormal mammogram of left breast MAMMO SCREEN BILAT W OR WO CAD Routine 03/30/2025 12:09 PM CDT HEMOGLOBIN A1C Routine 04/21/2022 CERV/VAG CYTO SCREEN PAP RLFX HPV Routine 06/30/2019 4:39 PM CDT from Last 3 Months or Most Recently Relevant to Health Maintenance Results * MAMMO DIAGNOSTIC UNI LEFT W OR WO CAD (05/07/2025) Anatomical Region Laterality Modality Breast Left Mammography us Meseret Tejeda DO MAMMO ORDERABLES Final Resu lt * MAMMO SCREEN BILAT W OR WO CAD (03/30/2025 12:09 PM CDT) Anatomical Region Laterality Modality Breast Bilateral Mammography Meseret Tejeda DO MAMMO ORDERABLES Final Resu lt * HEMOGLOBIN A1C (04/21/2022) Blood Meseret Tejeda DO CHEMISTRY ORDERABLES Final Result [facility] CLIA# [id number] [address] [place] [address] * CERV/VAG CYTO SCREEN PAP RLFX HPV (06/30/2019 4:39 PM CDT) CLINICAL INFORMATION Oral contraceptives Routine exam Other high risk factor, specify 07/06/2019 1:06 PM CDT [facility] LAST MENSTRUAL PERIOD [id number]/06/2019 1:06 PM CDT [facility] PREV PAP: INFORMATION NOT PROVIDED 07/06/2019 1:06 PM CDT [facility] PREV BX: INFORMATION NOT PROVIDED 07/06/2019 1:06 PM CDT [facility] SOURCE Endocervix 07/06/2019 1:06 PM CDT [facility] ADEQUACY: SEE COMMENT 07/06/2019 1:06 PM CDT [facility] Comment: Satisfactory for evaluation. Endocervical/transformation zone component present. PAP INTERP Negative for intraepithelial lesion or malignancy. 07/06/2019 1:06 PM CDT [facility] COMMENT This Pap test has been evaluated with computer assisted technology. 07/06/2019 1:06 PM CDT [facility] STEEL FIXER: SEE COMMENT 2018 1:06 PM CDT [facility] Comment: ABC, CT(ASCP) CT screening location: [place] [address] [address]NN Figueroa [id number] REVIEW STEEL FIXER: SEE COMMENT 07/06/2019 1:06 PM CDT [facility] Comment: MMW, CT(ASCP) CT screening location: [place] [address] [address] CAROLYNN [id number] EXPLANATORY NOTE SEE COMMENT 019 1:06 PM CDT [facility] Comment: EXPLANATORY NOTE: The Pap is a [...] Collection / Unknown 06/30/2019 4:39 PM CDT 07/02/2019 9:17 AM CDT Narrative [facility] - 07/06/2019 1:06 PM CDT Performing Organization Information: Site ID: Name[facility] Address: [address] [place] [address] Director: Silvia Stewart Pari Salazar LUNCH COUNTER MANAGER PATHOLOGY/CYTOLOGY ORDERABLES Final Result Performing Organization Address City/State/[facility] Co de Phone Number [facility] [phone] [facility] from Last 3 Months or Most Recently Relevant to Health Maintenance Insurance C/O [address] [id number] [place]ID [place] [facility] DUAL COMPLETE [facility] [id number] Care Teams Cutter Down Relationship Specialty Start Date End Date Meseret Tejeda DO [address] [place] [address] PCP - General Family Practice 09/01/13
--- OUTSIDE RECORDS SUMMARY | 2025-05-08 12:05 | XMS_ITS | Encounter Summary ---
Author Organization [facility] Address [address] [place] [address] Care Team Providers Care Fire Hazard Inspector Name Role Phone Meseret Tejeda DO Primary Care Provider [phone] Reason for Referral * Radiology Services (Routine) - Closed Specialty Diagnoses / Procedures Referred By Contac t Referred To Contact Radiology Diagnoses Breasts asymmetrical Procedures MAMMO DIAG UNI RIGHT 3D KIRSTY W OR WO CAD MAMMO DIAGNOSTIC UNI RIGHT W OR WO CAD CHG DIAGNOSTIC MAMMOGRAPHY COMPUTER-AIDED DETCJ UNI CHG DIGITAL BREAST TOMOSYNTHESIS UNILATERAL Meseret Tejeda DO [address] [place] [address] Phone: tel: fax: [facility] [address] [address] Phone: tel: fax: Referral ID Status Reason Start Date Expiration Date Visits Requested Visits Authorized [id number] Closed Performing Department To Schedule (SGF) 05/27/2020 06/27/2021 1 1 Encounter Details Date Type Department Care Team (Latest Contact Info) Description 07/01/2020 Ancillary Orders [facility] [place] [address] [place] [address] Meseret Tejeda DO [address] [place] [address] Breasts asymmetrical Social History Tobacco [...] have Coronavirus / COVID-19? No / Unsure 07/01/2020 1:04 PM CDT documented as of this encounter Plan of Treatment Not on file documented as of this encounter Results * (ABNORMAL) MAMMO DIAG UNI RIGHT 3D [...] interval follow-up, six months Recommendation Laterality: Right [id number] Narrative 07/01/2020 4:48 PM CDT EXAM: MAMMO DIAG UNI RIGHT 3D KIRSTY W OR WO CAD, MAMMO BREAST US RIGHT [facility], 07/01/2020 2:49 PM CLINICAL INDICATIONS: Call back [...] lesion, architectural distortion or abnormal vascularity seen. us Meseret Tejeda DO MAMMO ORDERABLES Final Resu lt documented in this encounter Visit Diagnoses Diagnosis Breasts asymmetrical Other specified disorders of breast Breasts asymmetrical Other specified disorders of breast documented in this encounter Care Teams Fire Hazard Inspector Relationship Specialty Start Date End Date Meseret Tejeda DO [address] [place] [phone] PCP - General Family Practice 09/01/13 documented as of this encounter
--- OUTSIDE RECORDS SUMMARY | 2025-05-08 12:05 | XMS_ITS | Encounter Summary ---
Author Organization [facility] Address [address] [place] [address] Care Team Providers Care High School Coordinator Name Role Phone Meseret Tejeda DO Primary Care Provider Encounter Details Date Type Department Care Team (Late Contact Info) Description 03/31/2025 Results Follow-Up [facility] [address] [place] [address] Meseret Tejeda DO [address] [place] [address] MAMMO SCREEN BILAT W OR WO CAD Social History Tobacco Use Types Packs/Day Years Used Date Smoking Tobacco: Every Day Cigarettes Passive Smoke Exposure: Current Smokeless Tobacco: Never Alcohol Use Standard Drinks/Week Comments Not Currently 6.7 (1 standard drink = 0.6 oz p ure alcohol) Comments No Sex and Gender Information Value Date Recorded Sex Assigned at Not on file 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 Gender Identity Not on file Sexual Orientation Not on file documented as of this encounter Plan of Treatment Upcoming Encounters Date Type Department Care Team (Late Contact Info) Description 06/29/2025 9:00 AM CDT Office Visit [facility] [address] [place] [address] January, 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
--- NOTE | 2025-05-08 12:19 | W.ED.URI ---
HPI - URI/Sore Throat General: Chief Complaint: Upper Respiratory Infection Stated Complaint: stuffed up Time Seen by Provider: 05/08/25 12:00 Source: patient Mode of arrival: ambulatory Limitations: no limitations History of Present Illness: Patient is a 40-year-old female presents to ED today along with care staff from [facility] for concerns of nasal congestion/stuffiness, sore throat, nonproductive cough over the past 2 to 3 days. Care staff states that they have noted wheezing and crackles in her lungs. She is an everyday smoker. She states her significant other was recently sick with similar symptoms. She has not been running fevers. Vital signs are stable upon arrival. MD elicited complaint: cough, nasal congestion and sinus pain Onset (ago): day(s) Consistency: constant Severity: moderate Description of mucous: clear Able to tolerate fluids by mouth: Yes Exacerbating factors: nothing Relieving factors: nothing Context: sick contacts Associated symptoms: Reports nasal congestion and sinus pain; Deny chills, chest pain, diarrhea, ear or mastoid pain, fever(s), headache(s) or vomiting Treatments prior to arrival: none Related Data Home Medications ?Medication ?Instructions ?Recorded ?Confirmed ibuprofen 200 mg tablet 200 - 400 mg PO Q4H PRN Pain 05/24/21 03/30/25 polyethylene glycol 3350 17 17 g PO DAILY@07 05/24/21 03/30/25 gram/dose oral powder (Miralax) acetaminophen 500 mg tablet 1,000 mg PO Q4H PRN fever or pain 04/24/22 03/30/25 (Tylenol Extra Strength) multivitamin 1 tab PO QAM 04/24/22 03/30/25 tramadol 50 mg tablet 100 mg PO BID PRN Pain 07/24/22 03/30/25 Bacillus coagulans 400 million 1 cell PO BID 05/22/23 03/30/25 cell chewable tablet (Digestive Advantage Kid Probiotic-Prebio) baclofen 20 mg tablet 20 mg PO TID PRN Pain 05/22/23 03/30/25 tea tree oil 100 % topical 1 ea topical DAILY PRN unknown 05/22/23 03/30/25 diclofenac sodium 75 mg 75 mg PO BID 01/23/24 03/30/25 tablet,delayed release menthol 2.7 mg lozenges (Cough 5.4 mg mucous membrane Q4H PRN 01/23/24 03/30/25 Drops) Cough Previous Rx's ?Medication ?Instructions ?Recorded pantoprazole 40 mg tablet,delayed 40 mg PO DAILY 30 days #30 tabs 03/06/23 release (Protonix) haloperidol 10 mg tablet 10 mg PO BID #60 tabs 09/10/24 fluconazole 150 mg tablet 150 mg PO ONCE #2 tabs 10/17/24 benztropine 1 mg tablet 1 mg PO BID #60 tabs 03/10/25 carbamazepine 200 mg tablet 300 mg (1.5 x 200 mg) PO BID #90 03/10/25 (Tegretol) tabs mirtazapine 7.5 mg tablet 7.5 mg PO BEDTIME #30 tabs 03/10/25 norethindrone (contraceptive) 0.35 See Rx Instructions .Route 03/10/25 mg tablet .COMPLEX #84 tabs paliperidone 6 mg tablet,extended 6 mg PO QAM #30 tabs 03/10/25 release 24 hr paliperidone palmitate 234 mg/1.5 234 mg (1.5 mL) IM Q30D #1.5 mL 03/10/25 mL intramuscular syringe ([facility] risperidone 2 mg tablet 2 mg PO BID #60 tabs 03/10/25 trazodone 50 mg tablet 50 mg PO BEDTIME Sleep #30 tabs 03/10/25 duloxetine 60 mg capsule,delayed 120 mg (2 x 60 mg) PO DAILY #60 03/26/25 release caps hydroxyzine HCl 50 mg tablet 50 mg PO TID PRN anxiety #90 tabs 04/14/25 prednisone 10 mg tablet 10 mg PO DAILY 6 days #20 tabs 05/08/25 Allergies Allergy/AdvReac Type Severity Reaction Status Date / Time codeine Allergy Unknown Verified 05/08/25 12:04 Sulfa (Sulfonamide Allergy algy-rash Verified 05/08/25 12:04 Antibiotics) Review of Systems Const: Denies: fever(s), chills, body aches or fatigue Eyes: Denies: change in vision, blurry vision, photophobia, eye discomfort or eye discharge ENMT: Reports: throat pain, nasal congestion and sinus pain; Denies: enlarged tonsils, odynophagia, swelling of lips/tongue, oral sores, ear or mastoid pain, ear discharge, nasal discharge or post nasal drip Card: Denies: chest pain Resp: Reports: dyspnea, non-productive cough, wheezing and chest congestion; Denies: productive cough or pain on inspiration GI: Denies: vomiting or diarrhea Musc: Denies: neck pain Neuro: Denies: headache(s) All/Imm: Denies: facial swelling or seasonal rhinorrhea PFSH ED PFSH: Medical History Psychiatric care Schizoaffective disorder, depressive type No pertinent past medical history neghx: htn, dm, thyroid, dvt/pe PCP: Dr. Meseret Tejeda Paranoid schizophrenia managed by Dr. Kee -- [facility] Nicotine dependence, cigarettes, uncomplicated Panic disorder without agoraphobia managed by Dr. Kee-- [facility] HPV in female Insomnia Tachycardia Anxiety and depression Surgical History History of foot operation 1993-- treatment of plantar wart Family History Family/Other Thyroid disease maternal Denies family history of Colon cancer Ovarian cancer Prostate cancer Diabetes Heart disease Hyperlipidemia Breast cancer Bleeding disorder Hypertension Uterine cancer Stroke Social History Smoking and tobacco/nicotine status: current every day tobacco/nicotine user cigarettes Packs smoked per day: 1 Years cigarettes smoked: 20 Physical Exam Const: COMMON NORMALS: no acute distress, average body habitus, patient oriented x3, no limitations, healthy appearing, alert and well nourished GENERAL APPEARANCE: cooperative ORIENTATION/CONSCIOUSNESS: Yes awake, Yes oriented to person, Yes oriented to place and Yes oriented to time HENMT: COMMON NORMALS: normocephalic, atraumatic, hearing grossly normal bilaterally, external ears normal, EAC's normal, TM's normal bilaterally, Normal external nose present, Normal nasal mucous membranes and turbinates present, moist oral mucous membranes and oropharynx normal HEAD & SCALP: normal to inspection, normocephalic and atraumatic FACE & SINUS: normal facial exam and sinus tenderness NOSE: Normal external nose present, Normal nasal mucous membranes and turbinates present and Other nasal findings present (nasal congestion) EXTERNAL EAR: Yes external ears normal EXTERNAL AUDITORY CANAL: EAC's normal TYMPANIC MEMBRANE: TM's normal bilaterally MOUTH: Normal oral and palatal mucosa present, lip normal, tongue normal and Normal salivary glands and ducts present THROAT: posterior oropharynx normal, tonsils normal and uvula midline Eye: COMMON NORMALS: Equal, round and reactive pupils present, EOMs intact bilaterally and conjunctivae normal CONJUNCTIVA: Yes conjunctivae normal PUPIL: Yes Equal, round and reactive pupils present Neck/C-Spine: COMMON NORMALS: no lymphadenopathy Resp: COMMON NORMALS: normal respiratory effort AUSCULTATION: wheezes and other (course lung sounds-somewhat improved by coughing) Cardio: COMMON NORMALS: regular rate and regular rhythm RATE: regular rate RHYTHM: regular rhythm Extremity: COMMON NORMALS: no clubbing, cyanosis or edema, no calf tenderness and no pedal edema GENERAL: Yes normal exam except as noted Neuro: COMMON NORMALS: patient oriented x3 SENSORIUM/ORIENTATION: Yes alert, Yes oriented to person, Yes oriented to place and Yes oriented to time Course Vital Signs: Vital signs: Vital Signs Temperature 98.1 F 05/08/25 12:02 Pulse Rate 81 05/08/25 12:35 Respiratory Rate 16 05/08/25 12:35 Blood Pressure 116/77 05/08/25 12:02 Pulse Oximetry 95 05/08/25 12:35 Oxygen Delivery Me thod Room Air 05/08/25 12:35 MDM - URI/Sore Throat Medical Decision Making Patient appears in no acute distress. Her vital signs are normal. COVID/flu/RSV swab was negative. CXR showing no acute abnormalities. Etiology most likely viral. Will place her on a prednisone taper. Other conservative therapies discussed. Otherwise she can follow-up with PCP next week if symptoms are not improving. Return to ED precautions discussed. Medical Records I reviewed the patient's medical records. Lab Data I reviewed the patient's lab results. Laboratory Results Influenza A (PCR) Negative (Negative) 05/08/25 12:33 Influenza Type B (PCR) Negative (Negative) 05/08/25 12:33 RSV (PCR) Negative (Negative) 05/08/25 12:33 SARS-CoV-2 (PCR) Negative (Negative) 05/08/25 12:33 XR interpretation done by ED provider, pending radiology final review Discharge Plan Discharge Patient Disposition: Home Clinical Impression: Viral upper respiratory tract infection with cough Condition: Stable Prescriptions: New prednisone 10 mg tablet 10 mg PO DAILY 6 Days Qty: 20 0RF Rx Instructions: Take 5 tabs on day 1-2, 4 tabs on day 3, 3 tabs on day 4, 2 tabs on day 5, and 1 tab on day 6 No Action haloperidol 10 mg tablet 10 mg PO BID Qty: 60 11RF multivitamin Tablet 1 tab PO QAM acetaminophen [Tylenol Extra Strength] 500 mg tablet 1,000 mg PO Q4H PRN (Reason: fever or pain) tramadol 50 mg tablet 100 mg PO BID PRN (Reason: Pain) baclofen 20 mg tablet 20 mg PO TID PRN (Reason: Pain) tea tree oil 100 % oil 1 ea topical DAILY PRN (Reason: unknown) Digestive Advantag Kid Pro-Pre 400 million cell tablet,chewable 1 cell PO BID diclofenac sodium 75 mg tablet,delayed release (DR/EC) 75 mg PO BID Cough Drops 2.7 mg lozenge 5.4 mg mucous membrane Q4H PRN (Reason: Cough) fluconazole 150 mg tablet 150 mg PO ONCE Qty: 2 0RF Rx Instructions: take one today and repeat in 5 days if needed benztropine 1 mg tablet 1 mg PO BID Qty: 60 11RF carbamazepine [Tegretol] 200 mg tablet 300 mg PO BID Qty: 90 11RF mirtazapine 7.5 mg tablet 7.5 mg PO BEDTIME Qty: 30 11RF Invega Sustenna 234 mg/1.5 mL syringe 234 mg IM Q30D Qty: 1.5 11RF risperidone 2 mg tablet 2 mg PO BID Qty: 60 11RF trazodone 50 mg tablet 50 mg PO BEDTIME Qty: 30 11RF paliperidone 6 mg tablet extended release 24hr 6 mg PO QAM Qty: 30 11RF norethindrone (contraceptive) 0.35 mg tablet See Rx Instructions .ROUTE .COMPLEX Qty: 84 1RF Dose Instruction: TAKE ONE TABLET BY MOUTH EVERY DAY FOR CONTROL Rx Instructions: TAKE ONE TABLET BY MOUTH EVERY DAY FOR CONTROL duloxetine 60 mg capsule,delayed release(DR/EC) 120 mg PO DAILY Qty: 60 11RF hydroxyzine HCl 50 mg tablet 50 mg PO TID PRN (Reason: anxiety) Qty: 90 11RF ibuprofen 200 mg Tablet 200 - 400 mg PO Q4H PRN (Reason: Pain) Rx Instructions: WITH FOOD OR SNACK polyethylene glycol 3350 [Miralax] 17 gram/dose Powder 17 g PO DAILY@07 pantoprazole [Protonix] 40 mg Tablet,Delayed Release (Dr/Ec) 40 mg PO DAILY 30 Days Qty: 30 1RF Discharge Orders: Discharge ED (Routine); Ordered 05/08/25 Ordered By: Kathryn Bailey Referrals: Meseret Tejeda DO [Primary Care Provider, [facility]] Patient Instructions: Upper Respiratory Infection (DC), Acute Bronchitis (ED), Viral Syndrome (ED), Patient Portal & Levi Instructions Print Language: Yakut Coding Level of Care Code ED Practice Administrator for Randi Sethi
--- NOTE | 2025-05-08 12:23 | XRR_ITS ---
PROCEDURE INFORMATION: Exam: XR Chest Exam date and time: 05/08/2025 1:09 PM Age: 40 years old Clinical indication: Cough and shortness of breath; Additional info: Cough/congestion/sob TECHNIQUE: Imaging protocol: Radiologic exam of the chest. Views: 1 view. COMPARISON: CR XR chest 1V portable [id number] 01/03/2025 6:01 AM FINDINGS: Lungs: Unremarkable. No consolidation or mass. Pleural spaces: Unremarkable. No pleural effusion. No pneumothorax. Heart/Mediastinum: Unremarkable. No cardiomegaly. Bones/joints: Unremarkable. XR/XR chest 1V portable [id number] IMPRESSION: No acute findings.
[2025-05-08 12:35] VITALS: PULSE 81; RESP 16; O2SAT 95
[2025-05-08] MEDS: methylPREDNISolone sod succ 125 mg/2 mL INJ IM (12:35)
[2025-05-08 13:15] LABS: Respiratory Syncytial Virus Ce NEGATIVE (Negative); SARS-CoV-2 PCR NEGATIVE (Negative)
== END 2025-05-08 13:28 | disposition home or self-care (01) ==
PROVIDERS: Emergency Provider Physician Assistant; PCP Family Medicine
DX: J06.9 Acute upper respiratory infection, unspecified (principal); R05.9 Cough, unspecified; Z11.52 Encounter for screening for COVID-19; F17.210 Nicotine dependence, cigarettes, uncomplicated
CPT/HCPCS: 71045; 87637; 94640; 96372; 99284; J2919; J9999

== ENCOUNTER 2025-06-12 23:28 | Inpatient (IN) | payer OTHER, MEDICAID, SELFPAY ==
--- OUTSIDE RECORDS SUMMARY | 2018-08-06 05:00 | XMS_ITS | Continuity of Care Document ---
Author Organization [facility] Address [address] [id number] [address] Phone Care Team Providers Care Correspondence Dictator Name Role Phone Momo Darby DDS Unavailable [...] Diagnoses Date Provider Providers Copied on Encounter [facility], [id number] [place], [place], [id number], [place] tel:[phone] [facility] Encounter for dental exam and cleaning w/o abnormal findings Wilner Barr. [address] [place], [address], [place]. tel:[phone] Referring Provider: Momo Darby, [address] [place], [address]. tel:[phone] [facility], [id number], [id number], [place] tel:[phone] [facility] Encounter for dental exam and cleaning w/o abnormal findings Wilner Barr. [address] [place], [address], [place]. tel:[phone] Referring Provider: Momo Darby, [address] [place], [address]. tel:[phone] [facility], [id number], [id number], [place] tel:[phone] [facility] Encounter for dental exam and cleaning w/o abnormal findings Wilner Barr. [address] [place], [address], [place]. tel:[phone] Referring Provider: Momo Darby, [address] [place], [address]. tel:[phone] [facility], [id number], [id number], [place] tel:[phone] [facility] Encounter for dental exam and cleaning w/o abnormal findings Wilner Barr. [address] [place], [address], [place]. tel:[phone] Referring Provider: Momo Darby, [address] [place], [address]. tel:[phone] Family History Family Member Type Diagnosis Age At Onset No Information Payers Payer name Insurance type Covered libertarian ID Authoriza titracy(s) No Information Social History [...]
--- OUTSIDE RECORDS SUMMARY | 2025-06-12 23:34 | XMS_ITS | Clinical Summary ---
Author Organization [facility] Address [address] [place] [address] Care Team Providers Care Payroll Administrator Name Role Phone Meseret Tejeda Primary Care Provider Allergies Active Allergy Reactions Criticality Noted Date Comments Codeine Other (See Comments) Medium 09/20/2023 Medication did not work well for the patient Zackary Barbara (See Comments) 07/31/2019 She felt jittery and side effects Sulfamethoxazole-Trim ethoprim Anaphylaxis High 06/07/2015 Medications benztropine (COGENTIN) 1 mg tabletIndications :Paranoid schizophrenia (CMS/HCC) Take 1 Tablet (1 mg) by mouth daily. 90 Tablet 4 08/17/20 21 Active carBAMazepine (TEGretol) 200 mg tablet Take 1.5 Tablets (300 mg) by mouth 2 times daily. 90 Tablet 6 09/06/20 21 Active Tea Tree Oil 100 % Oil Apply to affected area daily. Active hydrOXYzine HCL (ATARAX) 50 mg tablet Take 1 Tablet (50 mg) by mouth 3 times daily as needed for Anxiety. 90 Tablet 4 11/29/19 22 Active norethindrone (contraceptive) 0.35 mg tablet Take 0.35 mg by mouth daily. Active traZODone (DESYREL) 50 mg tablet Take 1 Tablet (50 mg) by mouth daily at bedtime. 90 Tablet 4 06/01/20 22 Active DULoxetine (CYMBALTA) 60 mg Capsule, Delayed Release(E.C.) Take 2 Capsules (120 mg) by mouth daily. 180 Capsule 4 07/12/20 22 Active MULTIVITAMIN ORAL Take by mouth. Active haloperidoL (HALDOL) 5 mg tablet TAKE ONE TABLET BY MOUTH EVERY DAY 90 Tablet 1 05/01/20 23 Active risperiDONE (RisperDAL) 2 mg tablet Take 2 mg by mouth 2 times daily. Active acetaminophen (Tylenol Extra Strength) 500 mg tablet Take 500 mg by mouth every 4 hours as needed. Active Invega Sustenna 234 mg/1.5 mL Syringe Inject 234 mg by intramuscular injection every 30 days. 12/11/19 24 Active paliperidone (INVEGA) 6 mg Extended Release 24 hour tablet Take 6 mg by mouth daily. 12/05/19 24 Active mirtazapine (REMERON) 7.5 mg tablet Take 1 Tablet (7.5 mg) by mouth daily at bedtime. 90 Tablet 1 12/21/19 24 Active dextromethorphan- guaiFENesin 60-1,200 mg Tablet Sustained Release 12HR Take 1 Tablet by mouth every 12 hours as needed for Other (See Comment) (cough or congestion). 60 Tablet 1 03/27/20 24 Active calcium as carbonate (Tums) 750 mg (300 mg elemental) Tablet, Chewable Take 2.5 Tablets (750 mg) by mouth 3 times daily as needed for Dyspepsia or Indigestion. 90 Tablet 1 03/27/20 24 Active docusate sodium (COLACE) 100 mg capsule TAKE ONE CAPSULE BY MOUTH TWICE DAILY FOR CONSTIPATION 180 Capsule 4 04/13/20 24 Active baclofen (LIORESAL) 20 mg tabletIndications :Other muscle spasm,Cervicalgia TAKE ONE TABLET BY MOUTH THREE TIMES DAILY (EVERY 8 HOURS) NEEDED FOR MUSCLE SPASMS 90 Tablet 1 06/11/20 24 Active bismuth subsalicylate (Pepto-BismoL) 262 mg/15 mL suspension Take 30 mL by mouth every 6 hours as needed for Indigestion. 300 mL 1 08/06/20 24 Active pantoprazole (PROTONIX) 40 mg Tablet, Delayed Release (E.C.) TAKE ONE TABLET BY MOUTH EVERY DAY 30 MINUTES BEFORE BREAKFAST FOR GERD 90 Tablet 3 12/19/19 25 Active diclofenac sodium (VOLTAREN) 75 mg Tablet, Delayed Release (E.C.)Indications :Chronic bilateral low back pain with bilateral sciatica TAKE ONE TABLET BY MOUTH TWICE DAILY 60 Tablet 6 01/09/20 25 Active polyethylene glycol 3350 (MIRALAX) 17 gram/dose Powder dissolve ONE SCOOPFUL (17 grams) in EIGHT ounces of fluid and drink entire liquid EVERY DAY FOR CONSTIPATION 510 Gram 5 03/11/20 25 Active traMADol (ULTRAM) 50 mg tabletIndications :Cervicalgia take two tablets by MOUTH twice daily NEEDED FOR pain 120 Tablet 1 03/18/20 25 Active albuterol sulfate HFA 90 mcg/actuation aerosol inhaler USE TWO INHALATIONS EVERY 6 HOURS NEEDED FOR SHORTNESS OF BREATH OR wheezing 8.5 Gram 6 04/16/20 25 Active lactobacillus acidophilus (Acidophilus) Tablet, Chewable CHEW ONE TABLET BY MOUTH TWICE DAILY 180 Tablet 3 04/27/20 25 Active Active Problems Problem Noted Date Diagnosed Date Mixed hyperlipidemia 07/23/2018 Gastroesophageal reflux disease without esophagi tis 08/01/2017 Generalized anxiety disorder 08/01/2017 Cigarette dependence 06/24/2015 Paranoid schizophrenia 09/01/2013 Resolved Problems Problem Noted Date Diagnosed Date Resolved Date Fibromyalgia 06/26/2015 05/23/2017 Encounters Date Type Department Care Team Description 05/12/2025 External Device Data STL ABSTRACTION Provider, Abstract 05/07/2025 Orders Only [facility] [address] [place] [address] Meseret Tejeda, DO Abnormal mammogram of left breast 04/30/2025 Refill [facility] [address] [place] [address] Meseret Tejeda, DO Cervicalgia 04/27/2025 Refill [facility] [address] [place] [address] Meseret Tejeda, DO 04/22/2025 External Device Data STL ABSTRACTION Provider, Abstract 04/21/2025 External Device Data STL ABSTRACTION Provider, Abstract 04/16/2025 Refill [facility] [address] [place] [address] Meseret Tejeda, DO 03/31/2025 Results Follow-Up [facility] [address] [place] [address] Meseret Tejeda, DO MAMMO SCREEN BILAT W OR WO CAD 03/31/2025 Orders Only [facility] [address] [place] [address] Meseret Tejeda, DO Abnormal mammogram of left breast (Primary Dx) 03/31/2025 Orders Only [facility] Health Information Management [place] [address] [place] [address] Meseret Tejeda, DO 03/24/2025 External Device Data STL ABSTRACTION Provider, Abstract 03/18/2025 Refill [facility] [address] [place] [address] Meseret Tejeda, DO Cervicalgia from Last 3 [...] drink = 0.6 oz p ure alcohol) Financial Resource Strain Answer Date R ecorded How hard is it for you to pa y for the very basics like food, housing, medical care, and heating? Somewhat hard 11/29/2021 Food Insecurity Answer Date Recorded In the past 12 months, have you worried that your food would run out before you had money to buy more? Never true 11/29/2021 In the past 12 months, did y ou run out of food and didn't have money to buy more? Never true 11/29/2021 Transportation Needs Answer Date Record ed In the past 12 months, has l ack of transportation kept you from medical appointments or from getting medications? 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 Gender Identity Not on file Sexual Orientation [...] Description 06/29/2025 9:00 AM CDT Office Visit [facility] [address] [place] [id number] January, FACULTY SUPPORT COORDINATOR [address] [place] [id number] Health Maintenance Due Date Last Done Comments DTAP/TDAP/TD VACCINES (6 - Tdap) 1996 03/15/1990, 05/21/1987, 1985, Additional history exists HEPATITIS B VACCINES (1 of 3 - 19+ 3-dose series) 2004 HPV VACCINES (1 - 3-dose SCD M series) 2012 PAP SMEAR 06/30/2022 06/30/2019, 06/30/2019 CERVICAL CANCER SCREENING 06/30/2024 HPV/Cotest (21-29) 06/30/2024 06/30/2019 HPV/Cotest (30-65) 06/30/2024 06/30/2019 [place] ([place]) Preventative Visit/Annual Wellness Visit 10/08/2024 08/06/2024, 09/20/2023, [...] Anatomical Region Laterality Modality Breast Left Mammography Meseret L Ileana DO MAMMO ORDERABLES Final Resu lt * MAMMO SCREEN BILAT W OR WO CAD (03/30/2025 12:09 PM CDT) Anatomical Region Laterality Modality Breast Bilateral Mammography us Meseret L Ileana DO MAMMO ORDERABLES Final Resu lt * HEMOGLOBIN A1C (04/21/2022) Blood us Meseret L Ileana DO CHEMISTRY ORDERABLES Final Result [facility] CLIA# [id number] [facility] [place] [address] * CERV/VAG CYTO SCREEN PAP RLFX HPV (06/30/2019 4:39 PM CDT) CLINICAL INFORMATION Oral contraceptives Routine exam Other high risk factor, specify 07/06/2019 1:06 PM CDT [facility] LAST MENSTRUAL PERIOD [id number]/06/2019 1:06 PM CDT [facility] PREV PAP: INFORMATION NOT PROVIDED 07/06/2019 1:06 PM CDT [facility] PREV BX: INFORMATION NOT PROVIDED 07/06/2019 1:06 PM CDT [facility] SOURCE Endocervix 07/06/2019 1:06 PM CDT [facility] ADEQUACY: SEE COMMENT 07/06/2019 1:06 PM CDT [facility] Comment: Satisfactory for evaluation. Endocervical/transformation zone component present. PAP INTERP Negative for intraepithelial lesion or malignancy. 07/06/2019 1:06 PM CDT [facility] COMMENT This Pap test has been evaluated with computer assisted technology. 07/06/2019 1:06 PM CDT [facility] NUCLEAR SCIENTIST: SEE COMMENT 2018 1:06 PM CDT [facility] Comment: ABC, CT(ASCP) CT screening location: [place] [address] Administration CAROLYNN Figueroa [id number] REVIEW NUCLEAR SCIENTIST: SEE COMMENT 07/06/2019 1:06 PM CDT [facility] Comment: MMW, CT(ASCP) CT screening location: [place] [address] Administration CAROLYNN Figueroa EXPLANATORY NOTE SEE COMMENT 019 1:06 PM CDT [facility] Comment: EXPLANATORY NOTE: The Pap is a [...] PM CDT 07/02/2019 9:17 AM CDT Narrative [facility] - 07/06/2019 1:06 PM CDT Performing Organization Information: Site ID: Name: [facility] Address: [address] [place] [address] Director: Silvia Stewart Pari Salazar FACULTY SUPPORT COORDINATOR PATHOLOGY/CYTOLOGY ORDERABLES Final Result [facility] [phone] [facility] [address] from Last 3 Months or Most Recently Relevant to Health Maintenance Insurance C[address]O [address] [address] [place] [address] DUAL COMPLETE PPO DSNP [facility] [id number] Care Teams Payroll Administrator Relationship Specialty Start Date End Date Meseret Tejeda DO [address] [place] [phone] PCP - General Family Practice 09/01/13
--- OUTSIDE RECORDS SUMMARY | 2025-06-12 23:34 | XMS_ITS | Encounter Summary ---
Author Organization [facility] Address [address] [place] [address] Care Team Providers Care Extender Name Role Phone Meseret Tejeda DO Primary Care Provider [phone] Reason for Referral * Radiology Services (Routine) - Closed Specialty Diagnoses / Procedures Referred By Contac t Referred To Contact Radiology Diagnoses Breasts asymmetrical Procedures MAMMO DIAG UNI RIGHT 3D KIRSTY W OR WO CAD MAMMO DIAGNOSTIC UNI RIGHT W OR WO CAD CHG DIAGNOSTIC MAMMOGRAPHY COMPUTER-AIDED DETCJ UNI CHG DIGITAL BREAST TOMOSYNTHESIS UNILATERAL Meseret Tejeda DO [address] [place] [address] Phone: tel: fax: [facility] [address] [address] Phone: tel: fax: Referral ID Status Reason Start Date Expiration Date Visits Requested Visits Authorized [id number] Closed Performing Department To Schedule (SGF) 05/27/2020 06/27/2021 1 1 Encounter Details Date Type Department Care Team (Latest Contact Info) Description 07/01/2020 Ancillary Orders [facility] Family [facility] [place] [address] [place] [address] Meseret Tejeda DO [address] [place] [address] Breasts asymmetrical Social History Tobacco [...] interval follow-up, six months Recommendation Laterality: Right [id number] Narrative 07/01/2020 4:48 PM CDT EXAM: MAMMO DIAG UNI RIGHT 3D KIRSTY W OR WO CAD, MAMMO BREAST US RIGHT [facility], 07/01/2020 2:49 PM CLINICAL INDICATIONS: Call back [...] breast documented in this encounter Care Teams Extender Relationship Specialty Start Date End Date Meseret Tejeda DO [address] [place] [phone] PCP - General Family Practice 09/01/13 documented as of this encounter
--- OUTSIDE RECORDS SUMMARY | 2025-06-12 23:34 | XMS_ITS | Encounter Summary ---
Author Organization [facility] Address [address] [place] [address] Care Team Providers Care Sow Farm Technician Name Role Phone Meseret Tejeda DO Primary Care Provider [phone] Encounter Details Date Type Department Care Team (Latest Contact Info) Description 06/16/[address] [facility] [address] [facility] [address] [place] [address] Meseret Tejeda DO [address] [place] [address] Breasts asymmetrical Social History Tobacco [...] breast documented in this encounter Care Teams Sow Farm Technician Relationship Specialty Start Date End Date Meseret Tejeda DO [address] [place] [address] PCP - General Family Practice 09/01/13 documented as of this encounter
--- OUTSIDE RECORDS SUMMARY | 2025-06-12 23:35 | XMS_ITS | Clinical Summary ---
Author Organization [facility] Address [address] [place] [address] Care Team Providers Care Clothing Supervisor Name Role Phone Ileana, Meseret Reuben CHAVARRIA [...] Due Date Last Done Comments DTAP/TDAP/TD VACCINES (1 - Tdap) 2004 HEPATITIS B VACCINES (1 of 3 - 19+ 3-dose series) 2004 HPV VACCINES (1 - 3-dose SCD M series) 2012 PAP SMEAR 06/30/2022 06/30/2019 Pre-Diabetes and Diabetes Screening 12/23/2023 12/22/2020, 05/23/2019, 04/22/2019, Additional history exists CERVICAL CANCER SCREENING 06/30/2024 HPV/Cotest (21-29) 06/30/2024 06/30/2019 HPV/Cotest (30-65) 06/30/2024 06/30/2019 [place] Preventative Visit/Annual Wellness Visit 10/08/2024 02/17/2021, 06/30/2019 INFLUENZA VACCINE (#1) 2025 07/31/2019 BREAST CANCER SCREENING 05/07/2026 05/07/20 25, 03/30/2025, 07/01/2020, Additional history exists Procedures Procedure Name Priority [...] interval follow-up, six months Recommendation Laterality: Right [id number] Narrative 07/01/2020 4:48 PM CDT EXAM: MAMMO [...] 07/06/2019 1:06 PM CDT [facility] DOUGH PUNCHER: SEE COMMENT 2018 1:06 PM CDT [facility] Comment: ABC, CT(ASCP) CT screening location: [place] [address] Administration CAROLYNN Figueroa REVIEW DOUGH PUNCHER: SEE COMMENT 07/06/2019 1:06 PM CDT [facility] Comment: MMW, CT(ASCP) CT screening location: [place] [address] Administration CAROLYNN [id number] EXPLANATORY NOTE SEE COMMENT [...] PM CDT 07/01/2019 10:30 AM CDT Narrative [facility] - 07/06/2019 1:06 PM CDT Performing Organization Information: Site ID: [facility] Administration [place] [address] Director: Silvia Stewart Pari Salazar CHIEF MINISTER PATHOLOGY/CYTOLOGY ORDERABLES Final Result [facility] [phone] from Last 3 Months or Most Recently Relevant to Health Maintenance Insurance MEDICAID [place] Member Subscriber Plan / Payer (Ef fective 2012-Present) Name:Kathrin Patricio R Relation to Subscriber:Self Name:Kathrin Patricio Payer ID:[id number] Group ID:Not on file Type:Medicaid Address: [address] DUAL COMPLETE [facility] PPO D-SNP PUBLIC MANAGER [place] FLAVIA BOSWELL C/O [address] DUAL COMPLETE [facility] PPO D-SNP MEDICAID [place] Care Teams Clothing Supervisor Relationship Specialty Start Date End Date Meseret Tejeda DO [address] [place] [address] PCP - General Family Practice 09/01/13
[2025-06-12 23:42] VITALS: BP 144/67; PULSE 65; RESP 18; TEMP 36.8; O2SAT 97; BMI 25.7
[2025-06-13] VITALS (7 sets, daily range): BP systolic 108–133; BP diastolic 75–88; PULSE 81–89; RESP 17–18; TEMP 36.3–36.8; O2SAT 92–98
[2025-06-13 00:15] LABS: Hematocrit 35.3 % (36-47); Hemoglobin 12.60 g/dL (11.27-16.99); Mean Corpuscular HGB Conc 35.7 g/dL (30-55); Mean Corpuscular Hemoglobin 35.0 pg (27-33); Mean Corpuscular Volume 98.1 fl (85-98); Nucleated Red Blood Cells % 0 %; Platelet Count 303 10^3/cmm (157-399); Red Blood Count 3.60 10^6/uL (3.85-5.65); White Blood Count 9.15 10^3/uL (3.29-11.43)
[2025-06-13 00:31] LABS: HCG, Serum Qual Negative (Negative)
[2025-06-13 00:35] LABS: Alanine Aminotransferase 15 U/L (0-33); Albumin Level 4.3 g/dL (3.5-5.2); Alkaline Phosphatase 152 U/L (35-105); Anion Gap 16.9 (5-19); Aspartate Amino Transferase 15 U/L (0-32); Blood Urea Nitrogen 4 mg/dL (6-20); Calcium 8.8 mg/dL (8.5-10.5); Carbon Dioxide 23 mmol/L (22-29); Chloride 95 mmol/L (98-107); Creatinine Clr Calc Pharmacy 118.1256; Globulin 2.6 g/dL (1.3-4.6); Glucose 91 mg/dL (65-115); Osmolality Calculated 268 mOsm/kg (285-295); Potassium 3.9 mmol/L (3.5-5.1); Sodium 131 mmol/L (136-145); Total Protein 6.9 g/dL (6.6-8.7)
--- NOTE | 2025-06-13 00:52 | W.ED.PSYCHS ---
Documented by User: SUSAN Traore 06/13/25 01:08 HPI - Psych General: Chief Complaint: Psychiatric Symptoms Stated Complaint: mhc Time Seen by Provider: 06/12/25 23:31 Source: patient Mode of arrival: ambulatory Limitations: no limitations History of Present Illness: Patient is a 40-year-old female with past medical history of schizoaffective disorder who presents the emergency department complaining of hallucinations and overall feeling unwell for weeks now. States that she has been hearing voices, and they have been talking to each other and this has been causing the patient to not concentrate and she essentially states that she has been unable to function. States that she think she needs to be seen by psychiatrist due to history of similar in the past, she is not having any suicidal ideations at this time but is concerned that these voices may progress to this. States that she has not had any changes to medications recently, is not having any homicidal ideations or any visual hallucinations. She lives at [facility], is voluntarily coming into the ED for evaluation. No other symptoms at this time, she is anxious notably and asks for an Ativan. MD complaint: other (Auditory hallucinations, anxiety) Onset (ago): week(s) Duration: getting worse History of same: Yes Associated symptoms: Reports auditory hallucinations; Deny visual hallucinations, homicidal ideation or suicidal ideation Treatments prior to arrival: none Related Data Home Medications ?Medication ?Instructions ?Recorded ?Confirmed ibuprofen 200 mg tablet 200 - 400 mg PO Q4H PRN Pain 05/24/21 03/30/25 polyethylene glycol 3350 17 17 g PO DAILY@07 05/24/21 03/30/25 gram/dose oral powder (Miralax) acetaminophen 500 mg tablet 1,000 mg PO Q4H PRN fever or pain 04/24/22 03/30/25 (Tylenol Extra Strength) multivitamin 1 tab PO QAM 04/24/22 03/30/25 tramadol 50 mg tablet 100 mg PO BID PRN Pain 07/24/22 03/30/25 Bacillus coagulans 400 million 1 cell PO BID 05/22/23 03/30/25 cell chewable tablet (Digestive Advantage Kid Probiotic-Prebio) baclofen 20 mg tablet 20 mg PO TID PRN Pain 05/22/23 03/30/25 tea tree oil 100 % topical 1 ea topical DAILY PRN unknown 05/22/23 03/30/25 diclofenac sodium 75 mg 75 mg PO BID 01/23/24 03/30/25 tablet,delayed release menthol 2.7 mg lozenges (Cough 5.4 mg mucous membrane Q4H PRN 01/23/24 03/30/25 Drops) Cough Previous Rx's ?Medication ?Instructions ?Recorded pantoprazole 40 mg tablet,delayed 40 mg PO DAILY 30 days #30 tabs 03/06/23 release (Protonix) haloperidol 10 mg tablet 10 mg PO BID #60 tabs 09/10/24 fluconazole 150 mg tablet 150 mg PO ONCE #2 tabs 10/17/24 benztropine 1 mg tablet 1 mg PO BID #60 tabs 03/10/25 carbamazepine 200 mg tablet 300 mg (1.5 x 200 mg) PO BID #90 03/10/25 (Tegretol) tabs mirtazapine 7.5 mg tablet 7.5 mg PO BEDTIME #30 tabs 03/10/25 norethindrone (contraceptive) 0.35 See Rx Instructions .Route 03/10/25 mg tablet .COMPLEX #84 tabs paliperidone 6 mg tablet,extended 6 mg PO QAM #30 tabs 03/10/25 release 24 hr paliperidone palmitate 234 mg/1.5 234 mg (1.5 mL) IM Q30D #1.5 mL 03/10/25 mL intramuscular syringe ([facility] risperidone 2 mg tablet 2 mg PO BID #60 tabs 03/10/25 trazodone 50 mg tablet 50 mg PO BEDTIME Sleep #30 tabs 03/10/25 duloxetine 60 mg capsule,delayed 120 mg (2 x 60 mg) PO DAILY #60 03/26/25 release caps hydroxyzine HCl 50 mg tablet 50 mg PO TID PRN anxiety #90 tabs 04/14/25 Allergies Allergy/AdvReac Type Severity Reaction Status Date / Time codeine Allergy Unknown Verified 05/08/25 12:04 Sulfa (Sulfonamide Allergy algy-rash Verified 05/08/25 12:04 Antibiotics) Review of Systems General: Reports: 10 or more systems reviewed and unremarkable except in HPI and below Const: Denies: fever(s), chills or fatigue Eyes: Denies: change in vision ENMT: Denies: throat pain, ear or mastoid pain or nasal discharge Card: Denies: chest pain, palpitations, swelling of feet/ankles or lightheadedness Resp: Denies: dyspnea, productive cough or wheezing GI: Denies: abdominal pain, nausea, vomiting, diarrhea or constipation : Denies: flank pain, difficulty voiding, dysuria or urinary frequency Musc: Denies: neck pain, back pain or joint pain Skin/Breast: Denies: rash Neuro: Denies: headache(s), numbness in extremities or weakness in extremities Psych: Reports: anxiety and auditory hallucinations; Denies: visual hallucinations, tactile hallucinations, suicidal ideation or homicidal ideation PFS ED PFSH: Medical History Psychiatric care Schizoaffective disorder, depressive type No pertinent past medical history neghx: htn, dm, thyroid, dvt/pe PCP: Dr. Meseret Tejeda Paranoid schizophrenia managed by Dr. Kee -- [facility] Nicotine dependence, cigarettes, uncomplicated Panic disorder without agoraphobia managed by Dr[facility] Kee-[facility] HPV in female Insomnia Tachycardia Anxiety and depression Surgical History History of foot operation 1993-- treatment of plantar wart Family History Family/Other Thyroid disease maternal Denies family history of Colon cancer Ovarian cancer Prostate cancer Diabetes Heart disease Hyperlipidemia Breast cancer Bleeding disorder Hypertension Uterine cancer Stroke Social History Smoking and tobacco/nicotine status: current every day tobacco/nicotine user cigarettes Packs smoked per day: 1 Years cigarettes smoked: 20 Physical Exam Const: COMMON NORMALS: patient oriented x3 and no limitations GENERAL APPEARANCE: cooperative and anxious ORIENTATION/CONSCIOUSNESS: Yes awake, Yes oriented to person, Yes oriented to place and Yes oriented to time HENMT: COMMON NORMALS: normocephalic, atraumatic and hearing grossly normal bilaterally HEAD & SCALP: normocephalic and atraumatic Eye: COMMON NORMALS: Equal, round and reactive pupils present, EOMs intact bilaterally and conjunctivae normal CONJUNCTIVA: Yes conjunctivae normal PUPIL: Yes Equal, round and reactive pupils present Neck/C-Spine: COMMON NORMALS: full ROM, supple and no JVD Resp: COMMON NORMALS: normal respiratory effort, No retractions, No use of accessory muscles and clear to auscultation bilaterally AUSCULTATION: clear to auscultation bilaterally Cardio: COMMON NORMALS: no JVD, regular rate, regular rhythm, No clicks present (Cardio), No murmurs present (Cardio) and No rub (Cardio) RATE: regular rate RHYTHM: regular rhythm GI: COMMON NORMALS: Normal to inspection, nondistended, normoactive bowel sounds present, Soft to palpation and non-tender AUSCULTATION: Yes normoactive bowel sounds PALPATION: Yes Soft to palpation RECTAL EXAM: deferred Extremity: COMMON NORMALS: normal to inspection, full ROM and capillary refill normal Neuro: COMMON NORMALS: patient oriented x3, moves all extremities, no focal motor deficits and no sensory deficits noted SENSORIUM/ORIENTATION: Yes oriented to person, Yes oriented to place and Yes oriented to time Psych: COMMON NORMALS: mental status grossly normal, Normal thought process present and speech normal ATTITUDE: Yes paranoid ACTIVITY/MOTOR BEHAVIOR: Yes Avoids eye contact (attititude/behavior) SPEECH: Yes normal speech THOUGHT PROCESS: Normal thought process present THOUGHT CONTENT: No Suicidality present, No Homicidality present and Yes Hallucination(s) present auditory Skin: COMMON NORMALS: no rashes or lesions noted GENERAL SKIN EXAM: no rashes or lesions noted Course Vital Signs: Vital signs: Vital Signs Temperature 98.2 F 06/12/25 23:42 Pulse Rate 65 06/12/25 23:42 Respiratory Rate 18 06/12/25 23:42 Blood Pressure 144/67 06/12/25 23:42 Pulse Oximetry 97 06/12/25 23:42 [facility] - Psych Medical Decision Making Patient presenting for concern for acute psychosis with reports of auditory hallucinations, not suicidal here but she states the voices been getting worse and she is concerned that they will start becoming command hallucinations. Cleared medically and will be transferred to the neuropsychiatric unit, accepted by Dr. Copeland. Lab Data 06/12/25 00:09 06/12/25 00:09 Laboratory Results WBC 9.15 10^3/uL (3.29-11.43) 06/12/25 00:09 RBC 3.60 10^6/uL (3.85-5.65) L 06/12/25 00:09 Hgb 12.60 g/dL (11.27-16.99) 06/12/25 00:09 Hct 35.3 % (36-47) L 06/12/25 00:09 MCV 98.1 fl (85-98) H 06/12/25 00:09 MCH 35.0 pg (27-33) H 06/12/25 00:09 MCHC 35.7 g/dL (30-55) 06/12/25 00:09 RDW 12.0 % (12.1-15.1) L 06/12/25 00:09 Plt Count 303 10^3/cmm (157-399) 06/12/25 00:09 MPV 8.4 fL (7.4-10.4) 06/12/25 00:09 Neut % (Auto) 56.3 % 06/12/25 00:09 Lymph % (Auto) 34.4 % 06/12/25 00:09 Hitchcock % (Auto) 6.4 % 06/12/25 00:09 Eos % (Auto) 1.7 % 06/12/25 00:09 Baso % (Auto) 0.9 % 06/12/25 00:09 Neut # (Auto) 5.14 10^3/uL (1.8-7.7) 06/12/25 00:09 Lymph # (Auto) 3.2 10^3/uL (0.8-4.8) 06/12/25 00:09 Hitchcock # (Auto) 0.6 10^3/uL (0.2-0.9) 06/12/25 00:09 Eos # (Auto) 0.2 10^3/uL (0.0-0.8) 06/12/25 00:09 Baso # (Auto) 0.1 10^3/uL (0.0-0.1) 06/12/25 00:09 Nucleated RBC % (auto) 0 % 06/12/25 00:09 Nucleated RBCs # 0.0 /100WBC 06/12/25 00:09 Sodium 131 mmol/L (136-145) L 06/12/25 00:09 Potassium 3.9 mmol/L (3.5-5.1) 06/12/25 00:09 Chloride 95 mmol/L (98-107) L 06/12/25 00:09 Carbon Dioxide 23 mmol/L (22-29) 06/12/25 00:09 Anion Gap 16.9 (5-19) 06/12/25 00:09 BUN 4 mg/dL (6-20) L 06/12/25 00:09 Creatinine 0.6 mg/dL (0.5-0.9) 06/12/25 00:09 GFR Calculation 110.7 mL/min (90-130) 06/12/25 00:09 Glucose 91 mg/dL (65-115) 06/12/25 00:09 Calculated Osmolality 268 mOsm/kg (285-295) L 06/12/25 00:09 Calcium 8.8 mg/dL (8.5-10.5) 06/12/25 00:09 Total Bilirubin 0.3 mg/dL (0.15-1.2) 06/12/25 00:09 AST 15 U/L (0-32) 06/12/25 00:09 ALT 15 U/L (0-33) 06/12/25 00:09 Alkaline Phosphatase 152 U/L (35-105) H 06/12/25 00:09 Total Protein 6.9 g/dL (6.6-8.7) 06/12/25 00:09 Albumin 4.3 g/dL (3.5-5.2) 06/12/25 00:09 Globulin 2.6 g/dL (1.3-4.6) 06/12/25 00:09 HCG, Qual Negative (Negative) 06/12/25 00:09 Salicylates < 0.3 mg/dL (3-10) L 06/12/25 00:09 Acetaminophen < 5.0 ug/mL (10-30) L 06/12/25 00:09 Ethyl Alcohol < 10 mg/dL (0-10) 06/12/25 00:09 No radiology studies performed this visit Discharge Plan Discharge Patient Disposition: Admitted As Inpatient Clinical Impression: Acute psychosis Condition: Stable Coding Level of Care Code ED Director Supply Chain for Chg Fwd Documented by User: Irwin Bassett, DO 06/13/25 01:16 HPI - Psych General: Chief Complaint: Psychiatric Symptoms Stated Complaint: mhc Time Seen by Provider: 06/12/25 23:31 Related Data Home Medications ?Medication ?Instructions ?Recorded ?Confirmed ibuprofen 200 mg tablet 200 - 400 mg PO Q4H PRN Pain 05/24/21 03/30/25 polyethylene glycol 3350 17 17 g PO DAILY@07 05/24/21 03/30/25 gram/dose oral powder (Miralax) acetaminophen 500 mg tablet 1,000 mg PO Q4H PRN fever or pain 04/24/22 03/30/25 (Tylenol Extra Strength) multivitamin 1 tab PO QAM 04/24/22 03/30/25 tramadol 50 mg tablet 100 mg PO BID PRN Pain 07/24/22 03/30/25 Bacillus coagulans 400 million 1 cell PO BID 05/22/23 03/30/25 cell chewable tablet (Digestive Advantage Kid Probiotic-Prebio) baclofen 20 mg tablet 20 mg PO TID PRN Pain 05/22/23 03/30/25 tea tree oil 100 % topical 1 ea topical DAILY PRN unknown 05/22/23 03/30/25 diclofenac sodium 75 mg 75 mg PO BID 01/23/24 03/30/25 tablet,delayed release menthol 2.7 mg lozenges (Cough 5.4 mg mucous membrane Q4H PRN 01/23/24 03/30/25 Drops) Cough Previous Rx's ?Medication ?Instructions ?Recorded pantoprazole 40 mg tablet,delayed 40 mg PO DAILY 30 days #30 tabs 03/06/23 release (Protonix) haloperidol 10 mg tablet 10 mg PO BID #60 tabs 09/10/24 fluconazole 150 mg tablet 150 mg PO ONCE #2 tabs 10/17/24 benztropine 1 mg tablet 1 mg PO BID #60 tabs 03/10/25 carbamazepine 200 mg tablet 300 mg (1.5 x 200 mg) PO BID #90 03/10/25 (Tegretol) tabs mirtazapine 7.5 mg tablet 7.5 mg PO BEDTIME #30 tabs 03/10/25 norethindrone (contraceptive) 0.35 See Rx Instructions .Route 03/10/25 mg tablet .COMPLEX #84 tabs paliperidone 6 mg tablet,extended 6 mg PO QAM #30 tabs 03/10/25 release 24 hr paliperidone palmitate 234 mg/1.5 234 mg (1.5 mL) IM Q30D #1.5 mL 03/10/25 mL intramuscular syringe (Invega Sustenna) risperidone 2 mg tablet 2 mg PO BID #60 tabs 03/10/25 trazodone 50 mg tablet 50 mg PO BEDTIME Sleep #30 tabs 03/10/25 duloxetine 60 mg capsule,delayed 120 mg (2 x 60 mg) PO DAILY #60 03/26/25 release caps hydroxyzine HCl 50 mg tablet 50 mg PO TID PRN anxiety #90 tabs 04/14/25 Allergies Allergy/AdvReac Type Severity Reaction Status Date / Time codeine Allergy Unknown Verified 05/08/25 12:04 Sulfa (Sulfonamide Allergy algy-rash Verified 05/08/25 12:04 Antibiotics) PFSH ED PFSH: Medical History Psychiatric care Schizoaffective disorder, depressive type No pertinent past medical history neghx: htn, dm, thyroid, dvt/pe PCP: Dr. Meseret Tejeda Paranoid schizophrenia managed by Dr. Kee -- [facility] Nicotine dependence, cigarettes, uncomplicated Panic disorder without agoraphobia managed by Dr. Kee-- [facility] HPV in female Insomnia Tachycardia Anxiety and depression Surgical History History of foot operation 1993-- treatment of plantar wart Family History Family/Other Thyroid disease maternal Denies family history of Colon cancer Ovarian cancer Prostate cancer Diabetes Heart disease Hyperlipidemia Breast cancer Bleeding disorder Hypertension Uterine cancer Stroke Social History Smoking and tobacco/nicotine status: current every day tobacco/nicotine user cigarettes Packs smoked per day: 1 Years cigarettes smoked: 20 Course Vital Signs: Vital signs: Vital Signs Temperature 98.2 F 06/12/25 23:42 Pulse Rate 65 06/12/25 23:42 Respiratory Rate 18 06/12/25 23:42 Blood Pressure 144/67 06/12/25 23:42 Pulse Oximetry 97 06/12/25 23:42 MDM - Psych Medical Decision Making Patient presenting for concern for acute psychosis with reports of auditory hallucinations, not suicidal here but she states the voices been getting worse and she is concerned that they will start becoming command hallucinations. Cleared medically and will be transferred to the neuropsychiatric unit, accepted by Dr. Copeland. Patient was originally seen by Mr. Isauro PA-C. I agree with his history, evaluation, and management. Orders been written. Lab Data 06/12/25 00:09 06/12/25 00:09 Laboratory Results WBC 9.15 10^3/uL (3.29-11.43) 06/12/25 00:09 RBC 3.60 10^6/uL (3.85-5.65) L 06/12/25 00:09 Hgb 12.60 g/dL (11.27-16.99) 06/12/25 00:09 Hct 35.3 % (36-47) L 06/12/25 00:09 MCV 98.1 fl (85-98) H 06/12/25 00:09 MCH 35.0 pg (27-33) H 06/12/25 00:09 MCHC 35.7 g/dL (30-55) 06/12/25 00:09 RDW 12.0 % (12.1-15.1) L 06/12/25 00:09 Plt Count 303 10^3/cmm (157-399) 06/12/25 00:09 MPV 8.4 fL (7.4-10.4) 06/12/25 00:09 Neut % (Auto) 56.3 % 06/12/25 00:09 Lymph % (Auto) 34.4 % 06/12/25 00:09 Hitchcock % (Auto) 6.4 % 06/12/25 00:09 Eos % (Auto) 1.7 % 06/12/25 00:09 Baso % (Auto) 0.9 % 06/12/25 00:09 Neut # (Auto) 5.14 10^3/uL (1.8-7.7) 06/12/25 00:09 Lymph # (Auto) 3.2 10^3/uL (0.8-4.8) 06/12/25 00:09 Hitchcock # (Auto) 0.6 10^3/uL (0.2-0.9) 06/12/25 00:09 Eos # (Auto) 0.2 10^3/uL (0.0-0.8) 06/12/25 00:09 Baso # (Auto) 0.1 10^3/uL (0.0-0.1) 06/12/25 00:09 Nucleated RBC % (auto) 0 % 06/12/25 00:09 Nucleated RBCs # 0.0 /100WBC 06/12/25 00:09 Sodium 131 mmol/L (136-145) L 06/12/25 00:09 Potassium 3.9 mmol/L (3.5-5.1) 06/12/25 00:09 Chloride 95 mmol/L (98-107) L 06/12/25 00:09 Carbon Dioxide 23 mmol/L (22-29) 06/12/25 00:09 Anion Gap 16.9 (5-19) 06/12/25 00:09 BUN 4 mg/dL (6-20) L 06/12/25 00:09 Creatinine 0.6 mg/dL (0.5-0.9) 06/12/25 00:09 GFR Calculation 110.7 mL/min (90-130) 06/12/25 00:09 Glucose 91 mg/dL (65-115) 06/12/25 00:09 Calculated Osmolality 268 mOsm/kg (285-295) L 06/12/25 00:09 Calcium 8.8 mg/dL (8.5-10.5) 06/12/25 00:09 Total Bilirubin 0.3 mg/dL (0.15-1.2) 06/12/25 00:09 AST 15 U/L (0-32) 06/12/25 00:09 ALT 15 U/L (0-33) 06/12/25 00:09 Alkaline Phosphatase 152 U/L (35-105) H 06/12/25 00:09 Total Protein 6.9 g/dL (6.6-8.7) 06/12/25 00:09 Albumin 4.3 g/dL (3.5-5.2) 06/12/25 00:09 Globulin 2.6 g/dL (1.3-4.6) 06/12/25 00:09 HCG, Qual Negative (Negative) 06/12/25 00:09 Salicylates < 0.3 mg/dL (3-10) L 06/12/25 00:09 Acetaminophen < 5.0 ug/mL (10-30) L 06/12/25 00:09 Ethyl Alcohol < 10 mg/dL (0-10) 06/12/25 00:09 Discharge Plan Discharge Patient Disposition: Admitted As Inpatient Clinical Impression: Acute psychosis Condition: Stable Coding Level of Care Code ED Director Supply Chain for Randi Sethi
[2025-06-13 01:06] LABS: Acetaminophen < 5.0 ug/mL (10-30); Alcohol Level < 10 mg/dL (0-10); Salicylate < 0.3 mg/dL (3-10)
--- NOTE | 2025-06-13 02:48 | PC.ADMIT ---
309 [facility] Admission Note: The patient,Kathrin Patricio,40 y/o, was given written information regarding hospital policies, unit procedures and contact persons. Patient's smoking status: current every day smoker. Vital Signs - 8 hr 06/12/25 23:42 Temperature 98.2 F Pulse Rate 65 Respiratory Rate 18 Blood Pressure 144/67 Pulse Oximetry 97 Pt 40 year old female with acute psychosis admitted by her guardian
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
[2025-06-13 16:21] LABS: PCP Screen Urine Negative (Negative)
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
[2025-06-14 06:00] VITALS: BP 139/93; PULSE 81; RESP 18; TEMP 36.8; O2SAT 98
[2025-06-14] MEDS: paliperidone ER 6 mg Tablet PO (07:57)
[2025-06-14 11:39] VITALS: PULSE 75; RESP 16; O2SAT 97
--- NOTE | 2025-06-14 13:13 | P.NPUPN_ITS ---
Subjective NPU 2 Subjective: Patient presented today reporting that things are okay. He was more alert than yesterday and able to have a conversation but continued to be unable to really give rational discourse about what is going on. She would speak normally for a moment and then talk about being in a vehicle and then when asked where is the vehicle she would describe space around her. She was pleasant and cooperative for staff reports and direct observation and we continued to discuss medication changes. She denied any side effects of the medication. Mental Status Exam 2 MSE Comments: This is an overweight versus obese white female in hospital scrubs with limited grooming and limited eye contact. No abnormal movements except for significant psychomotor retardation. More cooperative with exam in mild to moderate distress. Speech was decreased rate and volume. Mood described as I feel a little better, affect still confused than odd. Thought process linear at times other times disorganized. Thought content: Patient denies suicidal or homicidal ideation, there were no delusions reported but odd/bizarre delusions and possible somatic delusions which has been present in the past were noted, she seemed to report some possible hallucinations while she was at her facility. Attention and concentration were improving and memory mostly unreliable but none were formally tested. She is alert and oriented x person and place. Insight, judgment and impulse control are impaired Vitals/I&O/Wt Last Vital Signs Temp 98.5 F 06/14/25 14:00 Pulse 124 H 06/14/25 14:00 Resp 17 06/14/25 14:00 BP 123/80 06/14/25 14:00 Pulse Ox 97 06/14/25 14:00 O2 Del Method Room Air 06/14/25 14:00 Weight last 48 hrs Weight 79.016 kg Data NPU 06/12/25 00:09 06/12/25 00:09 A&P Assessment and plan 1. Paranoid schizophrenia: 2. Borderline personality disorder: 3. Schizoaffective disorder, depressive type: 4. Panic disorder without agoraphobia: Plan: This is a 40-year-old white female with schizoaffective disorder and borderline personality disorder known to the previous hospitalizations who presents coming from [facility] where she lives where she reportedly started having significant psychotic symptoms leading to the hospitalization. She presents appearing to really be struggling and unable to be a great historian. 1. Continue current medications and consider appropriate medication changes. 2. Continue every 15 minute checks for safety. 3. Encourage individual, group and milieu therapies. 4. Obtain collateral information. Including getting information from guardian about recent situation. Reviewed chart given her limited contribution to history. PDMP PDMP Reviewed: Not Reviewed Involuntary Hold Information 2 Hold Status: Legal Status: Active Guardianship 96 Hour Hold: 96 Hour Involuntary Admission: No Attestations NPU 2 Medical Necessity Statement*: Inpatient hospitalization is medically necessary and deemed to be the clinically appropriate intervention at this time. We will monitor and initiate medications while making changes as indicated. Her likely length of stay is 5-7 days. Coding Level of Care Code Acute Code for g Fwd Diagnoses Paranoid schizophrenia F20.0 Borderline personality disorder F60.3 Schizoaffective disorder, depressive type F25.1 Panic disorder without agoraphobia F41.0
[2025-06-14 14:00] VITALS: BP 123/80; PULSE 124; RESP 17; TEMP 36.9; O2SAT 97
--- NOTE | 2025-06-14 17:41 | PC.NURSE ---
[facility] brought in pt Home Meds of control and albuterol inhaler. Dr. Copeland approved these medications and orders were placed in the computer. Meds were taken down to pharmacy for an inpatient label to be placed on them.
[2025-06-14] MEDS: NORETHINDRONE 0.35 MG 0.35 EACH PO (20:47)
[2025-06-14 22:00] VITALS: BP 128/87; PULSE 70; RESP 18; TEMP 36.9; O2SAT 97
[2025-06-15 06:00] VITALS: BP 143/109; PULSE 81; RESP 18; O2SAT 98
[2025-06-15] MEDS: paliperidone ER 6 mg Tablet PO (07:44)
[2025-06-15] MEDS: NORETHINDRONE 0.35 MG 0.35 EACH PO (07:46)
--- NOTE | 2025-06-15 10:42 | PC.NURSE ---
prn Zyprexa zydis 5 mg given po sublingual per pt request. stated shes anxious and having a lot going on in my head requested Zyprexa zyids
--- NOTE | 2025-06-15 13:47 | P.NPUPN_ITS ---
Subjective NPU 2 Subjective: Patient presented today reporting that she is feeling okay and hopeful that they can get better. She gives no explanation as to why things fell apart when they did but then she started speculating that issues surrounding a relationship she is in where they are trying to get money for housing but the goal of her moving out of [facility]. She reports that she feels a little bit better but is unsure why she decompensated. She reports she [facility] and [facility] and has good connections there. We discussed trying to figure out what to do with her medication and increasing her antipsychotic. She denied any side effects to her medication. Mental Status Exam 2 MSE Comments: This is an overweight versus obese white female in hospital scrubs with limited grooming and limited eye contact. No abnormal movements except for significant psychomotor retardation. More cooperative with exam in mild to moderate distress. Speech was decreased rate and volume. Mood described as I feel a little better, affect still confused than odd. Thought process linear at times other times disorganized. Thought content: Patient denies suicidal or homicidal ideation, there were no delusions reported but odd/bizarre delusions and possible somatic delusions which has been present in the past were noted, she seemed to report some possible hallucinations while she was at her facility. Attention and concentration were improving and memory mostly unreliable but none were formally tested. She is alert and oriented x person and place. Insight, judgment and impulse control are impaired Vitals/I&O/Wt Last Vital Signs Temp 98.4 F 06/14/25 22:00 Pulse 81 06/15/25 06:00 Resp 18 06/15/25 06:00 BP 143/109 06/15/25 06:00 Pulse Ox 98 06/15/25 06:00 O2 Del Method Room Air 06/15/25 06:00 06/14/25 06/15/25 06/15/25 22:59 06:59 14:59 Intake Total 0 / 0 Balance 0 / 0 Weight last 48 hrs Weight 79.016 kg Data NPU 06/12/25 00:09 06/12/25 00:09 A&P Assessment and plan 1. Paranoid schizophrenia: 2. Borderline personality disorder: 3. Schizoaffective disorder, depressive type: 4. Panic disorder without agoraphobia: Plan: This is a 40-year-old white female with schizoaffective disorder and borderline personality disorder known to the previous hospitalizations who presents coming from [facility] where she lives where she reportedly started having significant psychotic symptoms leading to the hospitalization. She presents appearing to really be struggling and unable to be a great historian. 1. Continue current medications and consider appropriate medication changes. 2. Continue every 15 minute checks for safety. 3. Encourage individual, group and milieu therapies. 4. Obtain collateral information. Including getting information from guardian about recent situation. Reviewed chart given her limited contribution to history. PDMP PDMP Reviewed: Not Reviewed Involuntary Hold Information 2 Hold Status: Legal Status: Active Guardianship 96 Hour Hold: 96 Hour Involuntary Admission: No Attestations NPU 2 Medical Necessity Statement*: Inpatient hospitalization is medically necessary and deemed to be the clinically appropriate intervention at this time. We will monitor and initiate medications while making changes as indicated. Her likely length of stay is 5-7 days. Coding Level of Care Code Acute Code for [facility] Fwd Diagnoses Paranoid schizophrenia F20.0 Borderline personality disorder F60.3 Schizoaffective disorder, depressive type F25.1 Panic disorder without agoraphobia F41.0
[2025-06-15 14:00] VITALS: BP 129/88; PULSE 109; RESP 16; TEMP 36.6; O2SAT 98
[2025-06-15 19:48] VITALS: BP 135/90; PULSE 82; RESP 18; TEMP 36.6; O2SAT 99
[2025-06-15 20:02] VITALS: BP 135/90; PULSE 82; RESP 18; TEMP 36.6; O2SAT 99
[2025-06-16 06:00] VITALS: BP 146/91; PULSE 80; RESP 16; TEMP 36.4; O2SAT 98
[2025-06-16] MEDS: paliperidone ER 6 mg Tablet PO (08:43)
[2025-06-16] MEDS: NORETHINDRONE 0.35 MG 0.35 EACH PO (08:45)
[2025-06-16 13:03] VITALS: BP 130/93; PULSE 79; RESP 18; TEMP 36.6; O2SAT 99
--- NOTE | 2025-06-16 14:35 | PC.NURSE ---
Signee called [facility] and spoke to a nurse who said pt. last received the Invaga 234mg inj on 05/23/25.
--- NOTE | 2025-06-16 19:41 | P.NPUPN_ITS ---
Subjective NPU 2 Subjective: Patient presented today reporting that things are going okay. We discussed the risks, benefits and alternatives of increasing her Invega injection to every 3 weeks and hopefully being able to discontinue some of the Risperdal. She reports that she is feeling some improvement and how she is thinking and was hopeful that she would not have to be here very much longer. She denied any side effects of medication. Mental Status Exam 2 MSE Comments: This is an overweight versus obese white female in hospital scrubs with limited grooming and limited eye contact. No abnormal movements except for mild psychomotor retardation. More cooperative with exam in mild distress. Speech was decreased rate and volume. Mood described as I feel a little better, affect less confused and odd. Thought process linear and less disorganized. Thought content: Patient denies suicidal or homicidal ideation, there were no delusions reported but odd/bizarre delusions and possible somatic delusions which has been present in the past were noted, she seemed to report some possible hallucinations while she was at her facility. Attention and concentration were improving and memory mostly unreliable but none were formally tested. She is alert and oriented x person and place. Insight, judgment and impulse control are impaired Vitals/I&O/Wt Last Vital Signs Temp 97.7 F 06/16/25 19:47 Pulse 118 H 06/16/25 19:47 Resp 17 06/16/25 19:47 BP 130/93 06/16/25 19:47 Pulse Ox 97 06/16/25 19:47 O2 Del Method Room Air 06/16/25 19:47 Data NPU 06/12/25 00:09 06/12/25 00:09 A&P Assessment and plan 1. Paranoid schizophrenia: 2. Borderline personality disorder: 3. Schizoaffective disorder, depressive type: 4. Panic disorder without agoraphobia: Plan: This is a 40-year-old white female with schizoaffective disorder and borderline personality disorder known to the previous hospitalizations who presents coming [place] [facility] where she lives where she reportedly started having significant psychotic symptoms leading to the hospitalization. She presents appearing to really be struggling and unable to be a great historian. 1. Continue current medications and consider appropriate medication changes. Discussed administering her shot now and changing her to every 3 week injections. 2. Continue every 15 minute checks for safety. 3. Encourage individual, group and milieu therapies. 4. Obtain collateral information. Including getting information from guardian about recent situation. Reviewed chart given her limited contribution to history. PDMP PDMP Reviewed: Not Reviewed Involuntary Hold Information 2 Hold Status: Legal Status: Active Guardianship 96 Hour Hold: 96 Hour Involuntary Admission: No Attestations NPU 2 Medical Necessity Statement*: Inpatient hospitalization is medically necessary and deemed to be the clinically appropriate intervention at this time. We will monitor and initiate medications while making changes as indicated. Her likely length of stay is 4-6 days. Coding Level of Care Code Acute Code for g Fwd Diagnoses Paranoid schizophrenia F20.0 Borderline personality disorder F60.3 Schizoaffective disorder, depressive type F25.1 Panic disorder without agoraphobia F41.0
[2025-06-16 19:47] VITALS: BP 130/93; PULSE 118; RESP 17; TEMP 36.5; O2SAT 97
[2025-06-17 06:00] VITALS: BP 136/93; PULSE 77; RESP 16; TEMP 36.9; O2SAT 100
--- NOTE | 2025-06-17 06:16 | PC.NURSE ---
Pt. was up most of the night either walking or sitting.
[2025-06-17] MEDS: paliperidone ER 6 mg Tablet PO (07:41)
[2025-06-17] MEDS: NORETHINDRONE 0.35 MG 0.35 EACH PO (07:47)
--- NOTE | 2025-06-17 10:59 | PC.NURSE ---
Dr. Copeland gave verbal order to give Invega 234mg IM Q 3 weeks starting today.
[2025-06-17] MEDS: paliperidone palmitate 234 mg Syringe IM (12:38)
[2025-06-17 13:26] VITALS: BP 134/90; PULSE 93; RESP 18; O2SAT 98
[2025-06-17 19:38] VITALS: BP 108/76; PULSE 77; RESP 16; TEMP 36.4; O2SAT 97
--- NOTE | 2025-06-17 20:28 | P.NPUPN_ITS ---
Subjective NPU 2 Subjective: Patient presented today reporting that she is doing all right. She reached out to her facility and they said that she is fine to come back whenever she is deemed to be ready. We discussed the likelihood of that happening last Sunday but we discussed making sure that we gave her the Invega Sustenna injection today. We discussed the risks, benefits and alternatives of increasing it to every 3 weeks and she understood and agreed to proceed as is documented in this note. Mental Status Exam 2 MSE Comments: This is an overweight versus obese white female in hospital scrubs with limited grooming and limited eye contact. No abnormal movements except for mild psychomotor retardation. More cooperative with exam in mild distress. Speech was decreased rate and volume. Mood described as I feel a little better, affect less confused and odd. Thought process linear and less disorganized. Thought content: Patient denies suicidal or homicidal ideation, there were no delusions reported but odd/bizarre delusions and possible somatic delusions which has been present in the past were noted, she seemed to report some possible hallucinations while she was at her facility. Attention and concentration were improving and memory mostly unreliable but none were formally tested. She is alert and oriented x person and place. Insight, judgment and impulse control are impaired Vitals/I&O/Wt Last Vital Signs Temp 97.6 F 06/17/25 19:38 Pulse 77 06/17/25 19:38 Resp 16 06/17/25 19:38 BP 136/93 06/17/25 19:38 Pulse Ox 97 06/17/25 19:38 O2 Del Method Room Air 06/17/25 19:38 Data NPU 06/12/25 00:09 06/12/25 00:09 A&P Assessment and plan 1. Paranoid schizophrenia: 2. Borderline personality disorder: 3. Schizoaffective disorder, depressive type: 4. Panic disorder without agoraphobia: Plan: This is a 40-year-old white female with schizoaffective disorder and borderline personality disorder known to the previous hospitalizations who presents coming [place] [facility] where she lives where she reportedly started having significant psychotic symptoms leading to the hospitalization. She presents appearing to really be struggling and unable to be a great historian. 1. Continue current medications and consider appropriate medication changes. Discussed administering her shot now and changing her to every 3 week injections. Invega Sustenna 234 mg IM to deltoid given as changing her dosing of Invega from every 4 weeks to 1 month to every 3 weeks. 2. Continue every 15 minute checks for safety. 3. Encourage individual, group and milieu therapies. 4. Obtain collateral information. Including getting information from guardian about recent situation. Reviewed chart given her limited contribution to history. PDMP PDMP Reviewed: Not Reviewed Involuntary Hold Information 2 Hold Status: Legal Status: Active Guardianship 96 Hour Hold: 96 Hour Involuntary Admission: No Attestations NPU 2 Medical Necessity Statement*: Inpatient hospitalization is medically necessary and deemed to be the clinically appropriate intervention at this time. We will monitor and initiate medications while making changes as indicated. Her likely length of stay is 2-4 days. Coding Level of Care Code Acute Code for [facility] Fwd Diagnoses Paranoid schizophrenia F20.0 Borderline personality disorder F60.3 Schizoaffective disorder, depressive type F25.1 Panic disorder without agoraphobia F41.0
--- NOTE | 2025-06-18 01:55 | PC.NURSE ---
Pt. excited and unable to sleep, no behavioral issues. She has been given prn meds for sleep but the are ineffective. 100mg trazadone was given. Pt was doing exercises in her room.
[2025-06-18 05:21] VITALS: BP 145/90; PULSE 87; RESP 18; O2SAT 99
[2025-06-18] MEDS: paliperidone ER 6 mg Tablet PO (08:23)
[2025-06-18] MEDS: NORETHINDRONE 0.35 MG 0.35 EACH PO (08:24)
[2025-06-18 12:52] VITALS: BP 122/56; PULSE 97; RESP 16; TEMP 36.6; O2SAT 98
--- NOTE | 2025-06-18 15:38 | P.NPUPN_ITS ---
Subjective NPU 2 Subjective: Patient presented today reporting that she feels like she is doing better. We discussed her people from [facility] coming in given us some sense of where they feel she is in relation to baseline. She denied any side effects to her medication and we discussed the tentative plan for discharge tomorrow. Mental Status Exam 2 MSE Comments: This is an overweight versus obese white female in hospital scrubs with limited grooming and limited eye contact. No abnormal movements except for mild psychomotor retardation. More cooperative with exam in mild distress. Speech was decreased rate and volume. Mood described as I feel a little better, affect less confused and odd. Thought process linear and less disorganized. Thought content: Patient denies suicidal or homicidal ideation, there were no delusions reported but odd/bizarre delusions and possible somatic delusions which has been present in the past were noted, she seemed to report some possible hallucinations while she was at her facility. Attention and concentration were improving and memory mostly unreliable but none were formally tested. She is alert and oriented x person and place. Insight, judgment and impulse control are impaired Vitals/I&O/Wt Last Vital Signs Temp 98 F 06/18/25 12:52 Pulse 97 06/18/25 12:52 Resp 16 06/18/25 12:52 BP 122/56 06/18/25 12:52 Pulse Ox 98 06/18/25 12:52 O2 Del Method Room Air 06/18/25 12:52 Data NPU 06/12/25 00:09 06/12/25 00:09 A&P Assessment and plan 1. Paranoid schizophrenia: 2. Borderline personality disorder: 3. Schizoaffective disorder, depressive type: 4. Panic disorder without agoraphobia: Plan: This is a 40-year-old white female with schizoaffective disorder and borderline personality disorder known to the previous hospitalizations who presents [facility] [place] [facility] where she lives where she reportedly started having significant psychotic symptoms leading to the hospitalization. She presents appearing to really be struggling and unable to be a great historian. 1. Continue current medications and consider appropriate medication changes. Discussed administering her shot now and changing her to every 3 week injections. Invega Sustenna 234 mg IM to deltoid given as changing her dosing of Invega from every 4 weeks to 1 month to every 3 weeks. 2. Continue every 15 minute checks for safety. 3. Encourage individual, group and milieu therapies. 4. Obtain collateral information. Including getting information from guardian about recent situation. Reviewed chart given her limited contribution to history. Staff from her facility came by and identified that she seemed to be closing in on her baseline. Tentative plan for discharge tomorrow. PDMP PDMP Reviewed: Not Reviewed Involuntary Hold Information 2 Hold Status: Legal Status: Active Guardianship 96 Hour Hold: 96 Hour Involuntary Admission: No Attestations NPU 2 Medical Necessity Statement*: Inpatient hospitalization is medically necessary and deemed to be the clinically appropriate intervention at this time. We will monitor and initiate medications while making changes as indicated. Her likely length of stay is 1-3 days. Coding Level of Care Code Acute Code for [facility] Fwd Diagnoses Paranoid schizophrenia F20.0 Borderline personality disorder F60.3 Schizoaffective disorder, depressive type F25.1 Panic disorder without agoraphobia F41.0
[2025-06-18 20:42] VITALS: BP 138/81; PULSE 103; RESP 18; TEMP 36.3; O2SAT 99
[2025-06-18] MEDS: polyethylene glycol 3350 Pkt 17 gm PO (21:51)
[2025-06-19 06:00] VITALS: BP 137/82; PULSE 86; RESP 19; TEMP 37.2; O2SAT 98
[2025-06-19] MEDS: polyethylene glycol 3350 Pkt 17 gm PO (08:11)
[2025-06-19] MEDS: paliperidone ER 6 mg Tablet PO (08:12)
[2025-06-19] MEDS: NORETHINDRONE 0.35 MG 0.35 EACH PO (08:13)
--- NOTE | 2025-06-19 08:26 | NUR.SHIFT ---
Pt states that she slept pretty good last night. She rates her anxiety a 7/10 and depression a d 0/10. No reports of SI/HI. She states that she was having some auditory hallucinations this morning, but she doesn't really remember what they were telling her. She denies pain at this time. She is calm and cooperative on assessment.
[2025-06-19 13:09] VITALS: BP 122/86; PULSE 97; RESP 20; TEMP 36.3; O2SAT 100
[2025-06-19 14:36] VITALS: BP 122/86; PULSE 97; RESP 20; TEMP 36.3; O2SAT 100
== END 2025-06-19 15:38 | disposition home or self-care (01) | DRG 885 ==
LOC: ER 06-13 01:07 → NP 06-13 02:10
PROVIDERS: Admitting Provider Psychiatry & Neurology Psychiatry; Emergency Provider Physician Assistant; PCP Family Medicine; Visit Provider Psychiatry & Neurology Psychiatry
DX: F20.0 Paranoid schizophrenia (principal); F60.3 Borderline personality disorder; E66.9 Obesity, unspecified; Z68.29 Body mass index [BMI] 29.0-29.9, adult; F17.210 Nicotine dependence, cigarettes, uncomplicated
CPT/HCPCS: 36415; 80053; 80306; 80307; 84703; 85025; 90935; 94640; 94664; 96372; 97150; 97165; 99285; J7611; J9999; Q0163

== ENCOUNTER → 2025-07-15 12:02 | Outpatient (BNVA) | payer MEDICARE, MEDICAID, SELFPAY | PROVIDERS: PCP Family Medicine; Visit Provider Nurse Practitioner Women's Health | DX: Z01.419 Encounter for gynecological examination (general) (routine) without abnormal findings (principal); N90.89 Other specified noninflammatory disorders of vulva and perineum | CPT/HCPCS: 86695; 86696; 87624 ==

== ENCOUNTER 2025-09-02 17:38 | Emergency (ER) | payer MEDICARE, MEDICAID, SELFPAY ==
--- OUTSIDE RECORDS SUMMARY | 2025-09-02 17:42 | XMS_ITS | Encounter Summary ---
Author Organization [facility] Address [address] [place] [address] Care Team Providers Care Services Rep Name Role Phone Meseret Tejeda DO Primary Care Provider [phone] Reason for Referral * Radiology Services (Routine) - Closed Specialty Diagnoses / Procedures Referred By Contac t Referred To Contact Radiology Diagnoses Breasts asymmetrical Procedures MAMMO DIAG UNI RIGHT 3D KIRSTY W OR WO CAD MAMMO DIAGNOSTIC UNI RIGHT W OR WO CAD CHG DIAGNOSTIC MAMMOGRAPHY COMPUTER-AIDED DETCJ UNI CHG DIGITAL BREAST TOMOSYNTHESIS UNILATERAL Meseret Tejeda DO [address] [place] [address] Phone: tel: fax: [facility] [address] [address] Phone: tel: fax: Referral ID Status Reason Start Date Expiration Date Visits Requested Visits Authorized [id number] Closed Performing Department To Schedule (SGF) 05/27/2020 06/27/2021 1 1 Encounter Details Date Type Department Care Team (Latest Contact Info) Description 07/01/2020 Ancillary Orders [facility] [place] [address] [place] [address] Meseret Tejeda DO [address] [place] [address] Breasts asymmetrical Social History Tobacco [...] interval follow-up, six months Recommendation Laterality: Right [id number] Narrative 07/01/2020 4:48 PM CDT EXAM: MAMMO DIAG UNI RIGHT 3D KIRSTY W OR WO CAD, MAMMO BREAST US RIGHT [facility], 07/01/2020 2:49 PM CLINICAL INDICATIONS: Call [...] breast documented in this encounter Care Teams Services Rep Relationship Specialty Start Date End Date Meseret Tejeda DO [address] [place] [id number] PCP - General Family Practice 09/01/13 documented as of this encounter
--- OUTSIDE RECORDS SUMMARY | 2025-09-02 17:42 | XMS_ITS | Clinical Summary ---
Author Organization [facility] Address [address] [place] [address] Care Team Providers Care Fisher Trawl Line Name Role Phone Meseret Tejeda Primary Care Provider Allergies Active Allergy Reactions Criticality Noted Date Comments Codeine Other (See Comments) Medium 09/20/2023 Medication did not work well for the patient Zackary Barbara (See Comments) 07/31/2019 She felt jittery and side effects Sulfamethoxazole-Trim ethoprim Anaphylaxis High 06/07/2015 Medications carBAMazepine (TEGretol) 200 mg tablet Take 1.5 [...] Indigestion. 90 Tablet 1 03/27/20 24 Active baclofen (LIORESAL) 20 mg tabletIndications [...] CONSTIPATION 510 Gram 5 03/11/20 25 Active albuterol sulfate HFA 90 mcg/actuation aerosol inhaler USE TWO INHALATIONS EVERY 6 HOURS NEEDED FOR SHORTNESS OF BREATH OR wheezing 8.5 Gram 6 04/16/20 25 Active lactobacillus acidophilus (Acidophilus) Tablet, Chewable CHEW ONE TABLET BY MOUTH TWICE DAILY 180 Tablet 3 04/27/20 25 Active traMADol (ULTRAM) 50 mg tabletIndications :Cervicalgia TAKE 2 TABLETS BY MOUTH TWICE DAILY as needed FOR pain 120 Tablet 1 06/25/20 25 Active paliperidone palmitate (INVEGA SUSTENNA) 234 mg/1.5 mL Syringe Inject 234 mg by intramuscular injection one time only. Active ibuprofen (MOTRIN) 200 mg tablet Take 1-2 Tablets by mouth every 4 hours as needed for Pain, Moderate or Temperature. Active haloperidoL (HALDOL) 10 mg tablet Take 10 mg by mouth 2 times daily. For psychosis/agitati on/voices--given by Dr Kee 06/11/20 Active benztropine (COGENTIN) 1 mg tablet Take 1 mg by mouth 2 times daily. For parkinson like movements--given by Dr Kee Active docusate sodium (COLACE) 100 mg capsule TAKE ONE CAPSULE BY MOUTH TWICE DAILY FOR CONSTIPATION 180 Capsule 4 07/15/20 25 Active Active Problems Problem Noted Date Diagnosed Date Mixed hyperlipidemia 07/23/2018 Gastroesophageal reflux disease without esophagi tis 08/01/2017 Generalized anxiety disorder 08/01/2017 Cigarette dependence 06/24/2015 Paranoid schizophrenia 09/01/2013 Resolved Problems Problem Noted Date Diagnosed Date Resolved Date Fibromyalgia 06/26/2015 05/23/2017 Encounters Date Type Department Care Team Description 08/13/2025 [facility] [address] [place] [address] Meseret Tejeda, Chronic bilateral low back pain with bilateral sciatica 08/11/2025 External Device Data STL ABSTRACTION Provider, Abstract 08/06/2025 [facility] [address] [place] [address] Meseret Tejeda, Cervicalgia 08/05/2025 External Device Data STL ABSTRACTION Provider, Abstract 08/05/2025 External Device Data STL ABSTRACTION Provider, Abstract 07/28/2025 External Device Data STL ABSTRACTION Provider, Abstract 07/15/2025 Refill [facility] [address] [place] [address] Meseret Tejeda DO 07/01/2025 Orders Only [facility] [address] [place] [address] Radha Vergara, COBBLER APPRENTICE Paranoid schizophrenia (CMS/HCC) 06/30/2025 Results Follow-Up [facility] [address] [place] [address] Villatoro, January, EASEMENT MAN LIPID PANEL, COMPREHENSIVE METABOLIC PANEL, CBC WITH DIFFERENTIAL, Additional followed-up results: 2 06/29/2025 9:00 AM CDT Office Visit [facility] [address] [place] [address] Villatoro, January, EASEMENT MAN Paranoid schizophrenia ([facility]) (Primary Dx); Gastroesophageal reflux disease without esophagitis; Chronic bilateral low back pain with bilateral sciatica; Mixed hyperlipidemia; Hyponatremia; Generalized anxiety disorder 06/24/2025 Refill [facility] [address] [place] [address] Meseret Tejeda DO Cervicalgia 06/15/2025 Orders Only [facility] [address] [place] [address] Provider, Abstract from Last 3 Months Immunizations Immunization Administration [...] on file Legal Sex Female 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 Gender Identity Not on file Sexual Orientation Not on file Last Filed Vital Signs Vital Sign Reading Time Taken Comments Blood Pressure 120/72 06/29/2025 9:11 AM CDT Pulse 100 06/29/2025 9:11 AM CDT Temperature 36.2 C (97.1 F) 06/29/2025 9:11 AM CDT Respiratory Rate 18 06/29/2025 9:11 AM CDT Oxygen Saturation 94% 06/29/2025 9:11 AM CDT Inhaled Oxygen Concentration - - Weight 79.8 kg (176 lb) 06/29/2025 9:11 AM CDT Height 160 cm (5' 3 ) 06/29/2025 9:11 AM CDT Body Mass Index 31.18 06/29/2025 9:11 AM CDT Plan of Treatment Upcoming Encounters Date Type Department Care Team (Late st Contact Info) Description 12/28/2025 1:00 PM CDT Office Visit [facility] [place] [address] [place] [phone] Villatorojanuary, EASEMENT MAN [address] [place] [phone] Health Maintenance Due Date Last Done Comments DTAP/TDAP/TD VACCINES (6 - Tdap) 1996 03/15/1990, 05/21/1987, 1985, Additional history exists HEPATITIS B VACCINES (1 of 3 - 19+ 3-dose series) 2004 HPV VACCINES (1 - 3-dose SCD M series) 2012 PAP SMEAR 06/30/2022 06/30/2019, 06/30/2019 CERVICAL CANCER SCREENING 06/30/2024 HPV/Cotest (21-29) 06/30/2024 06/30/2019 HPV/Cotest (30-65) 06/30/2024 06/30/2019 [place] ([place]) Preventative Visit/Annual Wellness Visit 10/08/2024 08/06/2024, 09/20/2023, 11/29/2021, Additional history exists Pre-Diabetes and Diabetes Screening 04/21/2025 04/21/2022, 12/22/2020, 05/23/2019, Additional history exists INFLUENZA VACCINE (#1) 2025 , 08/02/2023, 07/23/2023, Additional history exists COVID-19 Vaccine ( - 2024-2 6 season) 2025 07/25/2024, 10/13/2022, 03/24/2022, Additional history exists BREAST CANCER SCREENING 05/07/2026 05/07/20, 03/30/2025, 07/01/2020, Additional history exists Procedures Procedure Name Priority Date/Time Associated Diagnosis Comments POC URINALYSIS DIPSTICK AUTOMATED Routine 06/29/2025 10:06 AM CDT Paranoid schizophrenia (CMS/HCC) TSH Routine 06/29/2025 10:02 AM CDT CBC WITH DIFFERENTIAL Routine 06/29/2025 10:02 AM CDT COMPREHENSIVE METABOLIC PANEL Routine 06/29/2025 10:02 AM CDT LIPID PANEL Routine 06/29/2025 10:02 AM CDT COMPREHENSIVE METABOLIC PANEL Routine 06/12/2025 12:47 PM CDT MAMMO DIAGNOSTIC UNI LEFT W OR WO CAD Routine 05/07/2025 Abnormal mammogram of left breast HEMOGLOBIN A1C Routine 04/21/2022 CERV/VAG CYTO SCREEN PAP RLFX HPV Routine 06/30/2019 4:39 PM CDT from Last 3 Months or Most Recently Relevant to Health Maintenance Results * POC URINALYSIS DIPSTICK AUTOMATED (06/29/2025 10:06 AM CDT) COLOR UA POC Yellow Pale to Dark Yellow [facility] CLARITY UA POC Clear Clear, Other [facility] GLUCOSE UA POC Negative Negative, Normal [facility] BILIRUBIN UA POC Negative Negative [facility] KETONES UA POC Negative Negative [facility] SPECIFIC GRAVITY UA POC 1.015 1.000 - 1.[address] [facility] BLOOD UA POC Negative Negative [facility] C LINIC [facility] PH UA POC 7.5 5.0 - 8.0 [facility] CLIN IC [facility] PROTEIN UA POC Negative Negative [facility] UROBILINOGEN UA POC 0.2 <2.0 mg/dL [facility] NITRITE UA POC Negative Negative [facility] LEUKOCYTE ESTERASE UA POC Negative Negative [facility] KIT LOT NUMBER POC [phone] [facility] KIT EXP DATE POC [id number] [facility] Urine 06/29/2025 10:0 6 AM CDT January EASEMENT MAN POINT OF CARE TESTING Final Resu lt [facility] CLIA# [id number] [address] [place] [address] * (ABNORMAL) CBC WITH DIFFERENTIAL (06/29/2025 10:02 AM CDT) WBC 7.9 3.8 - 10.8 Thousand/u L [facility] RBC 3.62(L) 3.80 - 5.10 Million/uL [facility] HEMOGLOBIN 12.5 11.7 - 15.5 g/dL [facility] HEMATOCRIT 36.8 35.0 - 45.0 % [facility] MCV 101.7(H) 80.0 - 100.0 fL [facility] MCH 34.5(H) 27.0 - 33.0 pg [facility] MCHC 34.0 32.0 - 36.0 g/dL [facility] Comment: For adults, a slight decrease in the calculated MCHC value (in the range of 30 to 32 g/dL) is most likely not clinically significant; however, it should be interpreted with caution in correlation with other red cell parameters and the patient's clinical condition. RDW 11.6 11.0 - 15.0 % [facility] PLATELETS 333 140 - 400 Thousand/u L [facility] MPV 8.8 7.5 - 12.5 fL [facility] NEUTROPHIL ABSOLUTE 5,032 1,500 - 7,800 cells/uL [facility] LYMPHOCYTE ABSOLUTE 2,141 850 - 3,900 cells/uL [facility] MONOCYTE ABSOLUTE 569 200 - 950 cells/uL [facility] EOSINOPHIL ABSOLUTE 119 15 - 500 cells/uL [facility] BASOPHILS ABSOLUTE 40 0 - 200 cells/uL [facility] NEUTROPHIL 63.7 % [facility] LYMPHOCYTES 27.1 % [facility] MONOCYTE 7.2 % [facility] EOSINOPHILS 1.5 % [facility] BASOPHILS 0.5 % [facility] Comment: Test Performed at: [email or web address] [address] [address] Silvia Stewart MD Blood 06/29/2025 10:0 2 AM CDT 06/30/2025 3:42 AM CDT January [facility] HEMATOLOGY ORDERABLES Final Resu lt Performing Organization Address [facility] de Phone Number [facility] [phone] [facility] [address] [place] [address] * TSH (06/29/2025 10:02 AM CDT) TSH 1.29 mIU/L [facility] Comment: Reference Range > or = 20 Years 0.40-4.50 Ranges First trimester 0.26-2.66 Second trimester 0.55-2.73 Third trimester 0.43-2.91 Test Performed at: [email or web address] [address] [place] [address] Silvia Stewart MD Blood 06/29/2025 10:0 2 AM CDT 06/30/2025 3:42 AM CDT January [facility] CHEMISTRY ORDERABLES Final Resul t Performing Organization Address [facility] Co de Phone Number [facility] [phone] [facility] [address] [place] [address] * (ABNORMAL) LIPID PANEL (06/29/2025 10:02 AM CDT) CHOLESTEROL 218(H) <200 mg/dL [facility] HDL 80 > OR = 50 mg/dL [facility] TRIGLYCERIDE 64 <150 mg/dL [facility] LDL CALCULATED 122(H) mg/dL (calc) [facility] Comment: Reference range: <100 Desirable range <100 mg/dL for primary prevention; <70 mg/dL for patients with CHD or diabetic patients with > or = 2 CHD risk factors. LDL-C is now calculated using the Diana calculation, which is a validated novel method providing better accuracy than the Friedewald equation in the estimation of LDL-C. Bill FRANCOIS et al. GREGORIA. 2013;310(19): 7343-5668 (http://education.Colabo/faq/SSE383) CHOL/HDL RATIO 2.7 <5.0 (calc) [facility] NON-HDL CHOLESTEROL 138(H) <130 mg/dL (calc) [facility] Comment: For patients with diabetes plus 1 major ASCVD risk factor, treating to a non-HDL-C goal of <100 mg/dL (LDL-C of <70 mg/dL) is considered a therapeutic option. Test Performed at: [facility] [address] [place] [address] Silvia Stewart MD Blood 06/29/2025 10:0 2 AM CDT 06/30/2025 3:42 AM CDT January EASEMENT MAN CHEMISTRY ORDERABLES Final Resul t [facility] [phone] [email or web address] [address] [place] [address] * (ABNORMAL) COMPREHENSIVE METABOLIC PANEL (06/29/2025 10:02 AM CDT) Only the most recent of2 resultswithin the time period is included. GLUCOSE 68 65 - 99 mg/dL [email or web address] Comment: Fasting reference interval BUN 8 7 - 25 mg/dL [facility] CREATININE 0.73 0.50 - 0.99 mg/dL [facility] GFR 107 > OR = 60 mL/min/1. 73m2 [email or web address] BUN/CREAT RATIO SEE NOTE: (calc) [facility] Comment: Not Reported: BUN and Creatinine are within reference range. SODIUM 129(L) 135 - 146 mmol/L [facility] POTASSIUM 4.5 3.5 - 5.3 mmol/L [facility] CHLORIDE 94(L) 98 - 110 mmol/L [facility] CO2 27 20 - 32 mmol/L [facility] CALCIUM 9.1 8.6 - 10.2 mg/dL [facility] TOTAL PROTEIN 6.7 6.1 - 8.1 g/dL [facility] ALBUMIN 4.4 3.6 - 5.1 g/dL [facility] GLOBULIN 2.3 1.9 - 3.7 g/dL (calc) [facility] ALBUMIN/GLOBULIN RATIO 1.9 1.0 - 2.5 (calc) [facility] BILIRUBIN TOTAL 0.3 0.2 - 1.2 mg/dL [facility] ALKALINE PHOSPHATASE 136(H) 31 - 125 U/L [facility] AST 18 10 - 30 U/L [facility] ALT 23 6 - 29 U/L [facility] Comment: Test Performed at: [facility] [address] [facility] [place] [address] Silvia Stewart MD Blood 06/29/2025 10:0 2 AM CDT 06/30/2025 3:42 AM CDT January EASEMENT MAN CHEMISTRY ORDERABLES Final Resul t [facility] [phone] [email or web address] [address] [place] [address] * MAMMO DIAGNOSTIC UNI LEFT W OR WO CAD (05/07/2025) Anatomical Region Laterality Modality Breast Left Mammography Meseret Reuben CostaIleana DO MAMMO ORDERABLES Final Resu lt * HEMOGLOBIN A1C (04/21/2022) Blood Meseret Reuben Ileana DO CHEMISTRY ORDERABLES Final Result [facility] CLIA# [id number] [address] [place] [address] * CERV/VAG CYTO SCREEN PAP RLFX HPV (06/30/2019 4:39 PM CDT) CLINICAL INFORMATION Oral contraceptives Routine exam Other high risk factor, specify 07/06/2019 1:06 PM CDT [facility] LAST MENSTRUAL PERIOD [id number]/06/2019 1:06 PM CDT [facility] STLO PREV PAP: INFORMATION NOT PROVIDED 07/06/2019 1:06 PM CDT [facility] PREV BX: INFORMATION NOT PROVIDED 07/06/2019 1:06 PM CDT [facility] SOURCE Endocervix 07/06/2019 1:06 PM CDT [facility] ST ADEQUACY: SEE COMMENT 07/06/2019 1:06 PM CDT [facility] Comment: Satisfactory for evaluation. Endocervical/transformation zone component present. PAP INTERP Negative for intraepithelial lesion or malignancy. 07/06/2019 1:06 PM CDT [facility] ST COMMENT This Pap test has been evaluated with computer assisted technology. 07/06/2019 1:06 PM CDT [facility] AUTOMATIC STACKER: SEE COMMENT 2018 1:06 PM CDT [facility] Comment: ABC, CT(ASCP) CT screening location: [place] [address] [address] [place] [address] REVIEW AUTOMATIC STACKER: SEE COMMENT 07/06/2019 1:06 PM CDT [facility] Comment: MMW, CT(ASCP) CT screening location: [place] [address] Administration [address] EXPLANATORY NOTE SEE COMMENT 019 1:06 PM CDT [facility] Comment: EXPLANATORY NOTE: The Pap is a [...] PM CDT 07/02/2019 9:17 AM CDT Narrative [facility] - 07/06/2019 1:06 PM CDT Performing Organization Information: Site ID: [email or web address] Name: [email or web address] Address: [facility] [address] [place] [address] Director: Silvia Stewart Pari J Salazar EASEMENT MAN PATHOLOGY/CYTOLOGY ORDERABLES Final Result [facility] [phone] [facility] from Last 3 Months or Most Recently Relevant to Health Maintenance Insurance MEDICAID [place] DUAL COMPLETE PPO [facility] [id number] Care Teams Fisher Trawl Line Relationship Specialty Start Date End Date Meseret Tejeda DO [address] [place] [phone] PCP - General Family Practice 09/01/13
--- OUTSIDE RECORDS SUMMARY | 2025-09-02 17:42 | XMS_ITS | Clinical Summary ---
Author Organization [facility] Address [address] [place] [address] Care Team Providers Care Hospice Spiritual Care Coordinator Name Role Phone Ileana, Meseret Reuben CHAVARRIA [...] 06/30/2019 HPV/Cotest (30-65) 06/30/2024 06/30/2019 [place] ([place]) Preventative Visit/Annual Wellness Visit 10/08/2024 02/17/2021, 06/30/2019 [...] interval follow-up, six months Recommendation Laterality: Right [id number] Narrative 07/01/2020 4:48 PM CDT EXAM: MAMMO [...] architectural distortion or abnormal vascularity seen. us Meserte Tejeda DO MAMMO ORDERABLES Final Resu lt [...] 07/06/2019 1:06 PM CDT [facility] BELLOWS FILLER: SEE COMMENT 2018 1:06 PM CDT [facility] Comment: ABC, CT(ASCP) CT screening location: [place] [address] [address] REVIEW BELLOWS FILLER: SEE COMMENT 07/06/2019 1:06 PM CDT [facility] Comment: MMW, CT(ASCP) CT screening location: [place] [address] [address] EXPLANATORY NOTE SEE COMMENT [...] PM CDT 07/01/2019 10:30 AM CDT Narrative [facility] - 07/06/2019 1:06 PM CDT Performing Organization Information: Site ID: Name: [facility] Address: [facility] [address] [place] [address] Director: Silvia Stewart Pari Salazra ROVING TECHNICIAN PATHOLOGY/CYTOLOGY ORDERABLES Final Result [facility] [phone] from Last 3 Months or Most Recently Relevant to Health Maintenance Insurance [place]ICAID [place] Member Subscriber Plan / Payer (Ef fective 2012-Present) Name:Kathrin Patricio R Relation to Subscriber:Self Name:Kathrin Patricio Payer ID:[id number] Group ID:Not on file Type:Medicaid Address: [address] DUAL COMPLETE [facility] PPO D-SNP PUBLIC TWIST PACKER FLAVIA BOSWELL C/O [address] DUAL COMPLETE [facility] PPO D-SNP [place] Care Teams Hospice Spiritual Care Coordinator Relationship Specialty Start Date End Date Meseret Tejead DO [address] [place] [address] PCP - General Family Practice 09/01/13
--- OUTSIDE RECORDS SUMMARY | 2025-09-02 17:42 | XMS_ITS | Encounter Summary ---
Author Organization [facility] Address [address] [place] [address] Care Team Providers Care Dial Equipment Engineer Name Role Phone Meseret Tejeda DO Primary Care Provider [phone] Encounter Details Date Type Department Care Team (Latest Contact Info) Description 06/16/2020 Ancillary Orders [facility] [address] [place] [address] Meseret Tejeda DO [address] [place] [address] Breasts asymmetrical Social History Tobacco [...] breast documented in this encounter Care Teams Dial Equipment Engineer Relationship Specialty Start Date End Date Meseret Tejeda DO [address] [place] [address] PCP - General Family Practice 09/01/13 documented as of this encounter
--- OUTSIDE RECORDS SUMMARY | 2025-09-02 17:42 | XMS_ITS | Encounter Summary ---
Author Organization [facility] Address [address] [place] [address] Care Team Providers Care Blister Rust Eradicator Name Role Phone Meseret Tejeda Reuben CHAVARRIA Primary Care Provider [phone] Encounter Details Date Type Department Care Team (Latest Contact Info) Description 06/30/2025 Results Follow-Up [facility] [place] [address] [place] [address] Villatoro, January, [facility] [address] [place] [address] LIPID PANEL, COMPREHENSIVE METABOLIC PANEL, CBC WITH DIFFERENTIAL, Additional followed-up results: 2 Social History Tobacco Use Types Packs/Day Years [...] on file 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 [place] [address] [facility] [place] [phone] VillatoroJanuary, VIDEOTAPE RECORDING ENGINEER [address] [facility] [place] [address] Scheduled Orders Name Type Priority Associated Diagnoses Orde r Schedule COMPREHENSIVE METABOLIC PANEL Lab Routine Hyponatremia Expected: 09/29/2025, Expires: 06/30/2026 documented as of this encounter Visit Diagnoses Diagnosis Hyponatremia- Primary Hyposmolality and/or hyponatremia documented in this encounter Additional Health Concerns Assessment Noted Time PHQ-9 Depression Total Score: 6 12/26/19 25 10:20 AM CDT documented as of this encounter Care Teams Blister Rust Eradicator Relationship Specialty Start Date End Date Meseret Tejeda DO [address] [facility] [place] [phone] PCP - General Family Practice 09/01/13 documented as of this encounter
[2025-09-02 17:46] VITALS: BP 118/86; PULSE 98; RESP 14; O2SAT 94
[2025-09-02 17:49] VITALS: TEMP 36.5
--- NOTE | 2025-09-02 17:53 | ECG_ITS ---
[facility] Test Date: 2025-09-02 Pat Name: Kathrin Patricio Department: Room: Gender: Female Surface Lay Out Technician: : 1985 Requested By: Jg Campo Order Number: [id number] Sara MD: Tara Ward M.D. Measurements Intervals Olivia Rate: 83 P: 54 NJ: 148 QRS: 64 QRSD: 81 T: 52 QT: 350 QTc: 413 Interpretive Statements SINUS RHYTHM Compared to ECG 01/03/2025 05:49:57 No significant changes Electronically Signed On 09-03-2025 17:58:33 BILLPOSTER by Tara Ward M.D. [email or web address]
--- NOTE | 2025-09-02 18:09 | W.ED.PSYCHS ---
HPI - Psych General: Chief Complaint: Psychiatric Symptoms Stated Complaint: too many people in her head Time Seen by Provider: 09/02/25 17:47 Source: patient Mode of arrival: ambulatory Limitations: no limitations History of Present Illness: 40-year-old female with a history of bipolar schizophrenia. States she has been having some visual hallucinations states that these are typical for her. States she came in because she felt like she is having anxiety attack. She denies any SI or HI. Patient's been calm and cooperative while talk to her does not appear acutely psychotic answering all my questions appropriately Related Data Home Medications ?Medication ?Instructions ?Recorded ?Confirmed acetaminophen 500 mg tablet 1,000 mg PO Q4H PRN fever or pain 04/24/22 08/31/25 (Tylenol Extra Strength) Bacillus coagulans 400 million 1 cell PO BID 05/22/23 08/31/25 cell chewable tablet (Digestive Advantage Kid Probiotic-Prebio) baclofen 20 mg tablet 20 mg PO TID PRN Pain 05/22/23 08/31/25 diclofenac sodium 75 mg 75 mg PO BID 01/23/24 08/31/25 tablet,delayed release albuterol 90 mcg/actuation aerosol 90 mcg inhalation .Q6hrs PRN 08/31/25 08/31/25 inhaler biotine mouth PO .PRN 08/31/25 bismuth subsalicylate 525 mg/15 mL 525 mg PO Q1H PRN 08/31/25 08/31/25 oral suspension (Pepto-Bismol Max St) docusate sodium 100 mg capsule 100 mg PO BID 08/31/25 08/31/25 ibuprofen 200 mg tablet 400 mg PO Q4H PRN 08/31/25 08/31/25 menthol 2.5 mg lozenges (Cough mg mucous membrane .PRN 08/31/25 08/31/25 Drops) nicotine (polacrilex) 2 mg gum 2 mg buccal Q2H 08/31/25 08/31/25 pantoprazole 40 mg tablet,delayed 40 mg PO DAILY 08/31/25 08/31/25 release polyethylene glycol 3350 17 4 g PO DAILY 08/31/25 08/31/25 gram/dose oral powder tea tree oil 100 % topical ea topical DAILY 08/31/25 08/31/25 tramadol 50 mg tablet 100 mg PO BID PRN 08/31/25 08/31/25 Previous Rx's ?Medication ?Instructions ?Recorded haloperidol 10 mg tablet 10 mg PO BID #60 tabs 09/10/24 benztropine 1 mg tablet 1 mg PO BID #60 tabs 03/10/25 carbamazepine 200 mg tablet 300 mg (1.5 x 200 mg) PO BID #90 03/10/25 (Tegretol) tabs mirtazapine 7.5 mg tablet 7.5 mg PO BEDTIME #30 tabs 03/10/25 paliperidone 6 mg tablet,extended 6 mg PO QAM #30 tabs 03/10/25 release 24 hr risperidone 2 mg tablet 2 mg PO BID #60 tabs 03/10/25 trazodone 50 mg tablet 50 mg PO BEDTIME Sleep #30 tabs 03/10/25 duloxetine 60 mg capsule,delayed 120 mg (2 x 60 mg) PO DAILY #60 03/26/25 release caps hydroxyzine HCl 50 mg tablet 50 mg PO TID PRN anxiety #90 tabs 04/14/25 paliperidone palmitate 234 mg/1.5 234 mg (1.5 mL) IM ONCE 3 weeks 06/19/25 mL intramuscular syringe (Invega #1.5 mL Sustenna) norethindrone (contraceptive) 0.35 See Rx Instructions .Route 07/15/25 mg tablet .COMPLEX #84 tabs Allergies Allergy/AdvReac Type Severity Reaction Status Date / Time codeine Allergy Unknown Verified 08/31/25 13:55 Sulfa (Sulfonamide Allergy algy-rash Verified 08/31/25 13:55 Antibiotics) PFS ED PFSH: Medical History Psychiatric care Schizoaffective disorder, depressive type No pertinent past medical history neghx: htn, dm, thyroid, dvt/pe PCP: Dr. Meseret Tejeda Paranoid schizophrenia managed by Dr. Kee -- [facility] Nicotine dependence, cigarettes, uncomplicated Panic disorder without agoraphobia managed by Dr. Kee-- [facility] HPV in female Insomnia Tachycardia Anxiety and depression Surgical History History of foot operation 1993-- treatment of plantar wart Family History Family/Other Thyroid disease maternal Denies family history of Colon cancer Ovarian cancer Prostate cancer Diabetes Heart disease Hyperlipidemia Breast cancer Bleeding disorder Hypertension Uterine cancer Stroke Social History Smoking and tobacco/nicotine status: current every day tobacco/nicotine user cigarettes Packs smoked per day: 1 Years cigarettes smoked: 20 Physical Exam Const: COMMON NORMALS: no acute distress, patient oriented x3 and healthy appearing HENMT: COMMON NORMALS: normocephalic and atraumatic HEAD & SCALP: normocephalic and atraumatic Neck/C-Spine: COMMON NORMALS: full ROM and supple Chest: COMMONS NORMALS: normal inspection of the chest Resp: COMMON NORMALS: normal respiratory effort, No retractions, No use of accessory muscles and clear to auscultation bilaterally AUSCULTATION: clear to auscultation bilaterally Cardio: COMMON NORMALS: regular rate, regular rhythm and No murmurs present (Cardio) RATE: regular rate RHYTHM: regular rhythm GI: COMMON NORMALS: Normal to inspection, nondistended, normoactive bowel sounds present, Soft to palpation, non-tender and no masses PALPATION: Yes Soft to palpation Extremity: COMMON NORMALS: normal to inspection and full ROM Neuro: COMMON NORMALS: patient oriented x3, moves all extremities and no focal motor deficits Psych: COMMON NORMALS: mental status grossly normal, Normal thought process present and cooperative THOUGHT PROCESS: Normal thought process present Skin: COMMON NORMALS: no rashes or lesions noted and no wounds GENERAL SKIN EXAM: no rashes or lesions noted Course Vital Signs: Vital signs: Vital Signs Temperature 97.7 F 09/02/25 17:49 Pulse Rate 98 09/02/25 17:46 Respiratory Rate 14 09/02/25 17:46 Blood Pressure 118/86 09/02/25 17:46 Pulse Oximetry 94 09/02/25 17:46 Oxygen Delivery Me thod Room Air 09/02/25 17:46 MDM - Psych Medical Decision Making 40-year-old female who presented here with anxiety. She feels much improved here EKG here showed normal sinus rhythm heart rate [address] elevation QRS 81 QTc 390. Patient has no chest pain or shortness of breath. She does have hallucinations but it is chronic for her as she has a history of schizophrenia. Patient's not suicidal or homicidal is not acutely psychotic. I did offer her psych admission she states that she feels improved and wants to go back home I feel she is stable for discharge she has follow-up with PCP and return if worsening she understands agrees to plan. Medical Records I reviewed the patient's medical records. No radiology studies performed this visit EKG Data EKG 1: I personally reviewed and interpreted this EKG as follows: EKG interpretation date: 09/02/25 EKG interpretation time: 17:53 Interpretation: nsr hr [address] elevation qrs 81qtc 390 Discharge Plan Discharge Patient Disposition: Home Clinical Impression: Acute anxiety, Paranoid schizophrenia Condition: Stable Prescriptions: No Action haloperidol 10 mg tablet 10 mg PO BID Qty: 60 11RF nicotine (polacrilex) 2 mg gum 2 mg buccal Q2H tramadol 50 mg tablet 100 mg PO BID PRN ibuprofen 200 mg tablet 400 mg PO Q4H PRN albuterol 90 mcg/actuation aerosol 90 mcg inhalation .Q6hrs PRN Pepto-Bismol Max St 525 mg/15 mL suspension 525 mg PO Q1H PRN Rx Instructions: do not exceed 8 doses in a 24 hour period tea tree oil 100 % oil topical DAILY Cough Drops 2.5 mg lozenge mucous membrane .PRN biotine mouth PO .PRN pantoprazole 40 mg tablet,delayed release (DR/EC) 40 mg PO DAILY docusate sodium 100 mg capsule 100 mg PO BID polyethylene glycol 3350 17 gram/dose powder 4 g PO DAILY acetaminophen [Tylenol Extra Strength] 500 mg tablet 1,000 mg PO Q4H PRN (Reason: fever or pain) baclofen 20 mg tablet 20 mg PO TID PRN (Reason: Pain) Digestive Advantag Kid Pro-Pre 400 million cell tablet,chewable 1 cell PO BID diclofenac sodium 75 mg tablet,delayed release (DR/EC) 75 mg PO BID benztropine 1 mg tablet 1 mg PO BID Qty: 60 11RF carbamazepine [Tegretol] 200 mg tablet 300 mg PO BID Qty: 90 11RF mirtazapine 7.5 mg tablet 7.5 mg PO BEDTIME Qty: 30 11RF risperidone 2 mg tablet 2 mg PO BID Qty: 60 11RF trazodone 50 mg tablet 50 mg PO BEDTIME Qty: 30 11RF paliperidone 6 mg tablet extended release 24hr 6 mg PO QAM Qty: 30 11RF duloxetine 60 mg capsule,delayed release(DR/EC) 120 mg PO DAILY Qty: 60 11RF hydroxyzine HCl 50 mg tablet 50 mg PO TID PRN (Reason: anxiety) Qty: 90 11RF norethindrone (contraceptive) 0.35 mg tablet See Rx Instructions .ROUTE .COMPLEX Qty: 84 1RF Dose Instruction: TAKE ONE TABLET BY MOUTH EVERY DAY FOR CONTROL Rx Instructions: TAKE ONE TABLET BY MOUTH EVERY DAY FOR CONTROL Invega Sustenna 234 mg/1.5 mL syringe 234 mg IM ONCE 21 Days Qty: 1.5 11RF Rx Instructions: 234 mg intramuscularly every 3 weeks. Next injection 07/09/2025. Then as directed Discharge Orders: Discharge ED (Routine); Ordered 09/02/25 Ordered By: Jg Campo Referrals: Meseret Tejeda DO [Primary Care Provider, Family Practice] - 4-7 days Discharge Diet: Advance as tolerated Discharge Activity: Resume usual activity Patient Instructions: Anxiety (ED) Print Language: Cuban Coding Level of Care Code ED Compliance Auditor for Michaelg Navdeep
--- NOTE | 2025-09-02 18:10 | PC.NURSE ---
PER VERBAL INSTRUCTION FROM DR. PARDO, PT DOES NOT NEED TO BE DRESSED INTO PAPER SCRUBS.
[2025-09-02] MEDS: LORazepam 2 mg/mL INJ 1 mL 1 MG IM (18:17)
[2025-09-02] MEDS: haloperidol inj 5 mg/mL INJ 1 mL IM (18:17)
[2025-09-02 18:34] VITALS: PULSE 89; O2SAT 99
== END 2025-09-02 18:37 | disposition home or self-care (01) ==
PROVIDERS: Emergency Provider Emergency Medicine; PCP Family Medicine
DX: F41.8 Other specified anxiety disorders (principal); F20.0 Paranoid schizophrenia; F17.210 Nicotine dependence, cigarettes, uncomplicated
CPT/HCPCS: 93005; 96372; 99284; J1630; J2060

== ENCOUNTER 2025-09-20 16:11 | Emergency (ER) | payer MEDICARE, MEDICAID, SELFPAY ==
[2025-09-20 16:17] VITALS: BP 130/87; PULSE 79; RESP 16; TEMP 36.4; O2SAT 96; BMI 29.2
--- OUTSIDE RECORDS SUMMARY | 2025-09-20 16:20 | XMS_ITS | Encounter Summary ---
Author Organization [facility] Address [address] [place] [address] Care Team Providers Care Postdoctoral Research Associate Name Role Phone Meseret Tejeda DO Primary Care Provider Encounter Details Date Type Department Care Team (Latest Contact Info) Description 06/16/[address] [facility] [address] [facility] [address] [place] [address] Meseret Tejeda DO [address] [place] [address] Breasts asymmetrical Social History Tobacco [...] breast documented in this encounter Care Teams Postdoctoral Research Associate Relationship Specialty Start Date End Date Meseret Tejeda DO [address] [place] [address] PCP - General Family Practice 09/01/13 documented as of this encounter
--- OUTSIDE RECORDS SUMMARY | 2025-09-20 16:20 | XMS_ITS | Encounter Summary ---
Author Organization [facility] Address [address] [place] [address] Care Team Providers Care Pst Specialist Name Role Phone Meseret Tejeda DO Primary Care Provider [phone] Reason for Referral * Radiology Services (Routine) - Closed Specialty Diagnoses / Procedures Referred By Contac t Referred To Contact Radiology Diagnoses Breasts asymmetrical Procedures MAMMO DIAG UNI RIGHT 3D KIRSTY W OR WO CAD MAMMO DIAGNOSTIC UNI RIGHT W OR WO CAD CHG DIAGNOSTIC MAMMOGRAPHY COMPUTER-AIDED DETCJ UNI CHG DIGITAL BREAST TOMOSYNTHESIS UNILATERAL Meseret Tejeda DO [address] [place] [address] Phone: tel: fax: [facility] [address] [address] Phone: tel: fax: Referral ID Status Reason Start Date Expiration Date Visits Requested Visits Authorized [id number] Closed Performing Department To Schedule (SGF) 05/27/2020 06/27/2021 1 1 Encounter Details Date Type Department Care Team (Latest Contact Info) Description 07/01/2020 Ancillary Orders [facility] [place] [address] [place] [address] Meseret Tejeda DO [address] [place] [address] Breasts asymmetrical Social History Tobacco [...] interval follow-up, six months Recommendation Laterality: Right [id number] Narrative 07/01/2020 4:48 PM CDT EXAM: MAMMO DIAG UNI RIGHT 3D KIRSTY W OR WO CAD, MAMMO BREAST US RIGHT [facility], 07/01/2020 2:49 PM CLINICAL INDICATIONS: Call [...] breast documented in this encounter Care Teams Pst Specialist Relationship Specialty Start Date End Date Meseret Tejeda DO [address] [place] [id number] PCP - General Family Practice 09/01/13 documented as of this encounter
--- OUTSIDE RECORDS SUMMARY | 2025-09-20 16:20 | XMS_ITS | Clinical Summary ---
Author Organization [facility] Address [address] [place] [address] Care Team Providers Care Leather Belt Loop Cutter Name Role Phone Ileana, Meseret Reuben CHAVARRIA [...] 06/30/2019 HPV/Cotest (30-65) 06/30/2024 06/30/2019 Medicare Advantage ([place]) Preventative Visit/Annual Wellness Visit 10/08/2024 02/17/2021, 06/30/2019 INFLUENZA VACCINE (#1) 2025 07/31/2019 BREAST CANCER SCREENING 05/07/2026 05/07/20 25, 03/30/2025, 07/01/2020, Additional history exists HPV VACCINES (No Doses Required) Completed Procedures Procedure Name Priority Date/Time Associated Diagnosis [...] interval follow-up, six months Recommendation Laterality: Right [id number] Narrative 07/01/2020 4:48 PM CDT EXAM: MAMMO [...] 07/06/2019 1:06 PM CDT [facility] [employer] MEMBER: SEE COMMENT 2018 1:06 PM CDT [facility] Comment: ABC, CT(ASCP) CT screening location: [place] [address] Administration [place] [id number] REVIEW [employer]BER: SEE COMMENT 07/06/2019 1:06 PM CDT [facility] Comment: MMW, CT(ASCP) CT screening location: [place] [address] Administration [place] Figueroa146 EXPLANATORY NOTE SEE COMMENT [...] CDT Performing Organization Information: Site ID: Name: [id number] Address: [facility] Administration [place] [address] Director: Silvia Stewart us Pari Salazar QI SPECIALIST PATHOLOGY/CYTOLOGY ORDERABLES Final Result [facility] [phone] from Last 3 Months or Most Recently Relevant to Health Maintenance Insurance [place] Member Subscriber Plan / Payer (Ef fective 2012-Present) Name:Kathrin Patricio R Relation to Subscriber:Self Name:Kathrin Patricio Payer ID:[id number] Group ID:Not on file Type:Medicaid Address: [address] DUAL COMPLETE [facility] PPO D-SNP PUBLIC HELMET COVERER FLAVIA BOSWELL C/O [address] DUAL COMPLETE [facility] PPO D-SNP [place] Care Teams Leather Belt Loop Cutter Relationship Specialty Start Date End Date Meseret Tejeda DO [address] [place] [address] PCP - General Family Practice 09/01/13
--- OUTSIDE RECORDS SUMMARY | 2025-09-20 16:20 | XMS_ITS | Clinical Summary ---
Author Organization [facility] Address [address] [place] [address] Care Team Providers Care Form Setter Steel Forms Name Role Phone Meseret Tejeda Primary Care [...] mg) by mouth daily. 180 Capsule 4 022 Active MULTIVITAMIN ORAL Take by mouth. [...] or Indigestion. 90 Tablet 1 024 Active bismuth subsalicylate (Pepto-BismoL) 262 mg/15 mL suspension Take 30 mL by mouth every 6 hours as needed for Indigestion. 300 mL 1 024 Active pantoprazole (PROTONIX) 40 mg Tablet, Delayed Release (E.C.) TAKE ONE TABLET BY MOUTH EVERY DAY 30 MINUTES BEFORE BREAKFAST FOR GERD 90 Tablet 3 025 Active albuterol sulfate HFA 90 mcg/actuation aerosol inhaler USE TWO INHALATIONS EVERY 6 HOURS NEEDED FOR SHORTNESS OF BREATH OR wheezing 8.5 Gram 6 025 Active lactobacillus acidophilus (Acidophilus) Tablet, Chewable CHEW ONE TABLET BY MOUTH TWICE DAILY 180 Tablet 3 025 Active paliperidone palmitate (INVEGA SUSTENNA) 234 mg/1.5 mL Syringe Inject 234 mg by intramuscular injection one time only. Active ibuprofen (MOTRIN) 200 mg tablet Take 1-2 Tablets by mouth every 4 hours as needed for Pain, Moderate or Temperature. Active haloperidoL (HALDOL) 10 mg tablet Take 10 mg by mouth 2 times daily. For psychosis/agitat ion/voices--give n by Dr Kee Active benztropine (COGENTIN) 1 mg tablet Take 1 mg by mouth 2 times daily. For parkinson like movements--given by Dr Kee Active docusate sodium (COLACE) 100 mg capsule TAKE ONE CAPSULE BY MOUTH TWICE DAILY FOR CONSTIPATION 180 Capsule 4 025 Active baclofen (LIORESAL) 20 mg tabletIndication s:Other muscle spasm,Cervicalgi a TAKE ONE TABLET BY MOUTH THREE TIMES DAILY (EVERY 8 HOURS) NEEDED FOR MUSCLE SPASMS 90 Tablet 1 025 Active polyethylene glycol 3350 (MIRALAX) 17 gram/dose Powder dissolve ONE SCOOPFUL (17 grams) in EIGHT ounces of fluid and drink entire liquid EVERY DAY FOR CONSTIPATION 510 Gram 5 Active diclofenac sodium (VOLTAREN) 75 mg Tablet, Delayed Release (E.C.)Indication s:Chronic bilateral low back pain with bilateral sciatica TAKE 1 TABLET BY MOUTH TWICE DAILY 60 Tablet 6 025 Active traMADol (ULTRAM) 50 mg tabletIndication s:Cervicalgia TAKE 2 TABLETS BY MOUTH TWICE DAILY NEEDED FOR PAIN 120 Tablet 1 025 Active baclofen (LIORESAL) 20 mg tabletIndication s:Other muscle spasm,Cervicalgi a TAKE ONE TABLET BY MOUTH THREE TIMES DAILY (EVERY 8 HOURS) NEEDED FOR MUSCLE SPASMS 90 Tablet 1 024 2024 Discontinued diclofenac sodium (VOLTAREN) 75 mg Tablet, Delayed Release (E.C.)Indication s:Chronic bilateral low back pain with bilateral sciatica TAKE ONE TABLET BY MOUTH TWICE DAILY 60 Tablet 6 025 2024 Discontinued polyethylene glycol 3350 (MIRALAX) 17 gram/dose Powder dissolve ONE SCOOPFUL (17 grams) in EIGHT ounces of fluid and drink entire liquid EVERY DAY FOR CONSTIPATION 510 Gram 5 025 2024 Discontinued traMADol (ULTRAM) 50 mg tabletIndication s:Cervicalgia TAKE 2 TABLETS BY MOUTH TWICE DAILY as needed FOR pain 120 Tablet 1 025 2024 Discontinued Active Problems Problem Noted Date Diagnosed Date Mixed hyperlipidemia 07/23/2018 Gastroesophageal reflux disease without esophagi tis 08/01/2017 Generalized anxiety disorder 08/01/2017 Cigarette dependence 06/24/2015 Paranoid schizophrenia 09/01/2013 Resolved Problems Problem Noted Date Diagnosed Date Resolved Date Fibromyalgia 06/26/2015 05/23/2017 Encounters Date Type Department Care Team Description 09/10/2025 [facility] [address] [place] [address] Meseret Tejeda, DO Cervicalgia 09/09/2025 [facility] [address] [place] [address] Meseret Tejeda, DO Chronic bilateral low back pain with bilateral sciatica 09/08/2025 External Device Data ST[facility] ABSTRACTION Provider, Abstract 09/05/2025 [facility] [address] [place] [address] Meseret Tejeda, DO Other muscle spasm; Cervicalgia 08/13/2025 [facility] [address] [place] [address] Meseret Tejeda, DO Chronic bilateral low back pain with bilateral sciatica 08/11/2025 External Device Data STL ABSTRACTION Provider, Abstract 08/06/2025 [facility] [address] [place] [address] Meseret Tejeda, DO Cervicalgia 08/05/2025 External Device Data STL ABSTRACTION Provider, Abstract 08/05/2025 External Device Data ST[facility] ABSTRACTION Provider, Abstract 07/28/2025 External Device Data ST[facility] ABSTRACTION Provider, Abstract 07/15/2025 [facility] [address] [place] [address] Meseret Tejeda, 07/01/2025 Orders Only [facility] [address] [place] [address] Radha Vergara, ATMOSPHERIC TECHNICIAN Paranoid schizophrenia ([facility]/HCC) 06/30/2025 Results Follow-Up [facility] [address] [place] [address] January, SLEEVER LIPID PANEL, COMPREHENSIVE METABOLIC PANEL, CBC WITH DIFFERENTIAL, Additional followed-up results: 2 06/29/2025 9:00 AM CDT Office Visit [facility] [address] [place] [address] January, SLEEVER Paranoid schizophrenia (CMS/HCC) (Primary Dx); Gastroesophageal reflux disease without esophagitis; Chronic bilateral low back pain with bilateral sciatica; Mixed hyperlipidemia; Hyponatremia; Generalized anxiety disorder 06/24/2025 Refill [facility] [address] [place] [address] Meseret Tejeda DO Cervicalgia from Last 3 Months Immunizations [...] on file Legal Sex Female 6:21 AM TOTER Gender Identity Not on file Sexual Orientation [...] Description 12/28/2025 1:00 PM CDT Office Visit [facility] [address] [place] [address] [facility] [address] [place] [address] Health Maintenance Due Date Last Done Comments DTAP/TDAP/TD VACCINES (6 - Tdap) 1996 03/15/1990, 05/21/1987, 1985, Additional history exists HEPATITIS B VACCINES (1 of 3 - 19+ 3-dose series) 2004 PAP SMEAR 06/30/2022 06/30/2019, 06/30/2019 CERVICAL CANCER SCREENING 06/30/2024 HPV/Cotest (21-29) 06/30/2024 06/30/2019 HPV/Cotest (30-65) 06/30/2024 06/30/2019 Medicare Advantage (NE) Preventative Visit/Annual Wellness Visit 10/08/2024 08/06/2024, 09/20/2023, 11/29/2021, Additional history exists Pre-Diabetes and Diabetes Screening 04/21/2025 04/21/2022, 12/22/2020, 05/23/2019, Additional history exists INFLUENZA VACCINE (#1) 2025 , 08/02/2023, 07/23/2023, Additional history exists COVID-19 Vaccine (2024-2 6 season) 2025 07/25/2024, 10/13/2022, 03/24/2022, Additional history exists BREAST CANCER SCREENING 05/07/2026 05/07/20, 03/30/2025, 07/01/2020, Additional history exists HPV VACCINES (No Doses Required) Completed Procedures Procedure Name Priority Date/Time Associated Diagnosis Comments POC URINALYSIS DIPSTICK AUTOMATED Routine 06/29/2025 10:06 AM CDT Paranoid schizophrenia (CMS/HCC) TSH Routine 06/29/2025 10:02 AM CDT CBC WITH DIFFERENTIAL Routine 06/29/2025 10:02 AM CDT COMPREHENSIVE METABOLIC PANEL Routine 06/29/2025 10:02 AM CDT LIPID PANEL Routine 06/29/2025 10:02 AM CDT MAMMO DIAGNOSTIC UNI LEFT W OR WO CAD Routine 05/07/2025 Abnormal mammogram of left breast HEMOGLOBIN A1C Routine 04/21/2022 CERV/VAG CYTO SCREEN PAP RLFX HPV Routine 06/30/2019 4:39 PM CDT from Last 3 Months or Most Recently Relevant to Health Maintenance Results * POC URINALYSIS DIPSTICK AUTOMATED (06/29/2025 10:06 AM CDT) COLOR UA POC Yellow Pale to Dark Yellow [facility] CLARITY UA POC Clear Clear, Other ME [facility] GLUCOSE UA POC Negative Negative, Normal [facility] BILIRUBIN UA POC Negative Negative [facility] KETONES UA POC Negative Negative [facility] SPECIFIC GRAVITY UA POC 1.015 1.000 - 1.030 [facility] BLOOD UA POC Negative Negative [facility] C LINIC [facility] PH UA POC 7.5 5.0 - 8.0 [facility] CLIN IC [facility] PROTEIN UA POC Negative Negative [facility] UROBILINOGEN UA POC 0.2 <2.0 mg/dL [facility] NITRITE UA POC Negative Negative [facility] LEUKOCYTE ESTERASE UA POC Negative Negative [facility] KIT LOT NUMBER POC [phone] [facility] KIT EXP DATE POC [id number] [facility] Urine 06/29/2025 10:0 6 AM CDT January SLEEVER POINT OF CARE TESTING Final Resu lt [facility] CLIA# [id number] [address] [place] [address] * (ABNORMAL) CBC WITH DIFFERENTIAL (06/29/2025 10:02 [...] [facility] Comment: Test Performed at: [facility] [address] [place] [phone] Silvia Stewart MD Blood 06/29/2025 10:0 2 AM CDT 06/30/2025 3:42 AM CDT January SLEEVER HEMATOLOGY ORDERABLES Final Resu lt [facility] [phone] [facility] [address] * TSH (06/29/2025 10:02 AM CDT) TSH 1.29 mIU/L [facility] Comment: Reference Range > or = 20 Years 0.40-4.50 Ranges First trimester 0.26-2.66 Second trimester 0.55-2.73 Third trimester 0.43-2.91 Test Performed at: [facility] [address] [facility] [place] [address] Silvia Stewart MD Blood 06/29/2025 10:0 2 AM CDT 06/30/2025 3:42 AM CDT january [facility] CHEMISTRY ORDERABLES Final Resul t [facility] [phone] [facility] [address] [address] * (ABNORMAL) LIPID PANEL (06/29/2025 10:02 AM CDT) Pathologist [facility] CHOLESTEROL 218(H) <200 mg/dL [facility] [...] factors. LDL-C is now calculated using the Bill-Arreola calculation, which is a validated novel method providing better accuracy than the Friedewald equation in the estimation of LDL-C. Bill SS et al. GREGORIA. 2013;310(19): 2494-1024 (http://education.WegoWise.Worldrat/faq/TCZ776) CHOL/HDL RATIO 2.7 <5.0 (calc) [facility] NON-HDL CHOLESTEROL 138(H) <130 mg/dL (calc) [facility] Comment: For patients with diabetes plus 1 major ASCVD risk factor, treating to a non-HDL-C goal of <100 mg/dL (LDL-C of <70 mg/dL) is considered a therapeutic option. Test Performed at: [facility] [address] [address] Silvia Stewart MD Blood 06/29/2025 10:0 2 AM CDT 06/30/2025 3:42 AM CDT january [facility] CHEMISTRY ORDERABLES Final Resul t [facility] [phone] [facility] [place] [address] [facility] [place] [address] * (ABNORMAL) COMPREHENSIVE METABOLIC PANEL (06/29/2025 10:02 AM CDT) GLUCOSE 68 65 - 99 mg/dL [facility] Comment: Fasting reference interval BUN 8 7 - 25 mg/dL [facility] CREATININE 0.73 0.50 - 0.99 mg/dL [facility] GFR 107 > OR = 60 mL/min/1. 73m2 [facility] BUN/CREAT RATIO SEE NOTE: 6 - (calc) [facility] Comment: Not Reported: [...] [facility] Comment: Test Performed at: [facility] [address] [facility] [place] [address] Silvia Stewart MD Blood 06/29/2025 10:0 2 AM CDT 06/30/2025 3:42 AM CDT January Villator[facility] SLEEVER CHEMISTRY ORDERABLES Final Resul t [facility] [phone] [employer] [employer] [address] [address] * MAMMO DIAGNOSTIC UNI LEFT W OR WO CAD (05/07/2025) Anatomical Region Laterality Modality Breast Left Mammography us Meseret L Ileana DO MAMMO ORDERABLES Final Resu lt * HEMOGLOBIN A1C (04/21/2022) Blood Meseret L Ileana DO CHEMISTRY ORDERABLES Final Result Performing Organization Address City/[facility]/ZIP Co de Phone Number [facility] CLIA# [id number] [address] [place] [address] * CERV/VAG CYTO SCREEN PAP RLFX HPV (06/30/2019 4:39 PM CDT) CLINICAL INFORMATION Oral contraceptives Routine exam Other high risk factor, specify 07/06/2019 1:06 PM CDT [facility] LAST MENSTRUAL PERIOD [id number]/06/2019 1:06 PM CDT [facility] PREV PAP: INFORMATION NOT PROVIDED 07/06/2019 1:06 [...] 1:06 PM CDT [facility] COMMENT This Pap test has been evaluated with computer assisted technology. 07/06/2019 1:06 PM CDT [facility] QUALITATIVE FIELD PROJECT MANAGER: SEE COMMENT 2018 1:06 PM CDT [facility] Comment: ABC, CT(ASCP) CT screening location: [place] [address] [address] [address] REVIEW QUALITATIVE FIELD PROJECT MANAGER: SEE COMMENT 07/06/2019 1:06 PM CDT [facility] Comment: MMW, CT(ASCP) CT screening location: [place] [address] [address] [place] [place] [address] EXPLANATORY NOTE SEE COMMENT 019 1:06 PM CDT [facility] Comment: EXPLANATORY NOTE: The Pap is [...] PM CDT 07/02/2019 9:17 AM CDT Narrative [facility] - 07/06/2019 1:06 PM CDT Performing Organization Information: Site ID: Name: [employer] [facility] Address: [address] [place] [id number] Director: Silvia Stewart Pari Salazar SLEEVER PATHOLOGY/CYTOLOGY ORDERABLES Final Result [facility] [phone] [facility] from Last 3 Months or Most Recently Relevant to Health Maintenance Insurance C/O [address] [address] [place]ICAID [place] D[place] COMPLETE PPO DSNP [facility] [id number] Care Teams Form Setter Steel Forms Relationship Specialty Start Date End Date Meseret Tejeda DO [address] [place] [id number] PCP - General Family Practice 09/01/13
--- NOTE | 2025-09-20 16:23 | PC.NURSE ---
ATTEMPTED TO CALL [facility]. NO ANSWER FROM EITHER DEMOCRAT.
--- NOTE | 2025-09-20 16:30 | W.ED.EXTPRO ---
HPI - Extremity Problem General: Chief complaint: Extremity Problem,Nontraumatic Stated complaint: MHE Time Seen by Provider: 09/20/25 16:12 Source: patient Mode of arrival: ambulatory Limitations: no limitations History of Present Illness: Patient is a 40-year-old female here from [facility] reportedly for right leg pain. Patient states pain starts in the right side of her back and radiates down her right leg and sometimes feels like the extremity is numb. She has not noticed any color or temperature changes to the leg. No swelling. Patient for some reason is scared that [facility] sent her here for mental health reasons and to be admitted to [facility]. She tells me she does not want to go to [facility]. She states she is not suicidal or homicidal. She is not exhibiting symptoms of psychosis currently. She does have a history of bipolar schizophrenia and sometimes hears voices with these but states these are at baseline currently. We have tried to contact Rashawn and her guardian multiple times without success. MD Complaint: extremity pain Onset (ago): month(s) Pain Consistency: constant Location: right and lower extremity Radiation: none Relieving factors: nothing Exacerbating factors: nothing Associated symptoms: Deny chest pain, fever(s) or rash Related Data Home Medications ?Medication ?Instructions ?Recorded ?Confirmed acetaminophen 500 mg tablet 1,000 mg PO Q4H PRN fever or pain 04/24/22 09/09/25 (Tylenol Extra Strength) Bacillus coagulans 400 million 1 cell PO BID 05/22/23 09/09/25 cell chewable tablet (Digestive Advantage Kid Probiotic-Prebio) baclofen 20 mg tablet 20 mg PO TID PRN Pain 05/22/23 09/09/25 diclofenac sodium 75 mg 75 mg PO BID 01/23/24 09/09/25 tablet,delayed release albuterol 90 mcg/actuation aerosol 90 mcg inhalation .Q6hrs PRN 08/31/25 09/09/25 inhaler biotine mouth PO .PRN 08/31/25 09/09/25 bismuth subsalicylate 525 mg/15 mL 525 mg PO Q1H PRN 08/31/25 09/09/25 oral suspension (Pepto-Bismol Max St) docusate sodium 100 mg capsule 100 mg PO BID 08/31/25 09/09/25 ibuprofen 200 mg tablet 400 mg PO Q4H PRN 08/31/25 09/09/25 menthol 2.5 mg lozenges (Cough mg mucous membrane .PRN 08/31/25 09/09/25 Drops) nicotine (polacrilex) 2 mg gum 2 mg buccal Q2H 08/31/25 09/09/25 pantoprazole 40 mg tablet,delayed 40 mg PO DAILY 08/31/25 09/09/25 release polyethylene glycol 3350 17 4 g PO DAILY 08/31/25 09/09/25 gram/dose oral powder tea tree oil 100 % topical ea topical DAILY 08/31/25 09/09/25 tramadol 50 mg tablet 100 mg PO BID PRN 08/31/25 09/09/25 Previous Rx's ?Medication ?Instructions ?Recorded benztropine 1 mg tablet 1 mg PO BID #60 tabs 03/10/25 carbamazepine 200 mg tablet 300 mg (1.5 x 200 mg) PO BID #90 03/10/25 (Tegretol) tabs mirtazapine 7.5 mg tablet 7.5 mg PO BEDTIME #30 tabs 03/10/25 paliperidone 6 mg tablet,extended 6 mg PO QAM #30 tabs 03/10/25 release 24 hr risperidone 2 mg tablet 2 mg PO BID #60 tabs 03/10/25 trazodone 50 mg tablet 50 mg PO BEDTIME Sleep #30 tabs 03/10/25 duloxetine 60 mg capsule,delayed 120 mg (2 x 60 mg) PO DAILY #60 03/26/25 release caps hydroxyzine HCl 50 mg tablet 50 mg PO TID PRN anxiety #90 tabs 04/14/25 norethindrone (contraceptive) 0.35 See Rx Instructions .Route 07/15/25 mg tablet .COMPLEX #84 tabs paliperidone palmitate 234 mg/1.5 234 mg (1.5 mL) IM ONCE 3 weeks 09/11/25 mL intramuscular syringe (Invega #1.5 mL Sustenna) haloperidol 10 mg tablet 10 mg PO BID #60 tabs 09/15/25 Allergies Allergy/AdvReac Type Severity Reaction Status Date / Time codeine Allergy Unknown Verified 09/09/25 12:44 Sulfa (Sulfonamide Allergy algy-rash Verified 09/09/25 12:44 Antibiotics) Review of Systems Const: Denies: fever(s), chills, body aches, fatigue or malaise Card: Denies: chest pain Resp: Denies: dyspnea Musc: Reports: back pain and extremity pain; Denies: neck pain, extremity swelling, joint pain, joint swelling or joint redness Skin/Breast: Denies: rash or erythema Neuro: Reports: numbness in extremities and sensory changes; Denies: headache(s), weakness in extremities, lack of coordination or difficulty walking Psych: Denies: hopelessness, suicidal ideation or homicidal ideation PFS ED PFSH: Medical History Psychiatric care Schizoaffective disorder, depressive type No pertinent past medical history neghx: htn, dm, thyroid, dvt/pe PCP: Dr. Meseret Tejeda Paranoid schizophrenia managed by Dr. Kee -- [facility] Nicotine dependence, cigarettes, uncomplicated Panic disorder without agoraphobia managed by Dr. Kee-- [facility] HPV in female Insomnia Tachycardia Anxiety and depression Surgical History History of foot operation 1993-- treatment of plantar wart Family History Family/Other Thyroid disease maternal Denies family history of Colon cancer Ovarian cancer Prostate cancer Diabetes Heart disease Hyperlipidemia Breast cancer Bleeding disorder Hypertension Uterine cancer Stroke Social History Smoking and tobacco/nicotine status: current every day tobacco/nicotine user cigarettes Packs smoked per day: 1 Years cigarettes smoked: 20 Physical Exam Const: COMMON NORMALS: no acute distress, average body habitus, patient oriented x3, no limitations, healthy appearing, alert and well nourished GENERAL APPEARANCE: cooperative ORIENTATION/CONSCIOUSNESS: Yes awake, Yes oriented to person, Yes oriented to place and Yes oriented to time Resp: COMMON NORMALS: normal respiratory effort and clear to auscultation bilaterally AUSCULTATION: clear to auscultation bilaterally Cardio: COMMON NORMALS: regular rate and regular rhythm RATE: regular rate RHYTHM: regular rhythm : COMMON NORMALS: Yes no CVA tenderness BLADDER/KIDNEY EXAM: Yes no CVA tenderness Back/Pelvis: COMMON NORMALS: no CVA tenderness, thoracic and lumbar spine normal to inspection, no thoracic nor lumbar tenderness, thoraco-lumbar ROM normal and straight leg raise negative bilaterally PELVIS: Yes buttocks normal and Yes sciatic notch tenderness on the right SACRUM: no tenderness COCCYX: no tenderness Extremity: COMMON NORMALS: normal to inspection, full ROM, capillary refill normal, no joint enlargement, no clubbing, cyanosis or edema, no calf tenderness and no pedal edema GENERAL: Yes normal exam except as noted Neuro: CLOVER COMA SCALE: document GCS findings Mccammon coma scale eye opening: Spontaneous Mccammon coma scale verbal response: Orientated Mccammon coma scale motor response: Obey commands Mccammon coma scale total score: 15 COMMON NORMALS: patient oriented x3, moves all extremities, no focal motor deficits, no sensory deficits noted and gait normal SENSORIUM/ORIENTATION: Yes alert, Yes oriented to person, Yes oriented to place and Yes oriented to time MOTOR EXAM: 5/5 motor strength present throughout Psych: COMMON NORMALS: mental status grossly normal, Normal thought process present, cooperative, normal affect, speech normal, activity/motor behavior normal, denies homicidal ideation and denies suicidal ideation APPEARANCE: Yes grossly normal ATTITUDE: Yes calm ACTIVITY/MOTOR BEHAVIOR: Yes appropriate eye contact SPEECH: Yes normal speech MOOD & AFFECT: Yes euthymic mood THOUGHT PROCESS: Normal thought process present THOUGHT CONTENT: Yes Normal thought content present ATTENTION/CONCENTRATION: Yes attention grossly intact and Yes concentration grossly intact MEMORY/COGNITION: Yes memory grossly intact and Yes cognition grossly intact INSIGHT: Fair insight present (Psych) JUDGEMENT: Fair judgement present (Psych) Skin: COMMON NORMALS: no rashes or lesions noted GENERAL SKIN EXAM: no rashes or lesions noted Course Vital Signs: Vital signs: Vital Signs Temperature 97.5 F L 09/20/25 16:17 Pulse Rate 79 09/20/25 16:17 Respiratory Rate 16 09/20/25 16:17 Blood Pressure 130/87 09/20/25 16:17 Pulse Oximetry 96 09/20/25 16:17 Oxygen Delivery Me thod Room Air 09/20/25 16:17 MDM - Extremity (Nontraumatic) Medical Decision Making Patient is a 40 year old female dropped off at the front of the emergency department from [facility]. She states she wanted to be seen for her right leg pain. States pain has been present for several months. After history/physical exam this is most consistent with R sided sciatica. She already takes muscle relaxers, has prn Ibuprofen on her DEC, and Tramadol for pain. I will give her instructions on stretching exercises she can to and recommend she reach out to PCP. There was some concern initially that she was sent her for mental health reasons although she states she is not suicidal or homicidal. She does not appear psychotic when speaking with her. She does have a history of bipolar schizophrenia and does see a psychiatrist. She does not want admitted to [facility]. We have tried to contact Rashawn and her legal guardian multiple times without success. Ultimately I do not see any life threatening medical emergency on today's visit and she will be discharged. Medical Records I reviewed the patient's medical records. No radiology studies performed this visit Discharge Plan Discharge Patient Disposition: Home Clinical Impression: Right sided sciatica Condition: Stable Prescriptions: No Action nicotine (polacrilex) 2 mg gum 2 mg buccal Q2H tramadol 50 mg tablet 100 mg PO BID PRN ibuprofen 200 mg tablet 400 mg PO Q4H PRN albuterol 90 mcg/actuation aerosol 90 mcg inhalation .Q6hrs PRN Pepto-Bismol Max St 525 mg/15 mL suspension 525 mg PO Q1H PRN Rx Instructions: do not exceed 8 doses in a 24 hour period tea tree oil 100 % oil topical DAILY Cough Drops 2.5 mg lozenge mucous membrane .PRN biotine mouth PO .PRN pantoprazole 40 mg tablet,delayed release (DR/EC) 40 mg PO DAILY docusate sodium 100 mg capsule 100 mg PO BID polyethylene glycol 3350 17 gram/dose powder 4 g PO DAILY acetaminophen [Tylenol Extra Strength] 500 mg tablet 1,000 mg PO Q4H PRN (Reason: fever or pain) baclofen 20 mg tablet 20 mg PO TID PRN (Reason: Pain) Digestive Advantag Kid Pro-Pre 400 million cell tablet,chewable 1 cell PO BID diclofenac sodium 75 mg tablet,delayed release (DR/EC) 75 mg PO BID benztropine 1 mg tablet 1 mg PO BID Qty: 60 11RF carbamazepine [Tegretol] 200 mg tablet 300 mg PO BID Qty: 90 11RF mirtazapine 7.5 mg tablet 7.5 mg PO BEDTIME Qty: 30 11RF risperidone 2 mg tablet 2 mg PO BID Qty: 60 11RF trazodone 50 mg tablet 50 mg PO BEDTIME Qty: 30 11RF paliperidone 6 mg tablet extended release 24hr 6 mg PO QAM Qty: 30 11RF duloxetine 60 mg capsule,delayed release(DR/EC) 120 mg PO DAILY Qty: 60 11RF hydroxyzine HCl 50 mg tablet 50 mg PO TID PRN (Reason: anxiety) Qty: 90 11RF norethindrone (contraceptive) 0.35 mg tablet See Rx Instructions .ROUTE .COMPLEX Qty: 84 1RF Dose Instruction: TAKE ONE TABLET BY MOUTH EVERY DAY FOR CONTROL Rx Instructions: TAKE ONE TABLET BY MOUTH EVERY DAY FOR CONTROL Invega Sustenna 234 mg/1.5 mL syringe 234 mg IM ONCE 21 Days Qty: 1.5 11RF haloperidol 10 mg tablet 10 mg PO BID Qty: 60 11RF Discharge Orders: Discharge ED (Routine); Ordered 09/20/25 Ordered By: Kathryn Bailey Referrals: Meseret Tejeda DO [Primary Care Provider, Family Practice] Patient Instructions: Sciatica (ED), Piriformis Syndrome (ED), Lower Back Exercises (ED), Patient Portal & Levi Instructions Activity Restrictions/Additional Instructions: As we discussed, you may continue your muscle relaxer as well as anti-inflammatories and your tramadol to help with discomfort. I have attached patient instructions on stretches you can do to help with symptoms. You may speak further to your primary care provider about any other treatments or interventions that may be helpful. Print Language: Kazakh Coding Level of Care Code ED Cash Office Worker for Randi Sethi
[2025-09-20 17:21] VITALS: BP 129/99; PULSE 89; O2SAT 95
== END 2025-09-20 17:31 | disposition home or self-care (01) ==
PROVIDERS: Emergency Provider Physician Assistant; PCP Family Medicine
DX: M54.31 Sciatica, right side (principal)
CPT/HCPCS: 99282